=== PATIENT | male | born 1985 | race African-American/Black ===

== ENCOUNTER 2019-09-02 12:13 | Inpatient (IN) | payer BC ==
[2019-09-02] MEDS ORDERED: LABETALOL 5 MG/ML VIAL MDV IVP STA ×3 (13:14→14:59)
[2019-09-02] MEDS ORDERED: SODIUM CHLORIDE 0.9% 1,000 ML IV SCH (13:15)
[2019-09-02] MEDS ORDERED: KETOROLAC 30 MG/ML 1 ML VIAL IVP STA (13:15)
[2019-09-02] MEDS ORDERED: SODIUM CHLORIDE 0.9% 1,000 ML IV ONE (13:15)
--- NOTE | 2019-09-02 13:17 | ED ---
Extremity Problem HPI <Yobani Tellez - Last Filed: 09/02/19 16:04> - General Source: patient, RN notes reviewed, old records reviewed Mode of arrival: ambulatory Limitations: no limitations <Nasrin Mayer - Last Filed: 09/02/19 16:13> - General Chief complaint: Extremity Problem,Nontraumatic Stated complaint: foot pain/swelling Time Seen by Provider: 09/02/19 12:52 - History of Present Illness Initial comments: Patient is a 33-year-old -[place] male. He presents today with chief complaint of right foot pain. He reports it's mainly within the first metatarsal area. He reports no trauma to the foot. Patient is also found to be hypertensive on triage. Patient relates that he has not taken his blood pressure medications in over 4 months. He stated that his blood pressure medications just made him feel tired and fatigue and worse and felt that he did not need to take them anymore. He has not followed with his primary care doctor in quite some time. She denies any chest pain or shortness of breath. Patient denies any headache. Patient reports that he has no known history of kidney disease. He reports no changes in urination. (Nasrin Mayer) - Related Data Home Medications Medication Instructions Recorded Confirmed No Known Home Medications 09/02/19 09/02/19 Allergies Allergy/AdvReac Type Severity Reaction Status Date / Time No Known Allergies Allergy Verified 09/02/19 15:48 Review of Systems ROS Other: All systems not noted in ROS Statement are negative. <Yobani Tellez - Last Filed: 09/02/19 16:04> ROS Other: All systems not noted in ROS Statement are negative. <Nasrin Mayer - Last Filed: 09/02/19 16:13> ROS Statement: Those systems with pertinent positive or pertinent negative responses have been documented in the HPI. Past Medical History Past Medical History: Hypertension History of Any Multi-Drug Resistant Organisms: None Reported Past Surgical History: No Surgical Hx Reported Smoking Status: Never smoker Past Alcohol Use History: Occasional Past Drug Use History: None Reported <Nasrin Mayer - Last Filed: 09/02/19 16:13> General Exam Limitations: no limitations General appearance: alert, in no apparent distress Head exam: Present: atraumatic, normocephalic, normal inspection Eye exam: Present: normal appearance, PERRL, EOMI. Absent: scleral icterus, conjunctival injection, periorbital swelling ENT exam: Present: normal exam, mucous membranes moist Neck exam: Present: normal inspection. Absent: tenderness, meningismus, lymphadenopathy Respiratory exam: Present: normal lung sounds bilaterally. Absent: respiratory distress, wheezes, rales, rhonchi, stridor Cardiovascular Exam: Present: regular rate, normal rhythm, normal heart sounds. Absent: systolic murmur, diastolic murmur, rubs, gallop, clicks GI/Abdominal exam: Present: soft, normal bowel sounds. Absent: distended, tenderness, guarding, rebound, rigid Extremities exam: Present: normal inspection, full ROM, normal capillary refill. Absent: tenderness, pedal edema, joint swelling, calf tenderness Right Lower Leg exam: Present: normal inspection, full ROM Ankle exam: Present: normal inspection, full ROM Foot/Toe exam: Present: normal inspection, full ROM, tenderness (Patient has some tenderness and warmth to the right first distal MTP.) Neurovascular tendon exam: Present: no vascular compromise Gait: observed and normal Back exam: Present: normal inspection Neurological exam: Present: alert, oriented X3, CN II-XII intact Psychiatric exam: Present: normal affect, normal mood Skin exam: Present: warm, dry, intact, normal color. Absent: rash <Nasrin Mayer - Last Filed: 09/02/19 16:13> - General Exam Comments Initial Comments: 33-year-old male. (Nasrin Mayer) Course Vital Signs 09/02/19 09/02/19 09/02/19 12:26 14:18 14:22 Temperature 98.1 F Pulse Rate 77 90 82 Respiratory 18 18 16 Rate Blood Pressure 223/148 202/131 202/131 O2 Sat by Pulse 97 98 100 Oximetry 09/02/19 09/02/19 09/02/19 14:30 14:40 14:50 Temperature Pulse Rate 78 71 68 Respiratory 17 20 22 Rate Blood Pressure 204/124 193/136 193/136 O2 Sat by Pulse 99 Oximetry 09/02/19 09/02/19 09/02/19 15:00 15:13 15:30 Temperature Pulse Rate 68 70 66 Respiratory 16 16 Rate Blood Pressure 193/136 182/138 179/122 O2 Sat by Pulse Oximetry Medical Decision Making - Lab Data Result diagrams: 09/02/19 13:40 09/02/19 13:40 <Yobani Tellez - Last Filed: 09/02/19 16:04> - Lab Data Result diagrams: 09/02/19 13:40 09/02/19 13:40 - Radiology Data Radiology results: report reviewed <Nasrin Mayer - Last Filed: 09/02/19 16:13> - Medical Decision Making Patient reevaluated by myself, Dr. Tellez. Patient resting comfortably in bed. Patient complains of right first metatarsal discomfort started yesterday and worsened throughout the night. Discomfort is greatly increased with movement. Patient has noticed some swelling and there is swelling noticed on exam. No color change. Radial and dorsalis pedis pulses 2/4 bilaterally. Patient denies any chest discomfort or dyspnea. Case was discussed in detail with Dr. laguna who will admit. He does not want any heparin secondary to hypertension. He does request ICU admission and consult for cardiology and ICU. Case was discussed with Dr. Akins who will consult. He recommended continued current treatment with antihypertensives. He does not feel heparin was necessary at this time. Dr. Garcia has been paged. Case was also discussed with Dr. Garcia, who will consult. He is agreeable with labetalol roseanna. (Yobani Tellez) Patient is a 33-year-old male, presents emergency department today for evaluation for chief complaint of right foot pain, nontraumatic. Some tender ness over the first MTP joint. Initial concern was for gout. He was found to be extremely hypertensive upon arrival. Blood pressures to 30s over 140s. He reports his been noncompliant with his blood pressure medication for over 4 months. He states he has no known history of kidney disease. He denies any symptoms related to the elevated blood pressure including chest pain shortness of breath or headache. At this time patient's was given IV fluids, lab work obtained. He was given initially 20 mg labetalol, continued to be hypertensive, was given 40 mg labetalol. Blood work is obtained shows evidence of elevated BUN and creatinine, concern for kidney disease. We have no previous kidney function test to evaluate. Urinalysis is positive for protein. Patient's EKG did show some left ventricular hypertrophy, ST antimanic consider lateral ischemia. No sign of ST elevation in the same. Patient EKG was shown to Dr. Tellez, he With not complaining of chest pain we did get a troponin. This was noted elevated 0.130. Chest x-ray shows evidence of cardiomegaly.. Likely troponin elevation is related to kidney disease. I informed Patient of all these findings. I discussed that this is related to gout but otherwise more concerning finding is the hypertensive emergency. Patient will be admitted at this time. Dr. Tellez dsicussed case with Dr. laguna. ([facility] - Lab Data Lab Results 09/02/19 09/02/19 09/02/19 Range/Units 13:40 13:40 13:40 WBC 7.5 (3.8-10.6) k/uL RBC 5.05 (4.30-5.90) m/uL Hgb 14.6 (13.0-17.5) gm/dL Hct 42.1 (39.0-53.0) % MCV 83.5 (80.0-100.0) fL MCH 28.9 (25.0-35.0) pg MCHC 34.6 (31.0-37.0) g/dL RDW 14.0 (11.5-15.5) % Plt Count 240 (150-450) k/uL Neutrophils % 71 % Lymphocytes % 16 % Monocytes % 6 % Eosinophils % 4 % Basophils % 1 % Neutrophils # 5.3 (1.3-7.7) k/uL Lymphocytes # 1.2 (1.0-4.8) k/uL Monocytes # 0.4 (0-1.0) k/uL Eosinophils # 0.3 (0-0.7) k/uL Basophils # 0.1 (0-0.2) k/uL PT 10.4 (9.0-12.0) sec INR 1.0 (<1.2) APTT 25.7 (22.0-30.0) sec Sodium 141 (137-145) mmol/L Potassium 3.6 (3.5-5.1) mmol/L Chloride 106 (98-107) mmol/L Carbon Dioxide 28 (22-30) mmol/L Anion Gap 7 mmol/L BUN 54 H (9-20) mg/dL Creatinine 4.20 H (0.66-1.25) mg/dL Est GFR (CKD-EPI)AfAm 20 (>60 ml/min/1.73 sqM) Est GFR (CKD-EPI)NonAf 18 (>60 ml/min/1.73 sqM) Glucose 102 H (74-99) mg/dL Uric Acid 11.8 H (3.5-8.5) mg/dL Calcium 9.1 (8.4-10.2) mg/dL Total Bilirubin 0.8 (0.2-1.3) mg/dL AST 23 (17-59) U/L ALT 25 (21-72) U/L Alkaline Phosphatase 70 (38-126) U/L Troponin I (0.000-0.034) ng/mL Total Protein 6.8 (6.3-8.2) g/dL Albumin 3.7 (3.5-5.0) g/dL Urine Color Urine Appearance (Clear) Urine pH (5.0-8.0) Ur Specific [place] (1.001-1.035) Urine Protein (Negative) Urine Glucose (UA) (Negative) Urine Ketones (Negative) Urine Blood (Negative) Urine Nitrite (Negative) Urine Bilirubin (Negative) Urine Urobilinogen (<2.0) mg/dL Ur Leukocyte Esterase (Negative) Urine RBC (0-5) /hpf Urine WBC (0-5) /hpf Ur Squamous Epith Cells (0-4) /hpf Urine Mucus (None) /hpf 09/02/19 09/02/19 Range/Units 13:40 14:10 WBC (3.8-10.6) k/uL RBC (4.30-5.90) m/uL Hgb (13.0-17.5) gm/dL Hct (39.0-53.0) % MCV (80.0-100.0) fL MCH (25.0-35.0) pg MCHC (31.0-37.0) g/dL RDW (11.5-15.5) % Plt Count (150-450) k/uL Neutrophils % % Lymphocytes % % Monocytes % % Eosinophils % % Basophils % % Neutrophils # (1.3-7.7) k/uL Lymphocytes # (1.0-4.8) k/uL Monocytes # (0-1.0) k/uL Eosinophils # (0-0.7) k/uL Basophils # (0-0.2) k/uL PT (9.0-12.0) sec INR (<1.2) APTT (22.0-30.0) sec Sodium (137-145) mmol/L Potassium (3.5-5.1) mmol/L Chloride (98-107) mmol/L Carbon Dioxide (22-30) mmol/L Anion Gap mmol/L BUN (9-20) mg/dL Creatinine (0.66-1.25) mg/dL Est GFR (CKD-EPI)AfAm (>60 ml/min/1.73 sqM) Est GFR (CKD-EPI)NonAf (>60 ml/min/1.73 sqM) Glucose (74-99) mg/dL Uric Acid (3.5-8.5) mg/dL Calcium (8.4-10.2) mg/dL Total Bilirubin (0.2-1.3) mg/dL AST (17-59) U/L ALT (21-72) U/L Alkaline Phosphatase (38-126) U/L Troponin I 0.103 H* (0.000-0.034) ng/mL Total Protein (6.3-8.2) g/dL Albumin (3.5-5.0) g/dL Urine Color Yellow Urine Appearance Clear (Clear) Urine pH 6.0 (5.0-8.0) Ur Specific [place] 1.016 (1.001-1.035) Urine Protein 3+ H (Negative) Urine Glucose (UA) Trace H (Negative) Urine Ketones Negative (Negative) Urine Blood Small H (Negative) Urine Nitrite Negative (Negative) Urine Bilirubin Negative (Negative) Urine Urobilinogen <2.0 (<2.0) mg/dL Ur Leukocyte Esterase Negative (Negative) Urine RBC 1 (0-5) /hpf Urine WBC 1 (0-5) /hpf Ur Squamous Epith Cells <1 (0-4) /hpf Urine Mucus Rare H (None) /hpf 09/02/19 15:03 EKG performed at 1407 shows sinus rhythm left axis deviation. Left ventricle hypertrophy with QRS widening. ST and T-wave abnormality, consider lateral ischemia. Prolonged QT. Abnormal EKG. Ventricular rate of 60 bpm. IL interval 200 ms. QS duration is 118 ms. QT QTc is 460/4 and 97 ms. (Nasrin Mayer) - Radiology Data EKG shows mild osteoarthritis to the first MP joint. Mild calcaneal spurring. No fracture. No evidence of inflammatory arthritis. Chest x-ray shows evidence of cardiomegaly. No definite acute lung disease. (Nasrin Mayer) Critical Care Time Critical Care Time: Yes Total Critical Care Time: 30 <Nasrin Mayer - Last Filed: 09/02/19 16:13> Critical Care Time: Greater than 30 minutes of critical care time was used managing patient's blood pressure, troponin lab results and repeat EKG and chest x-ray findings. Patient is an ICU admit. (Nasrin Mayer) Disposition <Yobani Tellez - Last Filed: 09/02/19 16:04> Is patient prescribed a controlled substance at d/c from ED?: No Time of Disposition: 16:12 <Nasrin Mayer - Last Filed: 09/02/19 16:13> Clinical Impression: Hypertensive emergency, Gout, Renal failure Disposition: ADMITTED IP TO THIS HOSP Condition: Critical Referrals: None,Stated [Primary Care Provider] - 1-2 days
[2019-09-02 13:53] LABS: Basophils # (A) 0.1 k/uL (0-0.2); Basophils % (A) 1 %; Eosinophils # (A) 0.3 k/uL (0-0.7); Eosinophils % (A) 4 %; HCT 42.1 % (39.0-53.0); HGB 14.6 gm/dL (13.0-17.5); Lymphocytes # (A) 1.2 k/uL (1.0-4.8); Lymphocytes % (A) 16 %; MCH 28.9 pg (25.0-35.0); MCHC 34.6 g/dL (31.0-37.0); MCV 83.5 fL (80.0-100.0); Mean Platelet Volume 7.7; Monocytes # (A) 0.4 k/uL (0-1.0); Monocytes % (A) 6 %; Neutrophils # (A) 5.3 k/uL (1.3-7.7); Neutrophils % (A) 71 %; Platelet Count 240 k/uL (150-450); RBC 5.05 m/uL (4.30-5.90); WBC 7.5 k/uL (3.8-10.6)
[2019-09-02 14:04] LABS: Partial Thromboplastin Time 25.7 sec (22.0-30.0); Prothrombin Time 10.4 sec (9.0-12.0)
[2019-09-02 14:06] LABS: Albumin 3.7 g/dL (3.5-5.0); Calcium 9.1 mg/dL (8.4-10.2); Potassium 3.6 mmol/L (3.5-5.1); Total Bilirubin 0.8 mg/dL (0.2-1.3); Total Protein 6.8 g/dL (6.3-8.2); Uric Acid 11.8 mg/dL (3.5-8.5)
--- NOTE | 2019-09-02 14:16 | XR ---
EXAMINATION TYPE: XR foot complete RT DATE OF EXAM: 09/02/2019 COMPARISON: NONE HISTORY: Foot pain TECHNIQUE: 3 views FINDINGS: There is some spurring at the first MP joint. I see no fracture nor dislocation. There are plantar and Achilles calcaneal spurs. IMPRESSION: Mild osteoarthritis at the first MP joint. Mild calcaneal spurring. No fracture. No evide nce of inflammatory arthritis.
[2019-09-02 14:17] LABS: Appearance,Urine Clear (Clear); Bilirubin,Urine Negative (Negative); Blood,Urine Small (Negative); Color,Urine Yellow; Glucose,Urine (UA) Trace (Negative); Ketones,Urine Negative (Negative); Leukocyte Esterase,Urine Negative (Negative); Mucus,Urine Rare /hpf; Nitrite,Urine Negative (Negative); Protein,Urine 3+ (Negative); RBC,Urine 1 /hpf (0-5); Specific Gravity,Urine 1.016 (1.001-1.035); Squamous Epithelial Cell,Urine <1 /hpf (0-4); Urobilinogen,Urine <2.0 mg/dL (<2.0)
--- NOTE | 2019-09-02 14:17 | XR ---
EXAMINATION TYPE: XR chest 2V DATE OF EXAM: 09/02/2019 COMPARISON: NONE HISTORY: Foot pain TECHNIQUE: Frontal and lateral views of the chest are obtained. FINDINGS: Heart is enlarged. There is slight increased lung markings. There is no overt heart failur e. There is no pleural effusion. There are no hilar masses. Bony thorax is intact. IMPRESSION: Cardiomegaly. No definite acute lung disease.
[2019-09-02] MEDS ORDERED: hydrALAZINE HCL 20 MG/ML 1 ML VIAL IVP STA (15:55)
[2019-09-02] MEDS ORDERED: LABETALOL 100 MG in SODIUM CHLORIDE 0.9% 80 ML IV ONE (16:02)
[2019-09-02] MEDS ORDERED: NALOXONE 0.4 MG/ML 1 ML VIAL IV PRN (16:13)
[2019-09-02] MEDS ORDERED: hydrALAZINE HCL 50 MG TAB PO PRN (16:41)
[2019-09-02] MEDS ORDERED: ACETAMINOPHEN TAB 325 MG TAB PO PRN (16:43)
--- NOTE | 2019-09-02 16:53 | P.HPIM ---
History of Present Illness 33-year-old pleasant male came in with complains of pain in the left foot area and the first metatarsal area found to have osteo-arthritis of that area. Patient will be started on tramadol for that patient is being admitted with con cerns of hypertensive urgency although do not believe patient has evidence emergency patient is known hypertensive with on a kidney disease. 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 Kidney biopsy was obtained 2 years ago patient was also started on antidepressant medications which she stopped taking as they made him feel worse. Patient blood pressures very high in systolics of 200 and diastolics of about 110. 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 Patient does have minimally elevated troponin without any chest pain or significant ST-T wave changes on the EKG and this troponin elevation is secondary to renal failure and chronic kidney disease. I do not expect his kidney function to improve with IV fluids with and with concerns of elevated blood pressure on disc any IV fluids. Nephrology will be consult and will obtain medical records of his kidney biopsy. Patient will be monitored here will repeat 2 more sets of troponins. Denied any chest pain, denied any shortness of breath chest x-ray did not show any pulmonary edema my denied any abdominal pain denied any blurry vision denied any headache or confusion. Chest x-ray is consistent with cardiomegaly probably has hypertensive heart disease. Review of Systems REVIEW OF SYSTEMS: CONSTITUTIONAL: No fever, no malaise, no fatigue. HEENT: No recent visual problems or hearing problems. Denied any sore throat. CARDIOVASCULAR: No chest pain, orthopnea, PND, no palpitations, no syncope. PULMONARY: No shortness of breath, no cough, no hemoptysis. GASTROINTESTINAL: No diarrhea, no nausea, no vomiting, no abdominal pain. NEUROLOGICAL: No headaches, no weakness, no numbness. HEMATOLOGICAL: Denies any bleeding or petechiae. GENITOURINARY: Denies any burning micturition, frequency, or urgency. MUSCULOSKELETAL/RHEUMATOLOGICAL: As mentioned above ENDOCRINE: Denies any polyuria or polydipsia. The rest of the 14-point review of systems is negative. Past Medical History Past Medical History: Hypertension History of Any Multi-Drug Resistant Organisms: None Reported Past Surgical History: No Surgical Hx Reported Smoking Status: Never smoker Past Alcohol Use History: Occasional Past Drug Use History: None Reported Medications and Allergies Home Medications Medication Instructions Recorded Confirmed Type No Known Home Medications 09/02/19 09/02/19 History Allergies Allergy/AdvReac Type Severity Reaction Status Date / Time No Known Allergies Allergy Verified 09/02/19 15:48 Physical Exam Vitals: Vital Signs Temp Pulse Resp BP Pulse Ox 09/02/19 16:00 68 16 185/131 98 09/02/19 15:30 66 16 179/122 09/02/19 15:13 70 182/138 09/02/19 15:00 68 16 193/136 09/02/19 14:50 68 22 193/136 09/02/19 14:40 71 20 193/136 09/02/19 14:30 78 17 204/124 99 09/02/19 14:22 82 16 202/131 100 09/02/19 14:18 90 18 202/131 98 09/02/19 12:26 98.1 F 77 18 223/148 97 Intake and Output 09/02/19 09/02/19 09/02/19 06:59 14:59 22:59 Other: Weight 135.488 kg PHYSICAL EXAMINATION: GENERAL: The patient is alert and oriented x3, not in any acute distress. Obese HEENT: Pupils are round and equally reacting to light. EOMI. No scleral icterus. No conjunctival pallor. Normocephalic, atraumatic. No pharyngeal erythema. No thyromegaly. CARDIOVASCULAR: S1 and S2 present. No murmurs, rubs, or gallops. PULMONARY: Chest is clear to auscultation, no wheezing or crackles. ABDOMEN: Soft, nontender, nondistended, normoactive bowel sounds. No palpable organomegaly. MUSCULOSKELETAL: No joint swelling or deformity. EXTREMITIES: No cyanosis, clubbing, or pedal edema. NEUROLOGICAL: Gross neurological examination did not reveal any focal deficits. SKIN: No rashes. Results CBC & Chem 7: 09/02/19 13:40 09/02/19 13:40 Labs: Abnormal Lab Results - Last 24 Hours (Table) 09/02/19 09/02/19 09/02/19 Range/Units 13:40 13:40 14:10 BUN 54 H (9-20) mg/dL Creatinine 4.20 H (0.66-1.25) mg/dL Glucose 102 H (74-99) mg/dL Uric Acid 11.8 H (3.5-8.5) mg/dL Troponin I 0.103 H* (0.000-0.034) ng/mL Urine Protein 3+ H (Negative) Urine Glucose (UA) Trace H (Negative) Urine Blood Small H (Negative) Urine Mucus Rare H (None) /hpf Assessment and Plan Plan: Left foot pain secondary to osteoarthritis metatarsal first on the left side there is no evidence of gout clinically or radiologically. Uric acid level cannot be used for diagnosis of gouty attack. will be started on tramadol as I cannot use another an assays because of his kidney dysfunction -Accelerated hypertension uncontrolled blood pressure: This is chronic elevation of blood pressure patient doesn't have hypertensive emergency avoid IV antihypertensive medications to avoid sudden drops in blood pressure leading to stroke or worsening kidney function. Patient will be started on amlodipine, as needed hydralazine or labetalol only for the blood pressures greater than 200 / 1 10 systolics -Renal failure appears to have chronic kidney disease probably FSGS will obtain medical records from [facility] where he had biopsy of the kidney done. -Elevated troponin secondary to chronic kidney disease. No intervention is necessary we'll repeat 2 more sets of troponin make sure troponins are not going up -Obesity: Counseling was provided patient will be on cardiac diet DVT prophylaxis early ambulation
[2019-09-02 17:32] VITALS: BMI 38.3
[2019-09-02] MEDS: LABETALOL 100 MG TAB PO PRN (17:52)
[2019-09-02] MEDS: amLODIPine 10 MG TAB PO SCH (17:52)
[2019-09-03 06:59] LABS: Calcium 8.8 mg/dL (8.4-10.2); Potassium 2.9 mmol/L (3.5-5.1)
[2019-09-03] MEDS ORDERED: POTASSIUM CHLORIDE ER 20 MEQ TAB.ER PO STA ×2 (07:40→10:50)
[2019-09-03] MEDS: amLODIPine 10 MG TAB PO SCH (08:32)
--- NOTE | 2019-09-03 10:59 | P.NPCON ---
History of Present Illness - Reason for Consult acute renal failure - History of Present Illness Reason for consultation: Acute kidney injury History of present illness: Patient is a 33-year-old male seen in consultation for acute kidney injury. Patient's creatinine was 4.1 admission and is 3.83 today. Unclear as to what his baseline renal function is. Patient states 2 years ago he was told about kidney issues all he was at [facility]. He denies being on any replacement therapy in the past. Patient states he has long-standing history of high blood pressure stop taking his meds several months ago as he did not like the side effects. Patient's blood pressure this admission has been quite elevated and he is currently maintained on amlodipine along with as needed labetalol and hydralazine. He denies chest pain or shortness of breath. He denies edema. He denies hematuria or dysuria. No vomiting or diarrhea. No fever or chills. No headaches. No history of diabetes. Denies history of HIV or hepatitis. Denies use of illicit drugs. Patient initially presented with foot pain which seems to have improved. Denies family history of renal disease. Vital signs are stable. General: The patient appeared well nourished and normally developed. HEENT: Head exam is unremarkable. Neck is without jugular venous distension. LUNGS: Lungs are clear to auscultation and percussion. Breath sounds decreased. HEART: Rate and Rhythm are regular. First and second heart sounds normal. No murmurs, rubs or gallops. ABDOMEN: Abdominal exam reveals normal bowel sounds. Non-tender and non- distended. No evidence of peritonitis. EXTREMITITES: No clubbing, cyanosis, or edema. Past Medical History Past Medical History: Hypertension History of Any Multi-Drug Resistant Organisms: None Reported Past Surgical History: No Surgical Hx Reported Past Anesthesia/Blood Transfusion Reactions: No Reported Reaction Past Psychological History: No Psychological Hx Reported Smoking Status: Never smoker Past Alcohol Use History: Occasional Past Drug Use History: None Reported - Past Family History Mother Family Medical History: Diabetes Mellitus Father Family Medical History: Unable to Obtain Medications and Allergies Home Medications Medication Instructions Recorded Confirmed Type No Known Home Medications 09/02/19 09/02/19 History Allergies Allergy/AdvReac Type Severity Reaction Status Date / Time No Known Allergies Allergy Verified 09/02/19 15:48 Physical Exam Vitals: Vital Signs Temp Pulse Pulse Resp BP BP BP 09/03/19 08:33 98.2 F 70 16 187/122 09/03/19 05:04 171/106 09/03/19 03:51 97.6 F 77 18 189/127 196/128 09/03/19 03:30 70 18 09/02/19 23:19 70 18 09/02/19 23:14 98.0 F 70 18 166/102 09/02/19 20:00 98.2 F 67 18 160/101 09/02/19 18:14 98.3 F 74 16 191/129 09/02/19 17:18 98.3 F 74 16 191/124 09/02/19 16:30 65 24 189/135 09/02/19 16:00 68 16 185/131 09/02/19 15:30 66 16 179/122 09/02/19 15:13 70 182/138 09/02/19 15:00 68 16 193/136 09/02/19 14:50 68 22 193/136 09/02/19 14:40 71 20 193/136 09/02/19 14:30 78 17 204/124 09/02/19 14:22 82 16 202/131 09/02/19 14:18 90 18 202/131 09/02/19 12:26 98.1 F 77 18 223/148 Pulse Ox 09/03/19 08:33 98 09/03/19 05:04 09/03/19 03:51 97 09/03/19 03:30 09/02/19 23:19 09/02/19 23:14 97 09/02/19 20:00 99 09/02/19 18:14 99 09/02/19 17:18 99 09/02/19 16:30 09/02/19 16:00 98 09/02/19 15:30 09/02/19 15:13 09/02/19 15:00 09/02/19 14:50 09/02/19 14:40 09/02/19 14:30 99 09/02/19 14:22 100 09/02/19 14:18 98 09/02/19 12:26 97 Intake and Output 09/02/19 09/03/19 09/03/19 22:59 06:59 14:59 Intake Total 360 480 Output Total 600 Balance 360 -120 Intake: Oral 360 480 Output: Urine 600 Other: Voiding Method Toilet Toilet Toilet # Voids 2 1 Weight 135.6 kg 135.3 kg Results - Lab Results Most recent lab results Calcium 8.8 mg/dL (8.4-10.2) 09/03/19 06:27 09/02/19 13:40 09/03/19 06:27 Assessment and Plan Plan: Assessment: 1. Acute kidney injury mostly prerenal secondary to hemodynamic instability. Creatinine 4.2 on admission and is 3.83 today. Unknown baseline renal function. Rule out GN. Patient does have proteinuria on UA. 2. Accelerated hypertension secondary to noncompliance with medications. Check secondary causes in view of hypokalemia. 3. Hypokalemia. Rule out aldosterone excess. Being replaced. Plan: Replace potassium. 60 mEq today. Check urine potassium. Quantify proteinuria and check serologies. Add hydralazine 100 mg 3 times daily. Maintain amlodipine 10 mg once daily. Check a renin and aldosterone levels, plasma metanephrines. Check renal artery duplex ultrasound. No urgent need for renal replacement therapy at this time. Repeat electrolytes in the morning. Thank you for the consultation. I will continue to follow the patient with you during his hospital stay.
[2019-09-03] MEDS: hydrALAZINE HCL 50 MG TAB PO SCH ×3 (11:08→20:45)
--- NOTE | 2019-09-03 15:47 | P.PN ---
Subjective 33-year-old male was admitted for red acute renal failure and actually did hypertension patient does have proteinuria. Patient is undergoing workup for chronic kidney disease. [facility] to [facility] the [facility] Nephrology shaking urine and urine potassium quantifying, dysuria and obtaining a renal artery duplex ultrasound and may need a biopsy of the kidney. This patient's serum creatinine did improve to 3.5 from around 4.2. Patient is presently on amlodipine and hydralazine. 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 Objective - Vital Signs Vital signs: Vital Signs Temp 98.2 F 09/03/19 12:00 Pulse 80 09/03/19 12:00 Resp 18 09/03/19 12:00 BP 173/102 09/03/19 12:00 Pulse Ox 100 09/03/19 12:00 Intake & Output 09/02/19 09/03/19 09/03/19 18:59 06:59 18:59 Intake Total 360 702 Output Total 600 Balance 360 102 Weight 135.6 kg 135.3 kg Intake: Oral 360 702 Output: Urine 600 Other: Voiding Method Toilet Toilet # Voids 2 1 - Exam PHYSICAL EXAMINATION: GENERAL: The patient is alert and oriented x3, not in any acute distress. Obese HEENT: Pupils are round and equally reacting to light. EOMI. No scleral icterus. No conjunctival pallor. Normocephalic, atraumatic. No pharyngeal erythema. No thyromegaly. CARDIOVASCULAR: S1 and S2 present. No murmurs, rubs, or gallops. PULMONARY: Chest is clear to auscultation, no wheezing or crackles. ABDOMEN: Soft, nontender, nondistended, normoactive bowel sounds. No palpable organomegaly. MUSCULOSKELETAL: No joint swelling or deformity. EXTREMITIES: No cyanosis, clubbing, or pedal edema. NEUROLOGICAL: Gross neurological examination did not reveal any focal deficits. SKIN: No rashes. - Labs CBC & Chem 7: 09/02/19 13:40 09/03/19 06:27 Labs: Abnormal Lab Results - Last 24 Hours (Table) 09/02/19 09/03/19 09/03/19 Range/Units 19:52 01:41 06:27 Potassium 2.9 L (3.5-5.1) mmol/L BUN 48 H (9-20) mg/dL Creatinine 3.83 H (0.66-1.25) mg/dL Troponin I 0.090 H* 0.104 H* (0.000-0.034) ng/mL U Random Total Protein (<12) mg/dL 09/03/19 Range/Units 11:53 Potassium (3.5-5.1) mmol/L BUN (9-20) mg/dL Creatinine (0.66-1.25) mg/dL Troponin I (0.000-0.034) ng/mL U Random Total Protein 503 H (<12) mg/dL Assessment and Plan Plan: Left foot pain secondary to osteoarthritis metatarsal first on the left side there is no evidence of gout clinically or radiologically. -Accelerated hypertension uncontrolled blood pressure: It amlodipine and hydralazine -Renal failure possibly of chronic kidney disease although may have a competent of acute renal failure. Please Pertinent nephrology documentation for further details serum creatinine did improve further workup for renal failure as mentioned above, etiology of renal failure is unknown at this time -Elevated troponin secondary to chronic kidney disease. No intervention is necessary we'll repeat 2 more sets of troponin make sure troponins are not going up -Obesity: Counseling was provided patient will be on cardiac diet DVT prophylaxis early ambulation
[2019-09-03 17:09] LABS: Hepatitis B Core IgM Non-Reactive (Non-Reactive); Hepatitis B Surface Antigen Non-Reactive (Non-Reactive); Hepatitis C IgG Antibody Non-Reactive (Non-Reactive)
[2019-09-03 17:10] LABS: Hepatitis A Antibody IgM Non-Reactive (Non-Reactive)
[2019-09-03 17:22] LABS: Anti-DNA, DS unit <1.0 IU/mL; DNA Double-Stranded NEGATIVE (NEGATIVE)
[2019-09-03] MEDS: traMADol 50 MG TAB PO PRN (20:04)
[2019-09-03] MEDS: LABETALOL 100 MG TAB PO PRN (23:31)
[2019-09-04] MEDS: hydrALAZINE HCL 50 MG TAB PO SCH ×3 (06:09→22:11)
[2019-09-04] MEDS: amLODIPine 10 MG TAB PO SCH (06:09)
[2019-09-04] MEDS ORDERED: hydrALAZINE HCL 20 MG/ML 1 ML VIAL IVP STA (08:20)
[2019-09-04 09:03] LABS: Albumin 3.7 g/dL (3.5-5.0); Calcium 9.3 mg/dL (8.4-10.2); Potassium 3.5 mmol/L (3.5-5.1); Total Bilirubin 1.1 mg/dL (0.2-1.3); Total Protein 6.8 g/dL (6.3-8.2)
--- NOTE | 2019-09-04 09:26 | US ---
EXAMINATION TYPE: US renal artery duplex complete DATE OF EXAM: 09/04/2019 COMPARISON: NONE CLINICAL HISTORY: 34-year-old male with acute kidney injury, hypertension. HTN for 2 years, patient n ot on any medication TECHNIQUE: Duplex Doppler ultrasound examination of the renal artery system and abdominal aorta. FINDINGS: MEASUREMENTS: RENAL SIZE: Rt Kidney: 10.4 x 5.2 x 4.6cm Lt Kidney: 10.0 x 5.0 x 4.5cm No hydronephrosis on either side. Somewhat echogenic appearance to the renal parenchyma. RESISTANCE INDEX Right: 0.65 Left: 0.56 Aortic peak systolic velocity 68.7 cm/s RA/AO RATIO (< 3.5 ) Right: 1.2 Left: 1.4 RA VELOCITY ( < 180 cm/s) Right: 81.9cm/s Left: 94.6cm/s Celery Packer notes:Technical limitations due to patient's body habitus and large amount of overlyin g bowel content. Kidneys appear echogenic. Limited evaluation of renal arteries Proximal abdominal aortic caliber is borderline ectatic at 2.5 cm. IMPRESSION: 1. Echogenic appearance to the kidneys may be normal variation. Chronic kidney disease, interstitial nephritis, and sickle cell disease are some differential considerations. 2. Limited exam due to patient body habitus and bowel gas. No Doppler evidence for renal artery steno sis.
[2019-09-04] MEDS: LABETALOL 100 MG TAB PO PRN (10:10)
[2019-09-04] MEDS: traMADol 50 MG TAB PO PRN (10:10)
--- NOTE | 2019-09-04 11:25 | CDI ---
Documentation Clarification Form Date: 09/04/2019 11:14:05 AM From: Floresita DengCardonaPIERRE price, CCDS Admit Date: 09/02/2019 4:04:00 PM Patient Name: Jerel Deleon Visit Number: [id number] Discharge Date: ATTENTION: The Clinical Documentation Specialists (CDI) and [facility] Coding Staff appreciate your assistance in clarifying documentation. Please respond to the clarification below the line at the bottom and electronically sign. The CDI & [facility] Coding staff will review the response and follow-up if needed. Please note: Queries are made part of the Legal Health Record. If you have any questions, please contact the author of this message via ITS. Dr. Everton Mirza: The patient presented with left foot pain, found to have osteoarthritis of the 1st metatarsal on the left foot. Incidentally found to have elevated blood pressure. Per the History & Physical: Admitted with concerns of hypertensive "urgency" although do not believe patient has emergency patient is known hypertensive with kidney disease. History/Risk Factors: Hypertension, OA, Obesity, BMI: 38.5 Clinical Indicators: Diagnosed with OA as above, acute on possible chronic kidney failure, workup in progress. Lab findings: BUN 54^, Cr 4.20^, Glucose 02^, Uric Acid 11.8^, Trops: 0.104^^, 0.090^^, 0.104^^. Radiology findings: CXR: Cardiomegaly. Renal US: CKD, interstitial nephritis & sickle cell disease in differential. No renal artery stenosis. Vital Signs: BP 223/148. Orthostatic 09/03: LAS: 189/127, MARISOL: 106/128. Treatment: IV Labetalol, IV Toradol, IV fluid bolus, IV fluid rate 100, IV Apresoline In your professional opinion, can you please clarify the type of hypertension? Crisis Emergency Urgency Other, please specify: Unable to determine (Last Revision: February 2018) Urgency MTDD
[2019-09-04] MEDS ORDERED: POTASSIUM CHLORIDE ER 20 MEQ TAB.ER PO STA (11:57)
--- NOTE | 2019-09-04 12:01 | P.PN ---
Subjective Patient is seen in follow-up for acute kidney injury. Creatinine was 4.21 admission and is stable at 3.85 today. Blood pressure remains elevated. Denies chest pain or shortness of breath. No vomiting or diarrhea. Vital signs are stable. General: The patient appeared well nourished and normally developed. HEENT: Head exam is unremarkable. Neck is without jugular venous distension. LUNGS: Lungs are clear to auscultation and percussion. Breath sounds decreased. HEART: Rate and Rhythm are regular. First and second heart sounds normal. No mu rmurs, rubs or gallops. ABDOMEN: Abdominal exam reveals normal bowel sounds. Non-tender and non-dis tended. No evidence of peritonitis. EXTREMITITES: No clubbing, cyanosis, or edema. Objective - Vital Signs Vital signs: Vital Signs Temp 98.2 F 09/04/19 04:55 Pulse 80 09/04/19 09:41 Resp 20 09/04/19 04:55 BP 206/137 09/04/19 09:41 Pulse Ox 98 09/04/19 04:55 Intake & Output 09/03/19 09/04/19 09/04/19 18:59 06:59 18:59 Intake Total 942 200 Output Total 600 Balance 342 200 Weight 135.851 kg Intake: Oral 942 200 Output: Urine 600 Other: Voiding Method Toilet Toilet # Voids 3 1 - Labs CBC & Chem 7: 09/02/19 13:40 09/04/19 08:12 Labs: Abnormal Lab Results - Last 24 Hours (Table) 09/03/19 09/04/19 Range/Units 11:53 08:12 BUN 42 H (9-20) mg/dL Creatinine 3.85 H (0.66-1.25) mg/dL ALT 19 L (21-72) U/L U Random Total Protein 503 H (<12) mg/dL Assessment and Plan Plan: Assessment: 1. Acute kidney injury mostly prerenal secondary to hemodynamic instability. Creatinine 4.2 on admission and is stable at 3.85 today. Unknown baseline renal function. Rule out GN. Patient does have proteinuria on UA. UPC 2.7 g. Serologies negative so far. No hydronephrosis noted on kidney ultrasound. 2. Accelerated hypertension secondary to noncompliance with medications. Check secondary causes in view of hypokalemia. No evidence of renal artery stenosis. 3. Hypokalemia. Rule out aldosterone excess. Better. Plan: Replace potassium. 40 mEq today. Follow-up urine potassium. Follow-up pending serologies. Follow-up renin and aldosterone levels, plasma metanephrines. Add torsemide 20 mg once daily. Add Coreg 12.5 mg twice daily. No urgent need for renal replacement therapy at this time. Schedule for kidney biopsy. Patient is agreeable. I will give him DDAVP prior to the kidney biopsy.
[2019-09-04] MEDS: CARVEDILOL 12.5 MG TAB PO SCH ×2 (12:36→17:06)
[2019-09-04] MEDS: TORSEMIDE 20 MG TAB PO SCH (12:36)
[2019-09-04] MEDS ORDERED: DESMOPRESSIN ACETATE 40 MCG in SODIUM CHLORIDE 0.9% 50 ML IVPB ONE (13:00)
[2019-09-04 14:28] LABS: C-ANCA <1:20 Titer (<1:20)
--- NOTE | 2019-09-04 16:41 | P.PN ---
Subjective 33-year-old male was admitted for red acute renal failure and actually did hypertension patient does have proteinuria. Patient is undergoing workup for chronic kidney disease. Try to get the biopsy results from the [facility]. Nephrology shaking urine and urine potassium quantifying, dysuria and obtaining a renal artery duplex ultrasound and may need a biopsy of the kidney. This patient's serum creatinine did improve to 3.5 from around 4.2. Patient is presently on amlodipine and hydralazine. 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 09/04/2019 Patient has highly elevated blood pressure which improved with after hydralazine and patient is also receiving as needed by mouth labetalol. Patient will undergo kidney biopsy patient the appears to have nephrotic range proteinuria, hepatitis panel is negative and there are time and workup is negative. Constitutional: Denied any fatigue denied any fever. Cardio vascular: denied any chest pain, palpitations Gastrointestinal denied any nausea vomiting Pulmonary: Denied any shortness of breath cough Neurologic denied any new focal deficits All inpatient medications were reviewed and appropriate changes in these medications as dictated in the interval history and assessment and plan. Objective - Vital Signs Vital signs: Vital Signs Temp 97.9 F 09/04/19 14:05 Pulse 72 09/04/19 14:05 Resp 16 09/04/19 14:05 BP 140/87 09/04/19 14:05 Pulse Ox 98 09/04/19 14:05 Intake & Output 09/03/19 09/04/19 09/04/19 18:59 06:59 18:59 Intake Total 942 200 480 Output Total 600 Balance 342 200 480 Weight 135.851 kg Intake: Oral 942 200 480 Output: Urine 600 Other: Voiding Method Toilet Toilet # Voids 3 1 3 - Exam PHYSICAL EXAMINATION: GENERAL: The patient is alert and oriented x3, not in any acute distress. Obese HEENT: Pupils are round and equally reacting to light. EOMI. No scleral icterus. No conjunctival pallor. Normocephalic, atraumatic. No pharyngeal erythema. No thyromegaly. CARDIOVASCULAR: S1 and S2 present. No murmurs, rubs, or gallops. PULMONARY: Chest is clear to auscultation, no wheezing or crackles. ABDOMEN: Soft, nontender, nondistended, normoactive bowel sounds. No palpable organomegaly. MUSCULOSKELETAL: No joint swelling or deformity. EXTREMITIES: No cyanosis, clubbing, or pedal edema. NEUROLOGICAL: Gross neurological examination did not reveal any focal deficits. SKIN: No rashes. - Labs CBC & Chem 7: 09/02/19 13:40 09/04/19 08:12 Labs: Abnormal Lab Results - Last 24 Hours (Table) 09/04/19 Range/Units 08:12 BUN 42 H (9-20) mg/dL Creatinine 3.85 H (0.66-1.25) mg/dL ALT 19 L (21-72) U/L Assessment and Plan Plan: Left foot pain secondary to osteoarthritis metatarsal first on the left side there is no evidence of gout clinically or radiologically. -Accelerated hypertension uncontrolled blood pressure: Will be continued on amlodipine and hydralazine and as needed labetalol -Renal failure possibly of chronic kidney disease although may have a competent of acute renal failure. Acute renal failure improved patient chronic kidney disease probably secondary to nephrotic syndrome patient has nephrotic range proteinuria, although edema and workup is negative patient will undergo kidney biopsy tomorrow -Elevated troponin secondary to chronic kidney disease. No intervention is necessary we'll repeat 2 more sets of troponin make sure troponins are not going up -Obesity: Counseling was provided patient will be on cardiac diet DVT prophylaxis early ambulation
[2019-09-04] MEDS ORDERED: CARVEDILOL 12.5 MG TAB PO STA (23:39)
[2019-09-05] MEDS: LABETALOL 100 MG TAB PO SCH ×2 (01:50→08:19)
[2019-09-05] MEDS: CARVEDILOL 12.5 MG TAB PO SCH ×2 (05:57→17:19)
[2019-09-05 06:06] LABS: Calcium 9.5 mg/dL (8.4-10.2); Potassium 3.9 mmol/L (3.5-5.1)
[2019-09-05 06:07] LABS: Prothrombin Time 10.7 sec (9.0-12.0)
[2019-09-05] MEDS: amLODIPine 10 MG TAB PO SCH (08:18)
[2019-09-05] MEDS: hydrALAZINE HCL 50 MG TAB PO SCH ×4 (08:18→21:20)
[2019-09-05] MEDS: TORSEMIDE 20 MG TAB PO SCH (08:19)
--- NOTE | 2019-09-05 09:24 | CDI ---
Documentation Clarification Form Date: 09/05/2019 9:16:01 AM From: Floresita Cardona CCS, CCDS Admit Date: 09/02/2019 4:04:00 PM Patient Name: Jerel Deleon Visit Number: [id number] Discharge Date: ATTENTION: The Clinical Documentation Specialists (CDI) and [facility] Coding Staff appreciate your assistance in clarifying documentation. Please respond to the clarification below the line at the bottom and electronically sign. The CDI & [facility] Coding staff will review the response and follow-up if needed. Please note: Queries are made part of the Legal Health Record. If you have any questions, please contact the author of this message via ITS. Dr. Lucho Laurent: Per the attending History & Physical and subsequent progress notes: Patient is undergoing workup for CKD. Per the 09/04 Renal US: CKD, interstitial nephritis & sickle cell disease are some differential considerations. History/Risk Factors: Hypertensive heart disease, OA, Obesity (BMI 38.5) Clinical Indicators: Presented with left foot pain secondary to OA metatarsal 1st on left foot, no gout, Hypertensive urgency, SANDRA prerenal secondary to hemodynamic instability, Hypokalemia & noncompliance with medications. BUN: 54 - 48 - 42 - 44 Creatinine: 4.20 - 3.83 - 3.85 - 4.02 GFR: 18 - 20 - 19 - 18 Patients Baseline BUN/CR/GFR: unknown or not documented. Treatment: IV Trandate, IV Toradol, IV fluid bolus, IV fluid rate 100, IV Apresoline, IV Labetalol In order to capture the severity of condition, please clarify if the condition signifies: CKD ruled out CKD ruled in o CKD Stage 1 (GFR > 90) o CKD Stage 2 (GFR 60-89) o CKD Stage 3 (GFR 30-59) o CKD Stage 4 (GFR 15-29) Other, please specify Unable to determine (Last Revision: February 2018) CKD-4 MTDD
--- NOTE | 2019-09-05 10:07 | P.PN ---
Subjective Patient is seen in follow-up for acute kidney injury. Renal function is a little worse today. Creatinine 4.02 today. Blood pressure remains elevated but better controlled compared to yesterday. Denies chest pain or shortness of breath. No vomiting or diarrhea. Vital signs are stable. General: The patient appeared well nourished and normally developed. HEENT: Head exam is unremarkable. Neck is without jugular venous distension. LUNGS: Lungs are clear to auscultation and percussion. Breath sounds decreased. HEART: Rate and Rhythm are regular. First and second heart sounds normal. No murmurs, rubs or gallops. ABDOMEN: Abdominal exam reveals normal bowel sounds. Non-tender and non- distended. No evidence of peritonitis. EXTREMITITES: No clubbing, cyanosis, or edema. Objective - Vital Signs Vital signs: Vital Signs Temp 98.5 F 09/05/19 05:10 Pulse 71 09/05/19 05:10 Resp 20 09/05/19 05:10 BP 160/99 09/05/19 08:17 Pulse Ox 98 09/05/19 05:10 Intake & Output 09/04/19 09/05/19 09/05/19 18:59 06:59 18:59 Intake Total 600 Balance 600 Intake: Oral 600 Other: Voiding Method Toilet # Voids 3 2 - Labs CBC & Chem 7: 09/02/19 13:40 09/05/19 05:34 Labs: Abnormal Lab Results - Last 24 Hours (Table) 09/03/19 09/05/19 Range/Units 10:48 05:34 BUN 44 H (9-20) mg/dL Creatinine 4.02 H (0.66-1.25) mg/dL Ur Random Microalbumin 233.8 H (0.0-1.9) mg/dL Microalb/Creat Ratio 1411 H (0-30) mg/g Creat Assessment and Plan Plan: Assessment: 1. Acute kidney injury mostly prerenal secondary to hemodynamic instability. Renal function a little worse today. Creatinine 4.02 today. Unknown baseline renal function. Rule out GN. Patient does have proteinuria on UA. UPC 2.7 g. Serologies negative. No hydronephrosis noted on kidney ultrasound. 2. Accelerated hypertension secondary to noncompliance with medications. Check secondary causes in view of hypokalemia. No evidence of renal artery stenosis. 3. Hypokalemia. Rule out aldosterone excess. Better. Plan: Follow-up renin and aldosterone levels, plasma metanephrines. Maintain current antihypertensives. Add spironolactone 25 mg once daily. No urgent need for renal replacement therapy at this time. Schedule for kidney biopsy. Patient is agreeable. IR notified. I will give him DDAVP prior to the kidney biopsy.
[2019-09-05] MEDS: SPIRONOLACTONE 25 MG TAB PO SCH (13:22)
[2019-09-05] MEDS: hydrALAZINE HCL 20 MG/ML 1 ML VIAL IVP PRN (17:56)
[2019-09-06] MEDS: hydrALAZINE HCL 20 MG/ML 1 ML VIAL IVP PRN ×2 (00:34→05:25)
--- NOTE | 2019-09-06 08:31 | P.PN ---
Subjective Progress Note Date: 09/05/19 Principal diagnosis: 33-year-old male was admitted for red acute renal failure and actually did hypertension patient does have proteinuria. Patient is undergoing workup for chronic kidney disease. Try to get the biopsy results from the [facility]. Nephrology shaking urine and urine potassium quantifying, dysuria and obtaining a renal artery duplex ultrasound and may need a biopsy of the kidney. This patient's serum creatinine did improve to 3.5 from around 4.2. Patient is presently on amlodipine and hydralazine. 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 09/04/2019 Patient has highly elevated blood pressure which improved with after hydralazine and patient is also receiving as needed by mouth labetalol. Patient will undergo kidney biopsy patient the appears to have nephrotic range proteinuria, hepatitis panel is negative and there are time and workup is negative. Constitutional: Denied any fatigue denied any fever. Cardio vascular: denied any chest pain, palpitations Gastrointestinal denied any nausea vomiting Pulmonary: Denied any shortness of breath cough Neurologic denied any new focal deficits All inpatient medications were reviewed and appropriate changes in these medications as dictated in the interval history and assessment and plan. 09/05/2019 Patient is lying in bed in no acute distress. Nephrology is following. No acute overnight issues. Patient continues to have high blood pressure and is been using hydralazine oral along with hydralazine IV push and oral labetalol as needed. Patient's creatinine today has worsened and is currently 4.02. Patient denies any chest pain or shortness of breath, or palpitations at this time. Patient denies any headaches, lightheadedness, or dizziness. Patient states that he is slightly fatigued. Patient has been afebrile. Patient denies any nausea or vomiting and is tolerating diet. Patient is awaiting to undergo a kidney biopsy once the blood pressure stabilizes. Will continue to monitor closely. Objective - Vital Signs Vital signs: Vital Signs Temp 98.3 F 09/05/19 13:50 Pulse 73 09/05/19 13:50 Resp 15 09/05/19 13:50 BP 164/102 09/05/19 13:50 Pulse Ox 100 09/05/19 13:50 Intake & Output 09/04/19 09/05/19 09/05/19 18:59 06:59 18:59 Intake Total 600 Balance 600 Intake: Oral 600 Other: Voiding Method Toilet # Voids 3 2 2 - Exam GENERAL: The patient is alert and oriented x3, not in any acute distress. Obese HEENT: Pupils are round and equally reacting to light. EOMI. No scleral icterus. No conjunctival pallor. Normocephalic, atraumatic. No pharyngeal erythema. No thyromegaly. CARDIOVASCULAR: S1 and S2 present. No murmurs, rubs, or gallops. PULMONARY: Chest is clear to auscultation, no wheezing or crackles. ABDOMEN: Soft, nontender, nondistended, normoactive bowel sounds. No palpable organomegaly. MUSCULOSKELETAL: No joint swelling or deformity. EXTREMITIES: No cyanosis, clubbing, or pedal edema. NEUROLOGICAL: Gross neurological examination did not reveal any focal deficits. SKIN: No rashes. - Labs CBC & Chem 7: 09/02/19 13:40 09/05/19 05:34 Labs: Abnormal Lab Results - Last 24 Hours (Table) 09/03/19 09/05/19 Range/Units 10:48 05:34 BUN 44 H (9-20) mg/dL Creatinine 4.02 H (0.66-1.25) mg/dL Ur Random Microalbumin 233.8 H (0.0-1.9) mg/dL Microalb/Creat Ratio 1411 H (0-30) mg/g Creat Assessment and Plan Assessment: -Left foot pain secondary to osteoarthritis metatarsal first on the left side there is no evidence of gout clinically or radiologically. -Accelerated hypertension uncontrolled blood pressure: Will be continued on amlodipine and hydralazine and as needed labetalol -Renal failure possibly of chronic kidney disease although may have a component of acute renal failure. Acute renal failure improved patient chronic kidney disease probably secondary to nephrotic syndrome patient has nephrotic range proteinuria, although edema and workup is negative patient will undergo kidney biopsy possibly tomorrow if blood pressure stabilizes. Creatinine has worsened and is currently 4.02. Nephrology is following and patient is being started on Aldactone. -Elevated troponin secondary to chronic kidney disease. No intervention is necessary we'll repeat 2 more sets of troponin make sure troponins are not going up -Obesity: Counseling was provided patient will be on cardiac diet -DVT prophylaxis early ambulation
[2019-09-06] MEDS: hydrALAZINE HCL 50 MG TAB PO SCH ×2 (08:33→12:37)
[2019-09-06] MEDS: TORSEMIDE 20 MG TAB PO SCH (08:33)
[2019-09-06] MEDS: amLODIPine 10 MG TAB PO SCH (08:33)
[2019-09-06] MEDS: SPIRONOLACTONE 25 MG TAB PO SCH (08:33)
[2019-09-06] MEDS: CARVEDILOL 12.5 MG TAB PO SCH (08:33)
[2019-09-06 08:58] LABS: Calcium 9.4 mg/dL (8.4-10.2); Potassium 3.8 mmol/L (3.5-5.1)
--- NOTE | 2019-09-06 09:49 | P.PN ---
Subjective Patient is seen in follow-up for acute kidney injury. Renal function is stable. Creatinine 4.06 today. Blood pressure remains elevated. Denies chest pain or shortness of breath. No vomiting or diarrhea. Vital signs are stable. General: The patient appeared well nourished and normally developed. HEENT: Head exam is unremarkable. Neck is without jugular venous distension. LUNGS: Lungs are clear to auscultation and percussion. Breath sounds decreased. HEART: Rate and Rhythm are regular. First and second heart sounds normal. No murmurs, rubs or gallops. ABDOMEN: Abdominal exam reveals normal bowel sounds. Non-tender and non- distended. No evidence of peritonitis. EXTREMITITES: No clubbing, cyanosis, or edema. Objective - Vital Signs Vital signs: Vital Signs Temp 98.0 F 09/06/19 05:24 Pulse 86 09/06/19 08:00 Resp 16 09/06/19 08:00 BP 176/108 09/06/19 08:00 Pulse Ox 100 09/06/19 08:00 Intake & Output 09/05/19 09/06/19 09/06/19 18:59 06:59 18:59 Other: Voiding Method Toilet Toilet # Voids 2 2 - Labs CBC & Chem 7: 09/02/19 13:40 09/06/19 08:22 Labs: Abnormal Lab Results - Last 24 Hours (Table) 09/06/19 Range/Units 08:22 BUN 46 H (9-20) mg/dL Creatinine 4.06 H (0.66-1.25) mg/dL Glucose 112 H (74-99) mg/dL Assessment and Plan Plan: Assessment: 1. Acute kidney injury mostly prerenal secondary to hemodynamic instability. Renal function is stable. Creatinine 4.06 today. Unknown baseline renal function. Rule out GN. Patient does have proteinuria on UA. UPC 2.7 g. Se rologies negative. No hydronephrosis noted on kidney ultrasound. 2. Accelerated hypertension secondary to noncompliance with medications. Patient states he was on multiple blood pressure medications in the past but stopped taking them. Serum aldosterone is mildly elevated at 26.6. However aldosterone to renin ratio is 2.86. No evidence of renal artery stenosis. 3. Hypokalemia, status post replacement. Better. Plan: Maintain current antihypertensives. Increase spironolactone to 25 mg twice daily. Add clonidine 0.2 mg 3 times daily. No urgent need for renal replacement therapy at this time. Schedule for kidney biopsy. Patient is agreeable. Needs tighter blood pressure control. I will give him DDAVP prior to the kidney biopsy. Follow-up plasma metanephrines.
[2019-09-06] MEDS ORDERED: cloNIDine HCL 0.2 MG TAB PO SCH (10:00)
[2019-09-06 12:14] VITALS: BP 158/100; PULSE 62; RESP 16; TEMP 97.9
[2019-09-06] MEDS ORDERED: SPIRONOLACTONE 25 MG TAB PO SCH (21:00)
[2019-09-07 13:36] LABS: Metanephrine, Free 36 pg/mL (< OR = 57); Normetanephrine, Free 83 pg/mL (< OR = 148); Total, Free (MN + NMN) 119 pg/mL (< OR = 205)
--- NOTE | 2019-09-10 09:06 | P.DS ---
Providers Date of admission: 09/02/19 16:04 Expected date of discharge: 09/06/19 Attending physician: Royal Corral MD Consults: 09/02/19 16:44 Consult Physician Routine Consulting Provider: Lucho Laurent Consult Reason/Comments: Possible FSGS Do you want consulting provider notified?: Yes Primary care physician: Stated None Hospital Course: Final diagnosis -Left foot pain secondary to osteoarthritis -Accelerated hypertension uncontrolled blood pressure -Renal failure possibly of chronic kidney disease although may have a component of acute renal failure -Elevated troponin secondary to chronic kidney disease -Obesity -DVT prophylaxis Discharge disposition Patient is being discharged in a stable condition with guarded prognosis to home and will follow-up with nephrology in the outpatient setting in one week. Total time taken is 35 minutes. History of present illness This is a 33-year-old male who was recently admitted for accelerated hypertension that is uncontrolled and being closely monitored. Patient was seen by nephrology. Patient will follow-up with nephrology in the outpatient setting once blood pressure stabilizes for renal biopsy. Patient will need repeat labs in a few days upon discharge to monitor elevated creatinine. During hospitalization patient was started on Norvasc, hydralazine, Coreg, and Catapres and will continue on these in the outpatient setting upon discharge to help better stabilize blood pressure. Currently patient's condition is stable and without to go home today. Patient is agreeable to follow-up in the outpatient setting with nephrology as well as his primary care provider upon discharge. Patient denies any chest pain, shortness of breath, or palpitations at this time. Patient is afebrile. Patient denies any nausea or vomiting and is tolerating diet. Patient denies any headache, dizziness, lightheadedness at this time. Patient states that his pain in his left foot is intermittent and has improved at this time. Guarded prognosis. On exam vital signs are stable. Temp is 97.9F, pulse is 62, respirations are 16, blood pressure is 158/100, oxygen saturation is 93% on room air. Cardio S1 and S2 are present. Respiratory system shows there to auscultation. Abdomen is soft, obese, nontender. Nervous system shows no focal deficits. Please refer to medication reconciliation sheet for a list of medications. Patient Condition at Discharge: Fair Plan - Discharge Summary Discharge Rx Participant: Yes New Discharge Prescriptions: New Spironolactone [Aldactone] 25 mg PO BID 30 Days #60 tab hydrALAZINE HCL [Apresoline] 100 mg PO QID 30 Days #120 tab cloNIDine HCL [Catapres] 0.2 mg PO TID #90 tab Carvedilol [Coreg*] 25 mg PO BID-W/MEALS 30 Days #60 tab Torsemide [Demadex] 20 mg PO DAILY 30 Days #30 tab amLODIPine [Norvasc] 10 mg PO DAILY 30 Days #30 tab traMADol HCl [Ultram] 50 mg PO QID PRN #12 tab PRN Reason: Pain/Discomfort Discharge Medication List Carvedilol [Coreg*] 25 mg PO BID-W/MEALS 30 Days #60 tab 09/06/19 [Rx] Spironolactone [Aldactone] 25 mg PO BID 30 Days #60 tab 09/06/19 [Rx] Torsemide [Demadex] 20 mg PO DAILY 30 Days #30 tab 09/06/19 [Rx] amLODIPine [Norvasc] 10 mg PO DAILY 30 Days #30 tab 09/06/19 [Rx] cloNIDine HCL [Catapres] 0.2 mg PO TID #90 tab 09/06/19 [Rx] hydrALAZINE HCL [Apresoline] 100 mg PO QID 30 Days #120 tab 09/06/19 [Rx] traMADol HCl [Ultram] 50 mg PO QID PRN #12 tab 09/06/19 [Rx] Follow up Appointment(s)/Referral(s): Dawn Fraire MD [REFERRING] - 09/13/19 9:30 am Lucho Laurent DO [STAFF PHYSICIAN] - 09/18/19 1:20 pm Ambulatory/Diagnostic Orders: Basic Metabolic Panel [LAB.AMB] Time Frame: 1 Day, Location: None Selected Patient Instructions/Handouts: Acute Kidney Injury (DC), Osteoarthritis (DC), Hypertensive Crisis (DC) Activity/Diet/Wound Care/Special Instructions: Activity Limited until follow-up Follow-up with primary care provider upon discharge Continue current diet Take all medications as prescribed Obtain a blood pressure cuff or go to a local facility that has free blood pressure readings such as [facility] and monitor blood pressure closely. Keep a diary or log of blood pressure readings and document the time of each blood pressure reading and bring with you to follow-up. Repeat labs in one day. Follow-up with Dr. Laurent in the outpatient setting to discuss possible kidney biopsy once blood pressures of stabilized Discharge Disposition: HOME SELF-CARE
== END 2019-09-06 16:05 | disposition home or self-care (01) | DRG 305 ==
LOC: EC 12:13 → 2SICU 16:04 → 3SCARD 16:44 → 4MS4W 09-03 21:24
PROVIDERS: ADMIT Internal Medicine; ATTEND Internal Medicine
DX: I16.0 Hypertensive urgency (principal); N17.9 Acute kidney failure, unspecified; N18.4 Chronic kidney disease, stage 4 (severe); N04.9 Nephrotic syndrome with unspecified morphologic changes; I13.10 Hypertensive heart and chronic kidney disease without heart failure, with stage 1 through stage 4 chronic kidney disease, or unspecified chronic kidney disease; E87.6 Hypokalemia; M19.072 Primary osteoarthritis, left ankle and foot; R79.89 Other specified abnormal findings of blood chemistry; Z91.14 Patient's other noncompliance with medication regimen; E66.9 Obesity, unspecified; Z68.38 Body mass index [BMI] 38.0-38.9, adult; Z71.3 Dietary counseling and surveillance; Z83.3 Family history of diabetes mellitus
CPT/HCPCS: 36415; 71046; 80048; 80053; 80074; 81001; 82043; 82088; 82570; 83735; 83835; 84133; 84156; 84244; 84484; 84550; 85025; 85610; 85730; 86038; 86160; 86162; 86225; 86255; 86334; 86335; 86850; 86900; 86901; 93975; 96361; 96374; 96375; 96376; 99291

== ENCOUNTER → 2019-10-15 | Outpatient (CLI) | payer BC ==
[2019-10-15 09:54] LABS: Basophils % (A) 1 %; Eosinophils # (A) 0.3 k/uL (0-0.7); Eosinophils % (A) 5 %; HCT 39.3 % (39.0-53.0); HGB 13.5 gm/dL (13.0-17.5); Lymphocytes # (A) 1.3 k/uL (1.0-4.8); Lymphocytes % (A) 23 %; MCHC 34.4 g/dL (31.0-37.0); MCV 84.3 fL (80.0-100.0); Monocytes # (A) 0.4 k/uL (0-1.0); Monocytes % (A) 7 %; Neutrophils # (A) 3.5 k/uL (1.3-7.7); Neutrophils % (A) 63 %; Platelet Count 246 k/uL (150-450); RBC 4.66 m/uL (4.30-5.90); RDW 13.5 % (11.5-15.5); WBC 5.5 k/uL (3.8-10.6)
[2019-10-15 10:46] LABS: Partial Thromboplastin Time 24.7 sec (22.0-30.0); Prothrombin Time 10.3 sec (9.0-12.0)
[2019-10-15 17:58] LABS: African American GFR (CKD) 19.2 (60.0-200.0); Anion Gap 8.4 mmol/L (4.00-12.00); Carbon Dioxide 21.6 mmol/L (21.6-31.8); Non-African American GFR(CKD) 16.5 (60.0-200.0); Potassium 4.5 mmol/L (3.5-5.5)
== END ==
LOC: LABWHC1 08:49
PROVIDERS: ATTEND Internal Medicine
DX: N17.9 Acute kidney failure, unspecified (principal)
CPT/HCPCS: 36415; 80051; 82565; 84520; 85025; 85610; 85730; 86850; 86900; 86901

== ENCOUNTER 2019-10-17 08:09 | Day surgery (SDC) | payer BC ==
[2019-10-17 08:34] VITALS: RESP 18
[2019-10-17] MEDS ORDERED: ALPRAZolam 0.5 MG TAB PO STA (08:42)
[2019-10-17] MEDS ORDERED: DESMOPRESSIN ACETATE 40 MCG in SODIUM CHLORIDE 0.9% 50 ML IV ONE (09:01)
[2019-10-17 12:02] VITALS: PULSE 56; TEMP 97.6
[2019-10-17 14:30] VITALS: BP 138/75
--- NOTE | 2019-10-18 08:06 | CT ---
DATE OF EXAM: 10/17/2019 COMPARISON: NONE CT DLP: [id number] mGycm HISTORY: Renal failure PROCEDURE: Maximal barrier technique was utilized. After informed consent, the skin overlying a suit able path to the right kidney was localized using CT guidance, the skin was prepped and draped. Lido blair was used for local anesthesia. A skin antonieta made with a scalpel. Using CT guidance, a 17-gauge needle was advanced into in position at the inferior cortex of the right kidney where coaxial placem ent of an 18-gauge needle was used and core biopsy obtained. 3 passes made in total. Hemostasis was achieved. There was no immediate complication and patient remained in stable condition. Specimen s ubmitted to Pathology. IMPRESSION: Status post CT guided core biopsy of right renal cortex, pathology pending. This procedu re performed by the undersigned.
== END 2019-10-17 16:00 ==
LOC: RADPROMAIN 08:09 → 1SOBS 10:04 → RADPROMAIN 16:00
PROVIDERS: ATTEND Internal Medicine Nephrology
DX: I12.9 Hypertensive chronic kidney disease with stage 1 through stage 4 chronic kidney disease, or unspecified chronic kidney disease (principal); N18.4 Chronic kidney disease, stage 4 (severe); N17.9 Acute kidney failure, unspecified
CPT/HCPCS: 36415; 77012

== ENCOUNTER 2021-03-11 18:15 | Emergency (ER) | payer BC ==
[2021-03-11 18:31] VITALS: RESP 18; TEMP 98.9
--- NOTE | 2021-03-11 18:45 | ED ---
General Adult HPI - General Chief complaint: Weakness Stated complaint: sore all over Time Seen by Provider: 03/11/21 18:37 Source: patient Mode of arrival: ambulatory Limitations: no limitations - History of Present Illness Initial comments: Dictation was produced using [employer] dictation software. please excuse any grammatical, word or spelling errors. This patient was cared for during a federal and state declared state of emergency secondary to Covid 19 Chief Complaint: 35-year-old male presents with myalgias History of Present Illness: Is a 35-year-old male who has past nuchal history of hypertension and asthma. States that she did have a myalgias since this morning. Patient has any chest pain shortness of breath. Denies any cough or fevers. Patient states that his myalgias most notable in his lower extremities. Especially in his thighs. States he contracted Covid several months ago and recovered without any issues. No shortness of breath The ROS documented in this emergency department record has been reviewed and confirmed by me. Those systems with pertinent positive or negative responses have been documented in the HPI. All other systems are other negative and/or noncontributory. PHYSICAL EXAM: General Impression: Alert and oriented x3, not in acute distress HEENT: Normocephalic atraumatic, extra-ocular movements intact, pupils equal and reactive to light bilaterally, mucous membranes moist. Cardiovascular: Heart regular rate and rhythm Chest: Able to complete full sentences, no retractions, no tachypnea Abdomen: abdomen soft, non-tender, non-distended, no organomegaly Musculoskeletal: Pulses present and equal in all extremities, no peripheral edema Motor: no focal deficits noted Neurological: CN II-XII grossly intact, no focal motor or sensory deficits noted Skin: Intact with no visualized rashes Psych: Normal affect and mood ED course: 35-year-old male presents to the emergency department for myalgias. Signs upon arrival are within acceptable limits. Laboratory evaluation obtained. CBC unremarkable. Metabolic panel except baseline. Patient is currently 3.94. Patient has elevated renal markers at baseline. Further chart review was performed showing the patient has history of renal failure secondary to uncontrolled hypertension. Negative for flu or RSV or Covid. Chest x-ray nonacute. Patient reevaluated at bedside found to be stable medical condition. He is advised to follow-up with his primary care physician upon discharge. At this point patient appears well has no high-risk features. Patient be discharged. - Related Data Home Medications Medication Instructions Recorded Confirmed Spironolactone [Aldactone] 25 mg PO DAILY 09/19/19 10/17/19 carvediloL [Coreg*] 25 mg PO BID-W/MEALS 09/19/19 10/17/19 hydrALAZINE HCL [Apresoline] 50 mg PO QID 09/19/19 10/17/19 cloNIDine HCL [Catapres] 0.2 mg PO TID 10/15/19 10/17/19 Previous Rx's Medication Instructions Recorded Torsemide [Demadex] 20 mg PO DAILY 30 Days #30 tab 09/06/19 amLODIPine [Norvasc] 10 mg PO DAILY 30 Days #30 tab 09/06/19 Allergies Allergy/AdvReac Type Severity Reaction Status Date / Time No Known Allergies Allergy Verified 03/11/21 18:32 Review of Systems ROS Statement: Those systems with pertinent positive or pertinent negative responses have been documented in the HPI. ROS Other: All systems not noted in ROS Statement are negative. Past Medical History Past Medical History: Asthma, Hypertension, Renal Disease Additional Past Medical History / Comment(s): recent admission due to uncontrolled BP 09/2019 History of Any Multi-Drug Resistant Organisms: None Reported Past Surgical History: No Surgical Hx Reported Past Anesthesia/Blood Transfusion Reactions: No Reported Reaction Additional Past Anesthesia/Blood Transfusion Reaction / Comment(s): never had bld transfusion or surgery Past Psychological History: No Psychological Hx Reported Smoking Status: Never smoker Past Alcohol Use History: Occasional Past Drug Use History: None Reported - Past Family History Mother Family Medical History: Diabetes Mellitus Father Family Medical History: Unable to Obtain General Exam Limitations: no limitations Course Vital Signs 03/11/21 18:29 Temperature 98.9 F Pulse Rate 78 Respiratory 18 Rate Blood Pressure 170/118 O2 Sat by Pulse 99 Oximetry Medical Decision Making - Lab Data Result diagrams: 03/11/21 18:45 03/11/21 18:45 Lab Results 03/11/21 03/11/21 03/11/21 Range/Units 18:45 18:45 18:45 WBC 11.0 H (3.8-10.6) k/uL RBC 4.85 (4.30-5.90) m/uL Hgb 14.4 (13.0-17.5) gm/dL Hct 41.5 (39.0-53.0) % MCV 85.6 (80.0-100.0) fL MCH 29.8 (25.0-35.0) pg MCHC 34.8 (31.0-37.0) g/dL RDW 15.3 (11.5-15.5) % Plt Count 237 (150-450) k/uL MPV 8.4 Neutrophils % 78 % Lymphocytes % 12 % Monocytes % 4 % Eosinophils % 5 % Basophils % 0 % Neutrophils # 8.6 H (1.3-7.7) k/uL Lymphocytes # 1.3 (1.0-4.8) k/uL Monocytes # 0.4 (0-1.0) k/uL Eosinophils # 0.5 (0-0.7) k/uL Basophils # 0.0 (0-0.2) k/uL Poikilocytosis Slight Sodium 141 (137-145) mmol/L Potassium 3.7 (3.5-5.1) mmol/L Chloride 108 H (98-107) mmol/L Carbon Dioxide 23 (22-30) mmol/L Anion Gap 10 mmol/L BUN 41 H (9-20) mg/dL Creatinine 3.94 H (0.66-1.25) mg/dL Est GFR (CKD-EPI)AfAm 22 (>60 ml/min/1.73 sqM) Est GFR (CKD-EPI)NonAf 19 (>60 ml/min/1.73 sqM) Glucose 86 (74-99) mg/dL Calcium 8.7 (8.4-10.2) mg/dL Influenza Type A (PCR) Not Detected (Not Detectd) Influenza Type B (PCR) Not Detected (Not Detectd) RSV (PCR) Not Detected (Not Detectd) SARS-CoV-2 (PCR) Not Detected (Not Detectd) Disposition Clinical Impression: Myalgia Disposition: HOME SELF-CARE Condition: Good Instructions (If sedation given, give patient instructions): Chronic Kidney Disease (ED), Chronic Kidney Disease Diet (DC) Is patient prescribed a controlled substance at d/c from ED?: No Referrals: None,Stated [Primary Care Provider] - 1-2 days Time of Disposition: 19:59
[2021-03-11 19:05] LABS: Basophils % (A) 0 %; Eosinophils # (A) 0.5 k/uL (0-0.7); Eosinophils % (A) 5 %; HCT 41.5 % (39.0-53.0); HGB 14.4 gm/dL (13.0-17.5); Lymphocytes # (A) 1.3 k/uL (1.0-4.8); Lymphocytes % (A) 12 %; MCH 29.8 pg (25.0-35.0); MCHC 34.8 g/dL (31.0-37.0); MCV 85.6 fL (80.0-100.0); Mean Platelet Volume 8.4; Monocytes # (A) 0.4 k/uL (0-1.0); Monocytes % (A) 4 %; Neutrophils # (A) 8.6 k/uL (1.3-7.7); Neutrophils % (A) 78 %; Platelet Count 237 k/uL (150-450); Poikilocytosis Slight; RBC 4.85 m/uL (4.30-5.90); RDW 15.3 % (11.5-15.5)
[2021-03-11 19:14] LABS: Calcium 8.7 mg/dL (8.4-10.2); Potassium 3.7 mmol/L (3.5-5.1)
--- NOTE | 2021-03-11 19:22 | XR ---
EXAMINATION TYPE: XR chest 1V portable DATE OF EXAM: 03/11/2021 COMPARISON: NONE HISTORY: Shortness of breath. TECHNIQUE: Single frontal view of the chest is obtained. FINDINGS: There is no focal air space opacity, pleural effusion, or pneumothorax seen. The cardiac silhouette size is enlarged. The osseous structures are intact. IMPRESSION: No acute process. Cardiomegaly, likely accentuated by low lung volume.
[2021-03-11 20:15] VITALS: BP 118/80; PULSE 86
== END 2021-03-11 20:15 | disposition home or self-care (01) ==
LOC: EC 18:15
DX: M79.10 Myalgia, unspecified site (principal); J45.909 Unspecified asthma, uncomplicated; I10 Essential (primary) hypertension
CPT/HCPCS: 36415; 71045; 80048; 85025; 87636; 99283

== ENCOUNTER 2022-03-21 09:36 | Inpatient (IN) | payer BC ==
[2022-03-21] MEDS ORDERED: hydrALAZINE HCL 20 MG/ML 1 ML VIAL IVP STA ×2 (10:22→11:12)
[2022-03-21] MEDS ORDERED: FUROSEMIDE 10 MG/ML 2 ML VIAL IV STA (10:26)
--- NOTE | 2022-03-21 10:26 | ED ---
General Adult HPI - General Chief complaint: Shortness of Breath Stated complaint: Cough/Swollen Ankles Time Seen by Provider: 03/21/22 09:45 Source: patient, RN notes reviewed, old records reviewed Mode of arrival: ambulatory Limitations: no limitations - History of Present Illness Initial comments: This is a 36-year-old male who presents emergency Department complaining shortness of breath and leg swelling. Patient states the leg swelling started a bout 2 days ago. Patient states shortness of breath in the last few days and he has had a little bit of a dry cough no sputum production. Patient denies any chest pain or palpitations. Patient denies headache patient denies numbness weakness. Patient denies any blurred vision. Patient states she supposed be high blood pressure medications but he doesn't take it. Patient states he is smoking. Patient denies any abdominal pain patient denies nausea vomiting diarrhea. Patient denies having any pain anywhere. - Related Data Home Medications Medication Instructions Recorded Confirmed Spironolactone [Aldactone] 25 mg PO DAILY 09/19/19 10/17/19 carvediloL [Coreg*] 25 mg PO BID-W/MEALS 09/19/19 10/17/19 hydrALAZINE HCL [Apresoline] 50 mg PO QID 09/19/19 10/17/19 cloNIDine HCL [Catapres] 0.2 mg PO TID 10/15/19 10/17/19 Previous Rx's Medication Instructions Recorded Torsemide [Demadex] 20 mg PO DAILY 30 Days #30 tab 09/06/19 amLODIPine [Norvasc] 10 mg PO DAILY 30 Days #30 tab 09/06/19 Allergies Allergy/AdvReac Type Severity Reaction Status Date / Time No Known Allergies Allergy Verified 03/21/22 09:47 Review of Systems ROS Statement: Those systems with pertinent positive or pertinent negative responses have been documented in the HPI. ROS Other: All systems not noted in ROS Statement are negative. Past Medical History Past Medical History: Asthma, Hypertension, Renal Disease Additional Past Medical History / Comment(s): recent admission due to uncontrolled BP 09/2019 History of Any Multi-Drug Resistant Organisms: None Reported Past Surgical History: No Surgical Hx Reported Past Anesthesia/Blood Transfusion Reactions: No Reported Reaction Additional Past Anesthesia/Blood Transfusion Reaction / Comment(s): never had bld transfusion or surgery Past Psychological History: No Psychological Hx Reported Smoking Status: Never smoker Past Alcohol Use History: Occasional Past Drug Use History: Marijuana - Past Family History Mother Family Medical History: Diabetes Mellitus Father Family Medical History: Unable to Obtain General Exam - General Exam Comments Initial Comments: GENERAL: Patient is well-developed and well-nourished. Patient is nontoxic and well- hydrated and is in mild distress. ENT: Neck is soft and supple. No significant lymphadenopathy is noted. Oropharynx is clear. Moist mucous membranes. Neck has full range of motion without eliciting any pain. EYES: The sclera were anicteric and conjunctiva were pink and moist. Extraocular movements were intact and pupils were equal round and reactive to light. Eyelids were unremarkable. PULMONARY: Unlabored respirations. Good breath sounds bilaterally. No audible rales rhonchi or wheezing was noted. CARDIOVASCULAR: There is a regular rate and rhythm without any murmurs gallops or rubs. ABDOMEN: Soft and nontender with normal bowel sounds. SKIN: Skin is clear with no lesions or rashes and otherwise unremarkable. NEUROLOGIC: Patient is alert and oriented x3. Cranial nerves II through XII are grossly intact. Motor and sensory are also intact. Normal speech, volume and content. Symmetrical smile. MUSCULOSKELETAL: Normal extremities with adequate strength and full range of motion. 2+ edema bilaterally LYMPHATICS: No significant lymphadenopathy is noted PSYCHIATRIC: Normal psychiatric evaluation. Limitations: no limitations Course Vital Signs 03/21/22 03/21/22 03/21/22 09:42 10:47 11:11 Temperature 98.2 F Pulse Rate 95 Respiratory 20 18 Rate Blood Pressure 213/145 221/122 O2 Sat by Pulse 97 Oximetry Medical Decision Making - Medical Decision Making EKG shows sinus rhythm at 95 bpm W[place] interval is on a 93 QRS 116 QT interval 470 QTC is 460. Patient's EKG shows no ST segment elevation or depression. Patient's chest x-ray shows acute pulmonary edema. Patient was given hydralazine 202. I spoke with [facility] hospitalist and they agreed to admit the patient admitted the patient consult cardiology and nephrology - Lab Data Result diagrams: 03/21/22 10:32 03/21/22 10:32 Lab Results 03/21/22 03/21/22 03/21/22 Range/Units 10:32 10:32 10:32 WBC 6.4 (3.8-10.6) k/uL RBC 4.01 L (4.30-5.90) m/uL Hgb 11.7 L (13.0-17.5) gm/dL Hct 36.4 L (39.0-53.0) % MCV 90.8 (80.0-100.0) fL MCH 29.3 (25.0-35.0) pg MCHC 32.3 (31.0-37.0) g/dL RDW 15.3 (11.5-15.5) % Plt Count 234 (150-450) k/uL MPV 8.8 Neutrophils % 80 % Lymphocytes % 10 % Monocytes % 5 % Eosinophils % 4 % Basophils % 1 % Neutrophils # 5.1 (1.3-7.7) k/uL Lymphocytes # 0.6 L (1.0-4.8) k/uL Monocytes # 0.3 (0-1.0) k/uL Eosinophils # 0.2 (0-0.7) k/uL Basophils # 0.0 (0-0.2) k/uL PT 10.5 (9.0-12.0) sec INR 1.0 (<1.2) APTT 23.2 (22.0-30.0) sec Sodium (137-145) mmol/L Potassium (3.5-5.1) mmol/L Chloride (98-107) mmol/L Carbon Dioxide (22-30) mmol/L Anion Gap mmol/L BUN (9-20) mg/dL Creatinine (0.66-1.25) mg/dL Est GFR (CKD-EPI)AfAm (>60 ml/min/1.73 sqM) Est GFR (CKD-EPI)NonAf (>60 ml/min/1.73 sqM) Glucose (74-99) mg/dL Plasma Lactic Acid Abdirahman (0.7-2.0) mmol/L Calcium (8.4-10.2) mg/dL Magnesium (1.6-2.3) mg/dL Total Bilirubin (0.2-1.3) mg/dL AST (17-59) U/L ALT (4-49) U/L Alkaline Phosphatase (38-126) U/L Troponin I (0.000-0.034) ng/mL NT-Pro-B Natriuret Pep pg/mL Total Protein (6.3-8.2) g/dL Albumin (3.5-5.0) g/dL Coronavirus (PCR) Not Detected (Not Detectd) 03/21/22 03/21/22 03/21/22 Range/Units 10:32 10:32 10:32 WBC (3.8-10.6) k/uL RBC (4.30-5.90) m/uL Hgb (13.0-17.5) gm/dL Hct (39.0-53.0) % MCV (80.0-100.0) fL MCH (25.0-35.0) pg MCHC (31.0-37.0) g/dL RDW (11.5-15.5) % Plt Count (150-450) k/uL MPV Neutrophils % % Lymphocytes % % Monocytes % % Eosinophils % % Basophils % % Neutrophils # (1.3-7.7) k/uL Lymphocytes # (1.0-4.8) k/uL Monocytes # (0-1.0) k/uL Eosinophils # (0-0.7) k/uL Basophils # (0-0.2) k/uL PT (9.0-12.0) sec INR (<1.2) APTT (22.0-30.0) sec Sodium 140 (137-145) mmol/L Potassium 4.4 (3.5-5.1) mmol/L Chloride 113 H (98-107) mmol/L Carbon Dioxide 18 L (22-30) mmol/L Anion Gap 9 mmol/L BUN 79 H (9-20) mg/dL Creatinine 10.43 H* (0.66-1.25) mg/dL Est GFR (CKD-EPI)AfAm 7 (>60 ml/min/1.73 sqM) Est GFR (CKD-EPI)NonAf 6 (>60 ml/min/1.73 sqM) Glucose 98 (74-99) mg/dL Plasma Lactic Acid Abdirahman (0.7-2.0) mmol/L Calcium 8.5 (8.4-10.2) mg/dL Magnesium 1.8 (1.6-2.3) mg/dL Total Bilirubin 0.5 (0.2-1.3) mg/dL AST 30 (17-59) U/L ALT 29 (4-49) U/L Alkaline Phosphatase 52 (38-126) U/L Troponin I 0.316 H* (0.000-0.034) ng/mL NT-Pro-B Natriuret Pep 60696 pg/mL Total Protein 6.1 L (6.3-8.2) g/dL Albumin 3.5 (3.5-5.0) g/dL Coronavirus (PCR) (Not Detectd) 03/21/22 Range/Units 10:41 WBC (3.8-10.6) k/uL RBC (4.30-5.90) m/uL Hgb (13.0-17.5) gm/dL Hct (39.0-53.0) % MCV (80.0-100.0) fL MCH (25.0-35.0) pg MCHC (31.0-37.0) g/dL RDW (11.5-15.5) % Plt Count (150-450) k/uL MPV Neutrophils % % Lymphocytes % % Monocytes % % Eosinophils % % Basophils % % Neutrophils # (1.3-7.7) k/uL Lymphocytes # (1.0-4.8) k/uL Monocytes # (0-1.0) k/uL Eosinophils # (0-0.7) k/uL Basophils # (0-0.2) k/uL PT (9.0-12.0) sec INR (<1.2) APTT (22.0-30.0) sec Sodium (137-145) mmol/L Potassium (3.5-5.1) mmol/L Chloride (98-107) mmol/L Carbon Dioxide (22-30) mmol/L Anion Gap mmol/L BUN (9-20) mg/dL Creatinine (0.66-1.25) mg/dL Est GFR (CKD-EPI)AfAm (>60 ml/min/1.73 sqM) Est GFR (CKD-EPI)NonAf (>60 ml/min/1.73 sqM) Glucose (74-99) mg/dL Plasma Lactic Acid Abdirahman 0.7 (0.7-2.0) mmol/L Calcium (8.4-10.2) mg/dL Magnesium (1.6-2.3) mg/dL Total Bilirubin (0.2-1.3) mg/dL AST (17-59) U/L ALT (4-49) U/L Alkaline Phosphatase (38-126) U/L Troponin I (0.000-0.034) ng/mL NT-Pro-B Natriuret Pep pg/mL Total Protein (6.3-8.2) g/dL Albumin (3.5-5.0) g/dL Coronavirus (PCR) (Not Detectd) Critical Care Time Critical Care Time: Yes Total Critical Care Time: 35 Disposition Clinical Impression: Pulmonary edema, Hypertensive urgency, Acute on chronic renal failure, Elevated troponin Disposition: ADMITTED IP TO THIS HOSP Referrals: None,Stated [REFERRING] - 1-2 days Time of Disposition: 11:20
[2022-03-21 10:41] LABS: Basophils % (A) 1 %; Eosinophils # (A) 0.2 k/uL (0-0.7); Eosinophils % (A) 4 %; HCT 36.4 % (39.0-53.0); HGB 11.7 gm/dL (13.0-17.5); Lymphocytes # (A) 0.6 k/uL (1.0-4.8); Lymphocytes % (A) 10 %; MCH 29.3 pg (25.0-35.0); MCHC 32.3 g/dL (31.0-37.0); MCV 90.8 fL (80.0-100.0); Mean Platelet Volume 8.8; Monocytes # (A) 0.3 k/uL (0-1.0); Monocytes % (A) 5 %; Neutrophils # (A) 5.1 k/uL (1.3-7.7); Neutrophils % (A) 80 %; Platelet Count 234 k/uL (150-450); RBC 4.01 m/uL (4.30-5.90); RDW 15.3 % (11.5-15.5); WBC 6.4 k/uL (3.8-10.6)
--- NOTE | 2022-03-21 10:44 | XR ---
EXAMINATION TYPE: XR chest 2V DATE OF EXAM: 03/21/2022 COMPARISON: 03/11/2021 HISTORY: 36-year-old male cough congestion and difficulty breathing, shortness of breath TECHNIQUE: PA and lateral views FINDINGS: The heart appears enlarged. Increased central interstitial density. No jayson consolidation or pleural effusion. IMPRESSION: Cardiomegaly. Query any known cardiac diagnosis. There may be developing pulmonary vascular congestio n versus atypical pneumonia.
[2022-03-21 10:50] LABS: Partial Thromboplastin Time 23.2 sec (22.0-30.0); Prothrombin Time 10.5 sec (9.0-12.0)
[2022-03-21 10:51] LABS: Albumin 3.5 g/dL (3.5-5.0); Calcium 8.5 mg/dL (8.4-10.2); Magnesium 1.8 mg/dL (1.6-2.3); Potassium 4.4 mmol/L (3.5-5.1); Total Bilirubin 0.5 mg/dL (0.2-1.3); Total Protein 6.1 g/dL (6.3-8.2)
[2022-03-21] MEDS ORDERED: NITROGLYCERIN SL TABS 0.4 MG TAB SUBLINGUAL PRN (11:20)
[2022-03-21] MEDS ORDERED: ACETAMINOPHEN TAB 500 MG TAB PO STA (11:29)
[2022-03-21] MEDS ORDERED: LABETALOL 5 MG/ML VIAL MDV IVP STA (11:40)
[2022-03-21] MEDS: amLODIPine 10 MG TAB PO SCH (13:10)
[2022-03-21] MEDS: cloNIDine HCL 0.1 MG TAB PO SCH ×3 (13:10→22:55)
[2022-03-21] MEDS: NITROGLYCERIN OINT 1 INCH/GM PACKET TOPICAL SCH ×2 (13:10→17:12)
[2022-03-21] MEDS ORDERED: guaiFENesin-DM 100-10MG/5ML 10 ML CUP PO PRN (13:13)
[2022-03-21] MEDS ORDERED: ACETAMINOPHEN TAB 325 MG TAB PO PRN (13:13)
--- NOTE | 2022-03-21 13:13 | P.HPIM ---
History of Present Illness This is a pleasant 36 years old -[place] male with past medical history of advanced chronic kidney disease, uncontrolled hypertension, noncompliance with recommendations and medication. He is a patient of Dr. Fraire and nephr ologist is Dr. Laurent Patient presents because of bilateral leg swelling and dyspnea worsening over one week, also has been complaining of from cough and green to white phlegm for the last 2 weeks which is a new for him. Patient was noncompliant and adherent to his medication because he wanted to de pendent on practice and sports instead. He is fully awake and oriented and he denies chest pain, no abdominal pain. No nausea vomiting or diarrhea. No change in urine habits. No dysuria or urgency. No dizziness. He had some mild headache earlier which is improved. Also patient noticed to be on Topamax but he does not know the dose and he does not know why he is taking it. He denies history of migraine or seizure. He denies smoking, smokes marijuana at times. Occasional alcohol. No other i llicit drugs. On admission his blood pressure was significantly elevated 213/145, currently 182/131 Rest of vitals are stable and patient is afebrile. Heart rate 87. CBC is unremarkable except for mild anemia with hemoglobin 11.7. INR is normal 1.7. Creatinine increased from baseline 4-5.8, currently is 10.4 on admission. Rest of BMP is unremarkable with normal electrolytes. His troponin on admission was 0.3, he has troponin chronically elevated around 0.09-0.1 ProB[place] 86501 Coronavirus not detected. EKG: Normal sinus rhythm at [address]-T changes but evidence of LVH Chest x-ray: May developing pulmonary vascular congestion versus atypical pneumonia On admission he received Tylenol, Lasix, hydralazine and labetalol. Also started on nitroglycerin ointment Review of Systems CONSTITUTIONAL: No fever, no malaise, no fatigue. HEENT: No recent visual problems or hearing problems. Denied any sore throat. CARDIOVASCULAR: No orthopnea, PND, no palpitations, no syncope. PULMONARY: No chest wall tenderness, no hemoptysis. GASTROINTESTINAL: No diarrhea, no nausea, no vomiting, no abdominal pain. Normoactive bowel sounds. NEUROLOGICAL: No headaches, no weakness, no numbness. HEMATOLOGICAL: Denies any bleeding or petechiae. GENITOURINARY: Denies any burning micturition, frequency, or urgency. MUSCULOSKELETAL/RHEUMATOLOGICAL: Denies any joint pain, swelling, or any muscle pain. ENDOCRINE: Denies any polyuria or polydipsia. Past Medical History Past Medical History: Asthma, Hypertension, Renal Disease Additional Past Medical History / Comment(s): recent admission due to uncontrolled BP 09/2019 History of Any Multi-Drug Resistant Organisms: None Reported Past Surgical History: No Surgical Hx Reported Past Anesthesia/Blood Transfusion Reactions: No Reported Reaction Additional Past Anesthesia/Blood Transfusion Reaction / Comment(s): never had bld transfusion or surgery Past Psychological History: No Psychological Hx Reported Smoking Status: Never smoker Past Alcohol Use History: Occasional Past Drug Use History: Marijuana - Past Family History Mother Family Medical History: Diabetes Mellitus Father Family Medical History: Unable to Obtain Medications and Allergies Home Medications Medication Instructions Recorded Confirmed Type amLODIPine [Norvasc] 10 mg PO DAILY 30 Days #30 tab 09/06/19 03/21/22 Rx Spironolactone [Aldactone] 25 mg PO BID 09/19/19 03/21/22 History Baclofen [Lioresal] 10 mg PO HS 03/21/22 03/21/22 History Ergocalciferol [Vitamin D2 (1250 1,250 mcg PO Q7D 03/21/22 03/21/22 History Mcg = 21676 Iu)] Topiramate [Topamax] See Taper PO DIRECTED 03/21/22 03/21/22 History cloNIDine HCL [Catapres] 0.3 mg PO TID 03/21/22 03/21/22 History Allergies Allergy/AdvReac Type Severity Reaction Status Date / Time No Known Allergies Allergy Verified 03/21/22 09:47 Physical Exam Vitals: Vital Signs Temp Pulse Resp BP Pulse Ox 03/21/22 12:04 87 18 182/131 98 03/21/22 11:37 190/112 03/21/22 11:11 221/122 03/21/22 10:47 18 03/21/22 09:42 98.2 F 95 20 213/145 97 Intake and Output 03/20/22 03/21/22 03/21/22 22:59 06:59 14:59 Other: Weight 138.346 kg GENERAL: The patient is alert and oriented x3, not in any acute distress. Well developed, well nourished. HEENT: Pupils are round and equally reacting to light. EOMI. No scleral icterus. No conjunctival pallor. Normocephalic, atraumatic. No pharyngeal erythema. No thyromegaly. CARDIOVASCULAR: S1 and S2 present. No murmurs, rubs, or gallops. -PULMONARY: Chest is clear to auscultation, no wheezing. Mild bilateral crepitation on the lung bases ABDOMEN: Soft, nontender, nondistended, normoactive bowel sounds. No palpable organomegaly. MUSCULOSKELETAL: No joint swelling or deformity. -EXTREMITIES: No cyanosis, clubbing, 3+ bilateral pitting like edema NEUROLOGICAL: Gross neurological examination did not reveal any focal deficits. SKIN: No rashes. No petechiae Results CBC & Chem 7: 03/21/22 10:32 03/21/22 10:32 Labs: Abnormal Lab Results - Last 24 Hours (Table) 03/21/22 03/21/22 03/21/22 Range/Units 10:32 10:32 10:32 RBC 4.01 L (4.30-5.90) m/uL Hgb 11.7 L (13.0-17.5) gm/dL Hct 36.4 L (39.0-53.0) % Lymphocytes # 0.6 L (1.0-4.8) k/uL Chloride 113 H (98-107) mmol/L Carbon Dioxide 18 L (22-30) mmol/L BUN 79 H (9-20) mg/dL Creatinine 10.43 H* (0.66-1.25) mg/dL Troponin I 0.316 H* (0.000-0.034) ng/mL Total Protein 6.1 L (6.3-8.2) g/dL Assessment and Plan Assessment: Accelerated hypertension, uncontrolled on admission Acute on chronic kidney disease Chronic kidney disease stage IV possible acute CHF with pulmonary congestion, unknown ejection fraction Pulmonary congestion secondary to CHF most likely. Cannot rule out pneumonia. Noncompliance with medication Chronically elevated troponin Plan: This is a pleasant 36 years old male with SANDRA, CTD, uncontrolled accelerated hypertension and noncompliance Resume his Norvasc 10 mg and clonidine 0.3 mg. Hold Aldactone for worsening kidney function. Keep monitoring blood pressure. Continue with nitroglycerin ointment Check for RSV, influenza, COVID-19 Check pro-calcitonin Check for venous Doppler of the legs Crane Helper, electric meter repairer consult Importance of adherence to therapy are explained for the patient. Risks and benefits are also explained Labs and medication were reviewed.. Continue same treatment. Continue with symptomatic treatment. Resume home medication. Monitor lytes and vitals. DVT and GI prophylaxis. Further recommendations depends on the clinical course of the patient DVT prophylaxis: Subcutaneous heparin GI Prophylaxis: Pepcid Prognosis is guarded
--- NOTE | 2022-03-21 16:05 | US ---
EXAMINATION TYPE: US venous doppler duplex LE DATE OF EXAM: 03/21/2022 1:11 PM COMPARISON: NONE CLINICAL HISTORY: leg swelling. SIDE PERFORMED: Bilateral TECHNIQUE: The lower extremity deep venous system is examined utilizing real time linear array sonog aly with graded compression, doppler sonography and color-flow sonography. VESSELS IMAGED: Common Femoral Vein Deep Femoral Vein Greater Saphenous Vein * Femoral Vein Popliteal Vein Small Saphenous Vein * Proximal Calf Veins (* superficial vessels) Right Leg: Negative for DVT Left Leg: Negative for DVT IMPRESSION: No evidence of deep vein thrombosis in both legs.
[2022-03-21] MEDS: BACLOFEN 10 MG TAB PO SCH (20:22)
[2022-03-21] MEDS: TOPIRAMATE 25 MG TAB PO SCH (20:22)
[2022-03-21] MEDS: HEPARIN SODIUM,PORCINE/PF 5,000 UNIT/0.5 ML SYRINGE SQ SCH (20:23)
[2022-03-21] MEDS ORDERED: FAMOTIDINE 20 MG/2 ML VIAL IV SCH (21:00)
[2022-03-22] MEDS: NITROGLYCERIN OINT 1 INCH/GM PACKET TOPICAL SCH ×2 (04:36→05:30)
[2022-03-22 06:30] LABS: Basophils % (A) 1 %; Eosinophils # (A) 0.3 k/uL (0-0.7); Eosinophils % (A) 5 %; HCT 33.7 % (39.0-53.0); HGB 10.8 gm/dL (13.0-17.5); Lymphocytes % (A) 16 %; MCH 29.6 pg (25.0-35.0); MCHC 32.1 g/dL (31.0-37.0); MCV 92.1 fL (80.0-100.0); Mean Platelet Volume 9.2; Monocytes # (A) 0.4 k/uL (0-1.0); Monocytes % (A) 6 %; Neutrophils # (A) 4.4 k/uL (1.3-7.7); Neutrophils % (A) 71 %; Platelet Count 230 k/uL (150-450); RBC 3.66 m/uL (4.30-5.90); RDW 15.3 % (11.5-15.5); WBC 6.2 k/uL (3.8-10.6)
[2022-03-22 06:48] LABS: African American GFR (CKD) 7 (>60 ml/min/1.73 sqM); Anion Gap 10 mmol/L; Blood Urea Nitrogen 79 mg/dL (9-20); Calcium 8.3 mg/dL (8.4-10.2); Carbon Dioxide 19 mmol/L (22-30); Chloride 111 mmol/L (98-107); Glucose 87 mg/dL (74-99); Magnesium 1.8 mg/dL (1.6-2.3); Non-African American GFR(CKD) 6 (>60 ml/min/1.73 sqM); Potassium 4.4 mmol/L (3.5-5.1); Sodium 140 mmol/L (137-145)
[2022-03-22] MEDS ORDERED: ASPIRIN 325 MG TAB PO SCH (09:00)
[2022-03-22] MEDS: HEPARIN SODIUM,PORCINE/PF 5,000 UNIT/0.5 ML SYRINGE SQ SCH ×2 (09:18→21:24)
[2022-03-22] MEDS: TOPIRAMATE 25 MG TAB PO SCH ×2 (09:18→21:25)
[2022-03-22] MEDS: amLODIPine 10 MG TAB PO SCH (09:18)
[2022-03-22] MEDS: cloNIDine HCL 0.1 MG TAB PO SCH ×3 (09:21→21:27)
[2022-03-22] MEDS ORDERED: Magnesium Replacement Protocol 1 EACH MISC MISCELLANE PRN (10:04)
--- NOTE | 2022-03-22 10:37 | P.NPCON ---
History of Present Illness - Reason for Consult chronic renal failure - History of Present Illness Patient is a 36-year-old male with hypertension, chronic kidney disease NKF stage V for many years. Previous creatinine about 4-5 mg/dL as of October 2021. 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 Patient has not followed up in the office as outpatient for more than a year. He is admitted to the hospital with complaints of increased shortness of breath, increased lower extremity edema and overall not feeling well. Patient states that he has been talked to regarding renal replacement therapy and he is not ready to start dialysis. He states that he is busy at work and does not want to commit to scheduled treatments for dialysis. I have discussed with him that given his current labs with serum creatinine at 10.4 mg/dL he needs to start dialysis and eventually get on a transplant list. Patient continues to be reluctant and wants to wait on renal replacement therapy. No nausea vomiting or abdominal pain. Review of Systems As per HPI, other systems negative Past Medical History Past Medical History: Asthma, Hypertension, Renal Disease Additional Past Medical History / Comment(s): recent admission due to uncontrolled BP 09/2019 History of Any Multi-Drug Resistant Organisms: None Reported Past Surgical History: No Surgical Hx Reported Past Anesthesia/Blood Transfusion Reactions: No Reported Reaction Additional Past Anesthesia/Blood Transfusion Reaction / Comment(s): never had bld transfusion or surgery Smoking Status: Never smoker - Past Family History Mother Family Medical History: Diabetes Mellitus Father Family Medical History: Unable to Obtain Medications and Allergies Home Medications Medication Instructions Recorded Confirmed Type amLODIPine [Norvasc] 10 mg PO DAILY 30 Days #30 tab 09/06/19 03/21/22 Rx Spironolactone [Aldactone] 25 mg PO BID 09/19/19 03/21/22 History Baclofen [Lioresal] 10 mg PO HS 03/21/22 03/21/22 History Ergocalciferol [Vitamin D2 (1250 1,250 mcg PO Q7D 03/21/22 03/21/22 History Mcg = 33876 Iu)] Topiramate [Topamax] See Taper PO DIRECTED 03/21/22 03/21/22 History cloNIDine HCL [Catapres] 0.3 mg PO TID 03/21/22 03/21/22 History Allergies Allergy/AdvReac Type Severity Reaction Status Date / Time No Known Allergies Allergy Verified 03/21/22 09:47 Physical Exam Vitals: Vital Signs Temp Pulse Pulse Resp BP BP Pulse Ox 03/22/22 09:15 98.1 F 73 16 169/80 100 03/22/22 04:00 98.3 F 81 18 161/78 97 03/22/22 01:34 84 17 03/21/22 23:21 98.1 F 84 17 164/80 98 03/21/22 20:00 98.5 F 81 18 169/82 96 03/21/22 16:48 98.2 F 84 20 148/87 98 03/21/22 13:30 97.7 F 87 20 179/101 99 03/21/22 13:02 98.2 F 87 18 171/111 98 03/21/22 13:01 87 18 171/111 98 03/21/22 12:04 87 18 182/131 98 03/21/22 11:37 190/112 03/21/22 11:11 221/122 03/21/22 10:47 18 Intake and Output 03/21/22 03/22/22 03/22/22 22:59 06:59 14:59 Intake Total 720 900 500 Balance 720 900 500 Intake: Oral 720 900 500 Other: # Voids 1 2 Weight 144.7 kg Awake, comfortable, not in any acute distress Examination of the heart S1 and S2 Examination lungs bilateral breath sounds are heard, bilateral radials Abdomen is soft nontender Exertion lower extremity shows edema 2+ bilaterally ANIMAL IMPERSONATOR exam grossly intact No asterixis noted Results - Lab Results Most recent lab results Calcium 8.3 mg/dL (8.4-10.2) L 03/22/22 05:42 Magnesium 1.8 mg/dL (1.6-2.3) 03/22/22 05:42 03/22/22 05:42 03/22/22 05:42 Assessment and Plan Assessment: 1. Chronic kidney disease stage V secondary to uncontrolled hypertension with biopsy-proven global glomerulosclerosis severe interstitial fibrosis. Biopsy performed on 10/18/2019. Patient has worsening renal failure and volume overload. Patient needs to start renal replacement therapy however, he is reluctant. He is also advised that he needs to follow-up regularly as outpatient and get on the transplant list. 2. Volume overload 3. Metabolic acidosis associated with chronic kidney disease 4. Anemia of chronic disease 5. History of uncontrolled hypertension from a young age Plan: 1. Diurese patient. 2. Continue current antihypertensive medications 3. Patient is advised that he needs very close monitoring and follow-up as outpatient and that he should ideally be started on renal replacement therapy given his current labs.
[2022-03-22 10:51] LABS: Chol/HDL Ratio 3.68 Ratio; LDL Cholesterol,Calculated 100.6 mg/dL (0.0-131.0); VLDL Calculation 16.68 mg/dL (5.00-40.00)
[2022-03-22] MEDS: MAGNESIUM SULFATE-D5W PMX 1 GM in DEXTROSE/WATER 1 100ML.BAG IVPB SCH ×2 (10:52→14:00)
--- NOTE | 2022-03-22 13:19 | P.CRDCN ---
History of Present Illness Consult date: 03/22/22 History of present illness: HISTORY OF PRESENT ILLNESS: This is a 36-year-old male with a past medical history significant for chronic kidney disease and hypertension. The patient doesn't follow with a display trimmer. We have been asked to see the patient in consultation for hypertension and abnormal troponins. Patient examined at the bedside. Patient states he presented to the hospital with a chief complaint of swollen ankles. He reports shortness of breath over the past week. He denies any chest pain. He does report having a headache yesterday when his blood pressure was elevated. He denies any dizziness or lightheadedness. The patient's blood pressure upon admission was found to be 213/145. The patient states he has not been taking his medications because he has been trying to eat better and exercise and he thought that would be enough. He also reports that he has not followed up with his kidney doctor. * EKG reveals sinus mechanism with incomplete right bundle branch block. No signs of acute ischemia. * Chest xray cardiomegaly. Query any known cardiac diagnosis. There may be developing pulmonary vascular congestion versus atypical pneumonia. * Laboratory data: WBC 6.2. Hemoglobin 10.8. Platelet count 230. Sodium 140. Potassium 4.4. BUN 79. Creatinine 10.44. Magnesium 1.8. Troponin 0.312. 0.309. 0.369. ProBNP 14,400. * Venous Doppler: Negative for DVT bilaterally * Current home cardiac medications include Catapres 0.3 mg 3 times a day, amlodipine 10 mg daily, Aldactone 25 mg twice a day REVIEW OF SYSTEMS: At the time of my exam: CONSTITUTIONAL: Denies fever or chills. HEENT: Denies blurred vision, vision changes, or eye pain. Denies hemoptysis CARDIOVASCULAR: Denies chest pain. Denies orthopnea. Denies PND. Denies palpitations RESPIRATORY: Denies shortness of breath. GASTROINTESTINAL: Denies abdominal pain. Denies nausea or vomiting. HEMATOLOGIC: Denies bleeding disorders. GENITOURINARY: Denies any blood in urine. SKIN: Denies pruitis. Denies rash. PHYSICAL EXAM: VITAL SIGNS: Reviewed. GENERAL: Well-developed in no acute distress. HEENT: Head is normocephalic. Pupils are equal, round. Sclerae anicteric. Mucous membranes of the mouth are moist. Neck supple. No JVD or thyromegaly LUNGS: Respirations even and unlabored. Lungs diminished to auscultation bilaterally. HEART: Regular rate and rhythm. S1 and S2 heard. ABDOMEN: Soft. Nondistended. Nontender. EXTREMITIES: Normal range of motion. No clubbing or cyanosis. Peripheral pulses intact. 2+ bilateral lower extremity edema NEUROLOGIC: Awake and alert. Oriented x 3. ASSESSMENT: Acute on chronic kidney disease, reluctant to begin HD Abnormal troponins, secondary to above, no evidence of ACS Hypertension emergency Volume overload secondary to CKD, not secondary to CHF Medication noncompliance PLAN: Obtain 2D echo to assess cardiac structure and function Continue current cardiac medications Monitor blood pressure IV lasix started per nephrology Further recommendations pending patient course Nurse practitioner note has been reviewed by physician. Signing provider agrees with the documented findings, assessment, and plan of care. Past Medical History Past Medical History: Asthma, Hypertension, Renal Disease Additional Past Medical History / Comment(s): recent admission due to uncontrolled BP 09/2019 History of Any Multi-Drug Resistant Organisms: None Reported Past Surgical History: No Surgical Hx Reported Past Anesthesia/Blood Transfusion Reactions: No Reported Reaction Additional Past Anesthesia/Blood Transfusion Reaction / Comment(s): never had bld transfusion or surgery Smoking Status: Never smoker - Past Family History Mother Family Medical History: Diabetes Mellitus Father Family Medical History: Unable to Obtain Medications and Allergies Home Medications Medication Instructions Recorded Confirmed Type amLODIPine [Norvasc] 10 mg PO DAILY 30 Days #30 tab 09/06/19 03/21/22 Rx Spironolactone [Aldactone] 25 mg PO BID 09/19/19 03/21/22 History Baclofen [Lioresal] 10 mg PO HS 03/21/22 03/21/22 History Ergocalciferol [Vitamin D2 (1250 1,250 mcg PO Q7D 03/21/22 03/21/22 History Mcg = 03823 Iu)] Topiramate [Topamax] See Taper PO DIRECTED 03/21/22 03/21/22 History cloNIDine HCL [Catapres] 0.3 mg PO TID 03/21/22 03/21/22 History Allergies Allergy/AdvReac Type Severity Reaction Status Date / Time No Known Allergies Allergy Verified 03/21/22 09:47 Physical Exam Vitals: Vital Signs Temp Pulse Pulse Resp BP BP Pulse Ox 03/22/22 04:00 98.3 F 81 18 161/78 97 03/22/22 01:34 84 17 03/21/22 23:21 98.1 F 84 17 164/80 98 03/21/22 20:00 98.5 F 81 18 169/82 96 03/21/22 16:48 98.2 F 84 20 148/87 98 03/21/22 13:30 97.7 F 87 20 179/101 99 03/21/22 13:02 98.2 F 87 18 171/111 98 03/21/22 13:01 87 18 171/111 98 03/21/22 12:04 87 18 182/131 98 03/21/22 11:37 190/112 03/21/22 11:11 221/122 03/21/22 10:47 18 03/21/22 09:42 98.2 F 95 20 213/145 97 Intake and Output 03/21/22 03/22/22 03/22/22 22:59 06:59 14:59 Intake Total 720 900 Balance 720 900 Intake: Oral 720 900 Other: # Voids 1 2 Weight 144.7 kg Results 03/22/22 05:42 03/22/22 05:42 Cardiac Enzymes 03/21/22 03/21/22 03/21/22 Range/Units 10:32 10:32 13:16 AST 30 (17-59) U/L Troponin I 0.316 H* 0.309 H* (0.000-0.034) ng/mL 03/21/22 Range/Units 18:05 AST (17-59) U/L Troponin I 0.369 H* (0.000-0.034) ng/mL Coagulation 03/21/22 Range/Units 10:32 PT 10.5 (9.0-12.0) sec APTT 23.2 (22.0-30.0) sec CBC 03/21/22 03/22/22 Range/Units 10:32 05:42 WBC 6.4 6.2 (3.8-10.6) k/uL RBC 4.01 L 3.66 L (4.30-5.90) m/uL Hgb 11.7 L 10.8 L (13.0-17.5) gm/dL Hct 36.4 L 33.7 L (39.0-53.0) % Plt Count 234 230 (150-450) k/uL Comprehensive Metabolic Panel 03/21/22 03/22/22 Range/Units 10:32 05:42 Sodium 140 140 (137-145) mmol/L Potassium 4.4 4.4 (3.5-5.1) mmol/L Chloride 113 H 111 H (98-107) mmol/L Carbon Dioxide 18 L 19 L (22-30) mmol/L BUN 79 H 79 H (9-20) mg/dL Creatinine 10.43 H* 10.44 H* (0.66-1.25) mg/dL Glucose 98 87 (74-99) mg/dL Calcium 8.5 8.3 L (8.4-10.2) mg/dL AST 30 (17-59) U/L ALT 29 (4-49) U/L Alkaline Phosphatase 52 (38-126) U/L Total Protein 6.1 L (6.3-8.2) g/dL Albumin 3.5 (3.5-5.0) g/dL Current Medications Generic Name Dose Route Start Last Admin Trade Name Freq PRN Reason Stop Dose Admin Acetaminophen 650 mg 03/21/22 13:13 Acetaminophen Tab 325 Mg Tab PO Q6HR PRN Fever and/ or Pain Amlodipine Besylate 10 mg 03/21/22 12:30 03/21/22 13:10 Amlodipine 10 Mg Tab PO 10 mg DAILY LEDY Administration Aspirin 325 mg 03/22/22 09:00 Aspirin 325 Mg Tab PO DAILY LEDY Baclofen 10 mg 03/21/22 21:00 03/21/22 20:22 Baclofen 10 Mg Tab PO 10 mg HS LEDY Administration Clonidine 0.3 mg 03/21/22 12:30 03/21/22 22:55 Clonidine Hcl 0.1 Mg Tab PO 0.3 mg TID LEDY Administration Famotidine 20 mg 03/21/22 21:00 03/21/22 20:22 Famotidine 20 Mg/2 Ml Vial IV 20 mg HS LEDY Administration Guaifenesin/Dextromethorphan 10 ml 03/21/22 13:13 Guaifenesin-Dm 100-10mg/5ml 10 Ml Cup PO Q6HR PRN Cough Heparin Sodium (Porcine) 5,000 unit 03/21/22 21:00 03/21/22 20:23 Heparin Sodium,Porcine/Pf 5,000 Unit/0.5 Ml Syringe SQ 5,000 unit Q12HR LEDY Administration Nitroglycerin 0.4 mg 03/21/22 11:20 Nitroglycerin Sl Tabs 0.4 Mg Tab SUBLINGUAL Q5M PRN Chest Pain Nitroglycerin 1 inch 03/21/22 12:00 03/22/22 05:30 Nitroglycerin Oint 1 Inch/Gm Packet TOPICAL Not Given Q6HR LEDY Topiramate 25 mg 03/21/22 21:00 03/21/22 20:22 Topiramate 25 Mg Tab PO 25 mg BID LEDY Administration Intake and Output 03/21/22 03/22/22 03/22/22 22:59 06:59 14:59 Intake Total 720 900 Balance 720 900 Intake: Oral 720 900 Other: # Voids 1 2 Weight 144.7 kg 03/22/22 05:42 03/22/22 05:42
--- NOTE | 2022-03-22 15:20 | P.PN ---
Subjective Progress Note Date: 03/22/22 This is a pleasant 36 years old -[place] male with past medical history of advanced chronic kidney disease, uncontrolled hypertension, noncompliance with recommendations and medication. He is a patient of Dr. Fraire and sole splitter is Dr. Laurent Patient presents because of bilateral leg swelling and dyspnea worsening over one week, also has been complaining of from cough and green to white phlegm for the last 2 weeks which is a new for him. Patient was noncompliant and adherent to his medication because he wanted to dependent on practice and sports instead. He is fully awake and oriented and he denies chest pain, no abdominal pain. No nausea vomiting or diarrhea. No change in urine habits. No dysuria or urgency. No dizziness. He had some mild headache earlier which is improved. Also patient noticed to be on Topamax but he does not know the dose and he does not know why he is taking it. He denies history of migraine or seizure. He denies smoking, smokes marijuana at times. Occasional alcohol. No other illicit drugs. On admission his blood pressure was significantly elevated 213/145, currently 182/131 Rest of vitals are stable and patient is afebrile. Heart rate 87. CBC is unremarkable except for mild anemia with hemoglobin 11.7. INR is normal 1.7. Creatinine increased from baseline 4-5.8, currently is 10.4 on admission. Rest of BMP is unremarkable with normal electrolytes. His troponin on admission was 0.3, he has troponin chronically elevated around 0.09-0.1 ProBNP is elevated [id number] Coronavirus not detected. EKG: Normal sinus rhythm at [address] with no significant [address]-T changes but evidence of LVH Chest x-ray: May developing pulmonary vascular congestion versus atypical pneumonia On admission he received Tylenol, Lasix, hydralazine and labetalol. Also started on nitroglycerin ointment 03/22/2022 Patient evaluated today resting bed. Currently denies any shortness of breath, chest pain. Continues with lower extremity edema. Labs today showing hemoglobin 10.8, chloride 111, CO2 19, BUN 79, creatinine 10.44, GFR of 7, magnesium 1.8. Cholesterol panel completed showing triglycerides 83, cholesterol 161, LDL 100, HDL 43. Procalcitonin 0.28. Covid, influenza A, influenza B negative. Patient underwent venous Doppler which was negative for bilateral DVT. Echocardiogram is completed and currently pending results. He was evaluated by cardiology and nephrology today. Continues on IV lasix 60 mg every 12 hours. Dialysis was discussed with patient, currently he does not want to start but will discuss further tomorrow. Review of Systems Constitutional: Denied any fatigue denied any fever. Cardio vascular: denied any chest pain, palpitations Gastrointestinal: denied any nausea, vomiting, diarrhea Pulmonary: Reports improved shortness of breath, denies cough Neurologic denied any new focal deficits All inpatient medications were reviewed and appropriate changes in these medications as dictated in the interval history and assessment and plan. PHYSICAL EXAMINATION: GENERAL: The patient is alert and oriented x3, not in any acute distress. Well developed, well nourished. HEENT: Pupils are round and equally reacting to light. EOMI. No scleral icterus. No conjunctival pallor. Normocephalic, atraumatic. No pharyngeal erythema. No thyromegaly. CARDIOVASCULAR: S1 and S2 present. No murmurs, rubs, or gallops. PULMONARY: Chest is clear to auscultation, no wheezing or crackles. ABDOMEN: Soft, nontender, nondistended, normoactive bowel sounds. No palpable organomegaly. MUSCULOSKELETAL: No joint swelling or deformity. EXTREMITIES: No cyanosis, clubbing, peripheral ankle edema NEUROLOGICAL: Gross neurological examination did not reveal any focal deficits. SKIN: No rashes. Assessment and plan Assessment Acute on chronic kidney disease stage V secondary to uncontrolled hypertension with GSIF. Recommended to start dialysis, patient currently undecided. Troponin leak secondary to above, with chronic elevation Volume overload Accelerated hypertension, uncontrolled Metabolic acidosis secondary to chronic kidney disease Anemia of chronic disease History of non compliance GI Prophylaxis DVT Prohylaxis Plan Continue current cardiac medications Continue IV Lasix and monitor intake and output Repeat CBC, BMP in the morning Appreciate cardiology, nephrology consultation Further discussion regarding dialysis Prognosis guarded The impression and plan of care has been dictated by Margarita Servin, Nurse Practitioner as directed. Dr. Hermes MD I have performed a history and physical examination and medical decision making of this patient, discussed the same with the dictator, and agree with the dictators assessment and plan as written, documented as a scribe. Based on total visit time, I have performed more than 50% of this visit. Objective - Vital Signs Vital signs: Vital Signs Temp 98.1 F 03/22/22 09:15 Pulse 73 03/22/22 09:15 Resp 16 03/22/22 09:15 BP 169/80 03/22/22 09:15 Pulse Ox 100 03/22/22 09:15 Intake & Output 03/21/22 03/22/22 03/22/22 18:59 06:59 18:59 Intake Total 120 1500 500 Balance 120 1500 500 Weight 138.346 kg 144.7 kg Intake: Oral 120 1500 500 Other: # Voids 2 - Labs CBC & Chem 7: 03/22/22 05:42 03/22/22 05:42 Labs: Abnormal Lab Results - Last 24 Hours (Table) 03/21/22 03/21/22 03/21/22 Range/Units 13:16 13:16 18:05 RBC (4.30-5.90) m/uL Hgb (13.0-17.5) gm/dL Hct (39.0-53.0) % Chloride (98-107) mmol/L Carbon Dioxide (22-30) mmol/L BUN (9-20) mg/dL Creatinine (0.66-1.25) mg/dL Calcium (8.4-10.2) mg/dL Troponin I 0.309 H* 0.369 H* (0.000-0.034) ng/mL Procalcitonin 0.28 H (0.02-0.09) ng/mL 03/22/22 03/22/22 Range/Units 05:42 05:42 RBC 3.66 L (4.30-5.90) m/uL Hgb 10.8 L (13.0-17.5) gm/dL Hct 33.7 L (39.0-53.0) % Chloride 111 H (98-107) mmol/L Carbon Dioxide 19 L (22-30) mmol/L BUN 79 H (9-20) mg/dL Creatinine 10.44 H* (0.66-1.25) mg/dL Calcium 8.3 L (8.4-10.2) mg/dL Troponin I (0.000-0.034) ng/mL Procalcitonin (0.02-0.09) ng/mL Assessment and Plan Time with Patient: Greater than 30
[2022-03-22] MEDS: FUROSEMIDE 10 MG/ML 10 ML VIAL IV SCH (21:24)
[2022-03-22] MEDS: FAMOTIDINE 20 MG TAB PO SCH (21:25)
[2022-03-22] MEDS: BACLOFEN 10 MG TAB PO SCH (21:25)
[2022-03-23] MEDS ORDERED: hydrALAZINE HCL 20 MG/ML 1 ML VIAL IVP STA (04:45)
[2022-03-23 07:33] LABS: Basophils % (A) 1 %; Eosinophils # (A) 0.3 k/uL (0-0.7); Eosinophils % (A) 6 %; HCT 34.7 % (39.0-53.0); HGB 11.3 gm/dL (13.0-17.5); Lymphocytes % (A) 18 %; MCH 29.9 pg (25.0-35.0); MCHC 32.7 g/dL (31.0-37.0); MCV 91.5 fL (80.0-100.0); Mean Platelet Volume 10.2; Monocytes # (A) 0.5 k/uL (0-1.0); Monocytes % (A) 8 %; Neutrophils # (A) 3.5 k/uL (1.3-7.7); Neutrophils % (A) 65 %; Platelet Count 210 k/uL (150-450); RBC 3.79 m/uL (4.30-5.90); RDW 15.1 % (11.5-15.5); WBC 5.4 k/uL (3.8-10.6)
[2022-03-23 07:36] LABS: Calcium 8.5 mg/dL (8.4-10.2); Magnesium 2.2 mg/dL (1.6-2.3); Potassium 4.6 mmol/L (3.5-5.1)
[2022-03-23] MEDS: amLODIPine 10 MG TAB PO SCH (07:57)
[2022-03-23] MEDS: HEPARIN SODIUM,PORCINE/PF 5,000 UNIT/0.5 ML SYRINGE SQ SCH ×2 (07:58→21:04)
[2022-03-23] MEDS: TOPIRAMATE 25 MG TAB PO SCH ×2 (07:58→21:04)
[2022-03-23] MEDS: FUROSEMIDE 10 MG/ML 10 ML VIAL IV SCH ×2 (07:58→21:05)
[2022-03-23] MEDS: cloNIDine HCL 0.1 MG TAB PO SCH ×3 (07:58→21:04)
--- NOTE | 2022-03-23 09:06 | CA ---
Transthoracic Echo Report Name: Jerel Deleon Age: 36 Gender: M : 1985 Exam Date: 03/22/2022 10:55 Exam Location: [facility] Ht (in): 74 Wt (lb): 319 Ordering Physician: Charo Varela Attending/Referring Phys: [id number], Nichole Spares Scheduler Janey Hunt, NATASHA Procedure CPT: Indications: LV function Cardiac Hx: Technical Quality: Good Contrast 1: Total Dose (mL): Contrast 2: Total Dose (mL): MEASUREMENTS (Male / Female) Normal Values 2D ECHO LV Diastolic Diameter PLAX 5.6 cm 4.2 - 5.9 / 3.9 - 5.3 cm LV Systolic Diameter PLAX 4.5 cm IVS Diastolic Thickness 1.8 cm 0.6 - 1.0 / 0.6 - 0.9 cm LVPW Diastolic Thickness 2.2 cm 0.6 - 1.0 / 0.6 - 0.9 cm LV Relative Wall Thickness 0.7 RV Internal Dim ED PLAX 3.7 cm LA Systolic Diameter LX 5.1 cm 3.0 - 4.0 / 2.7 - 3.8 cm LA Volume 136.4 cm??? 18 - 58 / 22 - 52 cm??? M-MODE Aortic Root Diameter MM 4.5 cm MV E Point Septal Separation 1.7 cm AV Cusp Separation MM 2.5 cm DOPPLER AV Peak Velocity 146.9 cm/s AV Peak Gradient 8.6 mmHg MV Area PHT 3.8 cm??? Mitral E Point Velocity 106.5 cm/s Mitral A Point Velocity 40.2 cm/s Mitral E to A Ratio 2.6 MV Deceleration Time 198.6 ms MV E' Velocity 4.1 cm/s Mitral E to MV E' Ratio 26.0 TR Peak Velocity 333.3 cm/s TR Peak Gradient 44.4 mmHg Right Ventricular Systolic Press 49.4 mmHg FINDINGS Left Ventricle Left ventricular ejection fraction is estimated at 40-45 %. Left ventricular cavity size normal. Severe concentric left ventricular hypertrophy. Right Ventricle Mild right ventricular dilatation. Moderate pulmonary hypertension. Right Atrium Normal right atrial size. Left Atrium No evidence for an atrial septal defect. Moderately increased left atrial diameter. Severely increased left atrial volume. Moderately increased left atrial area. Mitral Valve Mild to moderate mitral regurgitation. Aortic Valve Mild aortic regurgitation. Tricuspid Valve Mild tricuspid regurgitation. Pulmonic Valve Structurally normal pulmonic valve. Pericardium Normal pericardium. Aorta Moderate aortic dilatation at the level of the sinuses of valsalva (root). CONCLUSIONS Mildly impaired LV function was EF between 40-45% with global hypokinesia Concentric left ventricular hypertrophy [id number] mitral regurgitation Mild aortic insufficiency Dilated aortic root Please see above for further details Previewed by: Dr. Bernardo oMnet MD (Electronically Signed) Final Date: 23 Mar 2022 09:05
[2022-03-23] MEDS: carvediloL 6.25 MG TAB PO SCH ×2 (10:54→16:32)
--- NOTE | 2022-03-23 12:19 | P.PN ---
Subjective Patient is seen for follow-up for acute kidney injury and top of chronic kidney disease. He was admitted to the hospital with fluid overload and serum creatinine of about 10 which is up from his previous baseline at around 5.6 with grams per deciliter last year. Patient has been talked to regarding renal replacement therapy however he had been reluctant. This morning patient states that he is agreeable to starting hemodialysis. Long-term care including the transplantation has been discussed with the patient and importance of compliance with dialysis treatments and medications. Objective - Vital Signs Vital signs: Vital Signs Temp 97.4 F L 03/23/22 07:54 Pulse 67 03/23/22 09:25 Resp 16 03/23/22 07:54 BP 162/109 03/23/22 09:25 Pulse Ox 99 03/23/22 07:54 Intake & Output 03/22/22 03/23/22 03/23/22 18:59 06:59 18:59 Intake Total 1400 450 Output Total 3 2550 900 Balance 1397 -2100 -900 Weight 146.1 kg Intake: Oral 1400 450 Output: Urine 3 2550 900 Other: # Voids 3 3 - Exam Awake, comfortable, not in any acute distress Alert oriented 3 Examination of the heart S1 and S2 Examination of lungs bilateral breath sounds are heard Abdomen is soft nontender Examination lower extremities shows 1+ edema [employer] exam grossly intact - Labs CBC & Chem 7: 03/23/22 06:34 03/23/22 06:34 Labs: Abnormal Lab Results - Last 24 Hours (Table) 03/23/22 03/23/22 Range/Units 06:34 06:34 RBC 3.79 L (4.30-5.90) m/uL Hgb 11.3 L (13.0-17.5) gm/dL Hct 34.7 L (39.0-53.0) % Chloride 110 H (98-107) mmol/L Carbon Dioxide 19 L (22-30) mmol/L BUN 65 H (9-20) mg/dL Creatinine 10.63 H* (0.66-1.25) mg/dL Assessment and Plan Assessment: 1. Chronic kidney disease stage V secondary to uncontrolled hypertension with biopsy-proven global glomerulosclerosis severe interstitial fibrosis. Biopsy performed on 10/18/2019. Patient has worsening renal failure and volume overload. Patient needs to start renal replacement therapy however, he is reluctant. Patient has now agreed to proceed with dialysis. We will consult vascular surgery and planned for his first treatment tomorrow 2. Volume overload 3. Metabolic acidosis associated with chronic kidney disease 4. Anemia of chronic disease 5. History of uncontrolled hypertension from a young age Plan: Proceed with vascular surgery consult and placement of dialysis catheter Discharge planning for outpatient chair time Add Coreg for uncontrolled hypertension
--- NOTE | 2022-03-23 12:42 | P.PN ---
Subjective Progress Note Date: 03/23/22 HISTORY OF PRESENT ILLNESS: This is a 36-year-old male with a past medical history significant for chronic kidney disease and hypertension. The patient doesn't follow with a cardiol ogist. We have been asked to see the patient in consultation for hypertension and abnormal troponins. Patient examined at the bedside. Patient states he presented to the hospital with a chief complaint of swollen ankles. He reports shortness of breath over the past week. He denies any chest pain. He does report having a headache yesterday when his blood pressure was elevated. He denies any dizziness or lightheadedness. The patient's blood pressure upon admission was found to be 213/145. The patient states he has not been taking his medications because he has been trying to eat better and exercise and he thought that would be enough. He also reports that he has not followed up with his kidney doctor. * EKG reveals sinus mechanism with incomplete right bundle branch block. No signs of acute ischemia. * Chest xray cardiomegaly. Query any known cardiac diagnosis. There may be developing pulmonary vascular congestion versus atypical pneumonia. * Laboratory data: WBC 6.2. Hemoglobin 10.8. Platelet count 230. Sodium 140. Potassium 4.4. BUN 79. Creatinine 10.44. Magnesium 1.8. Troponin 0.312. 0.309. 0.369. ProBNP 14,400. * Venous Doppler: Negative for DVT bilaterally * Current home cardiac medications include Catapres 0.3 mg 3 times a day, amlodipine 10 mg daily, Aldactone 25 mg twice a day 03/23/2022 Patient examined this morning at the bedside. Patient denies chest pain or pressure. He denies shortness of breath. Echocardiogram completed revealing ejection fraction 40-45%, global hypokinesis, severe LVH, moderate pulmonary hypertension, [id number] mitral regurgitation, mild aortic regurgitation, and mild tricuspid regurgitation PHYSICAL EXAM: VITAL SIGNS: Reviewed. GENERAL: Well-developed in no acute distress. HEENT: Head is normocephalic. Pupils are equal, round. Sclerae anicteric. Mucous membranes of the mouth are moist. Neck supple. No JVD or thyromegaly LUNGS: Respirations even and unlabored. Lungs diminished to auscultation bilaterally. HEART: Regular rate and rhythm. S1 and S2 heard. ABDOMEN: Soft. Nondistended. Nontender. EXTREMITIES: Normal range of motion. No clubbing or cyanosis. Peripheral pulses intact. 2+ bilateral lower extremity edema NEUROLOGIC: Awake and alert. Oriented x 3. ASSESSMENT: Acute on chronic kidney disease, reluctant to begin HD Abnormal troponins, secondary to above, no evidence of ACS Hypertension emergency Volume overload secondary to CKD, not secondary to CHF Medication noncompliance PLAN: Continue current cardiac medications Monitor blood pressure IV lasix started per nephrology Patient agreeable to hemodialysis No further inpatient recommendations from a cardiac standpoint. We will sign off. Please reconsult if needed. Patient to follow up outpatient with Dr. Humphreys Nurse practitioner note has been reviewed by physician. Signing provider agrees with the documented findings, assessment, and plan of care. Objective - Vital Signs Vital signs: Vital Signs Temp 97.4 F L 03/23/22 07:54 Pulse 67 03/23/22 12:00 Resp 16 03/23/22 12:00 BP 168/103 03/23/22 12:00 Pulse Ox 99 03/23/22 12:00 Intake & Output 03/22/22 03/23/22 03/23/22 18:59 06:59 18:59 Intake Total 1400 450 Output Total 3 2550 900 Balance 1397 -2100 -900 Weight 146.1 kg Intake: Oral 1400 450 Output: Urine 3 2550 900 Other: # Voids 3 3 - Labs CBC & Chem 7: 03/23/22 06:34 03/23/22 06:34 Labs: Abnormal Lab Results - Last 24 Hours (Table) 03/23/22 03/23/22 Range/Units 06:34 06:34 RBC 3.79 L (4.30-5.90) m/uL Hgb 11.3 L (13.0-17.5) gm/dL Hct 34.7 L (39.0-53.0) % Chloride 110 H (98-107) mmol/L Carbon Dioxide 19 L (22-30) mmol/L BUN 65 H (9-20) mg/dL Creatinine 10.63 H* (0.66-1.25) mg/dL
--- NOTE | 2022-03-23 13:23 | P.GSCN ---
History of Present Illness History of present illness: 36-year-old -[place] male patient has history of hypertension chronic kidney disease is some a with high BUN/creatinine consulted for placement of dialysis catheter Medical history history of hypertension uncontrolled, S1, running kidney disease Surgical history no surgery done in the past Neck examination neck is supple no bruit appreciated Chest is clear first and second sound normal Abdomen soft nontender Femorals are 1+ bilateral with bilateral edema Plan is placement of This catheter risk and complication discussed Past Medical History Past Medical History: Asthma, Hypertension, Renal Disease Additional Past Medical History / Comment(s): recent admission due to uncontrolled BP 09/2019 History of Any Multi-Drug Resistant Organisms: None Reported Past Surgical History: No Surgical Hx Reported Past Anesthesia/Blood Transfusion Reactions: No Reported Reaction Additional Past Anesthesia/Blood Transfusion Reaction / Comm: never had bld transfusion or surgery Smoking Status: Never smoker - Past Family History Mother Family Medical History: Diabetes Mellitus Father Family Medical History: Unable to Obtain Medications and Allergies Home Medications Medication Instructions Recorded Confirmed Type amLODIPine [Norvasc] 10 mg PO DAILY 30 Days #30 tab 09/06/19 03/21/22 Rx Spironolactone [Aldactone] 25 mg PO BID 09/19/19 03/21/22 History Baclofen [Lioresal] 10 mg PO HS 03/21/22 03/21/22 History Ergocalciferol [Vitamin D2 (1250 1,250 mcg PO Q7D 03/21/22 03/21/22 History Mcg = 58469 Iu)] Topiramate [Topamax] See Taper PO DIRECTED 03/21/22 03/21/22 History cloNIDine HCL [Catapres] 0.3 mg PO TID 03/21/22 03/21/22 History Allergies Allergy/AdvReac Type Severity Reaction Status Date / Time No Known Allergies Allergy Verified 03/21/22 09:47 Surgical - Exam Vital Signs Temp Pulse Resp BP Pulse Ox 98.2 F 95 20 213/145 97 03/21/22 09:42 03/21/22 09:42 03/21/22 09:42 03/21/22 09:42 03/21/22 09:42 Results - Labs 03/23/22 06:34 03/23/22 06:34 Abnormal Lab Results - Last 24 Hours (Table) 03/23/22 03/23/22 Range/Units 06:34 06:34 RBC 3.79 L (4.30-5.90) m/uL Hgb 11.3 L (13.0-17.5) gm/dL Hct 34.7 L (39.0-53.0) % Chloride 110 H (98-107) mmol/L Carbon Dioxide 19 L (22-30) mmol/L BUN 65 H (9-20) mg/dL Creatinine 10.63 H* (0.66-1.25) mg/dL Diabetes panel 03/23/22 Range/Units 06:34 Sodium 137 (137-145) mmol/L Potassium 4.6 (3.5-5.1) mmol/L Chloride 110 H (98-107) mmol/L Carbon Dioxide 19 L (22-30) mmol/L BUN 65 H (9-20) mg/dL Creatinine 10.63 H* (0.66-1.25) mg/dL Glucose 89 (74-99) mg/dL Calcium 8.5 (8.4-10.2) mg/dL Calcium panel 03/23/22 Range/Units 06:34 Calcium 8.5 (8.4-10.2) mg/dL Pituitary panel 03/23/22 Range/Units 06:34 Sodium 137 (137-145) mmol/L Potassium 4.6 (3.5-5.1) mmol/L Chloride 110 H (98-107) mmol/L Carbon Dioxide 19 L (22-30) mmol/L BUN 65 H (9-20) mg/dL Creatinine 10.63 H* (0.66-1.25) mg/dL Glucose 89 (74-99) mg/dL Calcium 8.5 (8.4-10.2) mg/dL Adrenal panel 03/23/22 Range/Units 06:34 Sodium 137 (137-145) mmol/L Potassium 4.6 (3.5-5.1) mmol/L Chloride 110 H (98-107) mmol/L Carbon Dioxide 19 L (22-30) mmol/L BUN 65 H (9-20) mg/dL Creatinine 10.63 H* (0.66-1.25) mg/dL Glucose 89 (74-99) mg/dL Calcium 8.5 (8.4-10.2) mg/dL
[2022-03-23] MEDS ORDERED: LIDOCAINE 1% INJ 10MG/ML (5 ML VIAL-PF) SQ ONE ×4 (14:58)
[2022-03-23] MEDS ORDERED: MIDAZOLAM 2 MG/2 ML VIAL IV ONE (14:59)
[2022-03-23] MEDS ORDERED: fentaNYL (PF) 50 MCG/ML 2 ML AMP IV ONE (15:00)
[2022-03-23] MEDS ORDERED: IOPAMIDOL-370 50ML BTL INJ ONE (15:09)
--- NOTE | 2022-03-23 15:09 | P.PN ---
Subjective Progress Note Date: 03/23/22 This is a pleasant 36 years old -Citizen Of [place] male with past medical history of advanced chronic kidney disease, uncontrolled hypertension, noncompliance with recommendations and medication. He is a patient of Dr. Fraire and orthopedic tech is Dr. Laurent Patient presents because of bilateral leg swelling and dyspnea worsening over one week, also has been complaining of from cough and green to white phlegm for the last 2 weeks which is a new for him. Patient was noncompliant and adherent to his medication because he wanted to dependent on practice and sports instead. He is fully awake and oriented and he denies chest pain, no abdominal pain. No nausea vomiting or diarrhea. No change in urine habits. No dysuria or urgency. No dizziness. He had some mild headache earlier which is improved. Also patient noticed to be on Topamax but he does not know the dose and he does not know why he is taking it. He denies history of migraine or seizure. He denies smoking, smokes marijuana at times. Occasional alcohol. No other illicit drugs. On admission his blood pressure was significantly elevated 213/145, currently 182/131 Rest of vitals are stable and patient is afebrile. Heart rate 87. CBC is unremarkable except for mild anemia with hemoglobin 11.7. INR is normal 1.7. Creatinine increased from baseline 4-5.8, currently is 10.4 on admission. Rest of BMP is unremarkable with normal electrolytes. His troponin on admission was 0.3, he has troponin chronically elevated around 0.09-0.1 ProBNP is elevated 66496 Coronavirus not detected. EKG: Normal sinus rhythm at [address] with no significant [address]-T changes but evidence of LVH Chest x-ray: May developing pulmonary vascular congestion versus atypical pneumonia On admission he received Tylenol, Lasix, hydralazine and labetalol. Also started on nitroglycerin ointment 03/22/2022 Patient evaluated today resting bed. Currently denies any shortness of breath, chest pain. Continues with lower extremity edema. Labs today showing hemoglobin 10.8, chloride 111, CO2 19, BUN 79, creatinine 10.44, GFR of 7, magnesium 1.8. Cholesterol panel completed showing triglycerides 83, cholesterol 161, LDL 100, HDL 43. Procalcitonin 0.28. Covid, influenza A, influenza B negative. Patient underwent venous Doppler which was negative for bilateral DVT. Echocardiogram is completed and currently pending results. He was evaluated by cardiology and nephrology today. Continues on IV lasix 60 mg every 12 hours. Dialysis was discussed with patient, currently he does not want to start but will discuss further tomorrow. 03/23/2022 Discussed dialysis with patient today at bedside, as well as compliance to treatment plan, including blood pressure medications. He has decided to start treatment. Vascular services was consulted for evaluation and placement of dialysis access. Creatinine today 10.63, BUN 65. Hgb 11.3, Chloride 111, CO2 19. Blood pressure today 168/103, 99% on room air. Echocardiogram resulted showing an EF of 40-45% with global hypokinesis, mild to moderate mitral regurgitation, mild aortic insufficiency, dilated aortic root, concentric LVH. Patients shortness of breath and peripheral edema is no better or worse than yesterday. He is fatigued. 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 He is understanding of the need for compliance even with blood pressure medications. Plan for dialysis access and will receive dialysis afterwards. Nephrology is following the patient closely. Review of Systems Constitutional: Reports fatigue. denied any fever. Cardio vascular: denied any chest pain, palpitations Gastrointestinal: denied any nausea, vomiting, diarrhea Pulmonary: Reports improved shortness of breath, denies cough Neurologic denied any new focal deficits All inpatient medications were reviewed and appropriate changes in these medications as dictated in the interval history and assessment and plan. PHYSICAL EXAMINATION: GENERAL: The patient is alert and oriented x3, not in any acute distress. Well developed, well nourished. HEENT: Pupils are round and equally reacting to light. EOMI. No scleral icterus. No conjunctival pallor. Normocephalic, atraumatic. No pharyngeal erythema. No thyromegaly. CARDIOVASCULAR: S1 and S2 present. No murmurs, rubs, or gallops. PULMONARY: Chest is clear to auscultation, no wheezing or crackles. Lungs are diminished ABDOMEN: Soft, nontender, nondistended, normoactive bowel sounds. No palpable organomegaly. MUSCULOSKELETAL: No joint swelling or deformity. EXTREMITIES: No cyanosis, clubbing, peripheral ankle edema NEUROLOGICAL: Gross neurological examination did not reveal any focal deficits. SKIN: No rashes. Assessment and plan Assessment Acute on chronic kidney disease stage V secondary to uncontrolled hypertension w ith GSIF. Patient agreeable to start dialysis treatment. Troponin leak secondary to above, with chronic elevation Volume overload secondary to kidney disease Diastolic and systolic dysfunction with EF of 40-45%, mild to moderate MR, severe LVH, global hypokinesis Moderate pulmonary hypertension Accelerated hypertension, uncontrolled Metabolic acidosis secondary to chronic kidney disease Anemia of chronic disease History of non compliance GI Prophylaxis DVT Prohylaxis Plan Patient to receive dialysis access today with vascular services Plan to start dialysis tomorrow Continue IV lasix per nephrology Continue all other supportive care Cardiology has signed off The impression and plan of care has been dictated by Margarita Servin Nurse Practitioner as directed. Dr. Hermes MD I have performed a history and physical examination and medical decision making of this patient, discussed the same with the dictator, and agree with the dictators assessment and plan as written, documented as a scribe. Based on total visit time, I have performed more than 50% of this visit. Objective - Vital Signs Vital signs: Vital Signs Temp 97.4 F L 03/23/22 07:54 Pulse 67 03/23/22 12:00 Resp 16 03/23/22 12:00 BP 168/103 03/23/22 12:00 Pulse Ox 99 03/23/22 12:00 Intake & Output 03/22/22 03/23/22 03/23/22 18:59 06:59 18:59 Intake Total 1400 450 Output Total 3 2550 900 Balance 1397 -2100 -900 Weight 146.1 kg Intake: Oral 1400 450 Output: Urine 3 2550 900 Other: # Voids 3 3 - Labs CBC & Chem 7: 03/23/22 06:34 03/23/22 06:34 Labs: Abnormal Lab Results - Last 24 Hours (Table) 03/23/22 03/23/22 Range/Units 06:34 06:34 RBC 3.79 L (4.30-5.90) m/uL Hgb 11.3 L (13.0-17.5) gm/dL Hct 34.7 L (39.0-53.0) % Chloride 110 H (98-107) mmol/L Carbon Dioxide 19 L (22-30) mmol/L BUN 65 H (9-20) mg/dL Creatinine 10.63 H* (0.66-1.25) mg/dL Assessment and Plan Time with Patient: Less than 30
--- NOTE | 2022-03-23 15:48 | IR ---
EXAMINATION TYPE: IR cvc insert central tunneled DATE OF EXAM: 03/23/2022 COMPARISON: NONE HISTORY: Fluoroscopy time. Fluoroscopy was provided to the referring clinician.
--- NOTE | 2022-03-23 16:08 | XR ---
EXAMINATION TYPE: XR chest 1V portable DATE OF EXAM: 03/23/2022 COMPARISON: 03/21/2022 INDICATION: Dialysis catheter placement TECHNIQUE: Single frontal view of the chest is obtained. FINDINGS: The heart size is enlarged. The pulmonary vasculature is normal. The lungs are clear. There is placement of a double-lumen catheter on the right with the tips in the proximal right atrium . No pneumothorax is evident. IMPRESSION: 1. No pneumothorax post right central venous catheter placement. 2. Cardiomegaly
[2022-03-23] MEDS ORDERED: HYDROcodone/APAP 5-325MG 1 EACH TAB PO PRN (16:44)
--- NOTE | 2022-03-23 18:29 | OP ---
OPERATIVE REPORT PREOPERATIVE DIAGNOSIS: Acute on chronic renal failure. POSTOPERATIVE DIAGNOSIS: Acute on chronic renal failure. PROCEDURE PERFORMED: Ultrasound-guided placement of 20 cm dialysis catheter under local anesthesia and IV sedation. PROCEDURE DESCRIPTION: Patient was brought to the laborer drying department. Right side of the chest and neck was prepped and draped in usual sterile manner. Ultrasound-guided micropuncture was introduced into the right jugular vein. Micropuncture guidewire was passed and a 4-Finnish dilator was advanced on top of the guidewire. After that we created a tunnel, and through the tunnel we brought a 23 cm dialysis catheter. Then we passed a regular guidewire under fluoroscopic control. Guidewire was parked in the inferior vena cava. Dilator was advanced. Then the sheath was advanced on top of the guidewire. Through the sheath, we introduced the dialysis catheter. Tip of the catheter was in the superior vena cavoatrial junction. Sheath was removed. Catheter was flushed with heparin saline and hep-locked, secured with 3-0 nylon. Dressing was applied. Patient tolerated the procedure well. Sedation time was 25 minutes. MMODL / IJN: [id number] /
[2022-03-23] MEDS: BACLOFEN 10 MG TAB PO SCH (21:04)
[2022-03-23] MEDS: FAMOTIDINE 20 MG TAB PO SCH (21:05)
[2022-03-23 23:05] LABS: Hepatitis B Surface AB- Quant 3.5 mIU/mL; Hepatitis B Surface Antibody Nonreactive (Nonreactive)
[2022-03-23 23:15] LABS: Hepatitis B Surface Antigen Nonreactive (Nonreactive)
[2022-03-24] MEDS: carvediloL 6.25 MG TAB PO SCH ×2 (06:42→16:47)
[2022-03-24] MEDS: FUROSEMIDE 10 MG/ML 10 ML VIAL IV SCH ×2 (09:17→21:13)
[2022-03-24] MEDS: amLODIPine 10 MG TAB PO SCH (09:18)
[2022-03-24] MEDS: TOPIRAMATE 25 MG TAB PO SCH ×2 (09:18→21:12)
[2022-03-24] MEDS: cloNIDine HCL 0.1 MG TAB PO SCH ×3 (09:18→21:12)
[2022-03-24] MEDS: HEPARIN SODIUM,PORCINE/PF 5,000 UNIT/0.5 ML SYRINGE SQ SCH ×2 (09:18→21:13)
--- NOTE | 2022-03-24 15:39 | P.PN ---
Subjective Progress Note Date: 03/24/22 This is a pleasant 36 years old -[place] male with past medical history of advanced chronic kidney disease, uncontrolled hypertension, noncompliance with recommendations and medication. He is a patient of Dr. Fraire and watch repairer apprentice is Dr. Laurent Patient presents because of bilateral leg swelling and dyspnea worsening over one week, also has been complaining of from cough and green to white phlegm for the last 2 weeks which is a new for him. Patient was noncompliant and adherent to his medication because he wanted to dependent on practice and sports instead. He is fully awake and oriented and he denies chest pain, no abdominal pain. No nausea vomiting or diarrhea. No change in urine habits. No dysuria or urgency. No dizziness. He had some mild headache earlier which is improved. Also patient noticed to be on Topamax but he does not know the dose and he does not know why he is taking it. He denies history of migraine or seizure. He denies smoking, smokes marijuana at times. Occasional alcohol. No other illicit drugs. On admission his blood pressure was significantly elevated 213/145, currently 182/131 Rest of vitals are stable and patient is afebrile. Heart rate 87. CBC is unremarkable except for mild anemia with hemoglobin 11.7. INR is normal 1.7. Creatinine increased from baseline 4-5.8, currently is 10.4 on admission. Rest of BMP is unremarkable with normal electrolytes. His troponin on admission was 0.3, he has troponin chronically elevated around 0.09-0.1 ProBNP is elevated 64035 Coronavirus not detected. EKG: Normal sinus rhythm at 95 BPM with no significant [address]-T changes but evidence of LVH Chest x-ray: May developing pulmonary vascular congestion versus atypical pneumonia On admission he received Tylenol, Lasix, hydralazine and labetalol. Also started on nitroglycerin ointment 03/22/2022 Patient evaluated today resting bed. Currently denies any shortness of breath, chest pain. Continues with lower extremity edema. Labs today showing hemoglobin 10.8, chloride 111, CO2 19, BUN 79, creatinine 10.44, GFR of 7, magnesium 1.8. Cholesterol panel completed showing triglycerides 83, cholesterol 161, LDL 100, HDL 43. Procalcitonin 0.28. Covid, influenza A, influenza B negative. Patient underwent venous Doppler which was negative for bilateral DVT. Echocardiogram is completed and currently pending results. He was evaluated by cardiology and nephrology today. Continues on IV lasix 60 mg every 12 hours. Dialysis was discussed with patient, currently he does not want to start but will discuss further tomorrow. 03/23/2022 Discussed dialysis with patient today at bedside, as well as compliance to treatment plan, including blood pressure medications. He has decided to start treatment. Vascular services was consulted for evaluation and placement of dialysis access. Creatinine today 10.63, BUN 65. Hgb 11.3, Chloride 111, CO2 19. Blood pressure today 168/103, 99% on room air. Echocardiogram resulted showing an EF of 40-45% with global hypokinesis, mild to moderate mitral regurgitation, mild aortic insufficiency, dilated aortic root, concentric LVH. Patients shortness of breath and peripheral edema is no better or worse than yesterday. He is fatigued. 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 He is understanding of the need for compliance even with blood pressure medications. Plan for dialysis access and will receive dialysis afterwards. Nephrology is following the patient closely. 03/24/2022 Patient underwent his first dialysis treatment today with 2L off. Received a right chest permacath yesterday for access without incident. Patient is having some mild discomfort at site, he does have norco ordered if needed for pain management. He will receive dialysis again tomorrow. Repeat labs in the morning. Blood pressure 134/96 after dialysis. Otherwise no acute events overnight. Patient had family at the bedside today all questions were answered. Case management working on finding patient a chair time for dialysis once discharge. Continues on IV lasix. Review of Systems Constitutional: Reports fatigue. denied any fever. Cardio vascular: denied any chest pain, palpitations Gastrointestinal: denied any nausea, vomiting, diarrhea Pulmonary: Reports improved shortness of breath, denies cough Neurologic denied any new focal deficits All inpatient medications were reviewed and appropriate changes in these medications as dictated in the interval history and assessment and plan. PHYSICAL EXAMINATION: GENERAL: The patient is alert and oriented x3, not in any acute distress. Well developed, well nourished. HEENT: Pupils are round and equally reacting to light. EOMI. No scleral icterus. No conjunctival pallor. Normocephalic, atraumatic. No pharyngeal erythema. No thyromegaly. CARDIOVASCULAR: S1 and S2 present. No murmurs, rubs, or gallops. PULMONARY: Chest is clear to auscultation, no wheezing or crackles. Lungs are diminished ABDOMEN: Soft, nontender, nondistended, normoactive bowel sounds. No palpable organomegaly. MUSCULOSKELETAL: No joint swelling or deformity. EXTREMITIES: No cyanosis, clubbing, peripheral ankle edema NEUROLOGICAL: Gross neurological examination did not reveal any focal deficits. SKIN: No rashes. Assessment and plan Assessment Acute on chronic kidney disease stage V secondary to uncontrolled hypertension with GSIF. Troponin leak secondary to above, with chronic elevation Volume overload secondary to kidney disease Diastolic and systolic dysfunction with EF of 40-45%, mild to moderate MR, severe LVH, global hypokinesis Moderate pulmonary hypertension Accelerated hypertension, uncontrolled Metabolic acidosis secondary to chronic kidney disease Anemia of chronic disease History of non compliance GI Prophylaxis DVT Prohylaxis Plan Patient will undergo dialysis again tomorrow Continue IV lasix per nephrology Continue all other supportive care Cardiology has signed off Repeat BMP in AM The impression and plan of care has been dictated by Margarita Servin, Nurse Practitioner as directed. Dr. Hermes MD I have performed a history and physical examination and medical decision making of this patient, discussed the same with the dictator, and agree with the dictators assessment and plan as written, documented as a scribe. Based on total visit time, I have performed more than 50% of this visit. Objective - Vital Signs Vital signs: Vital Signs Temp 97.9 F 03/24/22 09:14 Pulse 57 L 03/24/22 09:14 Resp 18 03/24/22 09:14 BP 148/97 03/24/22 09:14 Pulse Ox 100 03/24/22 09:29 Intake & Output 03/23/22 03/24/22 03/24/22 18:59 06:59 18:59 Intake Total 730 Output Total 1800 2200 Balance -1800 -1470 Weight 143.2 kg Intake: IV 10 Invasive Line 1 10 Oral 720 Output: Urine 1800 2200 Other: Voiding Method Urinal Urinal # Voids 3 - Labs CBC & Chem 7: 03/23/22 06:34 03/23/22 06:34 Assessment and Plan Time with Patient: Less than 30
--- NOTE | 2022-03-24 16:47 | P.PN ---
Subjective Patient is seen for follow-up for acute kidney injury and top of chronic kidney disease. He was admitted to the hospital with fluid overload and serum creatinine of about 10 which is up from his previous baseline at around 5.6 with grams per deciliter last year. Patient has been talked to regarding renal replacement therapy however he had been reluctant. 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 Objective - Vital Signs Vital signs: Vital Signs Temp 98.2 F 03/24/22 15:35 Pulse 69 03/24/22 15:35 Resp 18 03/24/22 15:35 BP 138/92 03/24/22 15:35 Pulse Ox 100 03/24/22 15:35 Intake & Output 03/23/22 03/24/22 03/24/22 18:59 06:59 18:59 Intake Total 730 300 Output Total 1800 2200 3000 Balance -1800 -1470 -2700 Weight 143.2 kg Intake: IV 10 Invasive Line 1 10 Oral 720 Hemodialysis 300 Output: Urine 1800 2200 1000 Hemodialysis 2000 Other: Voiding Method Urinal Urinal # Voids 3 - Exam Awake, comfortable, not in any acute distress Alert oriented 3 Abdomen is soft nontender Examination lower extremities shows 1+ edema CHEMISTRY LABORATORY TECHNICIAN exam grossly intact - Labs CBC & Chem 7: 03/23/22 06:34 03/23/22 06:34 Assessment and Plan Assessment: 1. Chronic kidney disease stage V secondary to uncontrolled hypertension with biopsy-proven global glomerulosclerosis severe interstitial fibrosis. Biopsy performed on 10/18/2019. Patient has worsening renal failure and volume overload. Patient needs to start renal replacement therapy however, he is reluctant. Patient eventually agrees for HD.First treatment today 03/24/22 2. Volume overload 3. Metabolic acidosis associated with chronic kidney disease 4. Anemia of chronic disease 5. History of uncontrolled hypertension from a young age Plan: Repeat HD in am Out pt chair time to be arranged.
[2022-03-24] MEDS: FAMOTIDINE 20 MG TAB PO SCH (21:12)
[2022-03-24] MEDS: BACLOFEN 10 MG TAB PO SCH (21:12)
[2022-03-25] MEDS: carvediloL 6.25 MG TAB PO SCH ×2 (06:23→17:27)
[2022-03-25 08:04] LABS: Calcium 8.6 mg/dL (8.4-10.2); Potassium 5.1 mmol/L (3.5-5.1)
--- NOTE | 2022-03-25 12:31 | P.PN ---
Subjective Patient is seen for follow-up for acute kidney injury and top of chronic kidney disease. He was admitted to the hospital with fluid overload and serum creatinine of about 10 which is up from his previous baseline at around 5.6 with grams per deciliter last year. Patient has been talked to regarding renal replacement therapy however he had been reluctant. Pt agreed for RADIO PRESENTER and HD started on 03/24/2022 Patient is seen on hemodialysis today Tolerating treatment well Discharge planning in progress Objective - Vital Signs Vital signs: Vital Signs Temp 99.3 F 03/25/22 11:49 Pulse 87 03/25/22 11:49 Resp 20 03/25/22 11:49 BP 169/78 03/25/22 11:49 Pulse Ox 96 03/25/22 11:49 Intake & Output 03/24/22 03/25/22 03/25/22 18:59 06:59 18:59 Intake Total 540 10 240 Output Total 3000 2019 Balance -2459 240 Weight 140.4 kg Intake: IV 10 Invasive Line 1 10 Oral 240 240 Hemodialysis 300 Output: Urine 1000 2019 Hemodialysis 1999 Other: Voiding Method Urinal Urinal Urinal - Exam Awake, comfortable, not in any acute distress Alert oriented 3 Abdomen is soft nontender Examination lower extremities shows 1+ edema CIGAR WRAPPER exam grossly intact - Labs CBC & Chem 7: 03/23/22 06:34 03/25/22 06:36 Labs: Abnormal Lab Results - Last 24 Hours (Table) 03/25/22 Range/Units 06:36 Chloride 108 H (98-107) mmol/L BUN 75 H (9-20) mg/dL Creatinine 9.99 H* (0.66-1.25) mg/dL Assessment and Plan Assessment: 1. Chronic kidney disease stage V secondary to uncontrolled hypertension with biopsy-proven global glomerulosclerosis severe interstitial fibrosis. Biopsy performed on 10/18/2019. Patient has worsening renal failure and volume overload. Patient needs to start renal replacement therapy however, he is reluctant. Patient eventually agrees for HD.First treatment today 03/24/22 2. Volume overload 3. Metabolic acidosis associated with chronic kidney disease 4. Anemia of chronic disease 5. History of uncontrolled hypertension from a young age Plan: Repeat hemodialysis in a.m. Outpatient chair placement If patient will be started on TTS schedule as outpatient we will dialyze him again on Tuesday
--- NOTE | 2022-03-25 12:45 | CDI ---
Documentation Clarification Form Date: 03/25/2022 12:19:17 PM From: Lizzette Love RN CCDS Admit Date: 03/21/2022 11:20:00 AM Patient Name: Jerel Deleon Visit Number: [id number] Discharge Date: ATTENTION: The Clinical Documentation Specialists (CDI) and [facility] Coding Staff appreciate your assistance in clarifying documentation. Please respond to the clarification below the line at the bottom and electronically sign. The CDI & [facility] Coding staff will review the response and follow-up if needed. Please note: Queries are made part of the Legal Health Record. If you have any questions, please contact the author of this message via ITS. Dr. Everton Mirza Your patient has the documented diagnosis of unspecified CHF 03/23, Medicine progress note. Additional information regarding the acuity of CHF is requested. History/Risk Factors: 36-year-old male presents to the ED with advanced CKD, uncontrolled HTN and noncompliance with medications. Medical History: CKD IV; CHF and HTN. Clinical Indicators: VS/Pulse OX: 03/21 B/P 213/145; HR 95; Temp 98.2 F Oral; RR 20; SpO2 97% room air. BNP: 03/21 [id number] Echocardiogram Results: EF 40-45% Left ventricular cavity size normal. Severe concentric left ventricular hypertrophy. Mild right ventricular dilatation. Moderate pulmonary hypertension. Chest X Ray: 03/21 Heart appears enlarged. Increased central interstitial density. H&P, 03/21: possible acute CHF with pulmonary congestion, unknown ejection fraction. Treatment: 03/23 to current Coreg 6.25mg PO Bid; 03/21 Lasix 20mg IV x 1; 03/22 current Lasix 60mg IV Q12HR . 03/23 Dialysis Catheter In your professional opinion, can you please clarify the acuity of CHF if known? [ ] Chronic Systolic & Diastolic Heart Failure [ x ] Acute on Chronic Heart Failure Systolic & Diastolic Heart Failure [ ] Other, please specify [ ] Unable to determine (Template Last Revised: December 2020) MTDD
[2022-03-25] MEDS: HEPARIN SODIUM,PORCINE/PF 5,000 UNIT/0.5 ML SYRINGE SQ SCH ×2 (12:51→20:35)
[2022-03-25] MEDS: FUROSEMIDE 10 MG/ML 10 ML VIAL IV SCH ×2 (12:51→20:35)
[2022-03-25] MEDS: cloNIDine HCL 0.1 MG TAB PO SCH ×3 (12:51→20:35)
[2022-03-25] MEDS: TOPIRAMATE 25 MG TAB PO SCH ×2 (12:52→20:35)
[2022-03-25] MEDS: amLODIPine 10 MG TAB PO SCH (12:52)
--- NOTE | 2022-03-25 15:01 | P.PN ---
Subjective Progress Note Date: 03/25/22 This is a pleasant 36 years old -[place] male with past medical history of advanced chronic kidney disease, uncontrolled hypertension, noncompliance with recommendations and medication. He is a patient of Dr. 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 Laurent Patient presents because of bilateral leg swelling and dyspnea worsening over one week, also has been complaining of from cough and green to white phlegm for the last 2 weeks which is a new for him. Patient was noncompliant and adherent to his medication because he wanted to dependent on practice and sports instead. He is fully awake and oriented and he denies chest pain, no abdominal pain. No nausea vomiting or diarrhea. No change in urine habits. No dysuria or urgency. No dizziness. He had some mild headache earlier which is improved. Also patient noticed to be on Topamax but he does not know the dose and he does not know why he is taking it. He denies history of migraine or seizure. He denies smoking, smokes marijuana at times. Occasional alcohol. No other illicit drugs. On admission his blood pressure was significantly elevated 213/145, currently 182/131 Rest of vitals are stable and patient is afebrile. Heart rate 87. CBC is unremarkable except for mild anemia with hemoglobin 11.7. INR is normal 1.7. Creatinine increased from baseline 4-5.8, currently is 10.4 on admission. Rest of BMP is unremarkable with normal electrolytes. His troponin on admission was 0.3, he has troponin chronically elevated around 0.09-0.1 ProBNP is elevated 63348 Coronavirus not detected. EKG: Normal sinus rhythm at [address] with no [address]-T changes but evidence of LVH Chest x-ray: May developing pulmonary vascular congestion versus atypical pneumonia On admission he received Tylenol, Lasix, hydralazine and labetalol. Also started on nitroglycerin ointment 03/22/2022 Patient evaluated today resting bed. Currently denies any shortness of breath, chest pain. Continues with lower extremity edema. Labs today showing hemoglobin 10.8, chloride 111, CO2 19, BUN 79, creatinine 10.44, GFR of 7, magnesium 1.8. Cholesterol panel completed showing triglycerides 83, cholesterol 161, LDL 100, HDL 43. Procalcitonin 0.28. Covid, influenza A, influenza B negative. Patient underwent venous Doppler which was negative for bilateral DVT. Echocardiogram is completed and currently pending results. He was evaluated by cardiology and nephrology today. Continues on IV lasix 60 mg every 12 hours. Dialysis was discussed with patient, currently he does not want to start but will discuss further tomorrow. 03/23/2022 Discussed dialysis with patient today at bedside, as well as compliance to treatment plan, including blood pressure medications. He has decided to start treatment. Vascular services was consulted for evaluation and placement of dialysis access. Creatinine today 10.63, BUN 65. Hgb 11.3, Chloride 111, CO2 19. Blood pressure today 168/103, 99% on room air. Echocardiogram resulted showing an EF of 40-45% with global hypokinesis, mild to moderate mitral regurgitation, mild aortic insufficiency, dilated aortic root, concentric LVH. Patients shortness of breath and peripheral edema is no better or worse than yesterday. He is fatigued. 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 He is understanding of the need for compliance even with blood pressure medications. Plan for dialysis access and will receive dialysis afterwards. Nephrology is following the patient closely. 03/24/2022 Patient underwent his first dialysis treatment today with 2L off. Received a right chest permacath yesterday for access without incident. Patient is having some mild discomfort at site, he does have norco ordered if needed for pain management. He will receive dialysis again tomorrow. Repeat labs in the morning. Blood pressure 134/96 after dialysis. Otherwise no acute events overnight. Patient had family at the bedside today all questions were answered. Case management working on finding patient a chair time for dialysis once discharge. Continues on IV lasix. 03/25/2022 Patient evaluated today during his second dialysis treatment. Overall he is feeling better. Labs today showing creatinine 9.99, BUN 75. Hepatitis panel negative. Afebrile, heart rate 68, blood pressure 145/103. Plan is for dialysis tomorrow. Pending chair time placement and discharge planning. No acute events overnight. Peripheral edema is improving. Patients affect is flat and seems indifferent to diagnosis and current treatment, may consider starting patient on antidepressant medication or recommend outside referral for therapy services. Will discuss with patient. Review of Systems Constitutional: Denies fatigue. denied any fever. Cardio vascular: denied any chest pain, palpitations Gastrointestinal: denied any nausea, vomiting, diarrhea Pulmonary: Reports improved shortness of breath, denies cough Neurologic denied any new focal deficits All inpatient medications were reviewed and appropriate changes in these medications as dictated in the interval history and assessment and plan. PHYSICAL EXAMINATION: GENERAL: The patient is alert and oriented x3, not in any acute distress. Well developed, well nourished. HEENT: Pupils are round and equally reacting to light. EOMI. No scleral icterus. No conjunctival pallor. Normocephalic, atraumatic. No pharyngeal erythema. No thyromegaly. CARDIOVASCULAR: S1 and S2 present. No murmurs, rubs, or gallops. PULMONARY: Chest is clear to auscultation, no wheezing or crackles. Lungs are diminished ABDOMEN: Soft, nontender, nondistended, normoactive bowel sounds. No palpable organomegaly. MUSCULOSKELETAL: No joint swelling or deformity. EXTREMITIES: No cyanosis, clubbing, peripheral ankle edema improving NEUROLOGICAL: Gross neurological examination did not reveal any focal deficits. SKIN: No rashes. Assessment and plan Assessment Acute on chronic kidney disease stage V secondary to uncontrolled hypertension with GSIF. Troponin leak secondary to above, with chronic elevation Volume overload secondary to kidney disease receiving IV lasix Chronic Diastolic and systolic dysfunction with EF of 40-45%, mild to moderate MR, severe LVH, global hypokinesis, cardiology felt patient was not in an acute exacerbation. Moderate pulmonary hypertension Accelerated hypertension, uncontrolled Metabolic acidosis secondary to chronic kidney disease Anemia of chronic disease History of non compliance GI Prophylaxis DVT Prohylaxis Plan Patient will undergo dialysis again tomorrow Continue IV lasix per nephrology Continue all other supportive care Cardiology has signed off and will follow up with the patient outpatient Chair time pending and discharge planning is in progress. The impression and plan of care has been dictated by Margarita Servin Nurse Practitioner as directed. Dr. Hermes MD I have performed a history and physical examination and medical decision making of this patient, discussed the same with the dictator, and agree with the dictators assessment and plan as written, documented as a scribe. Based on total visit time, I have performed more than 50% of this visit. Objective - Vital Signs Vital signs: Vital Signs Temp 97.9 F 03/25/22 12:43 Pulse 60 03/25/22 12:43 Resp 20 03/25/22 11:49 BP 145/103 03/25/22 12:43 Pulse Ox 96 03/25/22 11:49 Intake & Output 03/24/22 03/25/22 03/25/22 18:59 06:59 18:59 Intake Total 540 10 540 Output Total 3000 2019 2299 Balance -246 Weight 140.4 kg Intake: IV 10 Invasive Line 1 10 Oral 240 240 Hemodialysis 300 300 Output: Urine 1000 2019 Hemodialysis 1999 2299 Other: Voiding Method Urinal Urinal Urinal - Labs CBC & Chem 7: 03/23/22 06:34 03/25/22 06:36 Labs: Abnormal Lab Results - Last 24 Hours (Table) 03/25/22 Range/Units 06:36 Chloride 108 H (98-107) mmol/L BUN 75 H (9-20) mg/dL Creatinine 9.99 H* (0.66-1.25) mg/dL Assessment and Plan Time with Patient: Less than 30
[2022-03-25] MEDS: BACLOFEN 10 MG TAB PO SCH (20:35)
[2022-03-25] MEDS: FAMOTIDINE 20 MG TAB PO SCH (20:35)
[2022-03-26] MEDS: carvediloL 6.25 MG TAB PO SCH (05:58)
--- NOTE | 2022-03-26 10:42 | P.PN ---
Subjective Patient is seen for follow-up for acute kidney injury and top of chronic kidney disease. He was admitted to the hospital with fluid overload and serum creatinine of about 10 which is up from his previous baseline at around 5.6 with grams per deciliter last year. Patient has been talked to regarding renal replacement therapy however he had been reluctant. Pt agreed for [facility] PILOT and HD started on 03/24/2022 Patient is seen on hemodialysis today Tolerating treatment well Discharge planning in progress Patient will be going to [place] dialysis unit on a Tuesday schedule. He can be discharged today. 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 Chronic kidney disease stage V secondary to uncontrolled hypertension with biopsy-proven global glomerulosclerosis severe interstitial fibrosis. Biopsy performed on 10/18/2019. Patient has worsening renal failure and volume overload. Patient needs to start renal replacement therapy however, he is reluctant. Patient eventually agrees for HD.First treatment today 03/24/22 2. Volume overload 3. Metabolic acidosis associated with chronic kidney disease 4. Anemia of chronic disease 5. History of uncontrolled hypertension from a young age Plan: Patient can be discharged from nephrology standpoint. Follow-up for dialysis as outpatient on Tuesday at the [facility] unit.
[2022-03-26] MEDS ORDERED: LACTULOSE 20 GM/30 ML CUP PO ONE (12:00)
[2022-03-26] MEDS: HEPARIN SODIUM,PORCINE/PF 5,000 UNIT/0.5 ML SYRINGE SQ SCH (12:16)
[2022-03-26] MEDS: cloNIDine HCL 0.1 MG TAB PO SCH (12:16)
[2022-03-26] MEDS: FUROSEMIDE 10 MG/ML 10 ML VIAL IV SCH (12:16)
[2022-03-26] MEDS: TOPIRAMATE 25 MG TAB PO SCH (12:16)
[2022-03-26] MEDS: amLODIPine 10 MG TAB PO SCH (12:16)
[2022-03-26 12:48] VITALS: BP 168/106; PULSE 68; RESP 18
[2022-03-26 13:21] VITALS: BMI 39.5
[2022-03-26 14:50] VITALS: TEMP 98
--- NOTE | 2022-03-26 22:42 | P.DS ---
Providers Date of admission: 03/21/22 11:20 Attending physician: Steven Roman Consults: 03/21/22 11:20 Consult Physician Urgent Consulting Provider: Ritika Sawant Consult Reason/Comments: Acute on chronic renal failure Do you want consulting provider notified?: Yes 03/23/22 13:14 Consult Physician Routine Consulting Provider: David Khan Consult Reason/Comments: dialysis catheter Do you want consulting provider notified?: Already Contacted Primary care physician: Yee Seymour [facility] Course: Final Diagnosis Acute on chronic kidney disease stage V secondary to uncontrolled hypertension with GSIF. Troponin leak secondary to above, with chronic elevation Volume overload secondary to kidney disease receiving IV lasix Chronic Diastolic and systolic dysfunction with EF of 40-45%, mild to moderate MR, severe LVH, global hypokinesis, cardiology felt patient was not in an acute exacerbation. Moderate pulmonary hypertension Accelerated hypertension, uncontrolled Metabolic acidosis secondary to chronic kidney disease Anemia of chronic disease History of non compliance Discharge Disposition Patient is discharged in stable condition. He received hemodialysis for the last 3 days. He is scheduled for dialysis chair time MWF at [facility] in [place] at 0530 am. Repeat BMP given to draw with dialysis on Tuesday. Follow up with primary care, Dr Sawant, and cardiology. Hospital Course This is a pleasant 36 year old male with medical history of uncontrolled hypertension, chronic kidney disease stage V, global glomerular severe interstitial fibrosis which was confirmed by biopsy in Oct, asthma. Patient presents to the hospital with complaints of shortness of breath and leg swelling which has been increasing over the last couple days. He denies fever or chills. He has been non-complaint with his blood pressure medication outpatient. He has also been non compliant with nephrology follow up. On admission blood pressure was found to be 213/145. Patient was given antihypertensives in the [facility] and resumed on home medications of norvasc, clonidine. He was admitted to the hospital with consults placed to cardiology and nephrology. Labs on admission showing hemoglobin of 11.7, sodium 140, potassium 4.4, BUN 79, creatinine 10.43, troponin 0.369, BNP 14,400, total protein of 6.1, procalcitonin level of 0.28. COVID, Influenza A/Influenza B, Hepatitis panel negative Echocardiogram showing EF of 40-45%, mild to moderate MR, severe LVH, global hypokinesis Chest xray showing cardiomegaly, possible developing pulmonary vascular congestion vs. atypical pneumonia Venous doppler negative for DVT bilateral Patient was also started on IV lasix. Initally patient refused hemodialysis, but then did agree. He received dialysis access to the right chest wall. He started dialysis on 03/24/2022, and received a total of 3 dialysis treatments daily. He has been scheduled for a chair time MWF at [facility] in [place] starting Tuesday03/29/2022. Patient is counseled extensively on the importance of medication compliance. 03/26/2022 Patient evaluated today during hemodialysis, which he is overall tolearting well. He does state an increase in his energy level, currently denies shortness of breath, chest pain. Ankle edema is improving. His main complaint is no BM in 3-4 days, he is given a one time dose of lactulose today. Discussed antidepressant medication, outside therapy and patient states that he will discuss this with PCP at hospital follow. He was started on carvedilol 6.25 mg BID, lasix 60 mg po daily, and will continue on norvasc, aldactone, clonidine. Blood pressure is now 168/106. He is afebrile, on room air, heart rate 68. Most recent creatinine 9.99, GFR 7. Lungs are clear, s1, s2 auscultated, abdomen is soft and non tender with normoactive bowel sounds, focal neurological exam is negative. Ankles with trace edema. Patient has been cleared by nephrology for discharge. He is medically cleared for discharge today after dialysis. Please see medication reconciliation for a list of current medication. Thank you for allowing us to participate in the care of this patient. The impression and plan of care has been dictated by Margarita Servin, Nurse Practitioner as directed. Dr. Hermes MD I have performed a history and physical examination and medical decision making of this patient, discussed the same with the dictator, and agree with the dictators assessment and plan as written, documented as a scribe. Based on total visit time, I have performed more than 50% of this visit. Patient Condition at Discharge: Stable Plan - Discharge Summary Discharge Rx Participant: No New Discharge Prescriptions: New carvediloL [Coreg] 6.25 mg PO BID-W/MEALS 30 Days #60 tab Famotidine [Pepcid] 20 mg PO HS #30 tab Acetaminophen Tab [Tylenol] 650 mg PO Q6HR PRN tab PRN Reason: Fever And/ Or Pain Furosemide [Lasix] 60 mg PO DAILY #30 tab Continue amLODIPine [Norvasc] 10 mg PO DAILY 30 Days #30 tab Spironolactone [Aldactone] 25 mg PO BID cloNIDine HCL [Catapres] 0.3 mg PO TID Topiramate [Topamax] See Taper PO DIRECTED Ergocalciferol [Vitamin D2 (1250 Mcg = 36029 Iu)] 1,250 mcg PO Q7D Baclofen [Lioresal] 10 mg PO HS Discharge Medication List amLODIPine [Norvasc] 10 mg PO DAILY 30 Days #30 tab 09/06/19 [Rx] Spironolactone [Aldactone] 25 mg PO BID 09/19/19 [History] Baclofen [Lioresal] 10 mg PO HS 03/21/22 [History] Ergocalciferol [Vitamin D2 (1250 Mcg = 73405 Iu)] 1,250 mcg PO Q7D 03/21/22 [History] Topiramate [Topamax] See Taper PO DIRECTED 03/21/22 [History] cloNIDine HCL [Catapres] 0.3 mg PO TID 03/21/22 [History] Acetaminophen Tab [Tylenol] 650 mg PO Q6HR PRN tab 03/26/22 [Rx] Famotidine [Pepcid] 20 mg PO HS #30 tab 03/26/22 [Rx] Furosemide [Lasix] 60 mg PO DAILY #30 tab 03/26/22 [Rx] carvediloL [Coreg] 6.25 mg PO BID-W/MEALS 30 Days #60 tab 03/26/22 [Rx] Follow up Appointment(s)/Referral(s): Ritika Sawant MD [STAFF PHYSICIAN] - 1 Week (per office no appointment needed) Dawn Fraire MD [Primary Care Provider] - 04[facility]02/22 [facility] - 03/29/22 5:15 am Cipriano Humphreys DO [STAFF PHYSICIAN] - 1 Week (Office to call patient and set up an appointment) None,Stated [REFERRING] - 1-2 days Ambulatory/Diagnostic Orders: Basic Metabolic Panel [LAB.AMB] Time Frame: 3 Days, Location: None Selected Patient Instructions/Handouts: Acute Kidney Injury (GEN) Activity/Diet/Wound Care/Special Instructions: bring insurance card and ID to dialysis treatment day. Lab script given bring to dialysis tuesday for lab draw Follow up with Dr Sawant outpatient. Do not discontinue clonidine or carvedilol there is risk for increased blood pressure. Speak to physician first if experiencing any lightheadedness, dizziness. [facility] dialysis center in [place] chair time MWF 5:30 am. Discharge Disposition: HOME SELF-CARE
== END 2022-03-26 14:00 | disposition home or self-care (01) | DRG 291 ==
LOC: EC 09:36 → 3SCARD 11:20
PROVIDERS: ADMIT Hospitalist; ATTEND Hospitalist
PROC: 0JH63XZ Insertion of Tunneled Vascular Access Device into Chest Subcutaneous Tissue and Fascia, Percutaneous Approach (ICD-10-PCS; principal; 2022-03-23 16:30)
PROC: 02HV33Z Insertion of Infusion Device into Superior Vena Cava, Percutaneous Approach (ICD-10-PCS; 2022-03-23 16:30)
PROC: 5A1D70Z Performance of Urinary Filtration, Intermittent, Less than 6 Hours Per Day (ICD-10-PCS; 2022-03-24)
DX: I13.2 Hypertensive heart and chronic kidney disease with heart failure and with stage 5 chronic kidney disease, or end stage renal disease (principal); I50.43 Acute on chronic combined systolic (congestive) and diastolic (congestive) heart failure; N18.6 End stage renal disease; J81.0 Acute pulmonary edema; E87.2 Acidosis; I16.1 Hypertensive emergency; N17.9 Acute kidney failure, unspecified; D63.1 Anemia in chronic kidney disease; F17.210 Nicotine dependence, cigarettes, uncomplicated; R77.8 Other specified abnormalities of plasma proteins; I16.0 Hypertensive urgency; I27.20 Pulmonary hypertension, unspecified; I45.10 Unspecified right bundle-branch block; I77.810 Thoracic aortic ectasia; I08.0 Rheumatic disorders of both mitral and aortic valves; J45.909 Unspecified asthma, uncomplicated; Z79.899 Other long term (current) drug therapy; Z83.3 Family history of diabetes mellitus; Z91.14 Patient's other noncompliance with medication regimen; Z91.15 Patient's noncompliance with renal dialysis; Z91.19 Patient's noncompliance with other medical treatment and regimen; Z99.2 Dependence on renal dialysis; Z20.822 Contact with and (suspected) exposure to COVID-19; Z28.311 Partially vaccinated for COVID-19
CPT/HCPCS: 36415; 36558; 71045; 71046; 76937; 77001; 80048; 80053; 80061; 83605; 83735; 83880; 84145; 84484; 85025; 85610; 85730; 86704; 86706; 87340; 87502; 87635; 90935; 93005; 93306; 93970; 94760; 96374; 96375; 96376; 99291

== ENCOUNTER 2022-03-27 11:35 | Inpatient (IN) | payer BC ==
[2022-03-27 12:13] LABS: Basophils % (A) 0 %; Eosinophils # (A) 0.1 k/uL (0-0.7); Eosinophils % (A) 1 %; HCT 39.7 % (39.0-53.0); HGB 12.8 gm/dL (13.0-17.5); Lymphocytes # (A) 0.3 k/uL (1.0-4.8); Lymphocytes % (A) 4 %; MCH 29.1 pg (25.0-35.0); MCHC 32.3 g/dL (31.0-37.0); MCV 90.3 fL (80.0-100.0); Mean Platelet Volume 9.5; Monocytes # (A) 0.2 k/uL (0-1.0); Monocytes % (A) 3 %; Neutrophils # (A) 5.9 k/uL (1.3-7.7); Neutrophils % (A) 90 %; Platelet Count 164 k/uL (150-450); RBC 4.39 m/uL (4.30-5.90); RDW 13.8 % (11.5-15.5); WBC 6.6 k/uL (3.8-10.6)
[2022-03-27 12:25] LABS: Albumin 3.7 g/dL (3.5-5.0); Calcium 8.8 mg/dL (8.4-10.2); Potassium 5.3 mmol/L (3.5-5.1); Prothrombin Time 11.2 sec (9.0-12.0); Total Bilirubin 0.5 mg/dL (0.2-1.3); Total Protein 6.6 g/dL (6.3-8.2)
[2022-03-27] MEDS ORDERED: ACETAMINOPHEN TAB 500 MG TAB PO STA (12:27)
[2022-03-27] MEDS ORDERED: MORPHINE SULFATE 4 MG/ML SYRINGE IVP STA (12:27)
[2022-03-27] MEDS ORDERED: NITROGLYCERIN SL TABS 0.4 MG TAB SUBLINGUAL STA (12:27)
--- NOTE | 2022-03-27 12:33 | XR ---
EXAMINATION TYPE: XR chest 2V DATE OF EXAM: 03/27/2022 COMPARISON: Chest x-ray March 23, 2022 HISTORY: Shortness of breath TECHNIQUE: Frontal and lateral views of the chest are obtained. FINDINGS: Stable right internal jugular dialysis catheter. Cardiomegaly redemonstrated. No new suspi cious focal airspace opacity, pleural effusion, or pneumothorax seen. Low lung volumes with mild cent ral vascular congestion redemonstrated. The osseous structures are intact. IMPRESSION: Cardiomegaly with mild central vascular congestion. Correlate for fluid overload state. No significant change from recent x-ray.
[2022-03-27] MEDS ORDERED: NALOXONE 0.4 MG/ML 1 ML VIAL IV PRN (13:09)
--- NOTE | 2022-03-27 13:09 | ED ---
SOB HPI - General Chief Complaint: Shortness of Breath Stated Complaint: THOMAS Time Seen by Provider: 03/27/22 11:45 Source: patient Mode of arrival: wheelchair Limitations: no limitations - History of Present Illness Initial Comments: 36-year-old male with past history of uncontrolled hypertension, end-stage renal disease on hemodialysis and just of heart failure presents to the emergency department with shortness of breath. Patient was just discharged from our facility yesterday. He recently had a permacath placed in the right chest wall for dialysis. He received dialysis yesterday. Went home and awoke this morning and had a headache, fever and nausea and shortness of breath. He states that he took his medications as directed this morning. No Tylenol. He continues to make urine. Denies rashes. Does have mild chest pain. No dysuria or hematuria. No diarrhea. Patient is not oxygen at home. Admits nonproductive cough. No other alleviating, precipitating or modifying factors - Related Data Home Medications Medication Instructions Recorded Confirmed Spironolactone [Aldactone] 25 mg PO BID 09/19/19 03/27/22 Baclofen [Lioresal] 10 mg PO HS 03/21/22 03/27/22 Ergocalciferol [Vitamin D2 (1250 1,250 mcg PO SA 03/21/22 03/27/22 Mcg = 52249 Iu)] Topiramate [Topamax] 25 mg PO BID 03/21/22 03/27/22 cloNIDine HCL [Catapres] 0.3 mg PO TID 03/21/22 03/27/22 Previous Rx's Medication Instructions Recorded amLODIPine [Norvasc] 10 mg PO DAILY 30 Days #30 tab 09/06/19 Acetaminophen Tab [Tylenol] 650 mg PO Q6HR PRN tab 03/26/22 Famotidine [Pepcid] 20 mg PO HS #30 tab 03/26/22 Furosemide [Lasix] 60 mg PO DAILY #30 tab 03/26/22 carvediloL [Coreg] 6.25 mg PO BID-W/MEALS 30 Days #60 03/26/22 tab Allergies Allergy/AdvReac Type Severity Reaction Status Date / Time No Known Allergies Allergy Verified 03/27/22 11:44 Review of Systems ROS Statement: Those systems with pertinent positive or pertinent negative responses have been documented in the HPI. ROS Other: All systems not noted in ROS Statement are negative. 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 Past Anesthesia/Blood Transfusion Reactions: No Reported Reaction Additional Past Anesthesia/Blood Transfusion Reaction / Comment(s): never had bld transfusion or surgery Past Psychological History: No Psychological Hx Reported Smoking Status: Never smoker - Past Family History Mother Family Medical History: Diabetes Mellitus Father Family Medical History: Unable to Obtain General Exam Limitations: no limitations General appearance: alert, in no apparent distress Head exam: Present: atraumatic, normocephalic, normal inspection Eye exam: Present: normal appearance, PERRL, EOMI. Absent: scleral icterus, conjunctival injection, periorbital swelling ENT exam: Present: normal exam, mucous membranes moist Neck exam: Present: normal inspection. Absent: tenderness, meningismus, lymphadenopathy Respiratory exam: Present: rales, accessory muscle use. Absent: respiratory di stress, wheezes, rhonchi, stridor Cardiovascular Exam: Present: normal rhythm, tachycardia, normal heart sounds. Absent: systolic murmur, diastolic murmur, rubs, gallop, clicks GI/Abdominal exam: Present: soft, normal bowel sounds. Absent: distended, tenderness, guarding, rebound, rigid Extremities exam: Present: normal inspection, full ROM, normal capillary refill. Absent: tenderness, pedal edema, joint swelling, calf tenderness Back exam: Present: normal inspection Neurological exam: Present: alert, oriented X3, CN II-XII intact Psychiatric exam: Present: normal affect, normal mood Skin exam: Present: warm, dry, intact, normal color. Absent: rash Course Vital Signs 03/27/22 03/27/22 03/27/22 11:44 12:23 13:11 Temperature 101 F H 98.7 F Pulse Rate 102 H 98 98 Respiratory 18 21 18 Rate Blood Pressure 167/112 193/130 138/101 O2 Sat by Pulse 98 98 94 L Oximetry 03/27/22 03/27/22 14:00 14:39 Temperature 101.4 F H Pulse Rate 85 Respiratory 20 Rate Blood Pressure 118/89 O2 Sat by Pulse 94 L Oximetry Medical Decision Making - Medical Decision Making On arrival patient is placed into trauma 1. EKG is obtained which is concerning for hyperacute T waves in the anterior lateral leads. IV access is established and laboratory studies are conducted. Potassium is 5.3 which is high for the patient. Creatinine 9. Troponin 0.325. Troponin is improving from previous. Urinalysis shows small blood. Covid and influenza are not detected. Chest x- ray demonstrates mild pulmonary vascular congestion. Called and spoke with Dr. Chen - agreed that the patient will require dialysis today. Patient will be admitted to Dr. Stevenson. Vancomycin will be ordered for pyrexia of unknown source. Patient reports to improvement in his headache and chest pain with nitro and Tylenol. Patient waiting about on the floor in stable condition - Lab Data Result diagrams: 04/01/22 09:07 04/03/22 08:15 Lab Results 03/27/22 03/27/22 03/27/22 Range/Units 11:50 11:50 11:54 WBC 6.6 (3.8-10.6) k/uL RBC 4.39 (4.30-5.90) m/uL Hgb 12.8 L (13.0-17.5) gm/dL Hct 39.7 (39.0-53.0) % MCV 90.3 (80.0-100.0) fL MCH 29.1 (25.0-35.0) pg MCHC 32.3 (31.0-37.0) g/dL RDW 13.8 (11.5-15.5) % Plt Count 164 (150-450) k/uL MPV 9.5 Neutrophils % 90 % Lymphocytes % 4 % Monocytes % 3 % Eosinophils % 1 % Basophils % 0 % Neutrophils # 5.9 (1.3-7.7) k/uL Lymphocytes # 0.3 L (1.0-4.8) k/uL Monocytes # 0.2 (0-1.0) k/uL Eosinophils # 0.1 (0-0.7) k/uL Basophils # 0.0 (0-0.2) k/uL PT (9.0-12.0) sec INR (<1.2) Sodium (137-145) mmol/L Potassium (3.5-5.1) mmol/L Chloride (98-107) mmol/L Carbon Dioxide (22-30) mmol/L Anion Gap mmol/L BUN (9-20) mg/dL Creatinine (0.66-1.25) mg/dL Est GFR (CKD-EPI)AfAm (>60 ml/min/1.73 sqM) Est GFR (CKD-EPI)NonAf (>60 ml/min/1.73 sqM) Glucose (74-99) mg/dL Plasma Lactic Acid Abdirahman (0.7-2.0) mmol/L Calcium (8.4-10.2) mg/dL Magnesium (1.6-2.3) mg/dL Total Bilirubin (0.2-1.3) mg/dL AST (17-59) U/L ALT (4-49) U/L Alkaline Phosphatase (38-126) U/L Troponin I (0.000-0.034) ng/mL NT-Pro-B Natriuret Pep pg/mL Total Protein (6.3-8.2) g/dL Albumin (3.5-5.0) g/dL Procalcitonin (0.02-0.09) ng/mL Urine Color Urine Appearance (Clear) Urine pH (5.0-8.0) Ur Specific [place] (1.001-1.035) Urine Protein (Negative) Urine Glucose (UA) (Negative) Urine Ketones (Negative) Urine Blood (Negative) Urine Nitrite (Negative) Urine Bilirubin (Negative) Urine Urobilinogen (<2.0) mg/dL Ur Leukocyte Esterase (Negative) Urine RBC (0-5) /hpf Urine WBC (0-5) /hpf Coronavirus (PCR) Not Detected (Not Detectd) Influenza Type A RNA Not Detected (Not Detectd) Influenza Type B (PCR) Not Detected (Not Detectd) 03/27/22 03/27/22 03/27/22 Range/Units 11:54 11:54 11:54 WBC (3.8-10.6) k/uL RBC (4.30-5.90) m/uL Hgb (13.0-17.5) gm/dL Hct (39.0-53.0) % MCV (80.0-100.0) fL MCH (25.0-35.0) pg MCHC (31.0-37.0) g/dL RDW (11.5-15.5) % Plt Count (150-450) k/uL MPV Neutrophils % % Lymphocytes % % Monocytes % % Eosinophils % % Basophils % % Neutrophils # (1.3-7.7) k/uL Lymphocytes # (1.0-4.8) k/uL Monocytes # (0-1.0) k/uL Eosinophils # (0-0.7) k/uL Basophils # (0-0.2) k/uL PT 11.2 (9.0-12.0) sec INR 1.0 (<1.2) Sodium 135 L (137-145) mmol/L Potassium 5.3 H (3.5-5.1) mmol/L Chloride 105 (98-107) mmol/L Carbon Dioxide 22 (22-30) mmol/L Anion Gap 8 mmol/L BUN 67 H (9-20) mg/dL Creatinine 9.12 H* (0.66-1.25) mg/dL Est GFR (CKD-EPI)AfAm 8 (>60 ml/min/1.73 sqM) Est GFR (CKD-EPI)NonAf 7 (>60 ml/min/1.73 sqM) Glucose 96 (74-99) mg/dL Plasma Lactic Acid Abdirahman (0.7-2.0) mmol/L Calcium 8.8 (8.4-10.2) mg/dL Magnesium (1.6-2.3) mg/dL Total Bilirubin 0.5 (0.2-1.3) mg/dL AST 20 (17-59) U/L ALT 18 (4-49) U/L Alkaline Phosphatase 60 (38-126) U/L Troponin I 0.325 H* (0.000-0.034) ng/mL NT-Pro-B Natriuret Pep pg/mL Total Protein 6.6 (6.3-8.2) g/dL Albumin 3.7 (3.5-5.0) g/dL Procalcitonin (0.02-0.09) ng/mL Urine Color Urine Appearance (Clear) Urine pH (5.0-8.0) Ur Specific [place] (1.001-1.035) Urine Protein (Negative) Urine Glucose (UA) (Negative) Urine Ketones (Negative) Urine Blood (Negative) Urine Nitrite (Negative) Urine Bilirubin (Negative) Urine Urobilinogen (<2.0) mg/dL Ur Leukocyte Esterase (Negative) Urine RBC (0-5) /hpf Urine WBC (0-5) /hpf Coronavirus (PCR) (Not Detectd) Influenza Type A RNA (Not Detectd) Influenza Type B (PCR) (Not Detectd) 03/27/22 03/27/22 03/27/22 Range/Units 11:54 11:54 11:54 WBC (3.8-10.6) k/uL RBC (4.30-5.90) m/uL Hgb (13.0-17.5) gm/dL Hct (39.0-53.0) % MCV (80.0-100.0) fL MCH (25.0-35.0) pg MCHC (31.0-37.0) g/dL RDW (11.5-15.5) % Plt Count (150-450) k/uL MPV Neutrophils % % Lymphocytes % % Monocytes % % Eosinophils % % Basophils % % Neutrophils # (1.3-7.7) k/uL Lymphocytes # (1.0-4.8) k/uL Monocytes # (0-1.0) k/uL Eosinophils # (0-0.7) k/uL Basophils # (0-0.2) k/uL PT (9.0-12.0) sec INR (<1.2) Sodium (137-145) mmol/L Potassium (3.5-5.1) mmol/L Chloride (98-107) mmol/L Carbon Dioxide (22-30) mmol/L Anion Gap mmol/L BUN (9-20) mg/dL Creatinine (0.66-1.25) mg/dL Est GFR (CKD-EPI)AfAm (>60 ml/min/1.73 sqM) Est GFR (CKD-EPI)NonAf (>60 ml/min/1.73 sqM) Glucose (74-99) mg/dL Plasma Lactic Acid Abdirahman 0.8 (0.7-2.0) mmol/L Calcium (8.4-10.2) mg/dL Magnesium 1.8 (1.6-2.3) mg/dL Total Bilirubin (0.2-1.3) mg/dL AST (17-59) U/L ALT (4-49) U/L Alkaline Phosphatase (38-126) U/L Troponin I (0.000-0.034) ng/mL NT-Pro-B Natriuret Pep 5040 pg/mL Total Protein (6.3-8.2) g/dL Albumin (3.5-5.0) g/dL Procalcitonin (0.02-0.09) ng/mL Urine Color Urine Appearance (Clear) Urine pH (5.0-8.0) Ur Specific [place] (1.001-1.035) Urine Protein (Negative) Urine Glucose (UA) (Negative) Urine Ketones (Negative) Urine Blood (Negative) Urine Nitrite (Negative) Urine Bilirubin (Negative) Urine Urobilinogen (<2.0) mg/dL Ur Leukocyte Esterase (Negative) Urine RBC (0-5) /hpf Urine WBC (0-5) /hpf Coronavirus (PCR) (Not Detectd) Influenza Type A RNA (Not Detectd) Influenza Type B (PCR) (Not Detectd) 03/27/22 03/27/22 Range/Units 11:54 13:00 WBC (3.8-10.6) k/uL RBC (4.30-5.90) m/uL Hgb (13.0-17.5) gm/dL Hct (39.0-53.0) % MCV (80.0-100.0) fL MCH (25.0-35.0) pg MCHC (31.0-37.0) g/dL RDW (11.5-15.5) % Plt Count (150-450) k/uL MPV Neutrophils % % Lymphocytes % % Monocytes % % Eosinophils % % Basophils % % Neutrophils # (1.3-7.7) k/uL Lymphocytes # (1.0-4.8) k/uL Monocytes # (0-1.0) k/uL Eosinophils # (0-0.7) k/uL Basophils # (0-0.2) k/uL PT (9.0-12.0) sec INR (<1.2) Sodium (137-145) mmol/L Potassium (3.5-5.1) mmol/L Chloride (98-107) mmol/L Carbon Dioxide (22-30) mmol/L Anion Gap mmol/L BUN (9-20) mg/dL Creatinine (0.66-1.25) mg/dL Est GFR (CKD-EPI)AfAm (>60 ml/min/1.73 sqM) Est GFR (CKD-EPI)NonAf (>60 ml/min/1.73 sqM) Glucose (74-99) mg/dL Plasma Lactic Acid Abdirahman (0.7-2.0) mmol/L Calcium (8.4-10.2) mg/dL Magnesium (1.6-2.3) mg/dL Total Bilirubin (0.2-1.3) mg/dL AST (17-59) U/L ALT (4-49) U/L Alkaline Phosphatase (38-126) U/L Troponin I (0.000-0.034) ng/mL NT-Pro-B Natriuret Pep pg/mL Total Protein (6.3-8.2) g/dL Albumin (3.5-5.0) g/dL Procalcitonin 0.65 H (0.02-0.09) ng/mL Urine Color Light Yellow Urine Appearance Clear (Clear) Urine pH 7.5 (5.0-8.0) Ur Specific [place] 1.009 (1.001-1.035) Urine Protein 3+ H (Negative) Urine Glucose (UA) Negative (Negative) Urine Ketones Negative (Negative) Urine Blood Small H (Negative) Urine Nitrite Negative (Negative) Urine Bilirubin Negative (Negative) Urine Urobilinogen <2.0 (<2.0) mg/dL Ur Leukocyte Esterase Negative (Negative) Urine RBC 3 (0-5) /hpf Urine WBC 4 (0-5) /hpf Coronavirus (PCR) (Not Detectd) Influenza Type A RNA (Not Detectd) Influenza Type B (PCR) (Not Detectd) - EKG Data EKG Comments: EKG demonstrates sinus tachycardia with a rate of 103. When necessary interval 164. QRS 119. QTC of 383. There is some peaked T waves in V2 through V5. ST segment depression 1, aVL and V6. Disposition Clinical Impression: Hypertensive emergency, Pulmonary edema, Elevated troponin, Pyrexia of unknown origin, End stage renal disease on dialysis Disposition: ADMITTED IP TO THIS HOSP Condition: Stable Is patient prescribed a controlled substance at d/c from ED?: No Time of Disposition: 13:51 Decision to Admit Reason: Admit from EC Decision Date: 03/27/22 Decision Time: 13:51
[2022-03-27 13:15] LABS: Appearance,Urine Clear (Clear); Bilirubin,Urine Negative (Negative); Blood,Urine Small (Negative); Color,Urine Light Yellow; Glucose,Urine (UA) Negative (Negative); Ketones,Urine Negative (Negative); Leukocyte Esterase,Urine Negative (Negative); Nitrite,Urine Negative (Negative); PH, Urine 7.5 (5.0-8.0); Protein,Urine 3+ (Negative); RBC,Urine 3 /hpf (0-5); Specific Gravity,Urine 1.009 (1.001-1.035); Urobilinogen,Urine <2.0 mg/dL (<2.0); WBC,Urine 4 /hpf (0-5)
[2022-03-27] MEDS ORDERED: VANCOMYCIN IV PER PHARMACY 1 EACH MISC MISCELLANE PRN (13:53)
[2022-03-27] MEDS ORDERED: VANCOMYCIN 2,000 MG in SODIUM CHLORIDE 0.9% 500 ML 500 ML IVPB ONE (14:30)
[2022-03-27] MEDS: carvediloL 6.25 MG TAB PO SCH (18:26)
[2022-03-27] MEDS: ACETAMINOPHEN TAB 325 MG TAB PO PRN (19:48)
[2022-03-27] MEDS: TOPIRAMATE 25 MG TAB PO SCH (19:48)
[2022-03-27] MEDS: SPIRONOLACTONE 25 MG TAB PO SCH (19:48)
[2022-03-27] MEDS: BACLOFEN 10 MG TAB PO SCH (19:48)
--- NOTE | 2022-03-27 20:54 | P.HPIM ---
History of Present Illness H&P Date: 03/27/22 This is a 36 year old male who was discharged from the hospital yesterday who had just begun hemodialysis received 3 transfusions well in the hospital. He had a right chest permacath placed 4 days ago. 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 His previous admission he underwent echocardiogram which showed an EF of 40-45% with global hypokinesia, mild to moderate mitral regurg, mild aortic insufficiency, moderate pulmonary hypertension. His proBNP was 14,400 on March 21, this admission today it is 5040. He is set to start dialysis at the [facility] on Tuesday for his first outpatient treatment. Additional history includes asthma, hypertension, occasional marijuana use. He presents to the hospital with concern of fever. He denies cough, denies shortness of breath. Currently temperature is 101.4, blood cultures are currently pending. Urinalysis showing 3+ protein with small blood, negative for infection. Covid and influenza A and B are all negative. He has a white count 6.6. Hemoglobin 12.8. Sodium is 135, potassium 5.3. BUN 67, creatinine 9.12 which is improved from previous admission. His troponin level 0.325 which is chronic for this patient. He was discharged on oral carvedilol, oral Lasix which will be resumed. Infectious disease is on consult and patient has been started on IV vancomycin. Blood cultures are pending. Lactic acid 0.8. Blood pressure 118/89, 94% on 2L Nasal cannula. Chest xray showing cardiomegaly with central venous congestion, correlate for fluid overload state. No significant change from previous xray. Patient admitted and will be evaluated by nephrology and infectious disease. He is undergoing hemodialysis today. REVIEW OF SYSTEMS: CONSTITUTIONAL: Reports fever, no malaise, no fatigue. HEENT: No recent visual problems or hearing problems. Denied any sore throat. CARDIOVASCULAR: No chest pain, orthopnea, PND, no palpitations, no syncope. PULMONARY: No shortness of breath, no cough, no hemoptysis. GASTROINTESTINAL: No diarrhea, no nausea, no vomiting, no abdominal pain. NEUROLOGICAL: No headaches, no weakness, no numbness. HEMATOLOGICAL: Denies any bleeding or petechiae. GENITOURINARY: Denies any burning micturition, frequency, or urgency. MUSCULOSKELETAL/RHEUMATOLOGICAL: Denies any joint pain, swelling, or any muscle pain. ENDOCRINE: Denies any polyuria or polydipsia. The rest of the 14-point review of systems is negative. PHYSICAL EXAMINATION: GENERAL: The patient is alert and oriented x3, not in any acute distress. Well developed, well nourished. HEENT: Pupils are round and equally reacting to light. EOMI. No scleral icterus. No conjunctival pallor. Normocephalic, atraumatic. No pharyngeal erythema. No thyromegaly. CARDIOVASCULAR: S1 and S2 present. No murmurs, rubs, or gallops. PULMONARY: Chest is clear to auscultation, no wheezing or crackles. ABDOMEN: Soft, nontender, nondistended, normoactive bowel sounds. No palpable organomegaly. MUSCULOSKELETAL: No joint swelling or deformity. EXTREMITIES: No cyanosis, clubbing, or pedal edema. NEUROLOGICAL: Gross neurological examination did not reveal any focal deficits. SKIN: No rashes. Assessment and plan Assessment Fever of unkown origin, on IV vancomycin with infectious disease consult. Chronic Diastolic and systolic dysfunction with EF of 40-45% with mild acute exacerbation Chronic kidney disease stage V secondary to uncontrolled hypertension with GSIF. Volume overload secondary to End stage renal disease Troponin leak secondary to above, with chronic elevation Hyperkalemia secondary to chronic renal disease Accelerated hypertension, improved this admission Anemia of chronic disease History of non compliance GI Prophylaxis DVT Prophylaxis Full Code Plan Patient will be dialyzed today Pending evaluation by nephrology Started on vancomycin Infectious disease consult Resume appropriate home medications Pending procalcitonin level Blood culture taken on admission Follow up labs in AM The impression and plan of care has been dictated by Margarita Servin Nurse Practitioner as directed. Dr. Hermes MD I have performed a history and physical examination and medical decision making of this patient, discussed the same with the dictator, and agree with the dictators assessment and plan as written, documented as a scribe. Based on total visit time, I have performed more than 50% of this visit. 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 Past Anesthesia/Blood Transfusion Reactions: No Reported Reaction Additional Past Anesthesia/Blood Transfusion Reaction / Comment(s): never had bld transfusion or surgery Past Psychological History: No Psychological Hx Reported Smoking Status: Never smoker - Past Family History Mother Family Medical History: Diabetes Mellitus Father Family Medical History: Unable to Obtain Medications and Allergies Home Medications Medication Instructions Recorded Confirmed Type amLODIPine [Norvasc] 10 mg PO DAILY 30 Days #30 tab 09/06/19 03/27/22 Rx Spironolactone [Aldactone] 25 mg PO BID 09/19/19 03/27/22 History Baclofen [Lioresal] 10 mg PO HS 03/21/22 03/27/22 History Ergocalciferol [Vitamin D2 (1250 1,250 mcg PO SA 03/21/22 03/27/22 History Mcg = 50622 Iu)] Topiramate [Topamax] 25 mg PO BID 03/21/22 03/27/22 History cloNIDine HCL [Catapres] 0.3 mg PO TID 03/21/22 03/27/22 History Acetaminophen Tab [Tylenol] 650 mg PO Q6HR PRN tab 03/26/22 03/27/22 Rx Famotidine [Pepcid] 20 mg PO HS #30 tab 03/26/22 03/27/22 Rx Furosemide [Lasix] 60 mg PO DAILY #30 tab 03/26/22 03/27/22 Rx carvediloL [Coreg] 6.25 mg PO BID-W/MEALS 30 Days #60 03/26/22 03/27/22 Rx tab Allergies Allergy/AdvReac Type Severity Reaction Status Date / Time No Known Allergies Allergy Verified 03/27/22 11:44 Physical Exam Vitals: Vital Signs Temp Pulse Resp BP Pulse Ox 03/27/22 14:39 101.4 F H 03/27/22 14:00 85 20 118/89 94 L 03/27/22 13:11 98 18 138/101 94 L 03/27/22 12:23 98.7 F 98 21 193/130 98 03/27/22 11:44 101 F H 102 H 18 167/112 98 Intake and Output 03/27/22 03/27/22 03/27/22 06:59 14:59 22:59 Other: Weight 138.8 kg Results CBC & Chem 7: 03/27/22 11:54 03/27/22 11:54 Labs: Abnormal Lab Results - Last 24 Hours (Table) 03/27/22 03/27/22 03/27/22 Range/Units 11:54 11:54 11:54 Hgb 12.8 L (13.0-17.5) gm/dL Lymphocytes # 0.3 L (1.0-4.8) k/uL Sodium 135 L (137-145) mmol/L Potassium 5.3 H (3.5-5.1) mmol/L BUN 67 H (9-20) mg/dL Creatinine 9.12 H* (0.66-1.25) mg/dL Troponin I 0.325 H* (0.000-0.034) ng/mL Urine Protein (Negative) Urine Blood (Negative) 03/27/22 Range/Units 13:00 Hgb (13.0-17.5) gm/dL Lymphocytes # (1.0-4.8) k/uL Sodium (137-145) mmol/L Potassium (3.5-5.1) mmol/L BUN (9-20) mg/dL Creatinine (0.66-1.25) mg/dL Troponin I (0.000-0.034) ng/mL Urine Protein 3+ H (Negative) Urine Blood Small H (Negative) Assessment and Plan Time with Patient: Less than 30
--- NOTE | 2022-03-27 21:39 | P.CONS ---
History of Present Illness - Reason for Consult Consult date: 03/27/22 - History of Present Illness Patient is a 36-year-old -[place] male with a past medical history significant for end-stage renal disease for the patient has been recently started on dialysis through the right chest wall permacatheter, the patient was just discharged from this facility presenting back to the hospital this morning complaining of a fever with chills and a headache, the patient denies having any URI symptoms no photophobia. Denies having any chest pain he is complaining of some shortness of breath did have some occasional cough but no sputum production no nausea but no vomiting no abdominal pain no diarrhea still makes some urine but denies any urinary symptoms patient on presentation to the hospital did have a fever of 101 F did not have significant tachycardia patient did have a normal white count with lymphopenia BUN/creatinine was elevated with abnormal urine has been negative for any further PCR was negative patient did have a chest x-ray cardiomegaly with mild central venous congestion patient was started on vancomycin has been admitted to the hospital infectious disease was consulted for further management of antibiotic therapy Past Medical History Past Medical History: Asthma, Hypertension, Renal Disease Additional Past Medical History / Comment(s): Hemodiaylsis History of Any Multi-Drug Resistant Organisms: None Reported Past Surgical History: No Surgical Hx Reported Additional Past Surgical History / Comment(s): 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 Past Anesthesia/Blood Transfusion Reactions: No Reported Reaction Additional Past Anesthesia/Blood Transfusion Reaction / Comm: never had bld transfusion or surgery Past Psychological History: No Psychological Hx Reported Smoking Status: Never smoker - Past Family History Mother Family Medical History: Diabetes Mellitus Father Family Medical History: Unable to Obtain Medications and Allergies Home Medications Medication Instructions Recorded Confirmed Type amLODIPine [Norvasc] 10 mg PO DAILY 30 Days #30 tab 09/06/19 03/27/22 Rx Spironolactone [Aldactone] 25 mg PO BID 09/19/19 03/27/22 History Baclofen [Lioresal] 10 mg PO HS 03/21/22 03/27/22 History Ergocalciferol [Vitamin D2 (1250 1,250 mcg PO SA 03/21/22 03/27/22 History Mcg = 15588 Iu)] Topiramate [Topamax] 25 mg PO BID 03/21/22 03/27/22 History cloNIDine HCL [Catapres] 0.3 mg PO TID 03/21/22 03/27/22 History Acetaminophen Tab [Tylenol] 650 mg PO Q6HR PRN tab 03/26/22 03/27/22 Rx Famotidine [Pepcid] 20 mg PO HS #30 tab 03/26/22 03/27/22 Rx Furosemide [Lasix] 60 mg PO DAILY #30 tab 03/26/22 03/27/22 Rx carvediloL [Coreg] 6.25 mg PO BID-W/MEALS 30 Days #60 03/26/22 03/27/22 Rx tab Allergies Allergy/AdvReac Type Severity Reaction Status Date / Time No Known Allergies Allergy Verified 03/27/22 11:44 Physical Exam Vitals: Vital Signs Temp Pulse Pulse Resp BP BP Pulse Ox 03/27/22 15:31 73 03/27/22 15:10 99.4 F 73 20 130/76 98 03/27/22 14:39 101.4 F H 03/27/22 14:00 85 20 118/89 94 L 03/27/22 13:11 98 18 138/101 94 L 03/27/22 12:23 98.7 F 98 21 193/130 98 03/27/22 11:44 101 F H 102 H 18 167/112 98 Intake and Output 03/27/22 03/27/22 03/27/22 06:59 14:59 22:59 Other: Voiding Method Toilet Weight 138.8 kg 138.8 kg Results CBC & Chem 7: 03/27/22 11:54 03/27/22 11:54 Labs: Abnormal Lab Results - Last 24 Hours (Table) 03/27/22 03/27/22 03/27/22 Range/Units 11:54 11:54 11:54 Hgb 12.8 L (13.0-17.5) gm/dL Lymphocytes # 0.3 L (1.0-4.8) k/uL Sodium 135 L (137-145) mmol/L Potassium 5.3 H (3.5-5.1) mmol/L BUN 67 H (9-20) mg/dL Creatinine 9.12 H* (0.66-1.25) mg/dL Troponin I 0.325 H* (0.000-0.034) ng/mL Urine Protein (Negative) Urine Blood (Negative) 03/27/22 Range/Units 13:00 Hgb (13.0-17.5) gm/dL Lymphocytes # (1.0-4.8) k/uL Sodium (137-145) mmol/L Potassium (3.5-5.1) mmol/L BUN (9-20) mg/dL Creatinine (0.66-1.25) mg/dL Troponin I (0.000-0.034) ng/mL Urine Protein 3+ H (Negative) Urine Blood Small H (Negative) Assessment and Plan Plan: 1patient presented to hospital with fever not feeling well did have some headache which seem to have resolved by now no photophobia or neck rigidity patient initial work-up including a UA chest x-ray was negative is abdominal soft on clinical examination and no evidence of any cellulitis, question ability to his permacatheter with resolution of the fever with the vancomycin. 2vancomycin to continue while waiting for the culture to finalize. 3we will check his inflammatory markers. We will follow on clinical condition and cultures to further adjust medication if needed Thank you for this consultation will follow this patient along with you Time with Patient: Greater than 30
[2022-03-27] MEDS ORDERED: CEFEPIME 2 GM in SODIUM CHLORIDE 0.9% 100 ML IVPB STA (23:22)
[2022-03-28] MEDS: ACETAMINOPHEN TAB 325 MG TAB PO PRN ×4 (01:31→21:31)
[2022-03-28] MEDS: carvediloL 6.25 MG TAB PO SCH ×2 (07:40→16:48)
[2022-03-28] MEDS: TOPIRAMATE 25 MG TAB PO SCH ×2 (07:55→20:19)
[2022-03-28] MEDS: SPIRONOLACTONE 25 MG TAB PO SCH ×2 (07:55→20:19)
[2022-03-28] MEDS ORDERED: FUROSEMIDE 20 MG TAB PO SCH (09:00)
[2022-03-28] MEDS ORDERED: PANTOPRAZOLE 40 MG/10 ML VIAL IVP SCH (09:00)
[2022-03-28 09:10] LABS: Basophils % (A) 0 %; Eosinophils % (A) 0 %; HGB 12.4 gm/dL (13.0-17.5); Lymphocytes # (A) 0.5 k/uL (1.0-4.8); Lymphocytes % (A) 4 %; MCH 29.8 pg (25.0-35.0); MCHC 32.8 g/dL (31.0-37.0); Mean Platelet Volume 9.6; Monocytes # (A) 0.4 k/uL (0-1.0); Monocytes % (A) 4 %; Neutrophils # (A) 9.4 k/uL (1.3-7.7); Neutrophils % (A) 89 %; Platelet Count 141 k/uL (150-450); RBC 4.17 m/uL (4.30-5.90); RDW 14.4 % (11.5-15.5); WBC 10.5 k/uL (3.8-10.6)
[2022-03-28 09:23] LABS: Calcium 8.7 mg/dL (8.4-10.2); Potassium 5.1 mmol/L (3.5-5.1)
[2022-03-28 09:36] LABS: C Reactive Protein 18.1 mg/dL (<1.0)
[2022-03-28] MEDS: HYDROcodone/APAP 5-325MG 1 EACH TAB PO PRN ×3 (12:06→23:03)
--- NOTE | 2022-03-28 12:11 | P.PN ---
Subjective Progress Note Date: 03/28/22 This is a 36 year old male who was discharged from the hospital yesterday who had just begun hemodialysis received 3 transfusions well in the hospital. He had a right chest permacath placed 4 days ago. 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 His previous admission he underwent echocardiogram which showed an EF of 40-45% with global hypokinesia, mild to moderate mitral regurg, mild aortic insufficiency, moderate pulmonary hyp ertension. His proBNP was 14,400 on March 21, this admission today it is 5040. [facility] treatment. Additional history includes asthma, hypertension, occasional marijuana use. He presents to the hospital with concern of fever. He denies cough, denies shortness of breath. Currently temperature is 101.4, blood cultures are currently pending. Urinalysis showing 3+ protein with small blood, negative for infection. Covid and influenza A and B are all negative. He has a white count 6.6. Hemoglobin 12.8. Sodium is 135, potassium 5.3. BUN 67, creatinine 9.12 which is improved from previous admission. His troponin level 0.325 which is chronic for this patient. He was discharged on oral carvedilol, oral Lasix which will be resumed. Infectious disease is on consult and patient has been started on IV vancomycin. Blood cultures are pending. Lactic acid 0.8. Blood pressure 118/89, 94% on 2L Nasal cannula. Chest xray showing cardiomegaly with central venous congestion, correlate for fluid overload state. No significant change from previous xray. Patient admitted and will be evaluated by nephrology and infectious disease. He is undergoing hemodialysis today. 03/28/2022 Patient evaluated today sitting up at the bedside. Denies shortness of breath today and lungs are clear. He is complaining of generalized headache and muscle aches. Will add norco, continue to monitor temps. He temp was 104.8 around 2300 last night, currently today he is around 99.6. He has tylenol on board. He had dialysis yesterday with 2.5 Liters off. His labs today are showing WBC of 10.5, hgb 12.4, neutrophils are increased up to 9.4. sodium 134, potassium 5.1, BUN 66, creat 9.60. CRP is increasing up to 18.1 today. Procalcitonin level is 0.65. Urinalysis is negative for infection. Covid has been negative x 2. Heart rate 77, blood pressure 145/91, 94% on room air. Continues on IV cefepime, IV vancomycin and infectious disease is following patient closely. Awaiting final blood cultures. Review of Systems Constitutional: Reports fatigue, muscle aches, and fever. Cardio vascular: denied any chest pain, palpitations Gastrointestinal: denied any nausea, vomiting, diarrhea Pulmonary: Denied any shortness of breath cough Neurologic denied any new focal deficits All inpatient medications were reviewed and appropriate changes in these medications as dictated in the interval history and assessment and plan. PHYSICAL EXAMINATION: GENERAL: The patient is alert and oriented x3, not in any acute distress. Well developed, well nourished. HEENT: Pupils are round and equally reacting to light. EOMI. No scleral icterus. No conjunctival pallor. Normocephalic, atraumatic. No pharyngeal erythema. No thyromegaly. CARDIOVASCULAR: S1 and S2 present. No murmurs, rubs, or gallops. PULMONARY: Chest is clear to auscultation, no wheezing or crackles. ABDOMEN: Soft, nontender, nondistended, normoactive bowel sounds. No palpable organomegaly. MUSCULOSKELETAL: No joint swelling or deformity. EXTREMITIES: No cyanosis, clubbing, or pedal edema. NEUROLOGICAL: Gross neurological examination did not reveal any focal deficits. SKIN: No rashes. Assessment and plan Assessment Fever of unkown origin, on IV vancomycin and IV cefepime with infectious disease consult, awaiting finalized blood cultures Chronic Diastolic and systolic dysfunction with EF of 40-45% with mild acute exacerbation Chronic kidney disease stage V secondary to uncontrolled hypertension with GSIF. Volume overload secondary to End stage renal disease Troponin leak secondary to above, with chronic elevation Hyperkalemia secondary to chronic renal disease Accelerated hypertension, improved this admission Anemia of chronic disease History of non compliance GI Prophylaxis DVT Prophylaxis Full Code Plan Pending evaluation by nephrology He received dailysis yesterday with creatinine of 9.60 today, will follow up with labs tomorrow. Started on vancomycin and IV cefepime Appreciate Infectious disease consult Blood cultures are currently pending Tylenol for fever, norco has been added for headache Follow up labs in AM The impression and plan of care has been dictated by Margarita Servin, Nurse Practitioner as directed. Dr. Hermes MD I have performed a history and physical examination and medical decision making of this patient, discussed the same with the dictator, and agree with the dictators assessment and plan as written, documented as a scribe. Based on total visit time, I have performed more than 50% of this visit. Objective - Vital Signs Vital signs: Vital Signs Temp 98.1 F 03/28/22 07:50 Pulse 79 03/28/22 08:00 Resp 20 03/28/22 07:50 BP 164/82 03/28/22 07:50 Pulse Ox 99 03/28/22 07:50 Intake & Output 03/27/22 03/28/22 03/28/22 18:59 06:59 18:59 Output Total 2500 Balance -2500 Weight 138.8 kg 138 kg Output: Hemodialysis 2500 Other: Voiding Method Toilet Toilet Toilet # Voids 1 - Labs CBC & Chem 7: 03/28/22 08:29 03/28/22 08:29 Labs: Abnormal Lab Results - Last 24 Hours (Table) 03/27/22 03/27/22 03/27/22 Range/Units 11:54 11:54 11:54 RBC (4.30-5.90) m/uL Hgb 12.8 L (13.0-17.5) gm/dL Hct (39.0-53.0) % Plt Count (150-450) k/uL Neutrophils # (1.3-7.7) k/uL Lymphocytes # 0.3 L (1.0-4.8) k/uL Sodium 135 L (137-145) mmol/L Potassium 5.3 H (3.5-5.1) mmol/L BUN 67 H (9-20) mg/dL Creatinine 9.12 H* (0.66-1.25) mg/dL Troponin I 0.325 H* (0.000-0.034) ng/mL C-Reactive Protein (<1.0) mg/dL Procalcitonin (0.02-0.09) ng/mL Urine Protein (Negative) Urine Blood (Negative) 03/27/22 03/27/22 03/28/22 Range/Units 11:54 13:00 00:07 RBC (4.30-5.90) m/uL Hgb (13.0-17.5) gm/dL Hct (39.0-53.0) % Plt Count (150-450) k/uL Neutrophils # (1.3-7.7) k/uL Lymphocytes # (1.0-4.8) k/uL Sodium (137-145) mmol/L Potassium (3.5-5.1) mmol/L BUN (9-20) mg/dL Creatinine (0.66-1.25) mg/dL Troponin I (0.000-0.034) ng/mL C-Reactive Protein 13.6 H (<1.0) mg/dL Procalcitonin 0.65 H (0.02-0.09) ng/mL Urine Protein 3+ H (Negative) Urine Blood Small H (Negative) 03/28/22 Range/Units 08:29 RBC 4.17 L (4.30-5.90) m/uL Hgb 12.4 L (13.0-17.5) gm/dL Hct 38.0 L (39.0-53.0) % Plt Count 141 L (150-450) k/uL Neutrophils # 9.4 H (1.3-7.7) k/uL Lymphocytes # 0.5 L (1.0-4.8) k/uL Sodium (137-145) mmol/L Potassium (3.5-5.1) mmol/L BUN (9-20) mg/dL Creatinine (0.66-1.25) mg/dL Troponin I (0.000-0.034) ng/mL C-Reactive Protein (<1.0) mg/dL Procalcitonin (0.02-0.09) ng/mL Urine Protein (Negative) Urine Blood (Negative) Microbiology - Last 24 Hours (Table) 03/27/22 12:55 Blood Culture Gram Stain - Preliminary Blood 03/27/22 12:55 Blood Culture - Final Blood Assessment and Plan Time with Patient: Less than 30
--- NOTE | 2022-03-28 14:12 | P.NPCON ---
History of Present Illness - Reason for Consult Consult date: 03/28/22 end stage renal disease - Chief Complaint Not feeling well, fevers. - History of Present Illness 36-year-old gentleman recently discharged from the hospital coming back with fevers. CK D5 possible FSGS with proteinuria started on hemodialysis last week had 3 treatments prior to discharge. Came back yesterday with fevers, potassium was 5.2 with volume overload. Had short treatment yesterday tolerated well. Blood cultures growing gram-positive bacteremia. 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 Past Anesthesia/Blood Transfusion Reactions: No Reported Reaction Additional Past Anesthesia/Blood Transfusion Reaction / Comment(s): never had bld transfusion or surgery Past Psychological History: No Psychological Hx Reported Smoking Status: Never smoker - Past Family History Mother Family Medical History: Diabetes Mellitus Father Family Medical History: Unable to Obtain Medications and Allergies Home Medications Medication Instructions Recorded Confirmed Type amLODIPine [Norvasc] 10 mg PO DAILY 30 Days #30 tab 09/06/19 03/27/22 Rx Spironolactone [Aldactone] 25 mg PO BID 09/19/19 03/27/22 History Baclofen [Lioresal] 10 mg PO HS 03/21/22 03/27/22 History Ergocalciferol [Vitamin D2 (1250 1,250 mcg PO SA 03/21/22 03/27/22 History Mcg = 97598 Iu)] Topiramate [Topamax] 25 mg PO BID 03/21/22 03/27/22 History cloNIDine HCL [Catapres] 0.3 mg PO TID 03/21/22 03/27/22 History Acetaminophen Tab [Tylenol] 650 mg PO Q6HR PRN tab 03/26/22 03/27/22 Rx Famotidine [Pepcid] 20 mg PO HS #30 tab 03/26/22 03/27/22 Rx Furosemide [Lasix] 60 mg PO DAILY #30 tab 03/26/22 03/27/22 Rx carvediloL [Coreg] 6.25 mg PO BID-W/MEALS 30 Days #60 03/26/22 03/27/22 Rx tab Allergies Allergy/AdvReac Type Severity Reaction Status Date / Time No Known Allergies Allergy Verified 03/27/22 11:44 Physical Exam Vitals: Vital Signs Temp Pulse Resp BP Pulse Ox 03/28/22 13:21 77 03/28/22 11:26 99.6 F 77 20 145/91 94 L 03/28/22 08:00 79 03/28/22 07:50 98.1 F 79 20 164/82 99 03/28/22 07:30 98.9 F 03/28/22 03:41 100.2 F H 86 18 123/72 95 03/27/22 23:20 104.8 F H 86 20 118/67 100 03/27/22 20:00 100.5 F H 94 20 155/98 100 03/27/22 18:10 99.5 F 81 18 146/86 03/27/22 15:31 73 03/27/22 15:10 99.4 F 73 20 130/76 98 03/27/22 14:39 101.4 F H Intake and Output 03/27/22 03/28/22 03/28/22 22:59 06:59 14:59 Output Total 2500 Balance -2500 Output: Hemodialysis 2500 Other: Voiding Method Toilet Toilet # Voids 1 1 2 Weight 138.8 kg 138 kg No acute distress S1-S2 heard Decreased breath sounds Right jugular permacath Edema Results - Lab Results Most recent lab results Calcium 8.7 mg/dL (8.4-10.2) 03/28/22 08:29 Magnesium 1.8 mg/dL (1.6-2.3) 03/27/22 11:54 03/28/22 08:29 03/28/22 08:29 Assessment and Plan Assessment: #1 ESRD 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 #2 fevers with gram-positive bacteremia suspected catheter-related infection. #3 hypertension with ESRD #4 metabolic bone disease with ESRD #5 anemia with ESRD Plan: #1 hemodialysis short treatment yesterday. Plan for full treatment tomorrow. #2 consult vascular surgery for removal of permacath after dialysis tomorrow. #3 antibiotics as per infectious disease #4 ESRD medications
[2022-03-28] MEDS: FUROSEMIDE 20 MG TAB PO SCH (15:23)
[2022-03-28] MEDS: cloNIDine HCL 0.1 MG TAB PO SCH ×2 (15:24→20:19)
[2022-03-28] MEDS ORDERED: VANCOMYCIN 2,000 MG in SODIUM CHLORIDE 0.9% 500 ML 500 ML IVPB ONE (16:00)
--- NOTE | 2022-03-28 17:50 | P.PN ---
Subjective Progress Note Date: 03/28/22 Principal diagnosis: Fever and bacteremia Patient is a 36-year-old -[place] male with a past medical history significant for end-stage renal disease on hemodialysis through the right subclavian permacatheter presented to the hospital with a fever and some mental status changes now do have evidence of gram-positive bacteremia. On today's evaluation is 03/28/2022, the patient overall fever pattern has improved, the patient is feeling slightly better headache has much improved denies any nausea no vomiting no abdominal pain and no diarrhea Objective - Vital Signs Vital signs: Vital Signs Temp 98.5 F 03/28/22 15:21 Pulse 69 03/28/22 15:21 Resp 20 03/28/22 15:21 BP 145/97 03/28/22 15:21 Pulse Ox 99 03/28/22 15:21 Intake & Output 03/27/22 03/28/22 03/28/22 18:59 06:59 18:59 Output Total 2500 Balance -2500 Weight 138.8 kg 138 kg Output: Hemodialysis 2500 Other: Voiding Method Toilet Toilet Toilet # Voids 1 2 - Exam GENERAL DESCRIPTION: A middle-age male lying in bed in no distress RESPIRATORY SYSTEM: Unlabored breathing , decreased breath sounds at bases HEART: S1 S2 regular rate and rhythm , ABDOMEN: Soft , no tenderness EXTREMITIES: No edema feet - Labs CBC & Chem 7: 03/28/22 08:29 03/28/22 08:29 Labs: Abnormal Lab Results - Last 24 Hours (Table) 03/27/22 03/28/22 03/28/22 Range/Units 11:54 00:07 08:29 RBC 4.17 L (4.30-5.90) m/uL Hgb 12.4 L (13.0-17.5) gm/dL Hct 38.0 L (39.0-53.0) % Plt Count 141 L (150-450) k/uL Neutrophils # 9.4 H (1.3-7.7) k/uL Lymphocytes # 0.5 L (1.0-4.8) k/uL Sodium (137-145) mmol/L BUN (9-20) mg/dL Creatinine (0.66-1.25) mg/dL C-Reactive Protein 13.6 H (<1.0) mg/dL Procalcitonin 0.65 H (0.02-0.09) ng/mL 03/28/22 Range/Units 08:29 RBC (4.30-5.90) m/uL Hgb (13.0-17.5) gm/dL Hct (39.0-53.0) % Plt Count (150-450) k/uL Neutrophils # (1.3-7.7) k/uL Lymphocytes # (1.0-4.8) k/uL Sodium 134 L (137-145) mmol/L BUN 66 H (9-20) mg/dL Creatinine 9.60 H* (0.66-1.25) mg/dL C-Reactive Protein 18.1 H (<1.0) mg/dL Procalcitonin (0.02-0.09) ng/mL Microbiology - Last 24 Hours (Table) 03/27/22 12:55 Blood Culture Gram Stain - Preliminary Blood 03/27/22 12:55 Blood Culture - Final Blood Assessment and Plan (1) Pyrexia of unknown origin Current Visit: Yes Status: Acute Code(s): R50.9 - FEVER, UNSPECIFIED SNOMED Code(s): 3997948 Plan: 1patient presented to hospital with fever not feeling well did have some headache which seem to have resolved by now no photophobia or neck rigidity patient initial work-up including a UA chest x-ray was negative is abdominal soft on clinical examination and no evidence of any cellulitis, likely related to permacatheter infection 2gram-positive bacteremia with ID and sensitivities pending 3- patient to continue vancomycin to continue while waiting for the culture to finalize. Time with Patient: Less than 30
[2022-03-28] MEDS: BACLOFEN 10 MG TAB PO SCH (20:19)
[2022-03-29] MEDS ORDERED: CEFEPIME 1 GM in SODIUM CHLORIDE 0.9% 50 ML IVPB SCH ×2
[2022-03-29] MEDS: carvediloL 6.25 MG TAB PO SCH ×2 (06:48→17:18)
[2022-03-29] MEDS: PANTOPRAZOLE 40 MG TABLET PO SCH (06:48)
[2022-03-29 07:20] LABS: Basophils # (A) 0.1 k/uL (0-0.2); Basophils % (A) 1 %; Eosinophils # (A) 0.1 k/uL (0-0.7); Eosinophils % (A) 1 %; HGB 12.5 gm/dL (13.0-17.5); Lymphocytes # (A) 0.5 k/uL (1.0-4.8); Lymphocytes % (A) 8 %; MCH 28.8 pg (25.0-35.0); MCHC 31.2 g/dL (31.0-37.0); MCV 92.3 fL (80.0-100.0); Monocytes # (A) 0.4 k/uL (0-1.0); Monocytes % (A) 6 %; Neutrophils # (A) 4.9 k/uL (1.3-7.7); Neutrophils % (A) 81 %; Platelet Count 135 k/uL (150-450); RBC 4.33 m/uL (4.30-5.90); RDW 13.8 % (11.5-15.5); WBC 6.1 k/uL (3.8-10.6)
[2022-03-29 07:38] LABS: Calcium 8.7 mg/dL (8.4-10.2); Potassium 4.7 mmol/L (3.5-5.1)
--- NOTE | 2022-03-29 08:57 | P.PN ---
Subjective Patient is seen in follow-up for end-stage renal disease. Patient started on hemodialysis but a week ago. Blood cultures positive for gram-positive cocci. Denies chest pain or shortness of breath. No cough. Scheduled for dialysis today. Vital signs are stable. General: No acute distress. HEENT: Head exam is unremarkable. LUNGS: Breath sounds decreased. HEART: Rate and Rhythm are regular. ABDOMEN: Soft, no distention. EXTREMITITES: No edema. Objective - Vital Signs Vital signs: Vital Signs Temp 97.6 F 03/29/22 04:00 Pulse 57 L 03/29/22 04:00 Resp 18 03/29/22 04:00 BP 151/93 03/29/22 04:00 Pulse Ox 100 03/29/22 04:00 FiO2 Intake & Output 03/28/22 03/29/22 03/29/22 18:59 06:59 18:59 Intake Total 200 Balance 200 Intake: Oral 200 Other: Voiding Method Toilet # Voids 2 - Labs CBC & Chem 7: 03/29/22 06:41 03/29/22 06:41 Labs: Abnormal Lab Results - Last 24 Hours (Table) 03/28/22 03/28/22 03/29/22 Range/Units 08:29 08:29 06:41 RBC 4.17 L (4.30-5.90) m/uL Hgb 12.4 L 12.5 L (13.0-17.5) gm/dL Hct 38.0 L (39.0-53.0) % Plt Count 141 L 135 L (150-450) k/uL Neutrophils # 9.4 H (1.3-7.7) k/uL Lymphocytes # 0.5 L 0.5 L (1.0-4.8) k/uL Sodium 134 L (137-145) mmol/L BUN 66 H (9-20) mg/dL Creatinine 9.60 H* (0.66-1.25) mg/dL C-Reactive Protein 18.1 H (<1.0) mg/dL 03/29/22 Range/Units 06:41 RBC (4.30-5.90) m/uL Hgb (13.0-17.5) gm/dL Hct (39.0-53.0) % Plt Count (150-450) k/uL Neutrophils # (1.3-7.7) k/uL Lymphocytes # (1.0-4.8) k/uL Sodium 136 L (137-145) mmol/L BUN 79 H (9-20) mg/dL Creatinine 10.64 H* (0.66-1.25) mg/dL C-Reactive Protein (<1.0) mg/dL Microbiology - Last 24 Hours (Table) 03/28/22 00:07 Blood Culture Gram Stain - Preliminary Blood 03/28/22 00:22 Blood Culture Gram Stain - Preliminary Blood 03/28/22 00:07 Blood Culture - Final Blood 03/28/22 00:22 Blood Culture - Final Blood 03/27/22 12:55 Blood Culture Gram Stain - Preliminary Blood Assessment and Plan Plan: Assessment: 1. End-stage renal disease secondary to biopsy-proven nephrosclerosis. Started on hemodialysis in March 2022. 2. Gram-positive bacteremia likely from infected permacath. 3. Hypertension with chronic kidney disease. Plan: Hemodialysis today. DC permacath after dialysis today. New catheter will be placed once cleared by infectious disease. Check phosphorus level. Maintain Lasix. Monitor vancomycin levels. Dose to be adjusted for renal function.
[2022-03-29] MEDS: TOPIRAMATE 25 MG TAB PO SCH ×2 (12:04→21:03)
[2022-03-29] MEDS: FUROSEMIDE 20 MG TAB PO SCH ×2 (12:04→17:18)
[2022-03-29] MEDS: cloNIDine HCL 0.1 MG TAB PO SCH ×3 (12:05→21:04)
[2022-03-29] MEDS: SPIRONOLACTONE 25 MG TAB PO SCH ×2 (12:05→21:03)
[2022-03-29] MEDS ORDERED: LIDOCAINE 2% INJ 20 MG/ML (20 ML MDV) ONE (12:31)
--- NOTE | 2022-03-29 14:25 | P.GSCN ---
History of Present Illness History of present illness: 36-year-old -[place]i male patient came with history of fever and blood culture came back as gram-positive cocci this patient had a catheter placed for acute chronic renal failure John was seen in his room. No fever or chills neck examination neck is supple no bruit appreciated Chest clear good and both lungs first and second sound normal Abdomen soft nontender Vascular femoral pulses are present patient has a dialysis catheter right jugular approach no tenderness noted no redness noted no discharge noted Plan is discussed with nephrology and ID advise to remove the dialysis catheter diabetes and tape were deep culture Past Medical History Past Medical History: Asthma, Hypertension, Renal Disease Additional Past Medical History / Comment(s): Hemodiaylsis History of Any Multi-Drug Resistant Organisms: None Reported Past Surgical History: No Surgical Hx Reported Additional Past Surgical History / Comment(s): 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 Past Anesthesia/Blood Transfusion Reactions: No Reported Reaction Additional Past Anesthesia/Blood Transfusion Reaction / Comm: never had bld transfusion or surgery Past Psychological History: No Psychological Hx Reported Smoking Status: Never smoker - Past Family History Mother Family Medical History: Diabetes Mellitus Father Family Medical History: Unable to Obtain Medications and Allergies Home Medications Medication Instructions Recorded Confirmed Type amLODIPine [Norvasc] 10 mg PO DAILY 30 Days #30 tab 09/06/19 03/27/22 Rx Spironolactone [Aldactone] 25 mg PO BID 09/19/19 03/27/22 History Baclofen [Lioresal] 10 mg PO HS 03/21/22 03/27/22 History Ergocalciferol [Vitamin D2 (1250 1,250 mcg PO SA 03/21/22 03/27/22 History Mcg = 83611 Iu)] Topiramate [Topamax] 25 mg PO BID 03/21/22 03/27/22 History cloNIDine HCL [Catapres] 0.3 mg PO TID 03/21/22 03/27/22 History Acetaminophen Tab [Tylenol] 650 mg PO Q6HR PRN tab 03/26/22 03/27/22 Rx Famotidine [Pepcid] 20 mg PO HS #30 tab 03/26/22 03/27/22 Rx Furosemide [Lasix] 60 mg PO DAILY #30 tab 03/26/22 03/27/22 Rx carvediloL [Coreg] 6.25 mg PO BID-W/MEALS 30 Days #60 03/26/22 03/27/22 Rx tab Allergies Allergy/AdvReac Type Severity Reaction Status Date / Time No Known Allergies Allergy Verified 03/27/22 11:44 Surgical - Exam Vital Signs Temp Pulse Resp BP Pulse Ox 101 F H 102 H 18 167/112 98 03/27/22 11:44 03/27/22 11:44 03/27/22 11:44 03/27/22 11:44 03/27/22 11:44 Results - Labs 03/29/22 06:41 03/29/22 06:41 Abnormal Lab Results - Last 24 Hours (Table) 03/29/22 03/29/22 Range/Units 06:41 06:41 Hgb 12.5 L (13.0-17.5) gm/dL Plt Count 135 L (150-450) k/uL Lymphocytes # 0.5 L (1.0-4.8) k/uL Sodium 136 L (137-145) mmol/L BUN 79 H (9-20) mg/dL Creatinine 10.64 H* (0.66-1.25) mg/dL Microbiology - Last 24 Hours (Table) 03/28/22 00:07 Blood Culture Gram Stain - Preliminary Blood Blood Culture - Preliminary Presumptive Staph aureus 03/28/22 00:22 Blood Culture Gram Stain - Preliminary Blood Blood Culture - Preliminary Presumptive Staph aureus 03/27/22 12:55 Blood Culture Gram Stain - Preliminary Blood Blood Culture - Preliminary Presumptive Staph aureus 03/28/22 00:07 Blood Culture - Final Blood 03/28/22 00:22 Blood Culture - Final Blood Diabetes panel 03/29/22 Range/Units 06:41 Sodium 136 L (137-145) mmol/L Potassium 4.7 (3.5-5.1) mmol/L Chloride 103 (98-107) mmol/L Carbon Dioxide 22 (22-30) mmol/L BUN 79 H (9-20) mg/dL Creatinine 10.64 H* (0.66-1.25) mg/dL Glucose 88 (74-99) mg/dL Calcium 8.7 (8.4-10.2) mg/dL Calcium panel 03/29/22 03/29/22 Range/Units 06:41 09:58 Calcium 8.7 (8.4-10.2) mg/dL Phosphorus 4.5 (2.5-4.5) mg/dL Pituitary panel 03/29/22 Range/Units 06:41 Sodium 136 L (137-145) mmol/L Potassium 4.7 (3.5-5.1) mmol/L Chloride 103 (98-107) mmol/L Carbon Dioxide 22 (22-30) mmol/L BUN 79 H (9-20) mg/dL Creatinine 10.64 H* (0.66-1.25) mg/dL Glucose 88 (74-99) mg/dL Calcium 8.7 (8.4-10.2) mg/dL Adrenal panel 03/29/22 Range/Units 06:41 Sodium 136 L (137-145) mmol/L Potassium 4.7 (3.5-5.1) mmol/L Chloride 103 (98-107) mmol/L Carbon Dioxide 22 (22-30) mmol/L BUN 79 H (9-20) mg/dL Creatinine 10.64 H* (0.66-1.25) mg/dL Glucose 88 (74-99) mg/dL Calcium 8.7 (8.4-10.2) mg/dL
[2022-03-29] MEDS ORDERED: LIDOCAINE 1% INJ 10MG/ML (5 ML VIAL-PF) SQ ONE (15:00)
--- NOTE | 2022-03-29 15:27 | P.PN ---
Subjective Progress Note Date: 03/29/22 This is a 36 year old male who was discharged from the hospital yesterday who had just begun hemodialysis received 3 transfusions well in the hospital. He had a right chest permacath placed 4 days ago. 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 His previous admission he underwent echocardiogram which showed an EF of 40-45% with global hypokinesia, mild to moderate mitral regurg, mild aortic insufficiency, moderate pulmonary hyp ertension. His proBNP was 14,400 on March 21, this admission today it is 5040. He is set to start dialysis at the [facility] on Tuesday for his first outpatient treatment. Additional history includes asthma, hypertension, occasional marijuana use. He presents to the hospital with concern of fever. He denies cough, denies shortness of breath. Currently temperature is 101.4, blood cultures are currently pending. Urinalysis showing 3+ protein with small blood, negative for infection. Covid and influenza A and B are all negative. He has a white count 6.6. Hemoglobin 12.8. Sodium is 135, potassium 5.3. BUN 67, creatinine 9.12 which is improved from previous admission. His troponin level 0.325 which is chronic for this patient. He was discharged on oral carvedilol, oral Lasix which will be resumed. Infectious disease is on consult and patient has been started on IV vancomycin. Blood cultures are pending. Lactic acid 0.8. Blood pressure 118/89, 94% on 2L Nasal cannula. Chest xray showing cardiomegaly with central venous congestion, correlate for fluid overload state. No significant change from previous xray. Patient admitted and will be evaluated by nephrology and infectious disease. He is undergoing hemodialysis today. 03/28/2022 Patient evaluated today sitting up at the bedside. Denies shortness of breath today and lungs are clear. He is complaining of generalized headache and muscle aches. Will add norco, continue to monitor temps. He temp was 104.8 around 2300 last night, currently today he is around 99.6. He has tylenol on board. He had dialysis yesterday with 2.5 Liters off. His labs today are showing WBC of 10.5, hgb 12.4, neutrophils are increased up to 9.4. sodium 134, potassium 5.1, BUN 66, creat 9.60. CRP is increasing up to 18.1 today. Procalcitonin level is 0.65. Urinalysis is negative for infection. Covid has been negative x 2. Heart rate 77, blood pressure 145/91, 94% on room air. Continues on IV cefepime, IV vancomycin and infectious disease is following patient closely. Awaiting final blood cultures. 03/29/2022 Patient evaluated today receiving hemodialysis. Blood cultures x 3 positive for presumptive staph aureus and a repeat culture will be taken today from dialysis port. He continues on IV vancomycin and infectious disease is following patient. Plans to remove dialysis catheter after hemodialysis today and perform culture. Patient denies headache today, main complaint is generalized weakness. Labs today showing white count 6.1, hgb 12.5, sodium 136, creatinine 10.64. Repeat CRP 18.0. He has remained afebrile for the last 2 days, blood pressure 151/106. Repeat labs tomorrow. Review of Systems Constitutional: Reports fatigue, muscle aches, and fever. Cardio vascular: denied any chest pain, palpitations Gastrointestinal: denied any nausea, vomiting, diarrhea Pulmonary: Denied any shortness of breath cough Neurologic denied any new focal deficits All inpatient medications were reviewed and appropriate changes in these medications as dictated in the interval history and assessment and plan. PHYSICAL EXAMINATION: GENERAL: The patient is alert and oriented x3, not in any acute distress. Well developed, well nourished. HEENT: Pupils are round and equally reacting to light. EOMI. No scleral icterus. No conjunctival pallor. Normocephalic, atraumatic. No pharyngeal erythema. No thyromegaly. CARDIOVASCULAR: S1 and S2 present. No murmurs, rubs, or gallops. PULMONARY: Chest is clear to auscultation, no wheezing or crackles. ABDOMEN: Soft, nontender, nondistended, normoactive bowel sounds. No palpable organomegaly. MUSCULOSKELETAL: No joint swelling or deformity. EXTREMITIES: No cyanosis, clubbing, or pedal edema. NEUROLOGICAL: Gross neurological examination did not reveal any focal deficits. SKIN: No rashes. Assessment and plan Assessment Fever with sepsis, preliminary cultures showing presumptive staph aureus bacteremia Chronic Diastolic and systolic dysfunction with EF of 40-45% with mild acute exacerbation Chronic kidney disease stage V secondary to uncontrolled hypertension with GSIF. Volume overload secondary to End stage renal disease Troponin leak secondary to above, with chronic elevation Hyperkalemia secondary to chronic renal disease, improved Accelerated hypertension, improved this admission Anemia of chronic disease History of non compliance GI Prophylaxis DVT Prophylaxis Full Code Plan Patient underwent dialysis today Dialysis access will be removed after dialysis today and cultures taken Repeat blood cultures with dialysis today. Continues on IV vancomycin Appreciate Infectious disease consult Tylenol for fever, norco has been added for headache Follow up labs in AM The impression and plan of care has been dictated by Margarita Servin, Nurse Practitioner as directed. Dr. Hermes MD I have performed a history and physical examination and medical decision making of this patient, discussed the same with the dictator, and agree with the dic tators assessment and plan as written, documented as a scribe. Based on total visit time, I have performed more than 50% of this visit. Objective - Vital Signs Vital signs: Vital Signs Temp 98.0 F 03/29/22 12:08 Pulse 60 03/29/22 12:08 Resp 18 03/29/22 12:08 BP 151/106 03/29/22 12:08 Pulse Ox 98 03/29/22 08:00 FiO2 Intake & Output 03/28/22 03/29/22 03/29/22 18:59 06:59 18:59 Intake Total 200 660 Output Total 3800 Balance 200 -3140 Intake: Oral 200 360 Hemodialysis 300 Output: Hemodialysis 3800 Other: Voiding Method Toilet # Voids 2 1 - Labs CBC & Chem 7: 03/29/22 06:41 03/29/22 06:41 Labs: Abnormal Lab Results - Last 24 Hours (Table) 03/29/22 03/29/22 Range/Units 06:41 06:41 Hgb 12.5 L (13.0-17.5) gm/dL Plt Count 135 L (150-450) k/uL Lymphocytes # 0.5 L (1.0-4.8) k/uL Sodium 136 L (137-145) mmol/L BUN 79 H (9-20) mg/dL Creatinine 10.64 H* (0.66-1.25) mg/dL Microbiology - Last 24 Hours (Table) 03/28/22 00:07 Blood Culture Gram Stain - Preliminary Blood Blood Culture - Preliminary Presumptive Staph aureus 03/28/22 00:22 Blood Culture Gram Stain - Preliminary Blood Blood Culture - Preliminary Presumptive Staph aureus 03/27/22 12:55 Blood Culture Gram Stain - Preliminary Blood Blood Culture - Preliminary Presumptive Staph aureus 03/28/22 00:07 Blood Culture - Final Blood 03/28/22 00:22 Blood Culture - Final Blood Assessment and Plan Time with Patient: Less than 30
[2022-03-29] MEDS ORDERED: VANCOMYCIN 2,000 MG in SODIUM CHLORIDE 0.9% 500 ML 500 ML IVPB ONE (16:00)
[2022-03-29] MEDS: HYDROcodone/APAP 5-325MG 1 EACH TAB PO PRN (17:22)
--- NOTE | 2022-03-29 17:44 | PCN ---
PROCEDURE NOTE PREOPERATIVE DIAGNOSIS: Acute on chronic renal failure. Positive blood culture for Gram-positive cocci. PROCEDURE: Removal of dialysis catheter, right jugular approach. PROCEDURE DESCRIPTION: The patient was seen in the room. Right side of the neck and chest was prepped and drapes were applied in the usual sterile manner. Lidocaine 1% plain was infiltrated. Stitches were removed. Right IJ catheter was removed. Tip of the catheter was sent for culture. 3-0 Vicryl was used to close the incision. Pressure dressing was applied. Patient tolerated the procedure well. We sent the tip of the catheter for deep culture. MMODL / IJN: [id number] /
[2022-03-29] MEDS: BACLOFEN 10 MG TAB PO SCH (21:03)
[2022-03-30] MEDS: carvediloL 6.25 MG TAB PO SCH ×2 (06:05→17:11)
[2022-03-30] MEDS: PANTOPRAZOLE 40 MG TABLET PO SCH (06:05)
--- NOTE | 2022-03-30 06:53 | P.PN ---
Subjective Progress Note Date: 03/29/22 Principal diagnosis: Fever and bacteremia Patient is a 36-year-old -Burm[place] male with a past medical history significant for end-stage renal disease on hemodialysis through the right subclavian permacatheter presented to the hospital with a fever and some mental status changes now do have evidence of gram-positive bacteremia. On today's evaluation is 03/29/2022, the patient is afebrile today, the patient is undergoing hemodialysis, denies having any headache and no chest pain shortness of breath or cough no nausea no vomiting no abdominal pain no diarrhea Objective - Vital Signs Vital signs: Vital Signs Temp 98.0 F 03/29/22 12:08 Pulse 60 03/29/22 12:08 Resp 18 03/29/22 12:08 BP 151/106 03/29/22 12:08 Pulse Ox 98 03/29/22 08:00 FiO2 Intake & Output 03/28/22 03/29/22 03/29/22 18:59 06:59 18:59 Intake Total 200 660 Output Total 3800 Balance 200 -3140 Intake: Oral 200 360 Hemodialysis 300 Output: Hemodialysis 3800 Other: Voiding Method Toilet # Voids 2 1 - Exam GENERAL DESCRIPTION: A middle-age male lying in bed in no distress RESPIRATORY SYSTEM: Unlabored breathing , decreased breath sounds at bases HEART: S1 S2 regular rate and rhythm , ABDOMEN: Soft , no tenderness EXTREMITIES: No edema feet - Labs CBC & Chem 7: 03/29/22 06:41 03/29/22 06:41 Labs: Abnormal Lab Results - Last 24 Hours (Table) 03/29/22 03/29/22 Range/Units 06:41 06:41 Hgb 12.5 L (13.0-17.5) gm/dL Plt Count 135 L (150-450) k/uL Lymphocytes # 0.5 L (1.0-4.8) k/uL Sodium 136 L (137-145) mmol/L BUN 79 H (9-20) mg/dL Creatinine 10.64 H* (0.66-1.25) mg/dL Microbiology - Last 24 Hours (Table) 03/28/22 00:07 Blood Culture Gram Stain - Preliminary Blood 03/28/22 00:22 Blood Culture Gram Stain - Preliminary Blood 03/28/22 00:07 Blood Culture - Final Blood 03/28/22 00:22 Blood Culture - Final Blood 03/27/22 12:55 Blood Culture Gram Stain - Preliminary Blood Assessment and Plan (1) Pyrexia of unknown origin Current Visit: Yes Status: Acute Code(s): R50.9 - FEVER, UNSPECIFIED SNOMED Code(s): 1748357 Plan: 1patient presented to hospital with fever not feeling well did have some headache which seem to have resolved by now no photophobia or neck rigidity patient initial work-up including a UA chest x-ray was negative is abdominal soft on clinical examination and no evidence of any cellulitis, likely related to permacatheter infection 2patient with Streptococcus aureus bacteremia likely related to the palmar catheter sensitivities pending, dialysis catheter will be removed today after dialysis blood cultures will be repeated daily to document clearance of bacteremia 3- patient to continue vancomycin to continue while waiting for the culture to finalize. Time with Patient: Less than 30
[2022-03-30] MEDS: TOPIRAMATE 25 MG TAB PO SCH ×2 (07:35→21:01)
[2022-03-30] MEDS: FUROSEMIDE 20 MG TAB PO SCH ×2 (07:35→15:48)
[2022-03-30] MEDS: cloNIDine HCL 0.1 MG TAB PO SCH ×3 (07:35→21:02)
[2022-03-30] MEDS: SPIRONOLACTONE 25 MG TAB PO SCH ×2 (07:36→21:01)
[2022-03-30 09:28] LABS: Calcium 8.6 mg/dL (8.4-10.2); Potassium 4.6 mmol/L (3.5-5.1)
--- NOTE | 2022-03-30 11:07 | P.PN ---
Subjective Patient is seen in follow-up for end-stage renal disease. He is maintained on hemodialysis. Last dialysis was 03/29/2022. Blood cultures positive for staph aureus. Permacath discontinued 03/29/2022. Denies chest pain or shortness of breath. No cough. No active complaints. Makes urine. Vital signs are stable. General: No acute distress. HEENT: Head exam is unremarkable. LUNGS: Breath sounds decreased. HEART: Rate and Rhythm are regular. ABDOMEN: Soft, no distention. EXTREMITITES: No edema. Objective - Vital Signs Vital signs: Vital Signs Temp 98.1 F 03/30/22 07:33 Pulse 61 03/30/22 07:33 Resp 18 03/30/22 07:33 BP 145/93 03/30/22 07:33 Pulse Ox 99 03/30/22 07:33 FiO2 Intake & Output 03/29/22 03/30/22 03/30/22 18:59 06:59 18:59 Intake Total 900 Output Total 3800 Balance -2900 Weight 132.8 kg Intake: Oral 600 Hemodialysis 300 Output: Hemodialysis 3800 Other: Voiding Method Toilet Toilet # Voids 1 1 - Labs CBC & Chem 7: 03/29/22 06:41 03/30/22 08:23 Labs: Abnormal Lab Results - Last 24 Hours (Table) 03/30/22 03/30/22 Range/Units 08:23 08:23 Sodium 135 L (137-145) mmol/L BUN 70 H (9-20) mg/dL Creatinine 10.51 H* (0.66-1.25) mg/dL Random Vancomycin 44.4 H* ug/mL Microbiology - Last 24 Hours (Table) 03/29/22 10:30 Blood Culture - Final Blood 03/29/22 06:41 Blood Culture Gram Stain - Preliminary Blood 03/29/22 06:41 Blood Culture - Final Blood 03/29/22 17:05 Catheter Tip Culture - Preliminary Catheter Tip 03/28/22 00:07 Blood Culture Gram Stain - Preliminary Blood Blood Culture - Preliminary Presumptive Staph aureus 03/28/22 00:22 Blood Culture Gram Stain - Preliminary Blood Blood Culture - Preliminary Presumptive Staph aureus 03/27/22 12:55 Blood Culture Gram Stain - Preliminary Blood Blood Culture - Preliminary Presumptive Staph aureus Assessment and Plan Plan: Assessment: 1. End-stage renal disease secondary to biopsy-proven nephrosclerosis. Started on hemodialysis in March 2022. Last dialysis was 03/29/2022. 2. Staph aureus bacteremia likely from infected permacath. Permacath discontinued 03/29/2022. 3. Hypertension with chronic kidney disease. Stable. Plan: New permacath will be placed once cleared by infectious disease. Maintain Lasix. Monitor vancomycin levels. Dose to be adjusted for renal function. Vanco level high at 44.4 today. Phosphorus level 44.4 dated 03/29/2022.
--- NOTE | 2022-03-30 13:51 | P.PN ---
Subjective Progress Note Date: 03/30/22 This is a 36 year old male who was discharged from the hospital yesterday who had just begun hemodialysis received 3 transfusions well in the hospital. He had a right chest permacath placed 4 days ago. 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 His previous admission he underwent echocardiogram which showed an EF of 40-45% with global hypokinesia, mild to moderate mitral regurg, mild aortic insufficiency, moderate pulmonary hyp ertension. His proBNP was 14,400 on March 21, this admission today it is 5040. He is set to start dialysis at the [facility] on Tuesday for his first outpatient treatment. Additional history includes asthma, hypertension, occasional marijuana use. He presents to the hospital with concern of fever. He denies cough, denies shortness of breath. Currently temperature is 101.4, blood cultures are currently pending. Urinalysis showing 3+ protein with small blood, negative for infection. Covid and influenza A and B are all negative. He has a white count 6.6. Hemoglobin 12.8. Sodium is 135, potassium 5.3. BUN 67, creatinine 9.12 which is improved from previous admission. His troponin level 0.325 which is chronic for this patient. He was discharged on oral carvedilol, oral Lasix which will be resumed. Infectious disease is on consult and patient has been started on IV vancomycin. Blood cultures are pending. Lactic acid 0.8. Blood pressure 118/89, 94% on 2L Nasal cannula. Chest xray showing cardiomegaly with central venous congestion, correlate for fluid overload state. No significant change from previous xray. Patient admitted and will be evaluated by nephrology and infectious disease. He is undergoing hemodialysis today. 03/28/2022 Patient evaluated today sitting up at the bedside. Denies shortness of breath today and lungs are clear. He is complaining of generalized headache and muscle aches. Will add norco, continue to monitor temps. He temp was 104.8 around 2300 last night, currently today he is around 99.6. He has tylenol on board. He had dialysis yesterday with 2.5 Liters off. His labs today are showing WBC of 10.5, hgb 12.4, neutrophils are increased up to 9.4. sodium 134, potassium 5.1, BUN 66, creat 9.60. CRP is increasing up to 18.1 today. Procalcitonin level is 0.65. Urinalysis is negative for infection. Covid has been negative x 2. Heart rate 77, blood pressure 145/91, 94% on room air. Continues on IV cefepime, IV vancomycin and infectious disease is following patient closely. Awaiting final blood cultures. 03/29/2022 Patient evaluated today receiving hemodialysis. Blood cultures x 3 positive for presumptive staph aureus and a repeat culture will be taken today from dialysis port. He continues on IV vancomycin and infectious disease is following patient. Plans to remove dialysis catheter after hemodialysis today and perform culture. Patient denies headache today, main complaint is generalized weakness. Labs today showing white count 6.1, hgb 12.5, sodium 136, creatinine 10.64. Repeat CRP 18.0. He has remained afebrile for the last 2 days, blood pressure 151/106. Repeat labs tomorrow. 03/30/2022 Patient resting in bed today, states overall he is feeling better. Reports feeling some dizziness. Dialysis port removed after dailysis yesterday and tip has been sent for culture. Blood cultures are persistent positive showing gram positive cocci in clusters, pending finalized culture and sensitivity. Will continue with daily blood cultures. He continues on IV vancomycin and infectious disease is following the patient closely. Denies headache, fevers have improved. Labs today showing white sodium 135, BUN 70, creatinine 10.51. Blood pressure 149/92. Heart rate of 51 today. He was started on coreg his last hospital stay, will check an EKG. Review of Systems Constitutional: Denies fever, denies fatigue Cardio vascular: denied any chest pain, palpitations Gastrointestinal: denied any nausea, vomiting, diarrhea Pulmonary: Denied any shortness of breath cough Neurologic denied any new focal deficits All inpatient medications were reviewed and appropriate changes in these medications as dictated in the interval history and assessment and plan. PHYSICAL EXAMINATION: GENERAL: The patient is alert and oriented x3, not in any acute distress. Well developed, well nourished. HEENT: Pupils are round and equally reacting to light. EOMI. No scleral icterus. No conjunctival pallor. Normocephalic, atraumatic. No pharyngeal erythema. No thyromegaly. CARDIOVASCULAR: S1 and S2 present. No murmurs, rubs, or gallops. PULMONARY: Chest is clear to auscultation, no wheezing or crackles. ABDOMEN: Soft, nontender, nondistended, normoactive bowel sounds. No palpable organomegaly. MUSCULOSKELETAL: No joint swelling or deformity. EXTREMITIES: No cyanosis, clubbing, or pedal edema. NEUROLOGICAL: Gross neurological examination did not reveal any focal deficits. SKIN: No rashes. Assessment and plan Assessment Fever with sepsis, preliminary cultures showing presumptive staph aureus bacteremia Chronic Diastolic and systolic dysfunction with EF of 40-45% with mild acute exacerbation Chronic kidney disease stage V secondary to uncontrolled hypertension with GSIF. Volume overload secondary to End stage renal disease Troponin leak secondary to above, with chronic elevation Hyperkalemia secondary to chronic renal disease, improved Accelerated hypertension, improved this admission Anemia of chronic disease History of non compliance GI Prophylaxis DVT Prophylaxis Full Code Plan Pending final cultures Blood culture daily Continues on IV vancomycin Appreciate Infectious disease consult EKG x 1 for sinus bradycardia Follow up labs in AM The impression and plan of care has been dictated by Margarita Servin, Nurse Practitioner as directed. Dr. Hermes MD I have performed a history and physical examination and medical decision making of this patient, discussed the same with the dictator, and agree with the dictators assessment and plan as written, documented as a scribe. Based on total visit time, I have performed more than 50% of this visit. Objective - Vital Signs Vital signs: Vital Signs Temp 97.8 F 03/30/22 11:10 Pulse 51 L 03/30/22 11:10 Resp 18 03/30/22 11:10 BP 149/92 03/30/22 11:10 Pulse Ox 100 03/30/22 11:10 FiO2 Intake & Output 03/29/22 03/30/22 03/30/22 18:59 06:59 18:59 Intake Total 900 450 Output Total 3800 Balance -2900 450 Weight 132.8 kg Intake: Oral 600 450 Hemodialysis 300 Output: Hemodialysis 3800 Other: Voiding Method Toilet Toilet # Voids 1 1 - Labs CBC & Chem 7: 03/29/22 06:41 03/30/22 08:23 Labs: Abnormal Lab Results - Last 24 Hours (Table) 03/30/22 03/30/22 Range/Units 08:23 08:23 Sodium 135 L (137-145) mmol/L BUN 70 H (9-20) mg/dL Creatinine 10.51 H* (0.66-1.25) mg/dL Random Vancomycin 44.4 H* ug/mL Microbiology - Last 24 Hours (Table) 03/29/22 10:30 Blood Culture Gram Stain - Preliminary Blood 03/29/22 10:30 Blood Culture - Final Blood 03/29/22 06:41 Blood Culture Gram Stain - Preliminary Blood 03/29/22 06:41 Blood Culture - Final Blood 03/29/22 17:05 Catheter Tip Culture - Preliminary Catheter Tip 03/28/22 00:07 Blood Culture Gram Stain - Preliminary Blood Blood Culture - Preliminary Presumptive Staph aureus 03/28/22 00:22 Blood Culture Gram Stain - Preliminary Blood Blood Culture - Preliminary Presumptive Staph aureus 03/27/22 12:55 Blood Culture Gram Stain - Preliminary Blood Blood Culture - Preliminary Presumptive Staph aureus Assessment and Plan Time with Patient: Less than 30
[2022-03-30] MEDS: ACETAMINOPHEN TAB 325 MG TAB PO PRN (15:47)
[2022-03-30] MEDS: HYDROcodone/APAP 5-325MG 1 EACH TAB PO PRN (15:48)
[2022-03-30] MEDS: BACLOFEN 10 MG TAB PO SCH (21:01)
[2022-03-31] MEDS: PANTOPRAZOLE 40 MG TABLET PO SCH (06:26)
[2022-03-31] MEDS: carvediloL 6.25 MG TAB PO SCH ×2 (06:26→18:13)
[2022-03-31 07:48] LABS: Calcium 8.4 mg/dL (8.4-10.2); Potassium 4.7 mmol/L (3.5-5.1)
[2022-03-31] MEDS: TOPIRAMATE 25 MG TAB PO SCH ×2 (09:08→20:56)
[2022-03-31] MEDS: SPIRONOLACTONE 25 MG TAB PO SCH ×2 (09:08→20:56)
[2022-03-31] MEDS: FUROSEMIDE 20 MG TAB PO SCH ×2 (09:08→18:13)
[2022-03-31] MEDS: cloNIDine HCL 0.1 MG TAB PO SCH ×3 (09:09→20:57)
--- NOTE | 2022-03-31 09:58 | P.PN ---
Subjective Patient is seen in follow-up for end-stage renal disease. He is maintained on hemodialysis. Last dialysis was 03/29/2022. Blood cultures and catheter tip culture positive for staph aureus. Permacath discontinued 03/29/2022. Denies chest pain or shortness of breath. No active complaints. Makes urine. Vital signs are stable. General: No acute distress. HEENT: Head exam is unremarkable. LUNGS: Breath sounds decreased. HEART: Rate and Rhythm are regular. ABDOMEN: Soft, no distention. EXTREMITITES: No edema. Objective - Vital Signs Vital signs: Vital Signs Temp 98.6 F 03/31/22 08:00 Pulse 55 L 03/31/22 08:00 Resp 18 03/31/22 08:00 BP 166/98 03/31/22 08:00 Pulse Ox 99 03/31/22 08:00 FiO2 Intake & Output 03/30/22 03/31/22 03/31/22 18:59 06:59 18:59 Intake Total 568 480 Balance 568 480 Intake: Oral 568 480 Other: Voiding Method Toilet Toilet # Voids 2 - Labs CBC & Chem 7: 03/29/22 06:41 03/31/22 06:16 Labs: Abnormal Lab Results - Last 24 Hours (Table) 03/30/22 03/31/22 Range/Units 08:23 06:16 Sodium 135 L (137-145) mmol/L Carbon Dioxide 21 L (22-30) mmol/L BUN 70 H 77 H (9-20) mg/dL Creatinine 10.51 H* 11.57 H* (0.66-1.25) mg/dL Microbiology - Last 24 Hours (Table) 03/29/22 17:05 Catheter Tip Culture - Preliminary Catheter Tip Presumptive Staph aureus 03/28/22 00:07 Blood Culture Gram Stain - Final Blood Blood Culture - Final Staphylococcus aureus 03/28/22 00:22 Blood Culture Gram Stain - Final Blood Blood Culture - Final Staphylococcus aureus 03/29/22 10:30 Blood Culture Gram Stain - Preliminary Blood 03/29/22 10:30 Blood Culture - Final Blood 03/29/22 06:41 Blood Culture Gram Stain - Preliminary Blood Assessment and Plan Plan: Assessment: 1. End-stage renal disease secondary to biopsy-proven nephrosclerosis. Started on hemodialysis in March 2022. Last dialysis was 03/29/2022. 2. Staph aureus bacteremia secondary to infected permacath. Permacath discontinued 03/29/2022. 3. Hypertension with chronic kidney disease. Stable. Plan: New permacath will be placed once cleared by infectious disease. Maintain Lasix. Monitor vancomycin levels. Dose to be adjusted for renal function. Vanco level high at 44.4 today. Phosphorus level 44.4 dated 03/29/2022. Potassium 4.7 today.
--- NOTE | 2022-03-31 13:45 | PN ---
PROGRESS NOTE DATE OF SERVICE: 03/31/2022 This 36-year-old gentleman was admitted with renal failure and newly started hemodialysis also had Staph Septicemia. ID is pending at this time, the patient on IV vancomycin. No chest pain. No palpitation. PHYSICAL EXAMINATION: Pulse is 55, blood pressure 160/98, respiration 18. Chest: Clear to auscultation. Cardiovascular system: S1, S2. Abdomen soft. Nervous system: No focal deficits. LABS: Reviewed. ASSESSMENT: 1. Staph bacteremia. 2. Newly started hemodialysis. 3. Chronic systolic and diastolic dysfunction, ejection fraction 40% to 45% with congestive heart failure. RECOMMENDATIONS AND DISCUSSION: Recommend to continue current medications, management and symptomatic treatment. Infectious Disease evaluation. The cultures are positive. I would also recommend a 2D echo with Doppler and continue to monitor. Further recommendations to follow. WYATT / SAMUELN: [id number] /
[2022-03-31] MEDS: amLODIPine 10 MG TAB PO SCH (14:33)
[2022-03-31] MEDS: BACLOFEN 10 MG TAB PO SCH (20:56)
[2022-03-31] MEDS: FAMOTIDINE 20 MG TAB PO SCH (20:56)
[2022-04-01] MEDS: carvediloL 6.25 MG TAB PO SCH ×2 (06:23→17:11)
[2022-04-01] MEDS: PANTOPRAZOLE 40 MG TABLET PO SCH (06:23)
--- NOTE | 2022-04-01 07:34 | P.PN ---
Subjective Progress Note Date: 03/30/22 Principal diagnosis: Fever and bacteremia Patient is a 36-year-old -[place] male with a past medical history significant for end-stage renal disease on hemodialysis through the right subclavian permacatheter presented to the hospital with a fever and some mental status changes now do have evidence of gram-positive bacteremia. On today's evaluation is 03/30/2022, the patient remains to be afebrile, the patient denies having any headache and no chest pain shortness of breath or cough no nausea no vomiting no abdominal pain no diarrhea Objective - Vital Signs Vital signs: Vital Signs Temp 98.1 F 03/30/22 07:33 Pulse 61 03/30/22 07:33 Resp 18 03/30/22 07:33 BP 145/93 03/30/22 07:33 Pulse Ox 99 03/30/22 07:33 FiO2 Intake & Output 03/29/22 03/30/22 03/30/22 18:59 06:59 18:59 Intake Total 900 Output Total 3800 Balance -2900 Weight 132.8 kg Intake: Oral 600 Hemodialysis 300 Output: Hemodialysis 3800 Other: Voiding Method Toilet Toilet # Voids 1 1 - Exam GENERAL DESCRIPTION: A middle-age male lying in bed in no distress RESPIRATORY SYSTEM: Unlabored breathing , decreased breath sounds at bases HEART: S1 S2 regular rate and rhythm , ABDOMEN: Soft , no tenderness EXTREMITIES: No edema feet - Labs CBC & Chem 7: 03/29/22 06:41 03/31/22 06:16 Labs: Abnormal Lab Results - Last 24 Hours (Table) 03/30/22 03/30/22 Range/Units 08:23 08:23 Sodium 135 L (137-145) mmol/L BUN 70 H (9-20) mg/dL Creatinine 10.51 H* (0.66-1.25) mg/dL Random Vancomycin 44.4 H* ug/mL Microbiology - Last 24 Hours (Table) 03/29/22 06:41 Blood Culture Gram Stain - Preliminary Blood 03/29/22 06:41 Blood Culture - Final Blood 03/29/22 17:05 Catheter Tip Culture - Preliminary Catheter Tip 03/28/22 00:07 Blood Culture Gram Stain - Preliminary Blood Blood Culture - Preliminary Presumptive Staph aureus 03/28/22 00:22 Blood Culture Gram Stain - Preliminary Blood Blood Culture - Preliminary Presumptive Staph aureus 03/27/22 12:55 Blood Culture Gram Stain - Preliminary Blood Blood Culture - Preliminary Presumptive Staph aureus Assessment and Plan (1) Pyrexia of unknown origin Current Visit: Yes Status: Acute Code(s): R50.9 - FEVER, UNSPECIFIED SNOMED Code(s): 1403776 Plan: 1patient presented to hospital with fever not feeling well did have some headache which seem to have resolved by now no photophobia or neck rigidity patient initial work-up including a UA chest x-ray was negative is abdominal soft on clinical examination and no evidence of any cellulitis, likely related to permacatheter infection 2patient with Streptococcus aureus bacteremia likely related to the dialysis as Infection, sensitivities still pending, dialysis catheter has been removed and catheter has been sent for the culture 3- patient to continue vancomycin to continue while waiting for the culture to finalize. Time with Patient: Less than 30
--- NOTE | 2022-04-01 07:36 | P.PN ---
Subjective Progress Note Date: 03/31/22 Principal diagnosis: Fever and bacteremia Patient is a 36-year-old -[place] male with a past medical history significant for end-stage renal disease on hemodialysis through the right subclavian permacatheter presented to the hospital with a fever and some mental status changes now do have evidence of gram-positive bacteremia. On today's evaluation is 03/31/2022, the patient denies any fever or any chills, the patient denies chest pain shortness of breath or cough , the patient denies nausea no vomiting no abdominal pain no diarrhea Objective - Vital Signs Vital signs: Vital Signs Temp 98.6 F 03/31/22 08:00 Pulse 55 L 03/31/22 08:00 Resp 18 03/31/22 08:00 BP 166/98 03/31/22 08:00 Pulse Ox 99 03/31/22 08:00 FiO2 Intake & Output 03/30/22 03/31/22 03/31/22 18:59 06:59 18:59 Intake Total 568 480 Balance 568 480 Intake: Oral 568 480 Other: Voiding Method Toilet Toilet # Voids 2 - Exam GENERAL DESCRIPTION: A middle-age male lying in bed in no distress RESPIRATORY SYSTEM: Unlabored breathing , decreased breath sounds at bases HEART: S1 S2 regular rate and rhythm , ABDOMEN: Soft , no tenderness EXTREMITIES: No edema feet - Labs CBC & Chem 7: 03/29/22 06:41 03/31/22 06:16 Labs: Abnormal Lab Results - Last 24 Hours (Table) 03/31/22 Range/Units 06:16 Carbon Dioxide 21 L (22-30) mmol/L BUN 77 H (9-20) mg/dL Creatinine 11.57 H* (0.66-1.25) mg/dL Microbiology - Last 24 Hours (Table) 03/30/22 08:23 Blood Culture - Preliminary Blood No Growth after 24 hours 03/29/22 17:05 Catheter Tip Culture - Preliminary Catheter Tip Presumptive Staph aureus 03/28/22 00:07 Blood Culture Gram Stain - Final Blood Blood Culture - Final Staphylococcus aureus 03/28/22 00:22 Blood Culture Gram Stain - Final Blood Blood Culture - Final Staphylococcus aureus 03/29/22 10:30 Blood Culture Gram Stain - Preliminary Blood 03/29/22 10:30 Blood Culture - Final Blood 03/29/22 06:41 Blood Culture Gram Stain - Preliminary Blood Assessment and Plan (1) Pyrexia of unknown origin Current Visit: Yes Status: Acute Code(s): R50.9 - FEVER, UNSPECIFIED SNOMED Code(s): 7629485 Plan: 1patient presented to hospital with fever not feeling well did have some headache which seem to have resolved by now no photophobia or neck rigidity patient initial work-up including a UA chest x-ray was negative is abdominal soft on clinical examination and no evidence of any cellulitis, likely related to permacatheter infection 2patient with MSSA bacteremia likely related to the dialysis as Infection, dialysis catheter has been removed and catheter has been sent for the culture 3- patient will be switched over to cefazolin 2 g every 12 hours, we'll obtain echocardiogram to make sure no evidence of any vegetation Time with Patient: Less than 30
--- NOTE | 2022-04-01 09:26 | P.CRDCN ---
History of Present Illness Consult date: 04/01/22 History of present illness: HISTORY OF PRESENT ILLNESS: This is a 36-year-old male with a past medical history significant for chronic kidney disease recently started on hemodialysis and hypertension. 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 We have been asked to see the patient in consultation for congestive heart failure. Patient examined at the bedside. Patient was recently discharged from the hospital for hypertension and chronic kidney disease. The patient was started on hemodialysis. The patient developed bacteremia and his permacath was discontinued. His last dialysis session was 03/29/2022. Patient denies having any chest pain or pressure. He currently denies shortness of breath. Denies dizziness or lightheadedness. Patient's blood pressure this morning 158/109. * EKG reveals sinus tachycardia with no signs of acute ischemia * Chest xray cardiomegaly with mild central vascular congestion. Correlate for fluid overload state. No significant change from recent x-ray. * Laboratory data: WBC 6.1. Hemoglobin 12.5. Platelet count 135. Sodium 137. Potassium 4.7. BUN 77. Creatinine 11.78. ProBNP 5040. * Current home cardiac medications include Lasix 60 mg daily, Aldactone 25 mg twice a day, amlodipine 10 mg daily, carvedilol 6.25 mg twice a day, and Catapres 0.3 mg 3 times a day * Most recent echocardiogram obtained in March 2022 revealed ejection fraction 40- 45%, severe LVH, moderate pulmonary hypertension, [id number] mitral regurgitation, mild aortic regurgitation, mild tricuspid regurgitation REVIEW OF SYSTEMS: At the time of my exam: CONSTITUTIONAL: Denies fever or chills. HEENT: Denies blurred vision, vision changes, or eye pain. Denies hemoptysis CARDIOVASCULAR: Denies chest pain. Denies orthopnea. Denies PND. Denies palpitations RESPIRATORY: Denies shortness of breath. GASTROINTESTINAL: Denies abdominal pain. Denies nausea or vomiting. HEMATOLOGIC: Denies bleeding disorders. GENITOURINARY: Denies any blood in urine. SKIN: Denies pruitis. Denies rash. PHYSICAL EXAM: VITAL SIGNS: Reviewed. GENERAL: Well-developed in no acute distress. HEENT: Head is normocephalic. Pupils are equal, round. Sclerae anicteric. Mucous membranes of the mouth are moist. Neck supple. No JVD or thyromegaly LUNGS: Respirations even and unlabored. Lungs essentially clear to auscultation bilaterally. HEART: Regular rate and rhythm. S1 and S2 heard. ABDOMEN: Soft. Nondistended. Nontender. EXTREMITIES: Normal range of motion. No clubbing or cyanosis. Peripheral pulses intact Trace lower extremity edema NEUROLOGIC: Awake and alert. Oriented x 3. ASSESSMENT: Fever with sepsis Bacteremia Chronic kidney disease on hemodialysis Volume overload secondary to chronic kidney disease Hypertension Mild cardiomyopathy, EF 40-45%, likely nonischemic PLAN: 2-D echo ordered per infectious disease Diuretic management per nephrology Add hydralazine 25 mg 3 times a day Add Imdur 30 mg daily Continue to monitor blood pressure Further recommendations pending patient's course Nurse practitioner note has been reviewed by physician. Signing provider agrees with the documented findings, assessment, and plan of care. Past Medical History Past Medical History: Asthma, Hypertension, Renal Disease Additional Past Medical History / Comment(s): Hemodiaylsis History of Any Multi-Drug Resistant Organisms: None Reported Past Surgical History: No Surgical Hx Reported Additional Past Surgical History / Comment(s): Hemodialyisis Port in Right ch est. Past Anesthesia/Blood Transfusion Reactions: No Reported Reaction Additional Past Anesthesia/Blood Transfusion Reaction / Comment(s): never had b ld transfusion or surgery Past Psychological History: No Psychological Hx Reported Smoking Status: Never smoker - Past Family History Mother Family Medical History: Diabetes Mellitus Father Family Medical History: Unable to Obtain Medications and Allergies Home Medications Medication Instructions Recorded Confirmed Type amLODIPine [Norvasc] 10 mg PO DAILY 30 Days #30 tab 09/06/19 03/27/22 Rx Spironolactone [Aldactone] 25 mg PO BID 09/19/19 03/27/22 History Baclofen [Lioresal] 10 mg PO HS 03/21/22 03/27/22 History Ergocalciferol [Vitamin D2 (1250 1,250 mcg PO SA 03/21/22 03/27/22 History Mcg = 55122 Iu)] Topiramate [Topamax] 25 mg PO BID 03/21/22 03/27/22 History cloNIDine HCL [Catapres] 0.3 mg PO TID 03/21/22 03/27/22 History Acetaminophen Tab [Tylenol] 650 mg PO Q6HR PRN tab 03/26/22 03/27/22 Rx Famotidine [Pepcid] 20 mg PO HS #30 tab 03/26/22 03/27/22 Rx Furosemide [Lasix] 60 mg PO DAILY #30 tab 03/26/22 03/27/22 Rx carvediloL [Coreg] 6.25 mg PO BID-W/MEALS 30 Days #60 03/26/22 03/27/22 Rx tab Allergies Allergy/AdvReac Type Severity Reaction Status Date / Time No Known Allergies Allergy Verified 03/27/22 11:44 Physical Exam Vitals: Vital Signs Temp Pulse Resp BP BP BP Pulse Ox 04/01/22 04:00 97.5 F L 56 L 17 158/109 99 03/31/22 23:50 97.7 F 62 18 151/106 98 03/31/22 20:50 98.2 F 60 18 150/104 98 03/31/22 14:38 98.6 F 61 18 156/112 100 03/31/22 13:48 55 L 03/31/22 12:00 98.4 F 64 18 151/74 98 03/31/22 08:00 98.6 F 55 L 18 166/98 99 Intake and Output 03/31/22 04/01/22 04/01/22 22:59 06:59 14:59 Intake Total 540 Balance 540 Intake: Oral 540 Other: Voiding Method Toilet Toilet # Voids 1 3 Weight 131.6 kg Results 03/29/22 06:41 03/31/22 06:16 Comprehensive Metabolic Panel 03/31/22 Range/Units 06:16 Sodium 137 (137-145) mmol/L Potassium 4.7 (3.5-5.1) mmol/L Chloride 104 (98-107) mmol/L Carbon Dioxide 21 L (22-30) mmol/L BUN 77 H (9-20) mg/dL Creatinine 11.57 H* (0.66-1.25) mg/dL Glucose 88 (74-99) mg/dL Calcium 8.4 (8.4-10.2) mg/dL Current Medications Generic Name Dose Route Start Last Admin Trade Name Freq PRN Reason Stop Dose Admin Acetaminophen 650 mg 03/27/22 15:23 03/30/22 15:47 Acetaminophen Tab 325 Mg Tab PO 650 mg Q6HR PRN Administration Fever and/ or Mild Pain Hydrocodone Bitart/Acetaminophen 1 each 05/22/22 12:00 03/30/22 15:48 Hydrocodone/Apap 5-325mg 1 Each Tab PO 1 each Q6HR PRN Administration Pain Amlodipine Besylate 10 mg 03/31/22 13:00 03/31/22 14:33 Amlodipine 10 Mg Tab PO 10 mg DAILY LEDY Administration Baclofen 10 mg 03/27/22 21:00 03/31/22 20:56 Baclofen 10 Mg Tab PO 10 mg HS LEDY Administration Carvedilol 6.25 mg 03/27/22 17:30 04/01/22 06:23 Carvedilol 6.25 Mg Tab PO 6.25 mg BID-W/MEALS LEDY Administration Clonidine 0.3 mg 03/31/22 13:00 03/31/22 20:57 Clonidine Hcl 0.1 Mg Tab PO 0.3 mg TID LEDY Administration Ergocalciferol 1,250 mcg 04/03/22 09:00 Ergocalciferol 1,250 Mcg (50,000 Iu) Capsule PO SA LEDY Famotidine 20 mg 03/31/22 21:00 03/31/22 20:56 Famotidine 20 Mg Tab PO 20 mg HS LEDY Administration Furosemide 60 mg 03/28/22 16:00 03/31/22 18:13 Furosemide 20 Mg Tab PO 60 mg BID@0900,1600 LEDY Administration Cefazolin Sodium 2 gm/ Sodium 50 mls @ 100 mls/hr 03/31/22 22:00 03/31/22 22:29 Chloride IVPB 100 mls/hr Q12H LEDY Administration Protocol Naloxone HCl 0.2 mg 03/27/22 13:09 Naloxone 0.4 Mg/Ml 1 Ml Vial IV Q2M PRN Opioid Reversal Pantoprazole Sodium 40 mg 03/29/22 07:30 04/01/22 06:23 Pantoprazole 40 Mg Tablet PO 40 mg AC-BRKFST LEDY Administration Spironolactone 25 mg 03/27/22 21:00 03/31/22 20:56 Spironolactone 25 Mg Tab PO 25 mg BID LEDY Administration Topiramate 25 mg 03/27/22 21:00 03/31/22 20:56 Topiramate 25 Mg Tab PO 25 mg BID LEDY Administration Intake and Output 03/31/22 04/01/22 04/01/22 22:59 06:59 14:59 Intake Total 540 Balance 540 Intake: Oral 540 Other: Voiding Method Toilet Toilet # Voids 1 3 Weight 131.6 kg 03/29/22 06:41 03/31/22 06:16
[2022-04-01] MEDS: cloNIDine HCL 0.1 MG TAB PO SCH ×3 (09:37→22:10)
[2022-04-01] MEDS: SPIRONOLACTONE 25 MG TAB PO SCH (09:38)
[2022-04-01] MEDS: amLODIPine 10 MG TAB PO SCH (09:38)
[2022-04-01] MEDS: FUROSEMIDE 20 MG TAB PO SCH ×2 (09:39→17:11)
[2022-04-01] MEDS: TOPIRAMATE 25 MG TAB PO SCH ×2 (09:40→22:10)
[2022-04-01] MEDS: ISOSORBIDE MONONITRATE ER 30 MG TAB.ER.24H PO SCH (09:42)
[2022-04-01] MEDS: hydrALAZINE HCL 25 MG TAB PO SCH ×3 (09:43→22:11)
[2022-04-01] MEDS ORDERED: hydrALAZINE HCL 20 MG/ML 1 ML VIAL IVP PRN (09:49)
--- NOTE | 2022-04-01 09:51 | P.PN ---
Subjective Patient is seen in follow-up for end-stage renal disease. He is maintained on hemodialysis. Last dialysis was 03/29/2022. Blood cultures and catheter tip culture positive for staph aureus. Permacath discontinued 03/29/2022. Denies chest pain or shortness of breath. No active complaints. Makes urine. Family present at bedside. Blood pressure high. Vital signs are stable. General: No acute distress. HEENT: Head exam is unremarkable. LUNGS: Breath sounds decreased. HEART: Rate and Rhythm are regular. ABDOMEN: Soft, no distention. EXTREMITITES: No edema. Objective - Vital Signs Vital signs: Vital Signs Temp 97.5 F L 04/01/22 04:00 Pulse 56 L 04/01/22 04:00 Resp 17 04/01/22 04:00 BP 158/109 04/01/22 04:00 Pulse Ox 99 04/01/22 04:00 FiO2 Intake & Output 03/31/22 04/01/22 04/01/22 18:59 06:59 18:59 Intake Total 540 Balance 540 Weight 131.6 kg Intake: Oral 540 Other: Voiding Method Toilet # Voids 1 3 - Labs CBC & Chem 7: 03/29/22 06:41 03/31/22 06:16 Labs: Microbiology - Last 24 Hours (Table) 03/31/22 06:16 Blood Culture - Preliminary Blood No Growth after 24 hours 03/29/22 17:05 Catheter Tip Culture - Final Catheter Tip Staphylococcus aureus 03/29/22 10:30 Blood Culture Gram Stain - Preliminary Blood Blood Culture - Preliminary Presumptive Staph aureus 03/29/22 06:41 Blood Culture Gram Stain - Preliminary Blood Blood Culture - Preliminary Presumptive Staph aureus 03/30/22 08:23 Blood Culture - Preliminary Blood No Growth after 24 hours Assessment and Plan Plan: Assessment: 1. End-stage renal disease secondary to biopsy-proven nephrosclerosis. Started on hemodialysis in March 2022. Last dialysis was 03/29/2022. 2. Staph aureus bacteremia secondary to infected permacath. Permacath discontinued 03/29/2022. 3. Hypertension with chronic kidney disease. Blood pressure high. Plan: New permacath will be placed once cleared by infectious disease. Maintain Lasix. Phosphorus level 4.5 dated 03/29/2022. Potassium 4.7 yesterday. Follow-up echocardiogram. Hydralazine and Imdur added by cardiology. Dose of Catapres also increased. I will add as needed hydralazine as well. Follow-up morning labs
[2022-04-01 10:44] LABS: HCT 41.3 % (39.0-53.0); HGB 12.9 gm/dL (13.0-17.5); MCH 28.4 pg (25.0-35.0); MCHC 31.2 g/dL (31.0-37.0); MCV 91.2 fL (80.0-100.0); Mean Platelet Volume 9.3; Platelet Count 258 k/uL (150-450); RBC 4.53 m/uL (4.30-5.90); RDW 14.2 % (11.5-15.5); WBC 5.1 k/uL (3.8-10.6)
[2022-04-01 14:43] LABS: Calcium 8.9 mg/dL (8.4-10.2); Magnesium 2.5 mg/dL (1.6-2.3)
[2022-04-01 14:53] VITALS: BMI 37.2
--- NOTE | 2022-04-01 14:56 | P.PN ---
Subjective Progress Note Date: 04/01/22 This is a 36-year-old male who was admitted with end-stage renal disease on dialysis although was found to have fevers and bacteremia with infectious disease following along with nephrology. Awaiting for possible permanent catheter placement as there was concern for infection at the catheter site with multiple medical consultations following. Cultures are showing Staphylococcus aureus and most recent blood cultures have been negative. Infectious disease reports is okay to receive new dialysis catheter and will continue with antibiotics and close monitoring. Patient is hypertensive and also cardiology has been consulted. Echo was ordered and pending at this time. Kidney functions have worsened and creatinine is 11.57 today. Patient is continued on cefazolin and Vanco has been discontinued and trough was elevated today. Patient denies chest pain or worsening shortness of breath. Review of systems: Constitutional: reports of fatigue, no reports of fever, or chills Cardiovascular: No reports of chest pain or palpitations Respiratory: No reports of shortness of breath or cough GI: reports of nausea, no reports of of vomiting : No reports of dysuria or retention Neurovascular: reports of generalized weakness All medications have been reviewed Active Medications Acetaminophen (Acetaminophen Tab 325 Mg Tab) 650 mg PO Q6HR PRN PRN Reason: Fever and/ or Mild Pain Last Admin: 03/30/22 15:47 Dose: 650 mg Hydrocodone Bitart/Acetaminophen (Hydrocodone/Apap 5-325mg 1 Each Tab) 1 each PO Q6HR PRN PRN Reason: Pain Last Admin: 03/30/22 15:48 Dose: 1 each Amlodipine Besylate (Amlodipine 10 Mg Tab) 10 mg PO DAILY [facility] Last Admin: 04/01/22 09:38 Dose: 10 mg Baclofen (Baclofen 10 Mg Tab) 10 mg PO HS [facility] Last Admin: 03/31/22 20:56 Dose: 10 mg Carvedilol (Carvedilol 6.25 Mg Tab) 6.25 mg PO BID-W/MEALS [facility] Last Admin: 04/01/22 06:23 Dose: 6.25 mg Clonidine (Clonidine Hcl 0.1 Mg Tab) 0.3 mg PO TID [facility] Last Admin: 04/01/22 09:37 Dose: 0.3 mg Ergocalciferol (Ergocalciferol 1,250 Mcg (50,000 Iu) Capsule) 1,250 mcg PO [facility] Famotidine (Famotidine 20 Mg Tab) 20 mg PO HS [facility] Last Admin: 03/31/22 20:56 Dose: 20 mg Furosemide (Furosemide 20 Mg Tab) 60 mg PO BID@0900,1600 [facility] Last Admin: 04/01/22 09:39 Dose: 60 mg Hydralazine HCl (Hydralazine Hcl 25 Mg Tab) 25 mg PO TID [facility] Last Admin: 04/01/22 09:43 Dose: 25 mg Hydralazine HCl (Hydralazine Hcl 20 Mg/Ml 1 Ml Vial) 10 mg IVP Q6HR PRN PRN Reason: Blood Pressure - High Cefazolin Sodium 2 gm/ Sodium (Chloride) 50 mls @ 100 mls/hr IVPB Q12H [facility]; Protocol Last Admin: 03/31/22 22:29 Dose: 100 mls/hr Isosorbide Mononitrate (Isosorbide Mononitrate Er 30 Mg Tab.Er.24h) 30 mg PO DAILY [facility] Last Admin: 04/01/22 09:42 Dose: 30 mg Naloxone HCl (Naloxone 0.4 Mg/Ml 1 Ml Vial) 0.2 mg IV Q2M PRN PRN Reason: Opioid Reversal Pantoprazole Sodium (Pantoprazole 40 Mg Tablet) 40 mg PO AC-BRKFST [facility] Last Admin: 04/01/22 06:23 Dose: 40 mg Spironolactone (Spironolactone 25 Mg Tab) 25 mg PO BID [facility] Last Admin: 04/01/22 09:38 Dose: 25 mg Topiramate (Topiramate 25 Mg Tab) 25 mg PO BID [facility] Last Admin: 04/01/22 09:40 Dose: 25 mg PHYSICAL EXAMINATION: GENERAL: The patient is alert and oriented x4, lethargic, obese Well developed, well nourished. HEENT: Pupils are round and equally reacting to light. EOMI. no scleral icterus. No conjunctival pallor. Normocephalic, atraumatic. No pharyngeal erythema. No thyromegaly. CARDIOVASCULAR: S1 and S2 muffled PULMONARY: diminished breath sounds bilaterally with scattered rhonchi noted. ABDOMEN: soft. Nontender on exam. obese. non-distended, normoactive bowel sounds. No palpable organomegaly. MUSCULOSKELETAL: No joint swelling or deformity. EXTREMITIES: No cyanosis, clubbing, or pedal edema. Right hip surgical dressing is intact NEUROLOGICAL: Gross neurological examination did not reveal any focal deficits. Diffuse weakness SKIN: No rashes. Assessment: GI prophylaxis DVT prophylaxis Full code Plan: Recommend to continue with current medications and management per nephrology and infectious disease services. Patient is cleared to receive a permacath per infectious disease with most recent blood cultures being negative. Nephrology following and patient will need hemodialysis. [facility] and unable to retrieve updated notes and most of the report was obtained from nursing staff. Encouraged increase activity as tolerated recommend repeat labs and will follow-up once [employer] is available. Due to multiple complex medical issues, prognosis is guarded. The impression and plan of care has been dictated by Radha Gregory, nurse practitioner as directed. MD Javier I have performed a history and examination and MDM of this patient, discussed the same with the dictator, and agree with the dictator's assessment and plan as written ,documented as a scribe. Based on total visit time, I have performed more than 50% of the visit. Any additional findings or plans will be noted. Objective - Vital Signs Vital signs: Vital Signs Temp 97.5 F L 04/01/22 04:00 Pulse 56 L 04/01/22 04:00 Resp 17 04/01/22 04:00 BP 158/109 04/01/22 04:00 Pulse Ox 99 04/01/22 04:00 FiO2 Intake & Output 03/31/22 04/01/22 04/01/22 18:59 06:59 18:59 Intake Total 540 Balance 540 Weight 131.6 kg 131.6 kg Intake: Oral 540 Other: Voiding Method Toilet # Voids 1 3 - Labs CBC & Chem 7: 03/29/22 06:41 03/31/22 06:16 Labs: Microbiology - Last 24 Hours (Table) 03/31/22 06:16 Blood Culture - Preliminary Blood No Growth after 24 hours 03/29/22 17:05 Catheter Tip Culture - Final Catheter Tip Staphylococcus aureus 03/29/22 10:30 Blood Culture Gram Stain - Preliminary Blood Blood Culture - Preliminary Presumptive Staph aureus 03/29/22 06:41 Blood Culture Gram Stain - Preliminary Blood Blood Culture - Preliminary Presumptive Staph aureus 03/30/22 08:23 Blood Culture - Preliminary Blood No Growth after 24 hours
[2022-04-01 18:44] LABS: Band Neutrophils % 1 %; Eosinophils # (M) 0.15 k/uL (0-0.7); Lymphocytes # (M) 1.48 k/uL (1.0-4.8); Metamyelocytes # (M) 0.05 k/uL (0); Metamyelocytes % 1 %; Monocytes # (M) 0.26 k/uL (0-1.0); Neutrophils % (M) 61 %; Nucleated Red Blood Cells 0 /100 WBC (0-0); Total Cells Counted 100
[2022-04-01] MEDS: FAMOTIDINE 20 MG TAB PO SCH (22:09)
[2022-04-01] MEDS: BACLOFEN 10 MG TAB PO SCH (22:09)
--- NOTE | 2022-04-01 23:49 | P.PN ---
Subjective Progress Note Date: 04/01/22 Principal diagnosis: Fever and bacteremia Patient is a 36-year-old -[place] male with a past medical history significant for end-stage renal disease on hemodialysis through the right subclavian permacatheter presented to the hospital with a fever and some mental status changes now do have evidence of gram-positive bacteremia. On today's evaluation is 04/01/2022, the patient denies any fever or chills, the patient denies chest pain shortness of breath or cough , the patient denies nausea no vomiting no abdominal pain no diarrhea, feeling slightly better Objective - Vital Signs Vital signs: Vital Signs Temp 97.5 F L 04/01/22 04:00 Pulse 56 L 04/01/22 04:00 Resp 17 04/01/22 04:00 BP 158/109 04/01/22 04:00 Pulse Ox 99 04/01/22 04:00 FiO2 Intake & Output 03/31/22 04/01/22 04/01/22 18:59 06:59 18:59 Intake Total 540 Balance 540 Weight 131.6 kg Intake: Oral 540 Other: Voiding Method Toilet # Voids 1 3 - Exam GENERAL DESCRIPTION: A middle-age male lying in bed in no distress RESPIRATORY SYSTEM: Unlabored breathing , decreased breath sounds at bases HEART: S1 S2 regular rate and rhythm , ABDOMEN: Soft , no tenderness EXTREMITIES: No edema feet - Labs CBC & Chem 7: 04/01/22 09:07 04/01/22 09:07 Labs: Microbiology - Last 24 Hours (Table) 03/31/22 06:16 Blood Culture - Preliminary Blood No Growth after 24 hours 03/29/22 17:05 Catheter Tip Culture - Final Catheter Tip Staphylococcus aureus 03/29/22 10:30 Blood Culture Gram Stain - Preliminary Blood Blood Culture - Preliminary Presumptive Staph aureus 03/29/22 06:41 Blood Culture Gram Stain - Preliminary Blood Blood Culture - Preliminary Presumptive Staph aureus 03/30/22 08:23 Blood Culture - Preliminary Blood No Growth after 24 hours Assessment and Plan (1) Pyrexia of unknown origin Current Visit: Yes Status: Acute Code(s): R50.9 - FEVER, UNSPECIFIED SNOMED Code(s): 9362919 Plan: 1patient presented to hospital with fever not feeling well did have some headache which seem to have resolved by now no photophobia or neck rigidity patient initial work-up including a UA chest x-ray was negative is abdominal soft on clinical examination and no evidence of any cellulitis, likely related to permacatheter infection 2patient with MSSA bacteremia likely related to the dialysis as Infection, dialysis catheter has been removed and catheter has been sent for the culture 3- patient to continue with cefazolin 2 g every 12 hours, awaiting echoc ardiogram to make sure no evidence of any vegetation 4-blood cultures from 03/30/2022 so far negative if they remains to be negative by tomorrow he will be able to dialysis catheter placement on 04/02/2022 Time with Patient: Less than 30
[2022-04-02] MEDS: carvediloL 6.25 MG TAB PO SCH ×2 (06:22→20:53)
[2022-04-02] MEDS: PANTOPRAZOLE 40 MG TABLET PO SCH (06:22)
--- NOTE | 2022-04-02 07:50 | CA ---
Transthoracic Echo Report Name: Jerel Deleon Age: 36 Gender: M : 1985 Exam Date: 04/01/2022 08:42 Exam Location: [facility] Ht (in): 74 Wt (lb): 290 Ordering Physician: Frankie Love MD Attending/Referring Phys: Elderly Sitter Kaitlin Quinones RDCS Procedure CPT: Indications: Positive blood culture, questionable endocarditis Cardiac Hx: Technical Quality: Fair Contrast 1: Total Dose (mL): Contrast 2: Total Dose (mL): MEASUREMENTS (Male / Female) Normal Values 2D ECHO LV Diastolic Diameter PLAX 6.1 cm 4.2 - 5.9 / 3.9 - 5.3 cm LV Systolic Diameter PLAX 5.0 cm IVS Diastolic Thickness 2.0 cm 0.6 - 1.0 / 0.6 - 0.9 cm LVPW Diastolic Thickness 2.2 cm 0.6 - 1.0 / 0.6 - 0.9 cm LV Relative Wall Thickness 0.7 FINDINGS Left Ventricle Severely increased left ventricular wall thickness. Left ventricular ejection fraction is estimated at 40-45 %. Mild left ventricular dilatation. Moderately reduced global left ventricular systolic function. Right Ventricle Right Atrium Left Atrium Mitral Valve Mitral valve thickened. Mild mitral regurgitation. Aortic Valve Trileaflet aortic valve. Trace to mild aortic regurgitation. Tricuspid Valve No tricuspid stenosis. Mild tricuspid regurgitation. Pulmonic Valve Pericardium No pericardial effusion. Aorta CONCLUSIONS Impaired LV function with EF of around 40% Severe left ventricular hypertrophy was identified I would advise repeating the study using strain to rule out Amyloid Previewed by: Dr. Bernardo Monet MD (Electronically Signed) Final Date: 02 Apr 2022 07:49
[2022-04-02] MEDS: cloNIDine HCL 0.1 MG TAB PO SCH ×3 (09:10→23:22)
[2022-04-02] MEDS: FUROSEMIDE 20 MG TAB PO SCH ×2 (09:10→20:53)
[2022-04-02] MEDS: ISOSORBIDE MONONITRATE ER 30 MG TAB.ER.24H PO SCH (09:10)
[2022-04-02] MEDS: hydrALAZINE HCL 50 MG TAB PO SCH ×3 (09:11→20:53)
[2022-04-02] MEDS: TOPIRAMATE 25 MG TAB PO SCH ×2 (09:11→20:53)
[2022-04-02] MEDS: amLODIPine 10 MG TAB PO SCH (09:11)
[2022-04-02 09:17] LABS: Calcium 8.9 mg/dL (8.4-10.2); Potassium 5.4 mmol/L (3.5-5.1)
--- NOTE | 2022-04-02 09:41 | P.PN ---
Subjective Progress Note Date: 04/02/22 HISTORY OF PRESENT ILLNESS: This is a 36-year-old male with a past medical history significant for chronic kidney disease recently started on hemodialysis and hypertension. Patient does not follow with a wool carder. We have been asked to see the patient in consultation for congestive heart failure. Patient examined at the bedside. Patient was recently discharged from the hospital for hypertension and chronic kidney disease. The patient was started on hemodialysis. The patient developed bacteremia and his permacath was discontinued. His last dialysis session was 03/29/2022. Patient denies having any chest pain or pressure. He currently denies shortness of breath. Denies dizziness or lightheadedness. Patient's blood pressure this morning 158/109. * EKG reveals sinus tachycardia with no signs of acute ischemia * Chest xray cardiomegaly with mild central vascular congestion. Correlate for fluid overload state. No significant change from recent x-ray. * Laboratory data: WBC 6.1. Hemoglobin 12.5. Platelet count 135. Sodium 137. Potassium 4.7. BUN 77. Creatinine 11.78. ProBNP 5040. * Current home cardiac medications include Lasix 60 mg daily, Aldactone 25 mg twice a day, amlodipine 10 mg daily, carvedilol 6.25 mg twice a day, and Catapres 0.3 mg 3 times a day * Most recent echocardiogram obtained in March 2022 revealed ejection fraction 40- 45%, severe LVH, moderate pulmonary hypertension, [id number] mitral regurgitation, mild aortic regurgitation, mild tricuspid regurgitation 04/02/2022 Patient examined this morning at the bedside. Patient denies chest pain or pressure. He denies shortness of breath. Blood pressures have improved from yesterday but are still on the higher side. Patient is scheduled to have hemodialysis catheter placed today by vascular surgery. 2-D echo obtained revealing ejection fraction 40% with severe LVH. PHYSICAL EXAM: VITAL SIGNS: Reviewed. GENERAL: Well-developed in no acute distress. HEENT: Head is normocephalic. Pupils are equal, round. Sclerae anicteric. Mucous membranes of the mouth are moist. Neck supple. No JVD or thyromegaly LUNGS: Respirations even and unlabored. Lungs essentially clear to auscultation bilaterally. HEART: Regular rate and rhythm. S1 and S2 heard. ABDOMEN: Soft. Nondistended. Nontender. EXTREMITIES: Normal range of motion. No clubbing or cyanosis. Peripheral pulses intact Trace lower extremity edema NEUROLOGIC: Awake and alert. Oriented x 3. ASSESSMENT: Fever with sepsis Bacteremia Chronic kidney disease on hemodialysis Volume overload secondary to chronic kidney disease Hypertension Mild cardiomyopathy, EF 40-45%, likely nonischemic PLAN: Patient scheduled for dialysis catheter insertion today with vascular surgery Diuretic management per nephrology Continue current cardiac medications Increase hydralazine to 50 mg 3 times a day for optimal blood pressure control Continue to monitor blood pressure Further recommendations pending patient's course Nurse practitioner note has been reviewed by physician. Signing provider agrees with the documented findings, assessment, and plan of care. Objective - Vital Signs Vital signs: Vital Signs Temp 98 F 04/01/22 20:55 Pulse 55 L 04/02/22 04:05 Resp 16 04/02/22 04:05 BP 150/93 04/02/22 04:05 Pulse Ox 99 04/02/22 04:05 FiO2 Intake & Output 04/01/22 04/02/22 04/02/22 18:59 06:59 18:59 Intake Total 540 Balance 540 Weight 131.6 kg Intake: Oral 540 Other: Voiding Method Toilet Toilet # Voids 1 3 - Labs CBC & Chem 7: 04/01/22 09:07 04/02/22 08:43 Labs: Abnormal Lab Results - Last 24 Hours (Table) 04/01/22 04/01/22 04/02/22 Range/Units 09:07 09:07 08:43 Hgb 12.9 L (13.0-17.5) gm/dL Metamyelocytes # (Man) 0.05 H (0) k/uL Sodium 136 L (137-145) mmol/L Potassium 5.4 H (3.5-5.1) mmol/L Chloride 108 H (98-107) mmol/L Carbon Dioxide 20 L 18 L (22-30) mmol/L BUN 79 H 90 H (9-20) mg/dL Creatinine 12.06 H* 12.71 H* (0.66-1.25) mg/dL Glucose 100 H (74-99) mg/dL Magnesium 2.5 H (1.6-2.3) mg/dL 04/02/22 Range/Units 08:43 Hgb (13.0-17.5) gm/dL Metamyelocytes # (Man) (0) k/uL Sodium (137-145) mmol/L Potassium (3.5-5.1) mmol/L Chloride (98-107) mmol/L Carbon Dioxide (22-30) mmol/L BUN (9-20) mg/dL Creatinine (0.66-1.25) mg/dL Glucose (74-99) mg/dL Magnesium 2.5 H (1.6-2.3) mg/dL Microbiology - Last 24 Hours (Table) 03/31/22 06:16 Blood Culture - Preliminary Blood No Growth after 48 hours 03/29/22 10:30 Blood Culture Gram Stain - Final Blood Blood Culture - Final Staphylococcus aureus 03/29/22 06:41 Blood Culture Gram Stain - Final Blood Blood Culture - Final Staphylococcus aureus 03/30/22 08:23 Blood Culture - Preliminary Blood No Growth after 48 hours
--- NOTE | 2022-04-02 09:55 | P.PN ---
Subjective Patient is seen in follow-up for end-stage renal disease. He is maintained on hemodialysis on Tuesday schedule. Last dialysis was 03/29/2022. Blood cultures and catheter tip culture positive for staph aureus. Permacath discontinued 03/29/2022. Denies chest pain or shortness of breath. No active complaints. Makes urine. Scheduled for permacath placement and dialysis today. Vital signs are stable. General: No acute distress. HEENT: Head exam is unremarkable. LUNGS: Breath sounds decreased. HEART: Rate and Rhythm are regular. ABDOMEN: Soft, no distention. EXTREMITITES: No edema. Objective - Vital Signs Vital signs: Vital Signs Temp 98 F 04/01/22 20:55 Pulse 55 L 04/02/22 04:05 Resp 16 04/02/22 04:05 BP 150/93 04/02/22 04:05 Pulse Ox 99 04/02/22 04:05 FiO2 Intake & Output 04/01/22 04/02/22 04/02/22 18:59 06:59 18:59 Intake Total 540 Balance 540 Weight 131.6 kg Intake: Oral 540 Other: Voiding Method Toilet Toilet # Voids 1 3 - Labs CBC & Chem 7: 04/01/22 09:07 04/02/22 08:43 Labs: Abnormal Lab Results - Last 24 Hours (Table) 04/01/22 04/01/22 04/02/22 Range/Units 09:07 09:07 08:43 Hgb 12.9 L (13.0-17.5) gm/dL Metamyelocytes # (Man) 0.05 H (0) k/uL Sodium 136 L (137-145) mmol/L Potassium 5.4 H (3.5-5.1) mmol/L Chloride 108 H (98-107) mmol/L Carbon Dioxide 20 L 18 L (22-30) mmol/L BUN 79 H 90 H (9-20) mg/dL Creatinine 12.06 H* 12.71 H* (0.66-1.25) mg/dL Glucose 100 H (74-99) mg/dL Magnesium 2.5 H (1.6-2.3) mg/dL 04/02/22 Range/Units 08:43 Hgb (13.0-17.5) gm/dL Metamyelocytes # (Man) (0) k/uL Sodium (137-145) mmol/L Potassium (3.5-5.1) mmol/L Chloride (98-107) mmol/L Carbon Dioxide (22-30) mmol/L BUN (9-20) mg/dL Creatinine (0.66-1.25) mg/dL Glucose (74-99) mg/dL Magnesium 2.5 H (1.6-2.3) mg/dL Microbiology - Last 24 Hours (Table) 03/31/22 06:16 Blood Culture - Preliminary Blood No Growth after 48 hours 03/29/22 10:30 Blood Culture Gram Stain - Final Blood Blood Culture - Final Staphylococcus aureus 03/29/22 06:41 Blood Culture Gram Stain - Final Blood Blood Culture - Final Staphylococcus aureus 03/30/22 08:23 Blood Culture - Preliminary Blood No Growth after 48 hours Assessment and Plan Plan: Assessment: 1. End-stage renal disease secondary to biopsy-proven nephrosclerosis. Started on hemodialysis in March 2022. Last dialysis was 03/29/2022. 2. Staph aureus bacteremia secondary to infected permacath. Permacath disco ntinued 03/29/2022. 3. Hypertension with chronic kidney disease. 4. Hyperkalemia secondary to chronic kidney disease and spironolactone. Also component of acidosis. 5. Metabolic acidosis secondary to chronic kidney disease. Expect improvement postdialysis. 6. Cardiomyopathy with ejection fraction of 40%. No vegetation noted on echocardiogram. Plan: Permacath placement today. Hemodialysis today. Maintain Lasix. Phosphorus level 4.5 dated 03/29/2022.
[2022-04-02] MEDS ORDERED: fentaNYL (PF) 50 MCG/ML 2 ML AMP IVP ONE (13:28)
[2022-04-02] MEDS ORDERED: MIDAZOLAM 2 MG/2 ML VIAL IVP ONE (13:28)
[2022-04-02] MEDS ORDERED: IV FLUID CONTINUATION 1,000 ML IV ONE (13:31)
[2022-04-02] MEDS ORDERED: LIDOCAINE 1% INJ 10MG/ML (30 ML VIAL-PF) SQ ONE (13:31)
[2022-04-02] MEDS ORDERED: IOPAMIDOL-300 50ML BTL IV ONE (13:44)
--- NOTE | 2022-04-02 14:26 | IR ---
EXAMINATION TYPE: IR cvc insert central tunneled DATE OF EXAM: 04/02/2022 COMPARISON: NONE HISTORY: Hemodialysis catheter placement Fluoroscopy support supplied to the referring clinician. See dictated report from vascular surgery, 5.9 minutes fluoroscopy time, 110 images document the procedure
--- NOTE | 2022-04-02 14:49 | XR ---
EXAMINATION TYPE: XR chest 1V portable DATE OF EXAM: 04/02/2022 COMPARISON: Chest x-ray 03/27/2022 HISTORY: Dialysis catheter placement TECHNIQUE: Single frontal view of the chest is obtained. FINDINGS: Right jugular central venous catheter is present, distal tip is within the level of the ca voatrial junction on the frontal view. No evident pneumothorax or pleural effusion. Cardiac mediastin al silhouette is stable. There are overlying leads. IMPRESSION: No evident complication status post central venous catheter placement
--- NOTE | 2022-04-02 15:38 | P.PN ---
Subjective Progress Note Date: 04/02/22 Principal diagnosis: Fever and bacteremia Patient is a 36-year-old -[place] male with a past medical history significant for end-stage renal disease on hemodialysis through the right subclavian permacatheter presented to the hospital with a fever and some mental status changes now do have evidence of MSSA bacteremia secondary to dialysis catheter was subsequently discontinued, repeat blood culture were negative and the patient did get new dialysis catheter on 04/02/2022. On today's evaluation is 04/02/2022, the patient remains to be afebrile, the patient denies chest pain shortness of breath or cough , the patient denies nausea no vomiting no abdominal pain no diarrhea, no new symptoms Objective - Vital Signs Vital signs: Vital Signs Temp 98.0 F 04/02/22 08:00 Pulse 53 L 04/02/22 08:00 Resp 18 04/02/22 08:00 BP 155/97 04/02/22 08:00 Pulse Ox 100 04/02/22 08:00 FiO2 Intake & Output 04/01/22 04/02/22 04/02/22 18:59 06:59 18:59 Intake Total 540 Balance 540 Weight 131.6 kg Intake: Oral 540 Other: Voiding Method Toilet Toilet # Voids 1 3 - Exam GENERAL DESCRIPTION: A middle-age male lying in bed in no distress RESPIRATORY SYSTEM: Unlabored breathing , decreased breath sounds at bases HEART: S1 S2 regular rate and rhythm , ABDOMEN: Soft , no tenderness EXTREMITIES: No edema feet - Labs CBC & Chem 7: 04/01/22 09:07 04/02/22 08:43 Labs: Abnormal Lab Results - Last 24 Hours (Table) 04/01/22 04/01/22 04/02/22 Range/Units 09:07 09:07 08:43 Hgb 12.9 L (13.0-17.5) gm/dL Metamyelocytes # (Man) 0.05 H (0) k/uL Sodium 136 L (137-145) mmol/L Potassium 5.4 H (3.5-5.1) mmol/L Chloride 108 H (98-107) mmol/L Carbon Dioxide 20 L 18 L (22-30) mmol/L BUN 79 H 90 H (9-20) mg/dL Creatinine 12.06 H* 12.71 H* (0.66-1.25) mg/dL Glucose 100 H (74-99) mg/dL Magnesium 2.5 H (1.6-2.3) mg/dL 04/02/22 Range/Units 08:43 Hgb (13.0-17.5) gm/dL Metamyelocytes # (Man) (0) k/uL Sodium (137-145) mmol/L Potassium (3.5-5.1) mmol/L Chloride (98-107) mmol/L Carbon Dioxide (22-30) mmol/L BUN (9-20) mg/dL Creatinine (0.66-1.25) mg/dL Glucose (74-99) mg/dL Magnesium 2.5 H (1.6-2.3) mg/dL Microbiology - Last 24 Hours (Table) 04/01/22 09:07 Blood Culture - Preliminary Blood No Growth after 24 hours 03/30/22 08:23 Blood Culture - Preliminary Blood No Growth after 72 hours 03/31/22 06:16 Blood Culture - Preliminary Blood No Growth after 48 hours 03/29/22 10:30 Blood Culture Gram Stain - Final Blood Blood Culture - Final Staphylococcus aureus 03/29/22 06:41 Blood Culture Gram Stain - Final Blood Blood Culture - Final Staphylococcus aureus Assessment and Plan (1) Pyrexia of unknown origin Current Visit: Yes Status: Acute Code(s): R50.9 - FEVER, UNSPECIFIED SNOMED Code(s): 9840951 Plan: 1patient presented to hospital with fever not feeling well did have some headache which seem to have resolved by now no photophobia or neck rigidity patient initial work-up including a UA chest x-ray was negative is abdominal soft on clinical examination and no evidence of any cellulitis, likely related to permacatheter infection 2patient with MSSA bacteremia likely related to the dialysis catheter Infection, dialysis catheter has been removed and catheter has been sent for the culture which came back positive for MSSA 3- -blood cultures from 03/30/2022 so far negative if they remains to be negative and the patient did have a new catheter placement on 04/02/2022 4-we will continue with the cefazolin while inpatient however we'll transition to vancomycin pharmacy to dose through dialysis so we can avoid PICC line placement Time with Patient: Less than 30
--- NOTE | 2022-04-02 16:09 | OP ---
OPERATIVE REPORT PREOPERATIVE DIAGNOSIS: Acute on chronic renal failure. PROCEDURE PERFORMED: Ultrasound-guided 23 cm dialysis catheter placement via right jugular approach. SEDATION TIME: 25 minutes. DESCRIPTION: This patient was brought to the woven label designer. Right side of the neck and chest was prepped and draped in the usual sterile manner. Lidocaine 1% was infiltrated in the neck and chest area. Ultrasound-guided micropuncture was introduced into the right jugular vein. Micropuncture guidewire was passed and a 4 [place] dilator was advanced on the top of the guidewire. Then we passed a regular guidewire, which was parked at the inferior vena cava. Dilator was advanced on top of the guidewire. Then we placed a sheath. Through the sheath we introduced the dialysis catheter. Tip of the catheter was in superior vena cavoatrial junction. Flushed with heparin saline. Incision was closed with Vicryl and nylon. Dressing was applied. Patient tolerated the procedure well. Plan is a chest x-ray and transfer to his room. MMODL / IJN: [id number] /
[2022-04-02] MEDS: BACLOFEN 10 MG TAB PO SCH (20:53)
[2022-04-02] MEDS: FAMOTIDINE 20 MG TAB PO SCH (20:53)
--- NOTE | 2022-04-03 00:45 | P.PN ---
Subjective Progress Note Date: 04/02/22 This is a 36-year-old male who was admitted with end-stage renal disease on dialysis although was found to have fevers and bacteremia with infectious disease following along with nephrology. Awaiting for possible permanent catheter placement as there was concern for infection at the catheter site with multiple medical consultations following. Cultures are showing Staphylococcus aureus and most recent blood cultures have been negative. Infectious disease reports is okay to receive new dialysis catheter and will continue with antibiotics and close monitoring. Patient is hypertensive and also cardiology has been consulted. Echo was ordered and pending at this time. Kidney functions have worsened and creatinine is 11.57 today. Patient is continued on cefazolin and Vanco has been discontinued and trough was elevated today. Patient denies chest pain or worsening shortness of breath. 04/02/2022 Patient is seen today and much more awake and alert. Patient being closely monitored by nephrology and vascular surgery is planned for right chest wall permacath. ID is following and ok to receive permacath. Will need to discuss with ID and nephrology about discharge planning and if hemodialysis is arranged for outpatient setting. Patient blood pressure is elevated and needs dialysis. Patient is afebrile and denies chest pain or shortness of breath. Review of systems: Constitutional: reports of fatigue, no reports of fever, or chills Cardiovascular: No reports of chest pain or palpitations Respiratory: No reports of shortness of breath or cough GI: no reports of nausea, no reports of of vomiting : No reports of dysuria or retention Neurovascular: no reports of generalized weakness All medications have been reviewed Active Medications Acetaminophen (Acetaminophen Tab 325 Mg Tab) 650 mg PO Q6HR PRN PRN Reason: Fever and/ or Mild Pain Last Admin: 03/30/22 15:47 Dose: 650 mg Hydrocodone Bitart/Acetaminophen (Hydrocodone/Apap 5-325mg 1 Each Tab) 1 each PO Q6HR PRN PRN Reason: Pain Last Admin: 03/30/22 15:48 Dose: 1 each Amlodipine Besylate (Amlodipine 10 Mg Tab) 10 mg PO DAILY [facility] Last Admin: 04/02/22 09:11 Dose: 10 mg Baclofen (Baclofen 10 Mg Tab) 10 mg PO HS LEDY Last Admin: 04/02/22 20:53 Dose: 10 mg Carvedilol (Carvedilol 6.25 Mg Tab) 6.25 mg PO BID-W/MEALS [facility] Last Admin: 04/02/22 20:53 Dose: 6.25 mg Clonidine (Clonidine Hcl 0.1 Mg Tab) 0.3 mg PO TID [facility] Last Admin: 04/02/22 23:22 Dose: 0.3 mg Ergocalciferol (Ergocalciferol 1,250 Mcg (50,000 Iu) Capsule) 1,250 mcg PO SA [facility] Famotidine (Famotidine 20 Mg Tab) 20 mg PO HS [facility] Last Admin: 04/02/22 20:53 Dose: 20 mg Furosemide (Furosemide 20 Mg Tab) 60 mg PO BID@0900,1600 [facility] Last Admin: 04/02/22 20:53 Dose: 60 mg Hydralazine HCl (Hydralazine Hcl 20 Mg/Ml 1 Ml Vial) 10 mg IVP Q6HR PRN PRN Reason: Blood Pressure - High Hydralazine HCl (Hydralazine Hcl 50 Mg Tab) 50 mg PO TID [facility] Last Admin: 04/02/22 20:53 Dose: 50 mg Cefazolin Sodium 1,000 mg/ (Sodium Chloride) 50 mls @ 100 mls/hr IVPB Q12HR [facility] Last Admin: 04/02/22 20:53 Dose: 100 mls/hr Isosorbide Mononitrate (Isosorbide Mononitrate Er 30 Mg Tab.Er.24h) 30 mg PO DAILY [facility] Last Admin: 04/02/22 09:10 Dose: 30 mg Naloxone HCl (Naloxone 0.4 Mg/Ml 1 Ml Vial) 0.2 mg IV Q2M PRN PRN Reason: Opioid Reversal Pantoprazole Sodium (Pantoprazole 40 Mg Tablet) 40 mg PO [id number] [facility] Last Admin: 04/02/22 06:22 Dose: 40 mg Topiramate (Topiramate 25 Mg Tab) 25 mg PO BID [facility] Last Admin: 04/02/22 20:53 Dose: 25 mg PHYSICAL EXAMINATION: GENERAL: The patient is alert and oriented x4,awake today, obese Well developed, well nourished. HEENT: Pupils are round and equally reacting to light. EOMI. no scleral icterus. No conjunctival pallor. Normocephalic, atraumatic. No pharyngeal erythema. No thyromegaly. CARDIOVASCULAR: S1 and S2 muffled PULMONARY: diminished breath sounds bilaterally with scattered rhonchi noted. ABDOMEN: soft. Nontender on exam. obese. non-distended, normoactive bowel sounds. No palpable organomegaly. MUSCULOSKELETAL: No joint swelling or deformity. EXTREMITIES: No cyanosis, clubbing, or pedal edema. NEUROLOGICAL: Gross neurological examination did not reveal any focal deficits. SKIN: No rashes. Assessment: Staph bacteremia newly started hemodialysis Chronic congestive heart failure with diastolic and systolic dysfunction, EF is 40-45% hypertension Obesity with a BMI of 37.2 GI prophylaxis DVT prophylaxis Full code Plan: Recommend to continue with current medications and management per nephrology and infectious disease services. Patient is cleared to receive a permacath per infectious disease with most recent blood cultures being negative. Nephrology following and patient will need hemodialysis. Vascular surgery Dr. Khan to place right chest wall permacath. Encouraged increase activity as tolerated r ecommend repeat labs and will follow-up. Continue abx per ID and will need to discuss treatment plan with nephro and ID and also case management if hemodialysis is arranged for outpatient. Due to multiple complex medical issues, prognosis is guarded. The impression and plan of care has been dictated by Radha Gregory, nurse practitioner as directed. MD Autumn I have performed a history and examination and MDM of this patient, discussed the same with the dictator, and agree with the dictator's assessment and plan as written ,documented as a scribe. Based on total visit time, I have performed more than 50% of the visit. Any additional findings or plans will be noted. Objective - Vital Signs Vital signs: Vital Signs Temp 98.1 F 04/02/22 20:50 Pulse 66 04/02/22 23:20 Resp 16 04/02/22 23:20 BP 127/84 04/02/22 23:20 Pulse Ox 99 04/02/22 23:20 FiO2 Intake & Output 04/02/22 04/02/22 04/03/22 06:59 18:59 06:59 Intake Total 50 540 Balance 50 540 Intake: IV 50 Oral 540 Other: Voiding Method Toilet Toilet # Voids 3 - Labs CBC & Chem 7: 04/01/22 09:07 04/02/22 08:43 Labs: Abnormal Lab Results - Last 24 Hours (Table) 04/02/22 04/02/22 Range/Units 08:43 08:43 Potassium 5.4 H (3.5-5.1) mmol/L Chloride 108 H (98-107) mmol/L Carbon Dioxide 18 L (22-30) mmol/L BUN 90 H (9-20) mg/dL Creatinine 12.71 H* (0.66-1.25) mg/dL Glucose 100 H (74-99) mg/dL Magnesium 2.5 H (1.6-2.3) mg/dL Microbiology - Last 24 Hours (Table) 04/01/22 09:07 Blood Culture - Preliminary Blood No Growth after 24 hours 03/30/22 08:23 Blood Culture - Preliminary Blood No Growth after 72 hours 03/31/22 06:16 Blood Culture - Preliminary Blood No Growth after 48 hours
[2022-04-03] MEDS: PANTOPRAZOLE 40 MG TABLET PO SCH (06:11)
[2022-04-03] MEDS: carvediloL 6.25 MG TAB PO SCH ×2 (06:11→16:54)
[2022-04-03] MEDS: cloNIDine HCL 0.1 MG TAB PO SCH ×3 (08:14→20:57)
[2022-04-03] MEDS: amLODIPine 10 MG TAB PO SCH (08:14)
[2022-04-03] MEDS: ISOSORBIDE MONONITRATE ER 30 MG TAB.ER.24H PO SCH (08:14)
[2022-04-03] MEDS: hydrALAZINE HCL 50 MG TAB PO SCH ×3 (08:14→20:57)
[2022-04-03] MEDS: TOPIRAMATE 25 MG TAB PO SCH ×2 (08:14→20:57)
[2022-04-03] MEDS: FUROSEMIDE 20 MG TAB PO SCH ×2 (08:14→16:52)
--- NOTE | 2022-04-03 08:42 | P.PN ---
Subjective HISTORY OF PRESENT ILLNESS: This is a 36-year-old male with a past medical history significant for chronic kidney disease recently started on hemodialysis and hypertension. Patient does not follow with a carton forming machine adjuster. We have been asked to see the patient in consultation for congestive heart failure. Patient examined at the bedside. Patient was recently discharged from the hospital for hypertension and chronic kidney disease. The patient was started on hemodialysis. The patient developed bacteremia and his permacath was discontinued. His last dialysis session was 03/29/2022. Patient denies having any chest pain or pressure. He currently denies shortness of breath. Denies dizziness or lightheadedness. Patient's blood pressure this morning 158/109. * EKG reveals sinus tachycardia with no signs of acute ischemia * Chest xray cardiomegaly with mild central vascular congestion. Correlate for fluid overload state. No significant change from recent x-ray. * Laboratory data: WBC 6.1. Hemoglobin 12.5. Platelet count 135. Sodium 137. Potassium 4.7. BUN 77. Creatinine 11.78. ProBNP 5040. * Current home cardiac medications include Lasix 60 mg daily, Aldactone 25 mg twice a day, amlodipine 10 mg daily, carvedilol 6.25 mg twice a day, and Catapres 0.3 mg 3 times a day * Most recent echocardiogram obtained in March 2022 revealed ejection fraction 40- 45%, severe LVH, moderate pulmonary hypertension, [id number] mitral regurgitation, mild aortic regurgitation, mild tricuspid regurgitation 04/02/2022 Patient examined this morning at the bedside. Patient denies chest pain or pres sure. He denies shortness of breath. Blood pressures have improved from yesterday but are still on the higher side. Patient is scheduled to have hemodialysis catheter placed today by vascular surgery. 2-D echo obtained revealing ejection fraction 40% with severe LVH. 04/03 Patient seen and examined. Blood pressure much better controlled systolics 120s to 130s, diastolics 80s to 90s. Patient appears depressed and not answering questions. He denies any chest pain or shortness breath however. PHYSICAL EXAM: VITAL SIGNS: Reviewed. GENERAL: Well-developed in no acute distress. HEENT: Head is normocephalic. Pupils are equal, round. Sclerae anicteric. Mucous membranes of the mouth are moist. Neck supple. No JVD or thyromegaly LUNGS: Respirations even and unlabored. Lungs essentially clear to auscultation bilaterally. HEART: Regular rate and rhythm. S1 and S2 heard. ABDOMEN: Soft. Nondistended. Nontender. EXTREMITIES: Normal range of motion. No clubbing or cyanosis. Peripheral pulses intact Trace lower extremity edema NEUROLOGIC: Awake and alert. Oriented x 3. ASSESSMENT: Fever with sepsis Bacteremia Chronic kidney disease on hemodialysis Volume overload secondary to chronic kidney disease Hypertension Mild cardiomyopathy, EF 40-45%, likely nonischemic PLAN: Patient scheduled for dialysis catheter insertion today with vascular surgery Diuretic management per nephrology Continue current cardiac medications Hydralazine was increased to 50 mg 3 times a day and appears to be tolerating Continue to monitor blood pressure Further recommendations pending patient's course Objective - Vital Signs Vital signs: Vital Signs Temp 98 F 04/03/22 08:00 Pulse 62 04/03/22 08:00 Resp 18 04/03/22 08:00 BP 121/80 04/03/22 08:00 Pulse Ox 95 04/03/22 08:00 FiO2 Intake & Output 04/02/22 04/03/22 04/03/22 18:59 06:59 18:59 Intake Total 50 540 Balance 50 540 Intake: IV 50 Oral 540 Other: Voiding Method Toilet # Voids 1 - Labs CBC & Chem 7: 04/01/22 09:07 04/02/22 08:43 Labs: Abnormal Lab Results - Last 24 Hours (Table) 04/02/22 04/02/22 Range/Units 08:43 08:43 Potassium 5.4 H (3.5-5.1) mmol/L Chloride 108 H (98-107) mmol/L Carbon Dioxide 18 L (22-30) mmol/L BUN 90 H (9-20) mg/dL Creatinine 12.71 H* (0.66-1.25) mg/dL Glucose 100 H (74-99) mg/dL Magnesium 2.5 H (1.6-2.3) mg/dL Microbiology - Last 24 Hours (Table) 04/01/22 09:07 Blood Culture - Preliminary Blood No Growth after 24 hours 03/30/22 08:23 Blood Culture - Preliminary Blood No Growth after 72 hours 03/31/22 06:16 Blood Culture - Preliminary Blood No Growth after 48 hours
--- NOTE | 2022-04-03 08:48 | P.PN ---
Subjective Patient is seen for follow-up for end-stage renal disease. He is maintained on a Tuesday schedule. Patient was admitted with gram-positive bacteremia, MSSA and his permacath was removed. He did have a new permacath placed yesterday. Patient is scheduled for hemodialysis today No significant complaints today. Blood cultures from 524 are negative thus far. 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 - Labs CBC & Chem 7: 04/01/22 09:07 04/02/22 08:43 Labs: Abnormal Lab Results - Last 24 Hours (Table) 04/02/22 04/02/22 Range/Units 08:43 08:43 Potassium 5.4 H (3.5-5.1) mmol/L Chloride 108 H (98-107) mmol/L Carbon Dioxide 18 L (22-30) mmol/L BUN 90 H (9-20) mg/dL Creatinine 12.71 H* (0.66-1.25) mg/dL Glucose 100 H (74-99) mg/dL Magnesium 2.5 H (1.6-2.3) mg/dL Microbiology - Last 24 Hours (Table) 04/01/22 09:07 Blood Culture - Preliminary Blood No Growth after 24 hours 03/30/22 08:23 Blood Culture - Preliminary Blood No Growth after 72 hours 03/31/22 06:16 Blood Culture - Preliminary Blood No Growth after 48 hours Assessment and Plan Assessment: 1. End-stage renal disease secondary to biopsy-proven nephrosclerosis. Started hemodialysis in March 2022. 2. MSSA bacteremia status post removal of permacath and placement of new catheter yesterday 04/02/2022. Blood cultures from 524 are negative thus far 3. Hypertension with C daily 4. Hyperkalemia associated with end-stage renal disease currently improved 5. Metabolic acidosis associated with end-stage renal disease, improved renal replacement therapy 6. Cardiomyopathy EF 40%. No evidence of vegetation Plan: Patient can be discharged post hemodialysis.
[2022-04-03] MEDS ORDERED: ERGOCALCIFEROL 1,250 MCG (50,000 IU) CAPSULE PO SCH (09:00)
[2022-04-03 09:11] LABS: Calcium 9.2 mg/dL (8.4-10.2); Magnesium 2.1 mg/dL (1.6-2.3); Potassium 5.4 mmol/L (3.5-5.1)
[2022-04-03] MEDS: HYDROcodone/APAP 5-325MG 1 EACH TAB PO PRN ×2 (13:42→18:28)
--- NOTE | 2022-04-03 15:24 | P.PN ---
Subjective Progress Note Date: 04/03/22 This is a 36-year-old male who was admitted with end-stage renal disease on dialysis although was found to have fevers and bacteremia with infectious disease following along with nephrology. Awaiting for possible permanent catheter placement as there was concern for infection at the catheter site with multiple medical consultations following. Cultures are showing Staphylococcus aureus and most recent blood cultures have been negative. Infectious disease reports is okay to receive new dialysis catheter and will continue with antibiotics and close monitoring. Patient is hypertensive and also cardiology has been consulted. Echo was ordered and pending at this time. Kidney functions have worsened and creatinine is 11.57 today. Patient is continued on cefazolin and Vanco has been discontinued and trough was elevated today. Patient denies chest pain or worsening shortness of breath. 04/02/2022 Patient is seen today and much more awake and alert. Patient being closely monitored by nephrology and vascular surgery is planned for right chest wall permacath. ID is following and ok to receive permacath. Will need to discuss with ID and nephrology about discharge planning and if hemodialysis is arranged for outpatient setting. Patient blood pressure is elevated and needs dialysis. Patient is afebrile and denies chest pain or shortness of breath. 04/03/2022 Patient is evaluated today and receiving hemodialysis with nephro following. Patient received chest wall permacath and [facility]fri schedule. Patient continues on IV abx with ID following and need to discuss with cardiology about echo and possibly repeating. Need to rule out vegetations. Patient is afebrile and blood pressures improved. Patient denies chest pain or shortness of breath. Review of systems: Constitutional: no reports of fatigue, no reports of fever, or chills Cardiovascular: No reports of chest pain or palpitations Respiratory: No reports of shortness of breath or cough GI: no reports of nausea, no reports of of vomiting : No reports of dysuria or retention Neurovascular: no reports of generalized weakness All medications have been reviewed Active Medications Acetaminophen (Acetaminophen Tab 325 Mg Tab) 650 mg PO Q6HR PRN PRN Reason: Fever and/ or Mild Pain Last Admin: 03/30/22 15:47 Dose: 650 mg Hydrocodone Bitart/Acetaminophen (Hydrocodone/Apap 5-325mg 1 Each Tab) 1 each PO Q6HR PRN PRN Reason: Pain Last Admin: 04/03/22 13:42 Dose: 1 each Amlodipine Besylate (Amlodipine 10 Mg Tab) 10 mg PO DAILY [facility] Last Admin: 04/03/22 08:14 Dose: 10 mg Baclofen (Baclofen 10 Mg Tab) 10 mg PO HS [facility] Last Admin: 04/02/22 20:53 Dose: 10 mg Carvedilol (Carvedilol 6.25 Mg Tab) 6.25 mg PO BID-W/MEALS [facility] Last Admin: 04/03/22 06:11 Dose: 6.25 mg Clonidine (Clonidine Hcl 0.1 Mg Tab) 0.3 mg PO TID [facility] Last Admin: 04/03/22 08:14 Dose: 0.3 mg Ergocalciferol (Ergocalciferol 1,250 Mcg (50,000 Iu) Capsule) 1,250 mcg PO SA [facility] Last Admin: 04/03/22 08:14 Dose: 1,250 mcg Famotidine (Famotidine 20 Mg Tab) 20 mg PO [facility] Last Admin: 04/02/22 20:53 Dose: 20 mg Furosemide (Furosemide 20 Mg Tab) 60 mg PO BID@0900,1600 [facility] Last Admin: 04/03/22 08:14 Dose: 60 mg Hydralazine HCl (Hydralazine Hcl 20 Mg/Ml 1 Ml Vial) 10 mg IVP Q6HR PRN PRN Reason: Blood Pressure - High Hydralazine HCl (Hydralazine Hcl 50 Mg Tab) 50 mg PO TID [facility] Last Admin: 04/03/22 08:14 Dose: 50 mg Cefazolin Sodium 1,000 mg/ (Sodium Chloride) 50 mls @ 100 mls/hr IVPB Q12HR [facility] Last Admin: 04/03/22 08:14 Dose: 100 mls/hr Isosorbide Mononitrate (Isosorbide Mononitrate Er 30 Mg Tab.Er.24h) 30 mg PO DAILY [facility] Last Admin: 04/03/22 08:14 Dose: 30 mg Naloxone HCl (Naloxone 0.4 Mg/Ml 1 Ml Vial) 0.2 mg IV Q2M PRN PRN Reason: Opioid Reversal Pantoprazole Sodium (Pantoprazole 40 Mg Tablet) 40 mg PO AC-[id number] [facility] Last Admin: 04/03/22 06:11 Dose: 40 mg Topiramate (Topiramate 25 Mg Tab) 25 mg PO BID [facility] Last Admin: 04/03/22 08:14 Dose: 25 mg PHYSICAL EXAMINATION: GENERAL: The patient is alert and oriented x4,awake today, obese Well developed, well nourished. HEENT: Pupils are round and equally reacting to light. EOMI. no scleral icterus. No conjunctival pallor. Normocephalic, atraumatic. No pharyngeal erythema. No thyromegaly. CARDIOVASCULAR: S1 and S2 muffled, right permacath chest wall noted that is functioning with no drainage noted. PULMONARY: diminished breath sounds bilaterally with scattered rhonchi noted. ABDOMEN: soft. Nontender on exam. obese. non-distended, normoactive bowel sounds. No palpable organomegaly. MUSCULOSKELETAL: No joint swelling or deformity. EXTREMITIES: No cyanosis, clubbing, or pedal edema. NEUROLOGICAL: Gross neurological examination did not reveal any focal deficits. SKIN: No rashes. Assessment: Staph bacteremia newly started hemodialysis status post right chest wall permacath placement on 04/02/[address] Khan Chronic congestive heart failure with diastolic and systolic dysfunction, EF is 40-45% hypertension Obesity with a BMI of 37.2 GI prophylaxis DVT prophylaxis Full code Plan: Recommend to continue with current medications and management per nephrology and infectious disease services. Patient has received a permacath per infectious disease with most recent blood cultures being negative. Repeat echo recommended per cardiology although no order placed. ID would like confirmation of no noted vegetation prior to discharge and will likely be continued on vanco through dialysis with pharmacy to dose for 2 weeks on discharge. Nephrology following and patient receiving hemodialysis today. . Encouraged increase activity as tolerated recommend repeat labs and will follow-up. case management made aware and will resume same chair time with [facility] for M/W/F outpatient but given the holiday weekend and have not verified vanco as of yet, will not likely discharge until tuesday. Due to multiple complex medical issues, prognosis is guarded. The impression and plan of care has been dictated by Radha Gregory, nurse practitioner as directed. MD Autumn I have performed a history and examination and MDM of this patient, discussed the same with the dictator, and agree with the dictator's assessment and plan as written ,documented as a scribe. Based on total visit time, I have performed more than 50% of the visit. Any additional findings or plans will be noted. Objective - Vital Signs Vital signs: Vital Signs Temp 98 F 04/03/22 08:00 Pulse 62 04/03/22 08:00 Resp 18 04/03/22 08:00 BP 121/80 04/03/22 08:00 Pulse Ox 95 04/03/22 08:00 FiO2 Intake & Output 04/02/22 04/03/22 04/03/22 18:59 06:59 18:59 Intake Total 50 540 Balance 50 540 Intake: IV 50 Oral 540 Other: Voiding Method Toilet # Voids 1 - Labs CBC & Chem 7: 04/01/22 09:07 04/03/22 08:15 Labs: Abnormal Lab Results - Last 24 Hours (Table) 04/03/22 Range/Units 08:15 Potassium 5.4 H (3.5-5.1) mmol/L BUN 62 H (9-20) mg/dL Creatinine 10.58 H* (0.66-1.25) mg/dL Microbiology - Last 24 Hours (Table) 03/30/22 08:23 Blood Culture - Preliminary Blood No Growth after 96 hours 03/31/22 06:16 Blood Culture - Preliminary Blood No Growth after 72 hours 04/01/22 09:07 Blood Culture - Preliminary Blood No Growth after 24 hours
[2022-04-03] MEDS: GABAPENTIN 100 MG CAP PO SCH (20:57)
[2022-04-03] MEDS: FAMOTIDINE 20 MG TAB PO SCH (20:57)
[2022-04-03] MEDS: BACLOFEN 10 MG TAB PO SCH (20:57)
--- NOTE | 2022-04-03 22:35 | P.PN ---
Subjective Progress Note Date: 04/03/22 Principal diagnosis: Fever and bacteremia Patient is a 36-year-old -[place] male with a past medical history significant for end-stage renal disease on hemodialysis through the right subclavian permacatheter presented to the hospital with a fever and some mental status changes now do have evidence of MSSA bacteremia secondary to dialysis catheter was subsequently discontinued, repeat blood culture were negative and the patient did get new dialysis catheter on 04/02/2022. On today's evaluation is 04/03/2022, the patient continues to be afebrile, the patient denies chest pain shortness of breath or cough , the patient denies nausea no vomiting no abdominal pain no diarrhea, patient overall feeling better Objective - Vital Signs Vital signs: Vital Signs Temp 98.1 F 04/03/22 16:00 Pulse 68 04/03/22 16:00 Resp 18 04/03/22 16:00 BP 97/66 04/03/22 16:00 Pulse Ox 97 04/03/22 16:00 FiO2 Intake & Output 04/03/22 04/03/22 04/04/22 06:59 18:59 06:59 Intake Total 540 Output Total 1700 Balance 540 -1700 Intake: Oral 540 Output: Hemodialysis 1700 Other: Voiding Method Toilet # Voids 1 - Exam GENERAL DESCRIPTION: A middle-age male lying in bed in no distress RESPIRATORY SYSTEM: Unlabored breathing , decreased breath sounds at bases HEART: S1 S2 regular rate and rhythm , ABDOMEN: Soft , no tenderness EXTREMITIES: No edema feet - Labs CBC & Chem 7: 04/01/22 09:07 04/03/22 08:15 Labs: Abnormal Lab Results - Last 24 Hours (Table) 04/03/22 Range/Units 08:15 Potassium 5.4 H (3.5-5.1) mmol/L BUN 62 H (9-20) mg/dL Creatinine 10.58 H* (0.66-1.25) mg/dL Microbiology - Last 24 Hours (Table) 04/01/22 09:07 Blood Culture - Preliminary Blood No Growth after 48 hours 03/30/22 08:23 Blood Culture - Preliminary Blood No Growth after 96 hours 03/31/22 06:16 Blood Culture - Preliminary Blood No Growth after 72 hours Assessment and Plan (1) Pyrexia of unknown origin Current Visit: Yes Status: Acute Code(s): R50.9 - FEVER, UNSPECIFIED SNOMED Code(s): 4477699 Plan: 1patient presented to hospital with fever not feeling well did have some headache which seem to have resolved by now no photophobia or neck rigidity patient initial work-up including a UA chest x-ray was negative is abdominal soft on clinical examination and no evidence of any cellulitis, likely related to permacatheter infection 2patient with MSSA bacteremia likely related to the dialysis catheter Infection, dialysis catheter has been removed and catheter has been sent for the culture which came back positive for MSSA 3- -blood cultures from 03/30/2022 were negative and the patient did have a new catheter placement on 04/02/2022 4-we will continue with the cefazolin while inpatient however we'll transition to vancomycin pharmacy to dose through dialysis so we can avoid PICC line placement, if there is no plan for repeat echo or MICKI discussed with the nurse practitioner for admitting team Time with Patient: Less than 30
[2022-04-03] MEDS: ONDANSETRON 4 MG/2 ML VIAL IVP PRN (23:02)
[2022-04-04] MEDS: carvediloL 6.25 MG TAB PO SCH ×2 (06:04→17:23)
[2022-04-04] MEDS: PANTOPRAZOLE 40 MG TABLET PO SCH (06:04)
[2022-04-04] MEDS: TOPIRAMATE 25 MG TAB PO SCH ×2 (08:46→20:47)
[2022-04-04] MEDS: FUROSEMIDE 20 MG TAB PO SCH ×2 (08:46→17:23)
[2022-04-04] MEDS: ISOSORBIDE MONONITRATE ER 30 MG TAB.ER.24H PO SCH (08:46)
[2022-04-04] MEDS: amLODIPine 10 MG TAB PO SCH (08:46)
[2022-04-04] MEDS: cloNIDine HCL 0.1 MG TAB PO SCH ×3 (08:46→20:47)
[2022-04-04] MEDS: GABAPENTIN 100 MG CAP PO SCH ×2 (08:46→20:47)
[2022-04-04] MEDS: hydrALAZINE HCL 50 MG TAB PO SCH ×3 (08:46→20:47)
--- NOTE | 2022-04-04 08:49 | P.PN ---
Subjective HISTORY OF PRESENT ILLNESS: This is a 36-year-old male with a past medical history significant for chronic kidney disease recently started on hemodialysis and hypertension. 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 We have been asked to see the patient in consultation for congestive heart failure. Patient examined at the bedside. Patient was recently discharged from the hospital for hypertension and chronic kidney disease. The patient was started on hemodialysis. The patient developed bacteremia and his permacath was discontinued. His last dialysis session was 03/29/2022. Patient denies having any chest pain or pressure. He currently denies shortness of breath. Denies dizziness or lightheadedness. Patient's blood pressure this morning 158/109. * EKG reveals sinus tachycardia with no signs of acute ischemia * Chest xray cardiomegaly with mild central vascular congestion. Correlate for fluid overload state. No significant change from recent x-ray. * Laboratory data: WBC 6.1. Hemoglobin 12.5. Platelet count 135. Sodium 137. Potassium 4.7. BUN 77. Creatinine 11.78. ProBNP 5040. * Current home cardiac medications include Lasix 60 mg daily, Aldactone 25 mg twice a day, amlodipine 10 mg daily, carvedilol 6.25 mg twice a day, and Catapres 0.3 mg 3 times a day * Most recent echocardiogram obtained in March 2022 revealed ejection fraction 40- 45%, severe LVH, moderate pulmonary hypertension, [id number] mitral regu rgitation, mild aortic regurgitation, mild tricuspid regurgitation 04/02/2022 Patient examined this morning at the bedside. Patient denies chest pain or pressure. He denies shortness of breath. Blood pressures have improved from yesterday but are still on the higher side. Patient is scheduled to have hemodialysis catheter placed today by vascular surgery. 2-D echo obtained revealing ejection fraction 40% with severe LVH. 04/03 Patient seen and examined. Blood pressure much better controlled systolics 120s to 130s, diastolics 80s to 90s. Patient appears depressed and not answering questions. He denies any chest pain or shortness breath however. 04/04 Patient seen and examined. Blood pressures well controlled with systolics down to the 90s. He does admit to some nausea this morning and has been somewhat constipated. Denies any chest pain or pressure. Blood cultures have been ne gative since the catheter tip was removed. More obvious source of catheter tip for bacteremia. PHYSICAL EXAM: VITAL SIGNS: Reviewed. GENERAL: Well-developed in no acute distress. HEENT: Head is normocephalic. Pupils are equal, round. Sclerae anicteric. Mucous membranes of the mouth are moist. Neck supple. No JVD or thyromegaly LUNGS: Respirations even and unlabored. Lungs essentially clear to auscultation bilaterally. HEART: Regular rate and rhythm. S1 and S2 heard. ABDOMEN: Soft. Nondistended. Nontender. EXTREMITIES: Normal range of motion. No clubbing or cyanosis. Peripheral pulses intact Trace lower extremity edema NEUROLOGIC: Awake and alert. Oriented x 3. ASSESSMENT: Fever with sepsis Bacteremia appears related to catheter Chronic kidney disease on hemodialysis Volume overload secondary to chronic kidney disease Hypertension Mild cardiomyopathy, EF 40-45%, likely nonischemic PLAN: Patient's blood cultures have been clearing after removal of catheter and catheter appears most obvious source of bacteremia. No significant murmur on exam and no prior evidence of any endocarditis on echocardiograms. Blood pressures appear controlled. No need at this time for repeat transthoracic echo however if cultures do not clear or if infectious disease requesting May consider repeat echo or MICKI. No further recommendations from cardiology standpoint. Please call with questions. Objective - Vital Signs Vital signs: Vital Signs Temp 98.1 F 04/04/22 08:00 Pulse 66 04/04/22 08:00 Resp 18 04/04/22 08:00 BP 136/88 04/04/22 08:00 Pulse Ox 99 04/04/22 08:00 FiO2 Intake & Output 04/03/22 04/04/22 04/04/22 18:59 06:59 18:59 Output Total 1700 Balance -1700 Output: Hemodialysis 1700 Other: Voiding Method Toilet # Voids 1 - Labs CBC & Chem 7: 04/01/22 09:07 04/03/22 08:15 Labs: Abnormal Lab Results - Last 24 Hours (Table) 04/03/22 Range/Units 08:15 Potassium 5.4 H (3.5-5.1) mmol/L BUN 62 H (9-20) mg/dL Creatinine 10.58 H* (0.66-1.25) mg/dL Microbiology - Last 24 Hours (Table) 04/01/22 09:07 Blood Culture - Preliminary Blood No Growth after 48 hours 03/30/22 08:23 Blood Culture - Preliminary Blood No Growth after 96 hours 03/31/22 06:16 Blood Culture - Preliminary Blood No Growth after 72 hours
--- NOTE | 2022-04-04 10:14 | P.PN ---
Subjective Patient is seen for follow-up for end-stage renal disease. He is maintained on a Tuesday schedule. Patient was admitted with gram-positive bacteremia, MSSA and his permacath was removed. He did have a new permacath placed on 04/02/2022. Patient is status post hemodialysis yesterday No significant complaints today. Blood cultures from 03/30 are negative thus far. 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 End-stage renal disease secondary to biopsy-proven nephrosclerosis. Started hemodialysis in March 2022. 2. MSSA bacteremia status post removal of permacath and placement of new catheter on 04/02/2022. Blood cultures from 03/30 are negative thus far 3. Hypertension with CK D 4. Hyperkalemia associated with end-stage renal disease currently improved 5. Metabolic acidosis associated with end-stage renal disease, improved renal replacement therapy 6. Cardiomyopathy EF 40%. No evidence of vegetation Plan: Hemodialysis in a.m. Continue antibiotics
[2022-04-04] MEDS: ONDANSETRON 4 MG/2 ML VIAL IVP PRN (11:38)
--- NOTE | 2022-04-04 12:10 | P.PN ---
Subjective Progress Note Date: 04/04/22 This is a 36-year-old male who was admitted with end-stage renal disease on dialysis although was found to have fevers and bacteremia with infectious disease following along with nephrology. Awaiting for possible permanent catheter placement as there was concern for infection at the catheter site with multiple medical consultations following. Cultures are showing Staphylococcus aureus and most recent blood cultures have been negative. Infectious disease reports is okay to receive new dialysis catheter and will continue with antibiotics and close monitoring. Patient is hypertensive and also cardiology has been consulted. Echo was ordered and pending at this time. Kidney functions have worsened and creatinine is 11.57 today. Patient is continued on cefazolin and Vanco has been discontinued and trough was elevated today. Patient denies chest pain or worsening shortness of breath. 04/02/2022 Patient is seen today and much more awake and alert. Patient being closely monitored by nephrology and vascular surgery is planned for right chest wall permacath. ID is following and ok to receive permacath. Will need to discuss with ID and nephrology about discharge planning and if hemodialysis is arranged for outpatient setting. Patient blood pressure is elevated and needs dialysis. Patient is afebrile and denies chest pain or shortness of breath. 04/03/2022 Patient is evaluated today and receiving hemodialysis with nephro following. Patient received chest wall permacath and will continue with [facility] outpatient on Tue/tue/tue schedule. Patient continues on IV abx with ID following and need to discuss with cardiology about echo and possibly repeating. Need to rule out vegetations. Patient is afebrile and blood pressures improved. Patient denies chest pain or shortness of breath. 04/04/2022 Patient is seen today and had some intermittent nausea and will continue with zofran as needed. Patient having some lower extremity pain with movement in the right more so than the left and will order bilateral venous doppler. Cardio, ID, and nephrology following. Patient is receiving dialysis and will continue on Tue/Tue/ Tue schedule. Case management to arrange for Vanco with dialysis in the outpatient setting as well. Patient is afebrile and denies chest pain or shortness of breath. Review of systems: Constitutional: no reports of fatigue, no reports of fever, or chills Cardiovascular: No reports of chest pain or palpitations Respiratory: No reports of shortness of breath or cough GI: no reports of nausea, no reports of of vomiting : No reports of dysuria or retention Neurovascular: no reports of generalized weakness, reports right leg pain with movement All medications have been reviewed Active Medications Acetaminophen (Acetaminophen Tab 325 Mg Tab) 650 mg PO Q6HR PRN PRN Reason: Fever and/ or Mild Pain Last Admin: 03/30/22 15:47 Dose: 650 mg Hydrocodone Bitart/Acetaminophen (Hydrocodone/Apap 5-325mg 1 Each Tab) 1 each PO Q6HR PRN PRN Reason: Pain Last Admin: 04/03/22 18:28 Dose: 1 each Amlodipine Besylate (Amlodipine 10 Mg Tab) 10 mg PO DAILY [facility] Last Admin: 04/04/22 08:46 Dose: 10 mg Baclofen (Baclofen 10 Mg Tab) 10 mg PO [facility] Last Admin: 04/03/22 20:57 Dose: 10 mg Carvedilol (Carvedilol 6.25 Mg Tab) 6.25 mg PO BID-W/MEALS [facility] Last Admin: 04/04/22 06:04 Dose: 6.25 mg Clonidine (Clonidine Hcl 0.1 Mg Tab) 0.3 mg PO TID [facility] Last Admin: 04/04/22 08:46 Dose: 0.3 mg Ergocalciferol (Ergocalciferol 1,250 Mcg (50,000 Iu) Capsule) 1,250 mcg PO SA [facility] Last Admin: 04/03/22 08:14 Dose: 1,250 mcg Famotidine (Famotidine 20 Mg Tab) 20 mg PO [facility] Last Admin: 04/03/22 20:57 Dose: 20 mg Furosemide (Furosemide 20 Mg Tab) 60 mg PO BID@0900,1600 [facility] Last Admin: 04/04/22 08:46 Dose: 60 mg Gabapentin (Gabapentin 100 Mg Cap) 100 mg PO BID [facility] Last Admin: 04/04/22 08:46 Dose: 100 mg Hydralazine HCl (Hydralazine Hcl 20 Mg/Ml 1 Ml Vial) 10 mg IVP Q6HR PRN PRN Reason: Blood Pressure - High Hydralazine HCl (Hydralazine Hcl 50 Mg Tab) 50 mg PO TID [facility] Last Admin: 04/04/22 08:46 Dose: 50 mg Cefazolin Sodium 1,000 mg/ (Sodium Chloride) 50 mls @ 100 mls/hr IVPB Q12HR [facility] Last Admin: 04/04/22 08:46 Dose: 100 mls/hr Isosorbide Mononitrate (Isosorbide Mononitrate Er 30 Mg Tab.Er.24h) 30 mg PO DAILY [facility] Last Admin: 04/04/22 08:46 Dose: 30 mg Naloxone HCl (Naloxone 0.4 Mg/Ml 1 Ml Vial) 0.2 mg IV Q2M PRN PRN Reason: Opioid Reversal Ondansetron HCl (Ondansetron 4 Mg/2 Ml Vial) 4 mg IVP Q6HR PRN PRN Reason: Nausea And Vomiting Last Admin: 04/04/22 11:38 Dose: 4 mg Pantoprazole Sodium (Pantoprazole 40 Mg Tablet) 40 mg PO AC-BRKFST [facility] Last Admin: 04/04/22 06:04 Dose: 40 mg Topiramate (Topiramate 25 Mg Tab) 25 mg PO BID [facility] Last Admin: 04/04/22 08:46 Dose: 25 mg PHYSICAL EXAMINATION: GENERAL: The patient is alert and oriented x4,awake today, obese Well developed, well nourished. HEENT: Pupils are round and equally reacting to light. EOMI. no scleral icterus. No conjunctival pallor. Normocephalic, atraumatic. No pharyngeal erythema. No thyromegaly. CARDIOVASCULAR: S1 and S2 muffled, right permacath chest wall noted that is functioning with no drainage noted. PULMONARY: diminished breath sounds bilaterally with scattered rhonchi noted. ABDOMEN: soft. Nontender on exam. obese. non-distended, normoactive bowel sounds. No palpable organomegaly. MUSCULOSKELETAL: No joint swelling or deformity. EXTREMITIES: No cyanosis, clubbing, or pedal edema. right leg pain, no obvious redness or increased swelling NEUROLOGICAL: Gross neurological examination did not reveal any focal deficits. SKIN: No rashes. Assessment: Staph bacteremia newly started hemodialysis status post right chest wall permacath placement on 04/02/[address] Khan Chronic congestive heart failure with diastolic and systolic dysfunction, EF is 40-45% hypertension Obesity with a BMI of 37.2 GI prophylaxis DVT prophylaxis Full code Plan: Recommend to continue with current medications and management per nephrology and infectious disease services. Patient has received a permacath per infectious disease with most recent blood cultures being negative. Repeat echo recommended per cardiology although no order placed. ID would like confirmation of no noted vegetation prior to discharge and will likely be continued on vanco through dialysis with pharmacy to dose for 2 weeks on discharge. Nephrology following and patient receiving hemodialysis . Encouraged increase activity as tolerated recommend repeat labs and will follow-up. case management made aware and will resume same chair time with [facility] for M/W/F outpatient but given the holiday w eekend and have not verified vanco as of yet, will not likely discharge until tuesday. Patient with some right leg and intermittent left leg pain will add neurontin and also obtain venous dopplers. Due to multiple complex medical issues, prognosis is guarded. The impression and plan of care has been dictated by Radha Gregory, nurse practitioner as directed. MD Autumn I have performed a history and examination and MDM of this patient, discussed the same with the dictator, and agree with the dictator's assessment and plan as written ,documented as a scribe. Based on total visit time, I have performed more than 50% of the visit. Any additional findings or plans will be noted. Objective - Vital Signs Vital signs: Vital Signs Temp 98.1 F 04/04/22 08:00 Pulse 66 04/04/22 08:00 Resp 18 04/04/22 08:00 BP 136/88 04/04/22 08:00 Pulse Ox 99 04/04/22 08:00 FiO2 Intake & Output 04/03/22 04/04/22 04/04/22 18:59 06:59 18:59 Output Total 1700 Balance -1700 Output: Hemodialysis 1700 Other: Voiding Method Toilet # Voids 1 - Labs CBC & Chem 7: 04/01/22 09:07 04/03/22 08:15 Labs: Microbiology - Last 24 Hours (Table) 03/31/22 06:16 Blood Culture - Preliminary Blood No Growth after 96 hours 04/01/22 09:07 Blood Culture - Preliminary Blood No Growth after 48 hours 03/30/22 08:23 Blood Culture - Preliminary Blood No Growth after 96 hours
--- NOTE | 2022-04-04 12:30 | US ---
EXAMINATION TYPE: US venous doppler duplex LE DATE OF EXAM: 04/04/2022 12:19 PM COMPARISON: NONE CLINICAL HISTORY: bilateral leg pain, more right than left. bilateral leg pain SIDE PERFORMED: Bilateral TECHNIQUE: The lower extremity deep venous system is examined utilizing real time linear array sonog aly with graded compression, doppler sonography and color-flow sonography. VESSELS IMAGED: Common Femoral Vein Deep Femoral Vein Greater Saphenous Vein * Femoral Vein Popliteal Vein Small Saphenous Vein * Proximal Calf Veins (* superficial vessels) Right Leg: no evidence of DVT Left Leg: no evidence of DVT IMPRESSION: 1. Bilateral lower extremity ultrasound negative for deep venous thrombosis.
[2022-04-04] MEDS: BACLOFEN 10 MG TAB PO SCH (20:47)
[2022-04-04] MEDS: FAMOTIDINE 20 MG TAB PO SCH (20:47)
[2022-04-05] MEDS: HYDROcodone/APAP 5-325MG 1 EACH TAB PO PRN ×2 (02:09→17:56)
[2022-04-05] MEDS: PANTOPRAZOLE 40 MG TABLET PO SCH (06:37)
[2022-04-05] MEDS: carvediloL 6.25 MG TAB PO SCH ×2 (06:37→19:00)
[2022-04-05] MEDS: FUROSEMIDE 20 MG TAB PO SCH ×2 (09:13→19:00)
[2022-04-05] MEDS: TOPIRAMATE 25 MG TAB PO SCH ×2 (09:13→20:52)
[2022-04-05] MEDS: GABAPENTIN 100 MG CAP PO SCH ×2 (09:13→20:52)
[2022-04-05] MEDS: ACETAMINOPHEN TAB 325 MG TAB PO PRN (09:22)
[2022-04-05] MEDS: ISOSORBIDE MONONITRATE ER 30 MG TAB.ER.24H PO SCH (09:29)
[2022-04-05] MEDS: amLODIPine 10 MG TAB PO SCH (09:29)
[2022-04-05] MEDS: cloNIDine HCL 0.1 MG TAB PO SCH ×4 (09:29→23:44)
[2022-04-05] MEDS: hydrALAZINE HCL 50 MG TAB PO SCH ×4 (09:29→23:44)
--- NOTE | 2022-04-05 10:04 | P.PN ---
Subjective Patient is seen for follow-up for end-stage renal disease. He is maintained on a Tuesday schedule. Patient was admitted with gram-positive bacteremia, MSSA and his permacath was removed. He did have a new permacath placed on 04/02/2022. Patient is scheduled for hemodialysis today No significant complaints today. Does not communicate much. Blood cultures from 03/30 are negative thus far. Objective - Vital Signs Vital signs: Vital Signs Temp 98.5 F 04/05/22 09:18 Pulse 74 04/05/22 09:18 Resp 20 04/05/22 09:18 BP 132/94 04/05/22 09:18 Pulse Ox 98 04/05/22 09:18 FiO2 Intake & Output 04/04/22 04/05/22 04/05/22 18:59 06:59 18:59 Intake Total 1080 Output Total 0 Balance 1080 Weight 126.2 kg Intake: Oral 1080 Output: Urine 0 Other: Voiding Method Toilet # Voids 1 - Exam Awake, comfortable, not in any acute distress Examination of the heart S1 and S2 Examination lungs bilateral breath sounds are heard Abdomen soft obese nontender Exam shows lower extremity shows no evidence of edema VALVE INSERTER exam grossly intact - Labs CBC & Chem 7: 04/01/22 09:07 04/03/22 08:15 Labs: Microbiology - Last 24 Hours (Table) 03/31/22 06:16 Blood Culture - Preliminary Blood No Growth after 120 hours 04/01/22 09:07 Blood Culture - Preliminary Blood No Growth after 72 hours 03/30/22 08:23 Blood Culture - Preliminary Blood No Growth after 120 hours Assessment and Plan Assessment: 1. End-stage renal disease secondary to biopsy-proven nephrosclerosis. Started hemodialysis in March 2022. 2. MSSA bacteremia status post removal of permacath and placement of new catheter on 04/02/2022. Blood cultures from 03/30 are negative thus far 3. Hypertension with CK D 4. Hyperkalemia associated with end-stage renal disease currently improved 5. Metabolic acidosis associated with end-stage renal disease, improved renal replacement therapy 6. Cardiomyopathy EF 40%. No evidence of vegetation Plan: Hemodialysis today UF about 2 L with 2K bath. Continue with antibiotics
--- NOTE | 2022-04-05 14:04 | P.PN ---
Subjective Progress Note Date: 04/05/22 This is a 36-year-old male who was admitted with end-stage renal disease on dialysis although was found to have fevers and bacteremia with infectious disease following along with nephrology. Awaiting for possible permanent catheter placement as there was concern for infection at the catheter site with multiple medical consultations following. Cultures are showing Staphylococcus aureus and most recent blood cultures have been negative. Infectious disease reports is okay to receive new dialysis catheter and will continue with antibiotics and close monitoring. Patient is hypertensive and also cardiology has been consulted. Echo was ordered and pending at this time. Kidney functions have worsened and creatinine is 11.57 today. Patient is continued on cefazolin and Vanco has been discontinued and trough was elevated today. Patient denies chest pain or worsening shortness of breath. 04/02/2022 Patient is seen today and much more awake and alert. Patient being closely monitored by nephrology and vascular surgery is planned for right chest wall permacath. ID is following and ok to receive permacath. Will need to discuss with ID and nephrology about discharge planning and if hemodialysis is arranged for outpatient setting. Patient blood pressure is elevated and needs dialysis. Patient is afebrile and denies chest pain or shortness of breath. 04/03/2022 Patient is evaluated today and receiving hemodialysis with nephro following. Patient received chest wall permacath and will continue with [facility] outpatient on Tue/tue/tue schedule. Patient continues on IV abx with ID following and need to discuss with cardiology about echo and possibly repeating. Need to rule out vegetations. Patient is afebrile and blood pressures improved. Patient denies chest pain or shortness of breath. 04/04/2022 Patient is seen today and had some intermittent nausea and will continue with zofran as needed. Patient having some lower extremity pain with movement in the right more so than the left and will order bilateral venous doppler. Cardio, ID, and nephrology following. Patient is receiving dialysis and will continue on Tue/Tue/ Tue schedule. Case management to arrange for Vanco with dialysis in the outpatient setting as well. Patient is afebrile and denies chest pain or shortness of breath. 04/05/2022 Patient is seen in follow-up early sitting up in the chair receiving hemodialysis with the goal of 2 L removed today. Nephrology following closely and will follow-up with case management about verifying Vanco to continue in the outpatient setting for 2 weeks with dialysis and ID is following closely. Patient with extreme fatigue and lethargic and features of depression and will have psychiatry evaluate the patient. CT brain ordered as patient is extremely lethargic. Patient with bilateral lower extremity pain and was started on Neurontin with some relief and venous Dopplers were negative for DVT. Patient is afebrile and denies any chest pain or shortness of breath. Patient tolerating diet with no reports of nausea or vomiting noted. Review of systems: Constitutional: no reports of fatigue, no reports of fever, or chills Cardiovascular: No reports of chest pain or palpitations Respiratory: No reports of shortness of breath or cough GI: no reports of nausea, no reports of of vomiting : No reports of dysuria or retention Neurovascular: no reports of generalized weakness, reports right leg pain with movement All medications have been reviewed Active Medications Acetaminophen (Acetaminophen Tab 325 Mg Tab) 650 mg PO Q6HR PRN PRN Reason: Fever and/ or Mild Pain Last Admin: 04/05/22 09:22 Dose: 650 mg Hydrocodone Bitart/Acetaminophen (Hydrocodone/Apap 5-325mg 1 Each Tab) 1 each PO Q6HR PRN PRN Reason: Pain Last Admin: 04/05/22 02:09 Dose: 1 each Amlodipine Besylate (Amlodipine 10 Mg Tab) 10 mg PO DAILY [facility] Last Admin: 04/05/22 09:29 Dose: 10 mg Baclofen (Baclofen 10 Mg Tab) 10 mg PO [facility] Last Admin: 04/04/22 20:47 Dose: 10 mg Carvedilol (Carvedilol 6.25 Mg Tab) 6.25 mg PO BID-W/MEALS [facility] Last Admin: 04/05/22 06:37 Dose: 6.25 mg Clonidine (Clonidine Hcl 0.1 Mg Tab) 0.3 mg PO TID [facility] Last Admin: 04/05/22 13:17 Dose: 0.3 mg Ergocalciferol (Ergocalciferol 1,250 Mcg (50,000 Iu) Capsule) 1,250 mcg PO SA [facility] Last Admin: 04/03/22 08:14 Dose: 1,250 mcg Famotidine (Famotidine 20 Mg Tab) 20 mg PO [facility] Last Admin: 04/04/22 20:47 Dose: 20 mg Furosemide (Furosemide 20 Mg Tab) 60 mg PO BID@0900,1600 [facility] Last Admin: 04/05/22 09:13 Dose: 60 mg Gabapentin (Gabapentin 100 Mg Cap) 100 mg PO BID [facility] Last Admin: 04/05/22 09:13 Dose: 100 mg Hydralazine HCl (Hydralazine Hcl 20 Mg/Ml 1 Ml Vial) 10 mg IVP Q6HR PRN PRN Reason: Blood Pressure - High Hydralazine HCl (Hydralazine Hcl 50 Mg Tab) 50 mg PO TID [facility] Last Admin: 04/05/22 13:17 Dose: 50 mg Cefazolin Sodium 1,000 mg/ (Sodium Chloride) 50 mls @ 100 mls/hr IVPB Q12HR [facility] Last Admin: 04/05/22 09:17 Dose: 100 mls/hr Isosorbide Mononitrate (Isosorbide Mononitrate Er 30 Mg Tab.Er.24h) 30 mg PO DAILY [facility] Last Admin: 04/05/22 09:29 Dose: 30 mg Naloxone HCl (Naloxone 0.4 Mg/Ml 1 Ml Vial) 0.2 mg IV Q2M PRN PRN Reason: Opioid Reversal Ondansetron HCl (Ondansetron 4 Mg/2 Ml Vial) 4 mg IVP Q6HR PRN PRN Reason: Nausea And Vomiting Last Admin: 04/04/22 11:38 Dose: 4 mg Pantoprazole Sodium (Pantoprazole 40 Mg Tablet) 40 mg PO AC-BRKFST [facility] Last Admin: 04/05/22 06:37 Dose: 40 mg Topiramate (Topiramate 25 Mg Tab) 25 mg PO BID [facility] Last Admin: 04/05/22 09:13 Dose: 25 mg PHYSICAL EXAMINATION: GENERAL: The patient is alert and oriented x4, lethargic today, obese Well developed, well nourished. HEENT: Pupils are round and equally reacting to light. EOMI. no scleral icterus. No conjunctival pallor. Normocephalic, atraumatic. No pharyngeal erythema. No thyromegaly. CARDIOVASCULAR: S1 and S2 muffled, right permacath chest wall noted that is functioning with no drainage noted. PULMONARY: diminished breath sounds bilaterally with scattered rhonchi noted. ABDOMEN: soft. Nontender on exam. obese. non-distended, normoactive bowel sounds. No palpable organomegaly. MUSCULOSKELETAL: No joint swelling or deformity. EXTREMITIES: No cyanosis, clubbing, or pedal edema. right leg pain, no obvious redness or increased swelling NEUROLOGICAL: Gross neurological examination did not reveal any focal deficits. SKIN: No rashes. Assessment: Staph bacteremia newly started hemodialysis status post right chest wall permacath placement on 04/02/[address] Khan Chronic congestive heart failure with diastolic and systolic dysfunction, EF is 40-45% hypertension Obesity with a BMI of 37.2 Depression GI prophylaxis DVT prophylaxis Full code Plan: Recommend to continue with current medications and management per nephrology and infectious disease services. Patient has received a permacath per infectious disease with most recent blood cultures being negative. Repeat echo recommended per cardiology although no order placed. ID would like confirmation of no noted vegetation prior to discharge and will likely be continued on vanco through dialysis with pharmacy to dose for 2 weeks on discharge. Per cardiology notes no plan for MICKI or echo repeat at this time unless blood cultures continue to be positive. Repeat blood Cultures remain negative. Nephrology following and patient receiving hemodialysis . Encouraged increase activity as tolerated recommend repeat labs and will follow-up. case management made aware and will resume same chair time with [facility] for M/W/F outpatient but given the holiday weekend and have not verified vanco as of yet, will not likely discharge until tuesday. Will order CT of the brain as patient is lethargic and also order psychiatry consult and appreciate input and recommendations as patient appears depressed. Due to multiple complex medical issues, prognosis is guarded. Possible discharge in 24 hours. The impression and plan of care has been dictated by Radha Gregory, nurse practitioner as directed. Dr. Abel MD I have performed a history and examination and MDM of this patient, discussed the same with the dictator, and agree with the dictator's assessment and plan as written ,documented as a scribe. Based on total visit time, I have performed more than 50% of the visit. Any additional findings or plans will be noted. Objective - Vital Signs Vital signs: Vital Signs Temp 98.5 F 04/05/22 09:18 Pulse 74 04/05/22 09:18 Resp 20 04/05/22 09:18 BP 132/94 04/05/22 09:18 Pulse Ox 98 04/05/22 09:18 FiO2 Intake & Output 04/04/22 04/05/22 04/05/22 18:59 06:59 18:59 Intake Total 1080 Output Total 0 Balance 1080 Weight 126.2 kg Intake: Oral 1080 Output: Urine 0 Other: Voiding Method Toilet # Voids 1 - Labs CBC & Chem 7: 04/01/22 09:07 04/03/22 08:15 Labs: Microbiology - Last 24 Hours (Table) 03/31/22 06:16 Blood Culture - Preliminary Blood No Growth after 120 hours 04/01/22 09:07 Blood Culture - Preliminary Blood No Growth after 72 hours 03/30/22 08:23 Blood Culture - Preliminary Blood No Growth after 120 hours
--- NOTE | 2022-04-05 15:59 | CT ---
EXAMINATION TYPE: CT brain wo con DATE OF EXAM: 04/05/2022 COMPARISON: None available HISTORY: AMS CT DLP: 1158.4 mGycm. Automated Exposure Control for Dose Reduction was Utilized. TECHNIQUE: Multiple contiguous axial CT images of the head were performed from the skull base through the vertex without the administration of intravenous contrast. 2-D sagittal and coronal reformats we re obtained. FINDINGS: No acute intracranial hemorrhage, mass effect, or midline shift. The ventricles and sulci are within normal limits in size. Cruz-white differentiation is preserved. No CT evidence of acute l arge vessel territorial ischemia. Calvarium appears intact. The globes are intact and the visualized sinuses are clear. IMPRESSION: Negative contrast enhanced head CT exam.
[2022-04-05] MEDS: BACLOFEN 10 MG TAB PO SCH (19:00)
[2022-04-05] MEDS: FAMOTIDINE 20 MG TAB PO SCH (20:52)
[2022-04-06] MEDS: carvediloL 6.25 MG TAB PO SCH ×2 (06:31→16:45)
[2022-04-06] MEDS: PANTOPRAZOLE 40 MG TABLET PO SCH (06:31)
[2022-04-06 08:40] LABS: Glucose,Whole Blood 94 mg/dL (75-99)
[2022-04-06 08:52] LABS: Calcium 9.4 mg/dL (8.4-10.2); Potassium 5.8 mmol/L (3.5-5.1)
[2022-04-06] MEDS: cloNIDine HCL 0.1 MG TAB PO SCH ×3 (10:01→20:54)
[2022-04-06] MEDS: ISOSORBIDE MONONITRATE ER 30 MG TAB.ER.24H PO SCH (10:02)
[2022-04-06] MEDS: TOPIRAMATE 25 MG TAB PO SCH ×2 (10:02→20:54)
[2022-04-06] MEDS: hydrALAZINE HCL 50 MG TAB PO SCH ×3 (10:02→20:55)
[2022-04-06] MEDS: GABAPENTIN 100 MG CAP PO SCH ×2 (10:02→20:55)
[2022-04-06] MEDS: amLODIPine 10 MG TAB PO SCH (10:02)
[2022-04-06] MEDS: FUROSEMIDE 20 MG TAB PO SCH ×2 (10:02→16:45)
[2022-04-06] MEDS ORDERED: VANCOMYCIN IV PER PHARMACY 1 EACH MISC MISCELLANE PRN (11:07)
--- NOTE | 2022-04-06 11:21 | P.PN ---
Subjective Patient is seen for follow-up for end-stage renal disease. He is maintained on a Tuesday schedule. Patient was admitted with gram-positive bacteremia, MSSA and his permacath was removed. He did have a new permacath placed on 04/02/2022. Patient is maintained on Tuesday schedule for dialysis Complaining of nausea this morning. Blood cultures from 03/30 are negative thus far. Objective - Vital Signs Vital signs: Vital Signs Temp 98.8 F 04/06/22 08:00 Pulse 94 04/06/22 08:00 Resp 18 04/06/22 08:00 BP 146/103 04/06/22 08:00 Pulse Ox 93 L 04/06/22 08:00 FiO2 Intake & Output 04/05/22 04/06/22 04/06/22 18:59 06:59 18:59 Intake Total 880 0 Output Total 1999 1 Balance -1120 -1 0 Weight 127.2 kg Intake: IV 20 Invasive Line 3 20 Oral 860 0 Output: Urine 1 Hemodialysis 1999 Other: Voiding Method Toilet Toilet # Voids 0 # Bowel Movements 0 - Exam Awake, comfortable, not in any acute distress Examination of the heart S1 and S2 Examination lungs bilateral breath sounds are heard Abdomen soft obese nontender Exam shows lower extremity shows no evidence of edema RESOURCE ENGINEER exam grossly intact - Labs CBC & Chem 7: 04/01/22 09:07 04/06/22 06:26 Labs: Abnormal Lab Results - Last 24 Hours (Table) 04/06/22 Range/Units 06:26 Potassium 5.8 H (3.5-5.1) mmol/L Carbon Dioxide 19 L (22-30) mmol/L BUN 60 H (9-20) mg/dL Creatinine 12.82 H* (0.66-1.25) mg/dL Microbiology - Last 24 Hours (Table) 03/31/22 06:16 Blood Culture - Final Blood No Growth after 144 hours 04/01/22 09:07 Blood Culture - Preliminary Blood No Growth after 96 hours 03/30/22 08:23 Blood Culture - Final Blood No Growth after 144 hours Assessment and Plan Assessment: 1. End-stage renal disease secondary to biopsy-proven nephrosclerosis. Started hemodialysis in March 2022. 2. MSSA bacteremia status post removal of permacath and placement of new catheter on 04/02/2022. Blood cultures from 03/30 are negative thus far 3. Hypertension with CK D 4. Hyperkalemia associated with end-stage renal disease currently improved 5. Metabolic acidosis associated with end-stage renal disease, improved renal replacement therapy 6. Cardiomyopathy EF 40%. No evidence of vegetation Plan: Hemodialysis in a.m. Continue antibiotics
[2022-04-06] MEDS ORDERED: VANCOMYCIN 2,000 MG in SODIUM CHLORIDE 0.9% 500 ML 500 ML IVPB ONE (12:00)
--- NOTE | 2022-04-06 12:05 | XR ---
EXAMINATION TYPE: XR lumbosacral spine min 4V DATE OF EXAM: 04/06/2022 CLINICAL HISTORY: Low back pain. TECHNIQUE: Frontal, lateral, and oblique images of the lumbar spine are obtained. COMPARISON: None FINDINGS: There are 5 lumbar type vertebral bodies identified. The lumbar spine shows slight scolio tic curvature on frontal images without evidence of acute fracture or dislocation. Vertebral body hei ghts and disk space heights are within normal limits. The oblique images appear within normal limit s. Prominent spur from the anterior superior T12 endplate. The overlying soft tissue appears unremar kable. IMPRESSION: As above.
--- NOTE | 2022-04-06 13:48 | P.CN ---
Psychiatric Consult - . Consult date: 04/06/22 Consult:: 04/06/22 13:47 IDENTIFYING DATA: This patient is a single, employed, 36-year-old - [place] male who presented to the hospital for shortness of breath. HISTORY OF PRESENT ILLNESS: The patient presented to the hospital on 03/27/2022, brought into the hospital for shortness of breath. The patient has significant past medical history of end-stage renal disease on hemodialysis. The patient's hospitalization has been prolonged and complicated by bacteremia and a new catheter was placed on 04/02/2022. Furthermore, the patient has cardiomyopathy with ejection fraction of 40%. Psychiatry has been consulted for evaluation and management of depression. Upon evaluation of the patient, the patient does admit to a lower mood however states that it is appropriate and normal given his prolonged hospitalization and medical complications. In regards to depressive symptoms, the patient does report low mood, decreased appetite, and some difficulty sleeping. The patient does report however that the appetite is decreased due to his lack of desire for the meals offered in the hospital. He also reports that sleep is difficult as he is in the hospital. He vehemently denies any suicidal or homicidal ideation, intention, and/or plan. He expresses a strong desire to live. He reports no previous psychiatric history prior to this hospitalization. The patient denies any significant history of bipolar disorder. He denies any history of psychosis. PAST PSYCHIATRIC HISTORY: Patient has no psychiatric history. Patient denies being on any psychiatric medications. Patient denies any previous psychiatric ho spitalizations. Patient denies any psychiatric outpatient follow-up. Patient denies any history of suicide attempts in the past. PAST MEDICAL HISTORY: Past Medical History: Asthma, Hypertension, Renal Disease Additional Past Medical History / Comment(s): Hemodiaylsis History of Any Multi-Drug Resistant Organisms: None Reported Past Surgical History: No Surgical Hx Reported Additional Past Surgical History / Comment(s): 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 Past Anesthesia/Blood Transfusion Reactions: No Reported Reaction Additional Past Anesthesia/Blood Transfusion Reaction / Comment(s): never had bld transfusion or surgery Past Psychological History: No Psychological Hx Reported Smoking Status: Never smoker ALLERGIES: NO KNOWN DRUG ALLERGIES CHEMICAL DEPENDENCY HISTORY: Patient denies any tobacco, alcohol, marijuana, or illicit drug use. FAMILY PSYCHIATRIC/SUBSTANCE USE HISTORY: No reported history SOCIAL HISTORY: Patient currently lives by himself however reports that he has significant social supports. He is a father of a 10-year-old son. He is employed. MENTAL STATUS EXAM: General Appearance: Patient appears to be stated age is alert, pleasant, and cooperative. Patient appears to have fair hygiene and grooming wearing hospital gown with fair eye contact. Behavior: Patient is calmly seated upright in his chair with no psychomotor agitation. Speech: Patient's speech is fluent and nonpressured. Mood/Affect: Patient reports their mood is "down but normal", affect is congruent and somewhat withdrawn Suicidality/Homicidality: Patient vehemently denies any suicidal or homicidal ideation, intention, and/or plan. Perceptions: Patient denies any visual hallucinations and denies any auditory hallucinations Though content/process: There is no evidence of any delusional thought content and thought process is linear and goal-directed. Memory and concentration: AOX3, grossly intact for the purposes of this session. 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 -Would recommend the following medication changes/additions: The patient is currently not interested in starting medications at this time. We discussed the role of medications however the patient does not wish to start any. -Approximately 30% of the time of the psychiatric evaluation was spent providing supportive psychotherapy. -Psychiatry will sign off at this point, please contact with any questions. 04/06/22 13:47
[2022-04-06] MEDS ORDERED: GABAPENTIN 300 MG CAP PO SCH (16:00)
[2022-04-06] MEDS: HYDROcodone/APAP 5-325MG 1 EACH TAB PO PRN ×2 (16:45→23:21)
--- NOTE | 2022-04-06 17:36 | P.PN ---
Subjective Progress Note Date: 04/06/22 This is a 36-year-old male who was admitted with end-stage renal disease on dialysis although was found to have fevers and bacteremia with infectious disease following along with nephrology. Awaiting for possible permanent catheter placement as there was concern for infection at the catheter site with multiple medical consultations following. Cultures are showing Staphylococcus aureus and most recent blood cultures have been negative. Infectious disease reports is okay to receive new dialysis catheter and will continue with antibiotics and close monitoring. Patient is hypertensive and also cardiology has been consulted. Echo was ordered and pending at this time. Kidney functions have worsened and creatinine is 11.57 today. Patient is continued on cefazolin and Vanco has been discontinued and trough was elevated today. Patient denies chest pain or worsening shortness of breath. 04/02/2022 Patient is seen today and much more awake and alert. Patient being closely monitored by nephrology and vascular surgery is planned for right chest wall permacath. ID is following and ok to receive permacath. Will need to discuss with ID and nephrology about discharge planning and if hemodialysis is arranged for outpatient setting. Patient blood pressure is elevated and needs dialysis. Patient is afebrile and denies chest pain or shortness of breath. 04/03/2022 Patient is evaluated today and receiving hemodialysis with nephro following. Patient received chest wall permacath and will continue with [facility] outpatient on Tue/tue/tue schedule. Patient continues on IV abx with ID following and need to discuss with cardiology about echo and possibly repeating. Need to rule out vegetations. Patient is afebrile and blood pressures improved. Patient denies chest pain or shortness of breath. 04/04/2022 Patient is seen today and had some intermittent nausea and will continue with zofran as needed. Patient having some lower extremity pain with movement in the right more so than the left and will order bilateral venous doppler. Cardio, ID, and nephrology following. Patient is receiving dialysis and will continue on Tue/Tue/ Tue schedule. Case management to arrange for Vanco with dialysis in the outpatient setting as well. Patient is afebrile and denies chest pain or shortness of breath. 04/05/2022 Patient is seen in follow-up early sitting up in the chair receiving hemodialysis with the goal of 2 L removed today. Nephrology following closely and will follow-up with case management about verifying Vanco to continue in the outpatient setting for 2 weeks with dialysis and ID is following closely. Patient with extreme fatigue and lethargic and features of depression and will have psychiatry evaluate the patient. CT brain ordered as patient is extremely lethargic. Patient with bilateral lower extremity pain and was started on Neurontin with some relief and venous Dopplers were negative for DVT. Patient is afebrile and denies any chest pain or shortness of breath. Patient tolerating diet with no reports of nausea or vomiting noted. 04/06/2022 Patient seen today and is having some increasing lower back pain and will obtain LS xray. Patient also continues with dialysis and is set to receive hemodialysis tomorrow. Patient also evaluated by psychiatry. Patient denies depression or thoughts of wanting to harm himself. Patient reports that he is getting up to the bathroom but having 10/10 pain. Will adjust pain medications and have PT evaluate. Encouraged increased activity as tolerated. Patient has had prolonged hospitalization and is often reporting to poor appetite due to the food choices and difficulty in sleeping from being uncomfortable in the bed. Patient is afebrile and denies chest pain or shortness of breath. Review of systems: Constitutional: reports of fatigue, no reports of fever, or chills Cardiovascular: No reports of chest pain or palpitations Respiratory: No reports of shortness of breath or cough GI: no reports of nausea, no reports of of vomiting : No reports of dysuria or retention Neurovascular: reports of generalized weakness due to severe low back pain rating 10/10 and difficult to ambulate due to pain All medications have been reviewed Active Medications Acetaminophen (Acetaminophen Tab 325 Mg Tab) 650 mg PO Q6HR PRN PRN Reason: Fever and/ or Mild Pain Last Admin: 04/05/22 09:22 Dose: 650 mg Hydrocodone Bitart/Acetaminophen (Hydrocodone/Apap 5-325mg 1 Each Tab) 1 each PO Q6HR PRN PRN Reason: Pain Last Admin: 04/06/22 16:45 Dose: 1 each Amlodipine Besylate (Amlodipine 10 Mg Tab) 10 mg PO DAILY [facility] Last Admin: 04/06/22 10:02 Dose: 10 mg Baclofen (Baclofen 10 Mg Tab) 10 mg PO HS LEDY Last Admin: 04/05/22 19:00 Dose: 10 mg Carvedilol (Carvedilol 6.25 Mg Tab) 6.25 mg PO BID-W/MEALS [facility] Last Admin: 04/06/22 16:45 Dose: 6.25 mg Clonidine (Clonidine Hcl 0.1 Mg Tab) 0.3 mg PO TID [facility] Last Admin: 04/06/22 16:46 Dose: 0.3 mg Ergocalciferol (Ergocalciferol 1,250 Mcg (50,000 Iu) Capsule) 1,250 mcg PO SA [facility] Last Admin: 04/03/22 08:14 Dose: 1,250 mcg Famotidine (Famotidine 20 Mg Tab) 20 mg PO HS [facility] Last Admin: 04/05/22 20:52 Dose: 20 mg Furosemide (Furosemide 20 Mg Tab) 60 mg PO BID@0900,1600 [facility] Last Admin: 04/06/22 16:45 Dose: 60 mg Gabapentin (Gabapentin 100 Mg Cap) 200 mg PO TID [facility] Hydralazine HCl (Hydralazine Hcl 20 Mg/Ml 1 Ml Vial) 10 mg IVP Q6HR PRN PRN Reason: Blood Pressure - High Hydralazine HCl (Hydralazine Hcl 50 Mg Tab) 50 mg PO TID [facility] Last Admin: 04/06/22 16:45 Dose: 50 mg Isosorbide Mononitrate (Isosorbide Mononitrate Er 30 Mg Tab.Er.24h) 30 mg PO DAILY [facility] Last Admin: 04/06/22 10:02 Dose: 30 mg Miscellaneous Information (Vancomycin Iv Per Pharmacy 1 Each [facility]) 1 each MISCELLANE DIRECTED PRN; Protocol PRN Reason: Per Protocol Naloxone HCl (Naloxone 0.4 Mg/Ml 1 Ml Vial) 0.2 mg IV Q2M PRN PRN Reason: Opioid Reversal Ondansetron HCl (Ondansetron 4 Mg/2 Ml Vial) 4 mg IVP Q6HR PRN PRN Reason: Nausea And Vomiting Last Admin: 04/04/22 11:38 Dose: 4 mg Pantoprazole Sodium (Pantoprazole 40 Mg Tablet) 40 mg PO AC-BRKFST [facility] Last Admin: 04/06/22 06:31 Dose: 40 mg Topiramate (Topiramate 25 Mg Tab) 25 mg PO BID [facility] Last Admin: 04/06/22 10:02 Dose: 25 mg PHYSICAL EXAMINATION: GENERAL: The patient is alert and oriented x4, awake today, obese Well developed, well nourished. HEENT: Pupils are round and equally reacting to light. EOMI. no scleral icterus. No conjunctival pallor. Normocephalic, atraumatic. No pharyngeal erythema. No thyromegaly. CARDIOVASCULAR: S1 and S2 muffled, right permacath chest wall noted that is functioning with no drainage noted. PULMONARY: diminished breath sounds bilaterally with scattered rhonchi noted. ABDOMEN: soft. Nontender on exam. obese. non-distended, normoactive bowel sounds. No palpable organomegaly. MUSCULOSKELETAL: No joint swelling or deformity. EXTREMITIES: No cyanosis, clubbing, or pedal edema. right leg pain, no obvious redness or increased swelling NEUROLOGICAL: Gross neurological examination did not reveal any focal deficits. diffuse weakness and lower back pain SKIN: No rashes. Assessment: Staph bacteremia newly started hemodialysis status post right chest wall permacath placement on 04/02/[address] Khan Chronic congestive heart failure with diastolic and systolic dysfunction, EF is 40-45% hypertension low back pain Obesity with a BMI of 37.2 Depression GI prophylaxis DVT prophylaxis Full code Plan: Recommend to continue with current medications and management per nephrology and infectious disease services. Repeat blood Cultures remain negative. Nephrology following and patient receiving hemodialysis ad will tomorrow before discharge. Encouraged increase activity as tolerated and will follow-up. PT to evaluate the patient. Patient with back pain and will adjust medications and monitor closely. LS xray was negative. case management has arranged for outpatient vanco for 2 weeks with hemodialysis with ID following. Patient to receive dose here. Will await PT notes with possible discharge in 24 hours. Due to multiple complex medical issues, prognosis is guarded. The impression and plan of care has been dictated by Radha Gregory, nurse practitioner as directed. Dr. Abel MD I have performed a history and examination and MDM of this patient, discussed t he same with the dictator, and agree with the dictator's assessment and plan as written ,documented as a scribe. Based on total visit time, I have performed more than 50% of the visit. Any additional findings or plans will be noted. Objective - Vital Signs Vital signs: Vital Signs Temp 99.3 F 04/06/22 04:00 Pulse 74 04/06/22 04:00 Resp 18 04/06/22 04:00 BP 134/93 04/06/22 04:00 Pulse Ox 95 04/06/22 07:37 FiO2 Intake & Output 04/05/22 04/06/22 04/06/22 18:59 06:59 18:59 Intake Total 880 0 Output Total 1999 1 Balance -1120 -1 0 Weight 127.2 kg Intake: IV 20 Invasive Line 3 20 Oral 860 0 Output: Urine 1 Hemodialysis 1999 Other: Voiding Method Toilet # Voids 0 # Bowel Movements 0 - Labs CBC & Chem 7: 04/01/22 09:07 04/06/22 06:26 Labs: Abnormal Lab Results - Last 24 Hours (Table) 04/06/22 Range/Units 06:26 Potassium 5.8 H (3.5-5.1) mmol/L Carbon Dioxide 19 L (22-30) mmol/L BUN 60 H (9-20) mg/dL Creatinine 12.82 H* (0.66-1.25) mg/dL Microbiology - Last 24 Hours (Table) 03/31/22 06:16 Blood Culture - Final Blood No Growth after 144 hours 04/01/22 09:07 Blood Culture - Preliminary Blood No Growth after 96 hours 03/30/22 08:23 Blood Culture - Final Blood No Growth after 144 hours
--- NOTE | 2022-04-06 17:40 | US ---
EXAMINATION TYPE: US kidneys/renal and bladder DATE OF EXAM: 04/06/2022 COMPARISON: NONE CLINICAL HISTORY: pain. Exam done portable EXAM MEASUREMENTS: Right Kidney: 9.3 x 4.8 x 4.9 cm Left Kidney: 7.7 x 3.9 x 4.2 cm Extremely difficult and limited study due to patient body habitus and heavy breathing Right Kidney: visualized portions appear wnl, limited by overlying bowel gas Left Kidney: visualized portions appear wnl, limited by overlying bowel gas Bladder: not distended There is no evidence for hydronephrosis at this point in time. No shadowing calculus identified. No masses are identified. The urinary bladder is nondistended. IMPRESSION: Limited exam without evidence of osteoporosis.
[2022-04-06] MEDS: BACLOFEN 10 MG TAB PO SCH (20:55)
[2022-04-06] MEDS: FAMOTIDINE 20 MG TAB PO SCH (20:55)
[2022-04-07] MEDS: HYDROcodone/APAP 5-325MG 1 EACH TAB PO PRN ×2 (06:16→12:49)
[2022-04-07] MEDS: PANTOPRAZOLE 40 MG TABLET PO SCH (06:17)
[2022-04-07] MEDS: carvediloL 6.25 MG TAB PO SCH ×2 (06:17→17:37)
--- NOTE | 2022-04-07 07:01 | P.PN ---
Subjective Progress Note Date: 04/04/22 Principal diagnosis: Fever and bacteremia Patient is a 36-year-old -[place] male with a past medical history significant for end-stage renal disease on hemodialysis through the right subclavian permacatheter presented to the hospital with a fever and some mental status changes now do have evidence of MSSA bacteremia secondary to dialysis catheter was subsequently discontinued, repeat blood culture were negative and the patient did get new dialysis catheter on 04/02/2022. On today's evaluation is 04/04/2022, the patient remains to be afebrile, the patient denies chest pain, no shortness of breath or cough , the patient denies nausea no vomiting no abdominal pain no diarrhea, Objective - Vital Signs Vital signs: Vital Signs Temp 98.4 F 04/04/22 11:33 Pulse 68 04/04/22 11:33 Resp 18 04/04/22 11:33 BP 131/77 04/04/22 11:33 Pulse Ox 94 L 04/04/22 11:33 FiO2 Intake & Output 04/03/22 04/04/22 04/04/22 18:59 06:59 18:59 Output Total 1700 Balance -1700 Output: Hemodialysis 1700 Other: Voiding Method Toilet # Voids 1 - Exam GENERAL DESCRIPTION: A middle-age male lying in bed in no distress RESPIRATORY SYSTEM: Unlabored breathing , decreased breath sounds at bases HEART: S1 S2 regular rate and rhythm , ABDOMEN: Soft , no tenderness EXTREMITIES: No edema feet - Labs CBC & Chem 7: 04/01/22 09:07 04/06/22 06:26 Labs: Microbiology - Last 24 Hours (Table) 04/01/22 09:07 Blood Culture - Preliminary Blood No Growth after 72 hours 03/30/22 08:23 Blood Culture - Preliminary Blood No Growth after 120 hours 03/31/22 06:16 Blood Culture - Preliminary Blood No Growth after 96 hours Assessment and Plan (1) Pyrexia of unknown origin Current Visit: Yes Status: Acute Code(s): R50.9 - FEVER, UNSPECIFIED SNOMED Code(s): 4534749 Plan: 1patient presented to hospital with fever not feeling well did have some headache which seem to have resolved by now no photophobia or neck rigidity patient initial work-up including a UA chest x-ray was negative is abdominal soft on clinical examination and no evidence of any cellulitis, likely related to permacatheter infection 2patient with MSSA bacteremia likely related to the dialysis catheter Infection, dialysis catheter has been removed and catheter has been sent for the culture which came back positive for MSSA 3- -blood cultures from 03/30/2022 were negative and the patient did have a new catheter placement on 04/02/2022 4-cardiology recommending no repeat echo or MICKI as per discussion with the patient RN, to continue with the cefazolin Time with Patient: Less than 30
--- NOTE | 2022-04-07 07:03 | P.PN ---
Subjective Progress Note Date: 04/05/22 Principal diagnosis: Fever and bacteremia Patient is a 36-year-old -[place] male with a past medical history significant for end-stage renal disease on hemodialysis through the right subclavian permacatheter presented to the hospital with a fever and some mental status changes now do have evidence of MSSA bacteremia secondary to dialysis catheter was subsequently discontinued, repeat blood culture were negative and the patient did get new dialysis catheter on 04/02/2022. On today's evaluation is 04/05/2022, the patient denies any fever or chills, the patient is breathing comfortably on room air, no vomiting no chest pain shortness of breath or cough no abdominal pain and no diarrhea Objective - Vital Signs Vital signs: Vital Signs Temp 97.4 F L 04/05/22 20:00 Pulse 71 04/05/22 20:00 Resp 16 04/05/22 20:00 BP 99/62 04/05/22 22:44 Pulse Ox 96 04/05/22 20:00 FiO2 Intake & Output 04/05/22 04/05/22 04/06/22 06:59 18:59 06:59 Intake Total 1080 880 Output Total 0 1999 1 Balance 1080 -1120 -1 Weight 126.2 kg Intake: IV 20 Invasive Line 3 20 Oral 1080 860 Output: Urine 0 1 Hemodialysis 1999 Other: Voiding Method Toilet Toilet # Voids 1 - Exam GENERAL DESCRIPTION: A middle-age male lying in bed in no distress RESPIRATORY SYSTEM: Unlabored breathing , decreased breath sounds at bases HEART: S1 S2 regular rate and rhythm , ABDOMEN: Soft , no tenderness EXTREMITIES: No edema feet - Labs CBC & Chem 7: 04/01/22 09:07 04/06/22 06:26 Labs: Microbiology - Last 24 Hours (Table) 04/01/22 09:07 Blood Culture - Preliminary Blood No Growth after 96 hours 03/30/22 08:23 Blood Culture - Final Blood No Growth after 144 hours 03/31/22 06:16 Blood Culture - Preliminary Blood No Growth after 120 hours Assessment and Plan (1) Pyrexia of unknown origin Current Visit: Yes Status: Acute Code(s): R50.9 - FEVER, UNSPECIFIED SNOMED Code(s): 9530116 Plan: 1patient presented to hospital with fever not feeling well did have some headache which seem to have resolved by now no photophobia or neck rigidity patient initial work-up including a UA chest x-ray was negative is abdominal soft on clinical examination and no evidence of any cellulitis, likely related to permacatheter infection 2patient with MSSA bacteremia likely related to the dialysis catheter Infection, dialysis catheter has been removed and catheter has been sent for the culture which came back positive for MSSA 3- -blood cultures from 03/30/2022 were negative and the patient did have a new catheter placement on 04/02/2022 4-patient to continue with the cefazolin waiting for outpatient IV vancomycin arrangement befor discharge Time with Patient: Less than 30
--- NOTE | 2022-04-07 07:04 | P.PN ---
Subjective Progress Note Date: 04/06/22 Principal diagnosis: Fever and bacteremia Patient is a 36-year-old -[place] male with a past medical history significant for end-stage renal disease on hemodialysis through the right subclavian permacatheter presented to the hospital with a fever and some mental status changes now do have evidence of MSSA bacteremia secondary to dialysis catheter was subsequently discontinued, repeat blood culture were negative and the patient did get new dialysis catheter on 04/02/2022. On today's evaluation is 04/06/2022, the patient remains to be afebrile, the patient is breathing comfortably on room air, no vomiting no chest pain shortness of breath or cough no abdominal pain and no diarrhea, patient did have some lower back pain for which x-rays has been ordered Objective - Vital Signs Vital signs: Vital Signs Temp 99.3 F 04/06/22 04:00 Pulse 74 04/06/22 04:00 Resp 18 04/06/22 04:00 BP 134/93 04/06/22 04:00 Pulse Ox 95 04/06/22 07:37 FiO2 Intake & Output 04/05/22 04/06/22 04/06/22 18:59 06:59 18:59 Intake Total 880 0 Output Total 1999 1 Balance -1120 -1 0 Weight 127.2 kg Intake: IV 20 Invasive Line 3 20 Oral 860 0 Output: Urine 1 Hemodialysis 1999 Other: Voiding Method Toilet # Voids 0 # Bowel Movements 0 - Exam GENERAL DESCRIPTION: A middle-age male lying in bed in no distress RESPIRATORY SYSTEM: Unlabored breathing , decreased breath sounds at bases HEART: S1 S2 regular rate and rhythm , ABDOMEN: Soft , no tenderness SPINE : Patient did not have any tenderness on the thoracic lumbar sacral spine area EXTREMITIES: No edema feet - Labs CBC & Chem 7: 04/01/22 09:07 04/06/22 06:26 Labs: Abnormal Lab Results - Last 24 Hours (Table) 04/06/22 Range/Units 06:26 Potassium 5.8 H (3.5-5.1) mmol/L Carbon Dioxide 19 L (22-30) mmol/L BUN 60 H (9-20) mg/dL Creatinine 12.82 H* (0.66-1.25) mg/dL Microbiology - Last 24 Hours (Table) 03/31/22 06:16 Blood Culture - Final Blood No Growth after 144 hours 04/01/22 09:07 Blood Culture - Preliminary Blood No Growth after 96 hours 03/30/22 08:23 Blood Culture - Final Blood No Growth after 144 hours Assessment and Plan (1) Pyrexia of unknown origin Current Visit: Yes Status: Acute Code(s): R50.9 - FEVER, UNSPECIFIED SNOME D Code(s): 8079764 Plan: 1patient presented to hospital with fever not feeling well did have some headache which seem to have resolved by now no photophobia or neck rigidity patient initial work-up including a UA chest x-ray was negative is abdominal soft on clinical examination and no evidence of any cellulitis, likely related to permacatheter infection 2patient with MSSA bacteremia likely related to the dialysis catheter Infection, dialysis catheter has been removed and catheter has been sent for the culture which came back positive for MSSA 3- -blood cultures from 03/30/2022 were negative and the patient did have a new catheter placement on 04/02/2022, x-ray of the lumbosacral spine did not show acute abnormality 4-patient will be switched over to vancomycin pharmacy to dose through the dialysis in anticipation for possible discharge today per the director of casework Time with Patient: Less than 30
[2022-04-07 10:36] VITALS: RESP 16
[2022-04-07] MEDS: GABAPENTIN 100 MG CAP PO SCH ×2 (12:47→17:38)
[2022-04-07] MEDS: hydrALAZINE HCL 50 MG TAB PO SCH ×2 (12:47→17:36)
[2022-04-07] MEDS: ISOSORBIDE MONONITRATE ER 30 MG TAB.ER.24H PO SCH (12:48)
[2022-04-07] MEDS: TOPIRAMATE 25 MG TAB PO SCH (12:48)
[2022-04-07] MEDS: FUROSEMIDE 20 MG TAB PO SCH ×2 (12:48→17:37)
[2022-04-07] MEDS: amLODIPine 10 MG TAB PO SCH (12:48)
[2022-04-07] MEDS: cloNIDine HCL 0.1 MG TAB PO SCH ×2 (12:51→17:36)
--- NOTE | 2022-04-07 13:23 | P.DS ---
Providers Date of admission: 03/27/22 13:09 Expected date of discharge: 04/07/22 Attending physician: Steven Roman Consults: 03/27/22 13:10 Consult Physician Urgent Consulting Provider: Poncho Gómez Consult Reason/Comments: esrd on hd Do you want consulting provider notified?: Yes 03/27/22 13:54 Consult Physician Urgent Consulting Provider: Frankie Love Consult Reason/Comments: pyrexia, esrd on hd Do you want consulting provider notified?: Yes 03/28/22 12:58 Consult Physician Routine Consulting Provider: David Khan Consult Reason/Comments: bacteremia, port removal after HD tomorrow, will need new access Do you want consulting provider notified?: Yes 04/05/22 13:14 Consult Physician Urgent Consulting Provider: Jesu Otero Consult Reason/Comments: depression Do you want consulting provider notified?: Yes Primary care physician: Yee Seymour Hospital Course: Final diagnosis Staph bacteremia newly started hemodialysis status post right chest wall permacath placement on 04/02/[address] Khan Chronic congestive heart failure with diastolic and systolic dysfunction, EF is 40-45% hypertension low back pain Obesity with a BMI of 37.2 Depression GI prophylaxis DVT prophylaxis Full code Discharge disposition Patient is being discharged in a stable condition with guarded prognosis to home. Patient will follow-up with Dr. Fraire in the outpatient setting upon discharge. Patient is to continue with hemodialysis as scheduled on Tuesday/Tuesday/Tuesday and will be receiving vancomycin with pharmacy to dose with each dialysis session for the next 2 weeks per infectious disease recommendations. Patient will also follow-up with primary care provider in orthopedics along with nephrology in the outpatient setting. Total time taken is greater than 35 minutes. Hospital course This is a 36-year-old male who was recently admitted on end-stage renal dialysis and was found to have fevers along with bacteremia and was being closely monitored. Most recent repeat blood cultures have been negative and patient was seen and evaluated by infectious disease and maintained on IV antibiotics and will continue on ankle mycin with pharmacy to dose with dialysis treatments Tuesday/Tuesday/Tuesday for the next 2 weeks and recommend close outpatient follow-up with nephrology. Patient did have previous catheter removed and does have a right chest wall catheter that was placed. Patient also with some lower extremity pain and back pain and was recently started on Neurontin and testing has been negative and recommend outpatient follow-up to orthopedics as patient having lumbosacral pain and there is a noted spur on the anterior superior T12 endplate and overlying soft tissue is unremarkable there is no evidence of acute fracture or dislocation. Patient also had abdominal ultrasound done showing no evidence of hydronephrosis no shadowing calculus identified no masses in the urinary bladder is nondistended without any evidence of osteoporosis. Patient has been recently started on Neurontin and recommend follow-up with primary care provider and pain management in the outpatient setting. Patient was also seen and evaluated by psychiatry for possible depression although patient refusing to start any medications at this time. Patient denies any suicidal thoughts or thoughts of wanting to harm himself or others. Currently no reports of chest pain, shortness of breath, or palpitations. Patient is afebrile. No reports of nausea or vomiting and patient is tolerating diet. Patient will be discharged home today. Guarded prognosis On exam vital signs are stable. Cardio S1, S2 are muffled. Respiratory system shows diminished breath sounds at the bases with no wheezing or rhonchi noted. Abdomen is soft and obese, and nontender. Nervous system shows no focal deficits. Please refer to medication reconciliation sheet for a list of medications. Patient Condition at Discharge: Stable Plan - Discharge Summary Discharge Rx Participant: No New Discharge Prescriptions: New Sennosides [Senokot] 8.6 mg PO BID PRN #30 tablet PRN Reason: Constipation hydrALAZINE HCL [Apresoline] 50 mg PO TID 30 Days #90 tab Isosorbide Mononitrate ER [Imdur] 30 mg PO DAILY 30 Days #30 tab Gabapentin [Neurontin] 200 mg PO TID #12 cap Continue amLODIPine [Norvasc] 10 mg PO DAILY 30 Days #30 tab cloNIDine HCL [Catapres] 0.3 mg PO TID carvediloL [Coreg] 6.25 mg PO BID-W/MEALS 30 Days #60 tab Topiramate [Topamax] 25 mg PO BID Ergocalciferol [Vitamin D2 (1250 Mcg = 14102 Iu)] 1,250 mcg PO SA Baclofen [Lioresal] 10 mg PO HS Famotidine [Pepcid] 20 mg PO HS #30 tab Acetaminophen Tab [Tylenol] 650 mg PO Q6HR PRN tab PRN Reason: Fever And/ Or Pain Changed Furosemide [Lasix] 60 mg PO BID 30 Days #180 tab Discontinued Spironolactone [Aldactone] 25 mg PO BID Discharge Medication List amLODIPine [Norvasc] 10 mg PO DAILY 30 Days #30 tab 09/06/19 [Rx] Baclofen [Lioresal] 10 mg PO HS 03/21/22 [History] Ergocalciferol [Vitamin D2 (1250 Mcg = 19332 Iu)] 1,250 mcg PO SA 03/21/22 [History] Topiramate [Topamax] 25 mg PO BID 03/21/22 [History] cloNIDine HCL [Catapres] 0.3 mg PO TID 03/21/22 [History] Acetaminophen Tab [Tylenol] 650 mg PO Q6HR PRN tab 03/26/22 [Rx] Famotidine [Pepcid] 20 mg PO HS #30 tab 03/26/22 [Rx] carvediloL [Coreg] 6.25 mg PO BID-W/MEALS 30 Days #60 tab 03/26/22 [Rx] Furosemide [Lasix] 60 mg PO BID 30 Days #180 tab 04/06/22 [Rx] Isosorbide Mononitrate ER [Imdur] 30 mg PO DAILY 30 Days #30 tab 04/06/22 [Rx] hydrALAZINE HCL [Apresoline] 50 mg PO TID 30 Days #90 tab 04/06/22 [Rx] Gabapentin [Neurontin] 200 mg PO TID #12 cap 04/07/22 [Rx] Sennosides [Senokot] 8.6 mg PO BID PRN #30 tablet 04/07/22 [Rx] Follow up Appointment(s)/Referral(s): Ritika Sawant MD [STAFF PHYSICIAN] - 1 Week Dawn Fraire MD [Primary Care Provider] - 1-2 days Mike Erwin DO [Doctor of Osteopathic Medicine] - 2 Weeks Activity/Diet/Wound Care/Special Instructions: Activity Limited until follow-up Follow-up with primary care provider discharge Continue renal diet Continue taking medications as prescribed Continue with hemodialysis Tuesday/Tuesday/Tuesday Patient will continue with vancomycin during hemodialysis with pharmacy to dose for 2 weeks Recommend repeat labs with dialysis on Tuesday Orthopedics outpatient for back pain Discharge Disposition: HOME SELF-CARE
[2022-04-07] MEDS ORDERED: SENNOSIDES 8.6 MG TAB PO PRN (14:44)
--- NOTE | 2022-04-07 15:14 | PN ---
PROGRESS NOTE Patient is seen for followup for end-stage renal disease. He is currently seen on hemodialysis. The patient is tolerating his treatment well. He states that his nausea is a bit improved. He is complaining of constipation. On examination today, blood pressure 154/90, heart rate 85 per minute. He is afebrile. Examination of the heart S1, S2. Examination of lungs decreased breath sounds at the bases. Abdomen is soft, nontender. Examination of lower extremities shows no significant edema. OUTSIDE [employer]ENTICE exam grossly intact. LAB: Show sodium of 138, potassium 5.8, BUN 60, creatinine 12.8. ASSESSMENT: 1. End-stage renal disease, on hemodialysis on a Tuesday, Tuesday, Tuesday schedule. 2. MSSA bacteremia status post removal of PermCath and placement of new catheter. 3. Constipation. 4. Hyperkalemia. Expect improvement with dialysis. PLAN: We will maintain patient on lactulose. He can use MiraLAX as well post discharge. Followup for dialysis on Tuesday as outpatient. MMODL / IJN: [id number] /
[2022-04-07 18:37] VITALS: BP 123/73; PULSE 64; TEMP 99.5
[2022-04-07] MEDS ORDERED: LACTULOSE 20 GM/30 ML CUP PO SCH (21:00)
== END 2022-04-07 18:48 | disposition home or self-care (01) | DRG 314 ==
LOC: EC 11:35 → 3SCARD 13:09
PROVIDERS: ADMIT Hospitalist; ATTEND Hospitalist
PROC: 02PYX3Z Removal of Infusion Device from Great Vessel, External Approach (ICD-10-PCS; 2022-03-29)
PROC: 02HV33Z Insertion of Infusion Device into Superior Vena Cava, Percutaneous Approach (ICD-10-PCS; principal; 2022-04-03)
PROC: B548ZZA Ultrasonography of Superior Vena Cava, Guidance (ICD-10-PCS; 2022-04-03)
DX: T80.211A Bloodstream infection due to central venous catheter, initial encounter (principal); A41.01 Sepsis due to Methicillin susceptible Staphylococcus aureus; N18.6 End stage renal disease; I13.2 Hypertensive heart and chronic kidney disease with heart failure and with stage 5 chronic kidney disease, or end stage renal disease; I16.1 Hypertensive emergency; I50.42 Chronic combined systolic (congestive) and diastolic (congestive) heart failure; E87.2 Acidosis; I42.8 Other cardiomyopathies; N17.9 Acute kidney failure, unspecified; T46.5X6A Underdosing of other antihypertensive drugs, initial encounter; I08.3 Combined rheumatic disorders of mitral, aortic and tricuspid valves; Y71.2 Prosthetic and other implants, materials and accessory cardiovascular devices associated with adverse incidents; E87.5 Hyperkalemia; K59.00 Constipation, unspecified; F32.A Depression, unspecified; E66.9 Obesity, unspecified; D63.1 Anemia in chronic kidney disease; Z20.822 Contact with and (suspected) exposure to COVID-19; J45.909 Unspecified asthma, uncomplicated; Z68.37 Body mass index [BMI] 37.0-37.9, adult; I27.20 Pulmonary hypertension, unspecified; Z99.2 Dependence on renal dialysis; Z79.899 Other long term (current) drug therapy; Z91.14 Patient's other noncompliance with medication regimen; Z83.3 Family history of diabetes mellitus
CPT/HCPCS: 36415; 36558; 70450; 71045; 71046; 72110; 76770; 76937; 77001; 80048; 80053; 80202; 81001; 83605; 83735; 83880; 84100; 84145; 84484; 85025; 85610; 86140; 87040; 87070; 87077; 87186; 87502; 87635; 90935; 93005; 93308; 93970; 94760; 96374; 99285